=== PATIENT | male | born 1970 | race Caucasian/White ===

== ENCOUNTER 2019-04-06 06:32 | Inpatient (IN) ==
[2019-04-06 07:03] LABS: Basophils % 0.2 % (0.1-2.0); Eosinophils # 0.1 K/mm3 (0.0-0.4); Eosinophils % 0.5 % (0.1-12.0); Hematocrit 42.1 % (42.0-52.0); Hemoglobin 13.3 g/dL (14.1-18.0); Lymphocytes % 14.6 % (10-50); Mean Corpuscular HGB Conc 31.7 g/dL (31.8-35.4); Mean Corpuscular Volume 87.4 fl (80-94); Mean Platelet Volume 8.6 fl (7.4-10.4); Monocytes # 0.6 K/mm3 (0.1-1.0); Monocytes % 4.3 % (1.7-9.3); Neutrophils # 10.9 K/mm3 (1.8-7.8); Neutrophils % 80.4 % (37.0-80.0); Platelet Count 306 K/mm3 (142-424); Red Blood Count 4.81 M/mm3 (4.60-6.20); Red Cell Distribution Width 13.3 % (11.5-17.5); White Blood Count 13.6 K/mm3 (4.8-10.8)
[2019-04-06 07:22] LABS: Alanine Aminotransferase 8 U/L (12-78); Albumin Level 1.9 gm/dL (3.4-5.0); Albumin/Globulin Ratio 0.4 (1.1-1.8); Alkaline Phosphatase 165 U/L (46-116); Anion Gap 14.4 mEq/L (5-15); Aspartate Amino Transferase 5 U/L (15-37); Bilirubin,Total 0.5 mg/dL (0.2-1.0); Blood Urea Nitrogen 6 mg/dL (7-18); Calcium 8.7 mg/dL (8.5-10.1); Carbon Dioxide 24 mmol/L (21.0-32.0); Chloride 88 mmol/L (98-107); Globulin 5.1 gm/dl (1.3-3.2); Sodium 123 mmol/L (136-145)
[2019-04-06 07:28] LABS: Acetone, Serum (Rapid) None Detected (None Detect); Glucose 697 mg/dL (74-106)
--- NOTE | 2019-04-06 07:31 | Emergency Department Note ---
ED Disposition Clinical Impression: Diabetes mellitus, insulin dependent (IDDM), uncontrolled, Tobacco use Abscess of skin and subcutaneous tissue Qualifiers: Site of cutaneous abscess: trunk Site of cutaneous abscess of trunk: back Qualified Code(s): L02.212 - Cutaneous abscess of back [any part, except buttock] Sepsis Qualifiers: Sepsis type: sepsis due to unspecified organism Sepsis acute organ dysfunction status: without acute organ dysfunction Qualified Code(s): A41.9 - Sepsis, unspecified organism Disposition: Admitted As Inpatient Condition on Discharge: Good Referrals: Provider,Referral, [Primary Care Provider] - - Critical Care Critical Care Time: No Attestation: On 04/06/19, the high probability of a clinically significant, sudden or life threatening deterioration of the following system(s) required my full and direct attention, intervention and personal management. The time I documented below is in addition to time spent performing reported procedures but includes the f ollowing listed in this critical care notation. Medical Decision Making - Medical Records Medical records reviewed: Yes: I reviewed the patient's medical records. - Renan Inquiry Pt receiving controlled substance: No Vital Signs: 04/06/19 06:26 Temperature 100.9 F H Temperature Source Oral Pulse Rate [Left Radial] 106 H Respiratory Rate 18 Blood Pressure [Right Arm] 186/87 H Blood Pressure Mean [Right Arm] 120 02 Sat by Pulse Oximetry 97 Oxygen Delivery Method Room Air - Lab Data Lab results reviewed: Yes: I reviewed the patient's lab results. Lab Results 04/06/19 06:30: WBC 13.6 H, RBC 4.81, Hgb 13.3 L, Hct 42.1, MCV 87.4, MCH 27.7, MCHC 31.7 L, RDW 13.3, Plt Count 306, MPV 8.6, Neut % (Auto) 80.4 H, Lymph % (Auto) 14.6, [place] % (Auto) 4.3, Eos % (Auto) 0.5, Baso % (Auto) 0.2, Neut # (Auto) 10.9 H, Lymph # (Auto) 2.0, [place] # (Auto) 0.6, Eos # (Auto) 0.1, Baso # (Auto) 0.0 Result diagrams: 04/06/19 06:30 Orders (Tests/Meds): ED MEDICATIONS Generic Name Dose Route Start Last Admin Trade Name Freq PRN Reason Stop Dose Admin Sodium Chloride 1,000 mls @ 999 mls/hr 04/06/19 07:00 04/06/19 06:52 Sod Chlor 0.9% 1000ml Bag IV 04/06/19 08:00 999 mls/hr .Q1H1M AMARI Administration Discontinued Medications Generic Name Dose Route Start Last Admin Trade Name Jose PRN Reason Stop Dose Admin Ketorolac Tromethamine 30 mg 04/06/19 06:47 04/06/19 06:52 Toradol 30mg/Ml Vial IV 04/06/19 06:48 30 mg ONCE ONE Administration Ondansetron HCl 4 mg 04/06/19 06:47 04/06/19 06:52 Zofran 4mg/2ml Vial IV 04/06/19 06:48 4 mg ONCE ONE Administration ORDERS Category Date Time Status Acetone, Serum (Rapid) Stat Lab 04/06/19 06:30 Received C-Reactive Protein Stat Lab 04/06/19 06:30 Received Complete Blood Count Auto Diff Stat Lab 04/06/19 06:30 Results Comprehensive Metabolic Panel Stat Lab 04/06/19 06:30 Received Erythrocyte Sedimentation Rate Stat Lab 04/06/19 06:30 Results Lactic Acid Stat Lab 04/06/19 06:40 Received Urinalysis and Microscopic Stat Lab 04/06/19 06:47 Ordered Blood Culture Stat Micro 04/06/19 06:40 Received General Adult HPI - General Chief complaint: PAIN Stated complaint: abcess to left shoulder Time Seen by Provider: 04/06/19 07:00 Mode of Arrival: EMS Source of Information: Patient, EMS, Medical Record Limitations: No Limitations Description of Symptoms (Recalled from ER Triage Doc. by RN): pt stated his kitten scratched him about 4-5 days ago on his left shoulder. obvious redness and abcess to left shoulder. - History of Present Illness HPI narrative: iddm pt with abscess to lt shoulder over the last few days Onset (ago): day(s) Location: back Severity: moderate Associated symptoms: denies other symptoms Treatments prior to arrival: none - Related Data Allergies Allergy/AdvReac Type Severity Reaction Status Date / Time codeine Allergy Verified 04/06/19 06:42 [facility] History - Hepatitis A Screen Drug use history?: No High risk sexual behaviors?: No History of sexually transmitted infection?: No Currently employed?: No Childcare worker?: No Do you have indoor plumbing?: Yes Do you have electricity?: Yes Attestation statement:: This patient has been screened for Hepatitis A risk factors. I have reviewed the patient's past medical history: Yes Medical History: Denies:: Diabetes Mellitus Type 2 - Social History Educational Level: Completed High School Alcohol Intake: never Occupational Status: disabled Housing: apartment Household Members: spouse ROS Obtained: Yes All systems reviewed & no additional complaints - Constitutional Constitutional: Denies fever(s) - Eyes Eyes: Denies change in vision - ENT Ears, Nose, Mouth, and Throat: Denies sore throat - Cardiovascular Cardiovascular: Denies chest pain - Respiratory Respiratory: No cough - Gastrointestinal Gastrointestingal: Denies: abdominal pain - Genitourinary Male Genitourinary: Denies hematuria - Musculoskeletal Musculoskeletal: Denies joint pain - Integumentary/Breasts Skin/Breast: Reports as per HPI - Neurologic Neurologic: Denies seizure-like activity Physical Exam - General General appearance: alert - Head Head exam: normocephalic - Eye Eye exam: Present: PERRL, EOMI - ENT ENT exam: Present: mucous membranes dry - Neck Neck exam: Present: trachea midline - Respiratory Respiratory exam: Present: normal lung sounds bilaterally. Absent: respiratory distress - Cardiovascular Cardiovascular exam: Present: regular rate, systolic murmur - Extremities Exam Extremities exam: Present: full ROM - Neurological Exam Neurological exam: Present: alert, oriented X3, CN II-XII intact - Psychiatric Psychiatric exam: Present: normal affect - Skin Skin exam: Present: other (large indurated abscess lt scapular area )
[2019-04-06 07:42] LABS: C-Reactive Protein 29.4 mg/dL (0.0-0.9)
[2019-04-06 07:44] LABS: Erythrocyte Sedimentation Rate 39 mm/hr (0-15)
[2019-04-06 07:59] LABS: Microscopic, Urine URINE MICROSCOPIC (MICROSCOPIC)
[2019-04-06 08:00] LABS: Appearance,Urine CLEAR (Clear); Bilirubin,Urine Negative (Negative); Blood, Urine 1+ (Negative); Color,Urine YELLOW (Yellow); Glucose,Urine (UA) 3+ (Negative); Ketones,Urine Negative (Negative); Leukocyte Esterase,Urine Negative (Negative); Protein,Urine 1+ (Negative); Specific Gravity, Urine <= 1.005 (1.005-1.030); Urobilinogen,Urine 0.2 EU/dl (0.2)
[2019-04-06 08:24] LABS: Amorphous Sediment,Urine Trace /lpf; Bacteria,Urine Trace /lpf; Squamous Epithelial Cell,Urine Occasional #/hpf (0-5)
--- NOTE | 2019-04-06 12:06 | History & Physical Report ---
*Admission Date: 04/06/19 *Chief complaint: abscess *History of present illness: this wm presented to the ed with abscess to lt scapular region after reported cat scratch- he is iddm and had sig abscess noed in the ed which would need iv abx and surg eval for prob surg debridment [facility] History I have reviewed the patient's past medical history: Yes Medical History: Reports:: Diabetes Mellitus Type 2, MRSA Denies:: Cancer *Have you ever received a pneumonia vaccine?: Yes *Have you received a flu vaccine this season?: Yes Laterality Cases: Right: Total Knee Replacement Other Surgeries: Yes: Cholecystectomy Amputation: No Fractures: No - *Social History Educational Level: Completed High School Smoking Status: Current every day smoker # Packs/Day (cigarettes): 1 Alcohol Intake: never *Occupational Status:: disabled Housing: apartment Household Members: spouse *Travel in the last 8 weeks: None - Psychiatric History Expresses thoughts of harming self/others: None Suicide Plan Description: No Plan Family Hx:: Asthma, Coronary Artery Disease, Hyperlipidemia, Hypertension, Stroke Review of Systems - Review of Systems Review of systems:: pertinent systems reviewed and negative unless documented below - Constitutional Reports fever(s) - Eyes Denies change in vision - ENT Reports sore throat - *Cardiovascular Denies chest pain - *Respiratory Denies cough - *Gastrointestinal Denies abdominal pain - *Genitourinary Denies blood in urine - *Musculoskeletal Denies joint pain - Integumentary/Breasts Denies rash - *Neurologic Denies seizure-like activity - Psychiatric Denies anxiety Meds Home Medications Medication Instructions Recorded Confirmed Type Insulin Glargine,Hum.rec.anlog 20 unit SQ BID 04/06/19 04/06/19 History [Lantus Insulin 100units/mL 10mL vial] Lisinopril [Prinivil 5mg Tablet] 5 mg PO DAILY 04/06/19 04/06/19 History glipiZIDE [Glucotrol 5mg tablet] 5 mg PO DAILY 04/06/19 04/06/19 History Allergies Allergy/AdvReac Type Severity Reaction Status Date / Time codeine Allergy Verified 04/06/19 06:42 Exam Vital signs and Labs for Last 24 Hours: Temp Pulse Resp BP Pulse Ox 98.3 F 93 H 18 131/82 98 04/06/19 09:12 04/06/19 09:12 04/06/19 09:12 04/06/19 09:12 04/06/19 09:12 Laboratory Results - last 24 hr 04/06/19 06:30: WBC 13.6 H, RBC 4.81, Hgb 13.3 L, Hct 42.1, MCV 87.4, MCH 27.7, MCHC 31.7 L, RDW 13.3, Plt Count 306, MPV 8.6, Neut % (Auto) 80.4 H, Lymph % (Auto) 14.6, [place] % (Auto) 4.3, Eos % (Auto) 0.5, Baso % (Auto) 0.2, Neut # (Auto) 10.9 H, Lymph # (Auto) 2.0, [place] # (Auto) 0.6, Eos # (Auto) 0.1, Baso # (Auto) 0.0, ESR 39 H 04/06/19 06:30: Sodium 123 L, Potassium 3.4 L, Chloride 88 L, Carbon Dioxide 24, Anion Gap 14.4, BUN 6 L, Creatinine 1.30, Estimated Creat Clear 98, Estimated GFR 59, Est GFR ( Amer) 71, Glucose 697 H*, Calcium 8.7, Total Bilirubin 0.5, AST 5 L, ALT 8 L, Alkaline Phosphatase 165 H, C-Reactive Protein 29.4 H, Total Protein 7.0, Albumin 1.9 L, Globulin 5.1 H, Albumin/Globulin Ratio 0.4 L, Acetone Level None detected 04/06/19 06:40: Lactate 2.2 H 04/06/19 07:50: Urine Color Yellow, Urine Appearance Clear, Urine pH 6.0, Ur Specific [place] <= 1.005, Urine Protein 1+, Urine Glucose (UA) 3+, Urine Ketones Negative, Urine Blood 1+, Urine Nitrate Negative, Urine Bilirubin Negative, Urine Urobilinogen 0.2, Ur Leukocyte Esterase Negative, Urine RBC 5- 10, Urine WBC 10-20, Ur Squamous Epith Cells Occasional, Amorphous Sediment Trace, Urine Bacteria Trace 04/06/19 11:20: Lactate 1.0 04/06/19 11:33: POC Glucose 440 H* I & O for Last 24 hours: Intake & Output 04/04/19 04/05/19 04/06/19 04/07/19 11:59 11:59 11:59 11:59 Weight 199 lb 2 oz - Constitutional no acute distress - *Routine HEENT Exam Head: Present: normocephalic Eye: Present: EOMI, PERRL ENT: Present: mucous membranes dry - *Routine Neck Exam Present: supple - *Routine Respiratory Exam Present: CTA bilaterally - *Routine Cardiovascular Exam Present: RRR, murmur - *Routine Abdominal Exam Present: soft - *Routine Extremities Exam Present: full ROM - *Routine Skin Exam Comments: large lt scapular abscess - *Routine Neurological Exam Present: alert, oriented X3, CN II-XII intact - Routine Psychiatric Exam Present: normal affect Assessment and Plan (1) Abscess of skin and subcutaneous tissue Current visit: Yes Status: Acute Qualifiers: Site of cutaneous abscess: trunk Site of cutaneous abscess of trunk: back Qualified Code(s): L02.212 - Cutaneous abscess of back [any part, except buttock] Category: Medical Code(s): L02.91 - Cutaneous abscess, unspecified (2) Diabetes mellitus, insulin dependent (IDDM), uncontrolled Current visit: Yes Status: Acute Category: Medical Code(s): E11.65 - Type 2 diabetes mellitus with hyperglycemia; Z79.4 - senior care (current) use of insulin (3) Tobacco use Current visit: Yes Status: Acute Category: Medical Code(s): Z72.0 - Tobacco use (4) Sepsis Current visit: Yes Status: Acute Qualifiers: Sepsis type: sepsis due to unspecified organism Sepsis acute organ dysfunction status: without acute organ dysfunction Qualified Code(s): A41.9 - Sepsis, unspecified organism Category: Medical Code(s): A41.9 - Sepsis, unspecified organism
--- NOTE | 2019-04-06 13:32 | Consult Report ---
*Admission Date: 04/06/19 *Reason for consult:: Abscess *History of present illness: Patient is a 48-year-old white male who resides at the [facility]. He is a diabetic. He states that several days ago he had sustained a cat scratch on his back. Today it became increasingly tender and sore with radiation of pain into his posterior neck area. He presented to the emergency department where he was seen and evaluated and found to have a large abscess over the left shoulder area. He had profound hyperglycemia with glucose of 697. He was admitted for inpatient management and surgical consultation. He was started on Zosyn and clindamycin. Review of Systems - Review of Systems Review of systems:: pertinent systems reviewed and negative unless documented below - *Neurologic Denies seizure-like activity [facility] History Medical History: Reports:: Diabetes Mellitus Type 2, MRSA Denies:: Cancer *Have you ever received a pneumonia vaccine?: Yes *Have you received a flu vaccine this season?: Yes Laterality Cases: Right: Total Knee Replacement Other Surgeries: Yes: Cholecystectomy Amputation: No Fractures: No - *Social History Educational Level: Completed High School Smoking Status: Current every day smoker # Packs/Day (cigarettes): 1 Alcohol Intake: never *Occupational Status:: disabled Housing: apartment Household Members: spouse *Travel in the last 8 weeks: None - Psychiatric History Expresses thoughts of harming self/others: None Suicide Plan Description: No Plan Family Hx:: Asthma, Coronary Artery Disease, Hyperlipidemia, Hypertension, Stroke Meds Home Medications Medication Instructions Recorded Confirmed Type Insulin Glargine,Hum.rec.anlog 20 unit SQ BID 04/06/19 04/06/19 History [Lantus Insulin 100units/mL 10mL vial] Lisinopril [Prinivil 5mg Tablet] 5 mg PO DAILY 04/06/19 04/06/19 History glipiZIDE [Glucotrol 5mg tablet] 5 mg PO DAILY 04/06/19 04/06/19 History Allergies Allergy/AdvReac Type Severity Reaction Status Date / Time codeine Allergy Verified 04/06/19 06:42 Exam Vital signs and Labs for Last 24 Hours: Temp Pulse Resp BP Pulse Ox 98.3 F 93 H 18 131/82 98 04/06/19 09:12 04/06/19 09:12 04/06/19 09:12 04/06/19 09:12 04/06/19 09:12 Laboratory Results - last 24 hr 04/06/19 06:30: WBC 13.6 H, RBC 4.81, Hgb 13.3 L, Hct 42.1, MCV 87.4, MCH 27.7, MCHC 31.7 L, RDW 13.3, Plt Count 306, MPV 8.6, Neut % (Auto) 80.4 H, Lymph % (Auto) 14.6, [place] % (Auto) 4.3, Eos % (Auto) 0.5, Baso % (Auto) 0.2, Neut # ( Auto) 10.9 H, Lymph # (Auto) 2.0, [place] # (Auto) 0.6, Eos # (Auto) 0.1, Baso # (Auto) 0.0, ESR 39 H 04/06/19 06:30: Sodium 123 L, Potassium 3.4 L, Chloride 88 L, Carbon Dioxide 24, Anion Gap 14.4, BUN 6 L, Creatinine 1.30, Estimated Creat Clear 98, Estimated GFR 59, Est GFR ( Amer) 71, Glucose 697 H*, Calcium 8.7, Total Bilirubin 0.5, AST 5 L, ALT 8 L, Alkaline Phosphatase 165 H, C-Reactive Protein 29.4 H, Total Protein 7.0, Albumin 1.9 L, Globulin 5.1 H, Albumin/Globulin Ratio 0.4 L, Acetone Level None detected 04/06/19 06:40: Lactate 2.2 H 04/06/19 07:50: Urine Color Yellow, Urine Appearance Clear, Urine pH 6.0, Ur Specific [place] <= 1.005, Urine Protein 1+, Urine Glucose (UA) 3+, Urine Ketones Negative, Urine Blood 1+, Urine Nitrate Negative, Urine Bilirubin Negative, Urine Urobilinogen 0.2, Ur Leukocyte Esterase Negative, Urine RBC 5- 10, Urine WBC 10-20, Ur Squamous Epith Cells Occasional, Amorphous Sediment Trace, Urine Bacteria Trace 04/06/19 11:20: Lactate 1.0 04/06/19 11:33: POC Glucose 440 H* I & O for Last 24 hours: Intake & Output 04/04/19 04/05/19 04/06/19 04/07/19 11:59 11:59 11:59 11:59 Weight 199 lb 2 oz - *Routine HEENT Exam Head: Present: normocephalic Eye: Present: EOMI, PERRL ENT: Present: mucous membranes moist - *Routine Neck Exam Present: supple. Absent: lymphadenopathy - *Routine Respiratory Exam Present: CTA bilaterally - *Routine Cardiovascular Exam Present: RRR - *Routine Abdominal Exam Present: soft, normoactive bowel sounds. Absent: tenderness - *Routine Extremities Exam Absent: cyanosis, clubbing, edema - *Routine Skin Exam Present: rash Comments: On the left upper back overlying the trapezius region there is a large indurated area with overlying erythema. It is very tender. There are multiple punctate purulent areas some of which have exudate. - *Routine Neurological Exam Present: alert, oriented X3 - Detailed Eye Exam Eyelids: Left normal inspection Results - Labs 04/06/19 06:30 04/06/19 06:30 Laboratory Results - last 24 hr 04/06/19 06:30: WBC 13.6 H, RBC 4.81, Hgb 13.3 L, Hct 42.1, MCV 87.4, MCH 27.7, MCHC 31.7 L, RDW 13.3, Plt Count 306, MPV 8.6, Neut % (Auto) 80.4 H, Lymph % (Auto) 14.6, [place] % (Auto) 4.3, Eos % (Auto) 0.5, Baso % (Auto) 0.2, Neut # (Auto) 10.9 H, Lymph # (Auto) 2.0, [place] # (Auto) 0.6, Eos # (Auto) 0.1, Baso # (Auto) 0.0, ESR 39 H 04/06/19 06:30: Sodium 123 L, Potassium 3.4 L, Chloride 88 L, Carbon Dioxide 24, Anion Gap 14.4, BUN 6 L, Creatinine 1.30, Estimated Creat Clear 98, Estimated GFR 59, Est GFR ( Amer) 71, Glucose 697 H*, Calcium 8.7, Total Bilirubin 0.5, AST 5 L, ALT 8 L, Alkaline Phosphatase 165 H, C-Reactive Protein 29.4 H, Total Protein 7.0, Albumin 1.9 L, Globulin 5.1 H, Albumin/Globulin Ratio 0.4 L, Acetone Level None detected 04/06/19 06:40: Lactate 2.2 H 04/06/19 07:50: Urine Color Yellow, Urine Appearance Clear, Urine pH 6.0, Ur Specific [place] <= 1.005, Urine Protein 1+, Urine Glucose (UA) 3+, Urine Ketones Negative, Urine Blood 1+, Urine Nitrate Negative, Urine Bilirubin Negative, Urine Urobilinogen 0.2, Ur Leukocyte Esterase Negative, Urine RBC 5- 10, Urine WBC 10-20, Ur Squamous Epith Cells Occasional, Amorphous Sediment Trace, Urine Bacteria Trace 04/06/19 11:20: Lactate 1.0 04/06/19 11:33: POC Glucose 440 H* Assessment and Plan - Assessment and plan all Dx Assessment and Plan for all problems:: He has a soft tissue infection with abscess of the left upper back area. Plan for emergent operative intervention with incision and drainage and debridement.
--- NOTE | 2019-04-06 14:46 | Operative Note ---
Date of procedure: 04/06/19 Pre-op Diagnosis:: Soft tissue infection of the left upper back Post-op Diagnosis:: Same Procedure performed:: Incision and drainage of complex deep abscess from the left upper back with debridement of skin, subcutaneous tissue, fascia, limited muscle. Surgeon:: Mike Morales MD WATCH MECHANIC:: Arnav Milner Anesthesia: GETA Estimated blood loss (mL): 15 Clinical Note:: Patient is a 48-year-old diabetic male. He states that about 4 or 5 days prior to presentation he had developed a cat scratch on his left upper back over the trapezius area. According to him it became somewhat purulent and he states that when it finally got to the point of severe throbbing pain radiating into his neck he presented to the emergency department. He was seen and evaluated in the emergency department this morning and found to have evidence of significant abscess of the left upper back area with profound hyperglycemia with a blood sugar of 697. He was admitted for inpatient management and surgical consultation. Arrangements were made for urgent incision and drainage and debridement. Operative findings:: He had evidence of necrotizing soft tissue infection involving subcutaneous tissues and fascia. There was purulence tracking through the subcutaneous tissues and deep to the fascia to some degree with evidence of some areas of liquefied necrosis of tissues. Overall size of the wound was debrided to healthy tissues measured 6 cm x 11 cm x 3.5 cM in depth. Operative note:: Patient was taken to the operating room. He was positioned in a supine position. General anesthesia was induced. He was repositioned in right lateral decubitus position. The area was prepped and draped in the standard surgical fashion. He had evidence of some necrosis of the skin characterized by multiple small exudative purulent ulcerations. Limited incision was made centrally in the area of most of affected tissue. Dissection was carried down through to the skin. There was large amount of very thickened necrotic pus which exuded from the wound. This was sent for culture. Limited debridement was carried out initially. There is purulence fluid tracking throughout the subcutaneous tissues and traversing deeply. Sequential serial incisions were made circumferentially from the central point with serial debridement carried out until healthy nonnecrotic tissues were encountered. This did require some dissection down to, and including, fascia with limited muscle involvement. Ul timately the debrided tissue was sent as specimen. Once debridement was carried out to healthy tissue the wound was thoroughly irrigated with 3 L of pulsatile saline irrigation using the Interpulse device. Hemostasis was achieved with use of electrocautery. Local anesthetic was infiltrated. Wound was packed with a saline moistened Kerlix gauze and covered with clean dry sterile dressing. Please note that the size of the wound once debridement was carried out measured approximately 6 cm x 11 cm x 3-1/2 cm. Condition: stable Disposition: PACU Specimens:: Debrided tissue. Cultures sent Complications:: None immediately apparent
--- NOTE | 2019-04-06 14:47 | Progress Note ---
[facility] Anesthesia Checklist - Patient Identification Patient Identification: Arm Band - Structural Data Admitted From: Inpatient Planned Operative Procedure/s: I&D back abscess Consent for Planned Operative Procedure(s) Verified: Yes Verified Documents: Surgical Consent, History and Physical - NPO Status Verified Time NPO: 00:00 - Additional verifications Anesthesia Reactions: No - Airway Assessment C-Spine Mobility Assessed: Yes (mp2) TMJ Mobility Assessed: Yes Dentition: Edentulous - Neurological Assessment Level of Consciousness: Awake, Alert - Anesthesia Plan Anesthesia Risk discussed: Yes Anesthesia Plan: Verified ASA Class: III Anesthesia Type: General [facility] History I have reviewed the patient's past medical history: Yes Medical History: Reports:: Diabetes Mellitus Type 2, Hypertension, MRSA Denies:: Cancer *Have you ever received a pneumonia vaccine?: Yes *Have you received a flu vaccine this season?: Yes Laterality Cases: Right: Total Knee Replacement Other Surgeries: Yes: Cholecystectomy Amputation: No Fractures: No - *Social History Educational Level: Completed High School Smoking Status: Current every day smoker # Packs/Day (cigarettes): 1 Alcohol Intake: never Substance Use Type: denies use *Occupational Status:: disabled Housing: apartment Household Members: spouse *Travel in the last 8 weeks: None - Psychiatric History Expresses thoughts of harming self/others: None Suicide Plan Description: No Plan Family Hx:: Asthma, Coronary Artery Disease, Hyperlipidemia, Hypertension, Stroke
--- NOTE | 2019-04-06 14:48 | Progress Note ---
[facility] Anesthesia Record Part II Discharge Time: 15:10 Destination: [facility] PACU nurse assessment reviewed?: Yes Patient Condition:: Good Anesthesia Complications:: None Swallowing reflex intact?: Yes Cyanosis?: No
--- NOTE | 2019-04-06 14:48 | Progress Note ---
[facility] Anesthesia Record Part I Intake, IV Amount: 1,000 Estimated blood loss (mL): 15 Urine output (mL): 0 Blood Pressure: 84/44 SaO2: 96 Pulse Rate: 74 Respiratory Rate: 16 Temperature: 97 F Patient is:: Drowsy, Stable Stable to PACU at:: 14:40
[2019-04-07 07:30] LABS: Basophils % 0.2 % (0.1-2.0); Eosinophils # 0.2 K/mm3 (0.0-0.4); Eosinophils % 2.1 % (0.1-12.0); Hematocrit 33.3 % (42.0-52.0); Hemoglobin 10.9 g/dL (14.1-18.0); Lymphocytes % 27.1 % (10-50); Mean Corpuscular HGB Conc 32.7 g/dL (31.8-35.4); Mean Corpuscular Volume 84.4 fl (80-94); Mean Platelet Volume 8.2 fl (7.4-10.4); Monocytes # 0.3 K/mm3 (0.1-1.0); Monocytes % 4.2 % (1.7-9.3); Neutrophils # 4.8 K/mm3 (1.8-7.8); Neutrophils % 66.4 % (37.0-80.0); Platelet Count 264 K/mm3 (142-424); Red Blood Count 3.94 M/mm3 (4.60-6.20); Red Cell Distribution Width 13.4 % (11.5-17.5); White Blood Count 7.2 K/mm3 (4.8-10.8)
[2019-04-07 07:39] LABS: Anion Gap 9.1 mEq/L (5-15); Calcium 8.3 mg/dL (8.5-10.1); Chol/HDL Ratio 6.1 (1-3.5)
--- NOTE | 2019-04-07 07:45 | Pharmacy Consult Notes ---
[facility] Pharmacy VTE Monitoring - Patient Demographics Admission date: 04/06/19 Report Date: 04/07/19 Time: 07:45 Allergies/Adverse Reactions: Patient Allergies codeine Allergy (Verified 04/06/19 06:42) Height: 1.8 m Weight: 92.108 kg Patient Problems: Current Active Problems Abscess of skin and subcutaneous tissue (Acute) Diabetes mellitus, insulin dependent (IDDM), uncontrolled (Acute) Tobacco use (Acute) Sepsis (Acute) - VTE Risk Labs: VTE Related Lab Results Hgb 13.3 g/dL (14.1-18.0) L 04/06/19 06:30 Hct 42.1 % (42.0-52.0) 04/06/19 06:30 Plt Count 306 K/mm3 (142-424) 04/06/19 06:30 BUN 6 mg/dL (7-18) L 04/06/19 06:30 Creatinine 1.30 mg/dL (0.70-1.30) 04/06/19 06:30 Estimated Creat Clear 98 mL/min (50-200) 04/06/19 06:30 VTE Score: 3 VTE Risk Level: Low Risk - Prophylaxis VTE Prophylaxis Ordered?: Yes Types of VTE Prophylaxis: TEDS Knee High Location of Applied Device: Bilateral Lower Extremeties - VTE Diagnosis Confirmed Treatment or plan recommended: Continue Current Treatment
--- NOTE | 2019-04-07 08:54 | Progress Note ---
Subjective Patient reports: no new complaints Exam Vital signs and Labs for Last 24 Hours: Temp Pulse Resp BP Pulse Ox 98.1 F 84 16 209/97 H 100 04/07/19 08:00 04/07/19 08:00 04/07/19 08:00 04/07/19 08:00 04/07/19 08:00 Laboratory Results - last 24 hr 04/06/19 11:20: Lactate 1.0 04/06/19 11:33: POC Glucose 440 H* 04/06/19 13:26: POC Glucose 288 H 04/06/19 14:10: POC Glucose 173 H 04/06/19 17:02: POC Glucose 85 04/06/19 20:18: POC Glucose 280 H 04/07/19 02:57: POC Glucose 186 H 04/07/19 05:11: POC Glucose 189 H 04/07/19 06:52: WBC 7.2 D, RBC 3.94 L, Hgb 10.9 L, Hct 33.3 L, MCV 84.4, MCH 27.6, MCHC 32.7, RDW 13.4, Plt Count 264, MPV 8.2, Neut % (Auto) 66.4, Lymph % (Auto) 27.1, [place] % (Auto) 4.2, Eos % (Auto) 2.1, Baso % (Auto) 0.2, Neut # (Auto) 4.8, Lymph # (Auto) 2.0, [place] # (Auto) 0.3, Eos # (Auto) 0.2, Baso # (Auto) 0.0 04/07/19 06:52: Sodium 135 L, Potassium 3.1 L, Chloride 100, Carbon Dioxide 29 D, Anion Gap 9.1, BUN 10 D, Creatinine 1.13, Estimated Creat Clear 104, Estimated GFR 69, Est GFR ( Amer) 84, Glucose 172 H, Calcium 8.3 L, Magnesium 1.5, Triglycerides 166, Cholesterol 97 L, LDL Cholesterol 48, VLDL Cholesterol 33, HDL Cholesterol 16 L, Cholesterol/HDL Ratio 6.1 H I & O for Last 24 hours: Intake & Output 04/04/19 04/05/19 04/06/19 04/07/19 11:59 11:59 11:59 11:59 Intake Total 4112 / 4112 Output Total 100 / 100 Balance 4012 / 4012 Weight 199 lb 2 oz 203 lb 1 oz Microbiology Reports for the Last 24 Hours: Microbiology 04/06/19 07:50 Urine,Clean Catch Urine Culture - Preliminary NO GROWTH AFTER 24 HOURS 04/06/19 14:00 Back Gram Stain - Final - *Routine Skin Exam Comments: There is minimal erythema around the wound but overall clean with no evidence of any purulent drainage or necrosis. Progress Note: A&P (1) Abscess of skin and subcutaneous tissue Status: Acute Current Visit: Yes (2) Diabetes mellitus, insulin dependent (IDDM), uncontrolled Status: Acute Current Visit: Yes (3) Tobacco use Status: Acute Current Visit: Yes (4) Sepsis Status: Acute Current Visit: Yes Assessment and Plan for All Diagnoses:: Continue wound care. Continue antibiotics. Cultures pending. Ultimately will need VAC dressing.
--- NOTE | 2019-04-07 12:48 | Progress Note ---
Internal Medicine - PN: Subj *Date: 04/07/19 *Time: 12:52 Interval history: 48-year-old patient sitting up in bed respirations easy and even denies chest pain or S0A. Dressing to left upper back clean dry and intact. Patient reports pain is under control and denies any needs at this time. Patient is a 48-year-old diabetic male. He states that about 4 or 5 days prior to presentation he had developed a cat scratch on his left upper back over the trapezius area. According to him it became somewhat purulent and he states that when it finally got to the point of severe throbbing pain radiating into his neck he presented to the emergency department. He was seen and evaluated in the emergency department this morning and found to have evidence of significant abscess of the left upper back area with profound hyperglycemia with a blood sugar of 697. He was admitted for inpatient management and surgical consultation. Arrangements were made for urgent incision and drainage and debridement (per Dr. Morales). Debridement 04/06/2019: Incision and drainage of complex deep abscess from the left upper back with debridement of skin, subcutaneous tissue, fascia, limited muscle (per Dr. Morales). Exam Vital signs and Labs for Last 24 Hours: Temp Pulse Resp BP Pulse Ox 98.2 F 84 20 168/62 H 100 04/07/19 12:00 04/07/19 08:00 04/07/19 12:00 04/07/19 12:00 04/07/19 12:00 Laboratory Results - last 24 hr 04/06/19 13:26: POC Glucose 288 H 04/06/19 14:10: POC Glucose 173 H 04/06/19 14:51: POC Glucose 122 H 04/06/19 17:02: POC Glucose 85 04/06/19 20:18: POC Glucose 280 H 04/07/19 02:57: POC Glucose 186 H 04/07/19 05:11: POC Glucose 189 H 04/07/19 06:52: WBC 7.2 D, RBC 3.94 L, Hgb 10.9 L, Hct 33.3 L, MCV 84.4, MCH 27.6, MCHC 32.7, RDW 13.4, Plt Count 264, MPV 8.2, Neut % (Auto) 66.4, Lymph % (Auto) 27.1, [place] % (Auto) 4.2, Eos % (Auto) 2.1, Baso % (Auto) 0.2, Neut # (Auto) 4.8, Lymph # (Auto) 2.0, [place] # (Auto) 0.3, Eos # (Auto) 0.2, Baso # (Auto) 0.0 04/07/19 06:52: Sodium 135 L, Potassium 3.1 L, Chloride 100, Carbon Dioxide 29 D, Anion Gap 9.1, BUN 10 D, Creatinine 1.13, Estimated Creat Clear 104, Estimated GFR 69, Est GFR ( Amer) 84, Glucose 172 H, Calcium 8.3 L, Magnesium 1.5, Triglycerides 166, Cholesterol 97 L, LDL Cholesterol 48, VLDL Cholesterol 33, HDL Cholesterol 16 L, Cholesterol/HDL Ratio 6.1 H 04/07/19 11:01: POC Glucose 168 H I & O for Last 24 hours: Intake & Output 04/04/19 04/05/19 04/06/19 04/07/19 23:59 23:59 23:59 23:59 Intake Total 2108 Output Total 100 / 100 Balance 2108 1903 / 1903 Weight 199 lb 2 oz 203 lb 1 oz Microbiology Reports for the Last 24 Hours: Microbiology 04/06/19 07:50 Urine,Clean Catch Urine Culture - Preliminary NO GROWTH AFTER 24 HOURS 04/06/19 14:00 Back Gram Stain - Final - Constitutional no acute distress - *Routine HEENT Exam Head: Present: normocephalic, atraumatic. Absent: tenderness of temporal artery Eye: Present: EOMI, PERRL, normal accommodation. Absent: periorbital swelling ENT: Present: mucous membranes moist. Absent: septal deviation - *Routine Neck Exam Present: supple, full ROM. Absent: JVD - *Routine Respiratory Exam Absent: accessory muscle use - *Routine Cardiovascular Exam Present: RRR, murmur - *Routine Abdominal Exam Present: soft, normoactive bowel sounds. Absent: tenderness, rigid - *Routine Extremities Exam Present: full ROM. Absent: edema, calf tenderness - Routine Back/Spine/Pelvis Exam Back/Spine: Present: full ROM. Absent: CVA tenderness - *Routine Skin Exam Present: warm, wounds. Absent: cyanosis, jaundice Comments: Drsg to L scapula C/D/I - *Routine Neurological Exam Present: alert, oriented X3, CN II-XII intact. Absent: altered mental status - Routine Psychiatric Exam Present: normal affect, normal thought process. Absent: auditory hallucinations, tactile hallucinations Assessment and Plan (1) Abscess of skin and subcutaneous tissue Current visit: Yes Status: Acute Qualifiers: Site of cutaneous abscess: trunk Site of cutaneous abscess of trunk: back Qualified Code(s): L02.212 - Cutaneous abscess of back [any part, except buttock] Category: Medical Code(s): L02.91 - Cutaneous abscess, unspecified (2) Diabetes mellitus, insulin dependent (IDDM), uncontrolled Current visit: Yes Status: Acute Category: Medical Code(s): E11.65 - Type 2 diabetes mellitus with hyperglycemia; Z79.4 - intermediate teacher (current) use of insulin (3) Tobacco use Current visit: Yes Status: Acute Category: Medical Code(s): Z72.0 - Tobacco use (4) Sepsis Current visit: Yes Status: Acute Qualifiers: Sepsis type: sepsis due to unspecified organism Sepsis acute organ dysfunction status: without acute organ dysfunction Qualified Code(s): A41.9 - Sepsis, unspecified organism Category: Medical Code(s): A41.9 - Sepsis, unspecified organism (5) Hypertension Current visit: Yes Status: Acute Category: Medical Code(s): I10 - Essential (primary) hypertension - Assessment and plan all Dx Assessment and Plan for all problems:: Rounds per Dr. Jasmine, all orders per Dr. Jasmine 1. We will give extra Lisinopril 10mg today and increase to 20mg QD tomorrow 2. Wound cultures pending 3. Per Surg, will probably need wound vac before D/C
[2019-04-08 07:46] LABS: Basophils % 0.4 % (0.1-2.0); Eosinophils # 0.2 K/mm3 (0.0-0.4); Eosinophils % 3.8 % (0.1-12.0); Hematocrit 34.4 % (42.0-52.0); Hemoglobin 11.3 g/dL (14.1-18.0); Lymphocytes # 1.7 K/mm3 (0.7-4.5); Lymphocytes % 38.6 % (10-50); Mean Corpuscular HGB Conc 32.9 g/dL (31.8-35.4); Mean Corpuscular Volume 83.7 fl (80-94); Mean Platelet Volume 8.1 fl (7.4-10.4); Monocytes # 0.3 K/mm3 (0.1-1.0); Monocytes % 5.7 % (1.7-9.3); Neutrophils # 2.3 K/mm3 (1.8-7.8); Neutrophils % 51.5 % (37.0-80.0); Platelet Count 282 K/mm3 (142-424); Red Blood Count 4.11 M/mm3 (4.60-6.20); Red Cell Distribution Width 13.7 % (11.5-17.5); White Blood Count 4.4 K/mm3 (4.8-10.8)
[2019-04-08 08:24] LABS: Anion Gap 11.6 mEq/L (5-15); Calcium 8.5 mg/dL (8.5-10.1)
--- NOTE | 2019-04-08 08:48 | Progress Note ---
Subjective Patient reports: no new complaints Exam Vital signs and Labs for Last 24 Hours: Temp Pulse Resp BP Pulse Ox 97.7 F 85 18 188/94 H 97 04/08/19 04:00 04/08/19 04:00 04/08/19 04:00 04/08/19 04:00 04/08/19 04:00 Laboratory Results - last 24 hr 04/06/19 14:51: POC Glucose 122 H 04/07/19 11:01: POC Glucose 168 H 04/07/19 15:58: POC Glucose 376 H* 04/07/19 20:56: POC Glucose 216 H 04/08/19 06:28: POC Glucose 144 H 04/08/19 07:33: WBC 4.4 L D, RBC 4.11 L, Hgb 11.3 L, Hct 34.4 L, MCV 83.7, MCH 27.5, MCHC 32.9, RDW 13.7, Plt Count 282, MPV 8.1, Neut % (Auto) 51.5, Lymph % (Auto) 38.6, [place] % (Auto) 5.7, Eos % (Auto) 3.8, Baso % (Auto) 0.4, Neut # (Auto) 2.3, Lymph # (Auto) 1.7, [place] # (Auto) 0.3, Eos # (Auto) 0.2, Baso # (Auto) 0.0 04/08/19 07:33: Sodium 138, Potassium 3.6, Chloride 102, Carbon Dioxide 28, Anion Gap 11.6, BUN 8, Creatinine 0.89 D, Estimated Creat Clear 137, Estimated GFR 91, Est GFR ( Amer) 110 D, Glucose 152 H, Calcium 8.5 I & O for Last 24 hours: Intake & Output 04/05/19 04/06/19 04/07/19 04/08/19 11:59 11:59 11:59 11:59 Intake Total 4112 / 4112 1979 / 1979 Output Total 100 / 100 800 / 800 Balance 4012 / 4012 1180 / 1180 Weight 199 lb 2 oz 203 lb 1 oz 211 lb Microbiology Reports for the Last 24 Hours: Microbiology 04/06/19 07:50 Urine,Clean Catch Urine Culture - Final NO GROWTH AFTER 48 HOURS 04/06/19 14:00 Back Gram Stain - Final 04/06/19 14:00 Back Abscess Culture - Final Staphylococcus aureus 04/06/19 06:40 Blood Blood Culture - Preliminary NO GROWTH AFTER 48 HOURS 04/06/19 06:40 Blood Blood Culture - Preliminary NO GROWTH AFTER 48 HOURS - *Routine Skin Exam Comments: Wound is clean with stable erythema. No evidence of any purulence or necrosis Progress Note: A&P (1) Abscess of skin and subcutaneous tissue Status: Acute Current Visit: Yes (2) Diabetes mellitus, insulin dependent (IDDM), uncontrolled Status: Acute Current Visit: Yes (3) Tobacco use Status: Acute Current Visit: Yes (4) Sepsis Status: Acute Current Visit: Yes (5) Hypertension Status: Acute Current Visit: Yes Assessment and Plan for All Diagnoses:: Arrangements are being made for discharge home with outpatient oral antibiotics (Zyvox) and wound VAC.
--- NOTE | 2019-04-08 13:07 | Discharge Summary ---
General - General Admission date:: 04/06/19 Discharge date: 04/08/19 HPI HPI: this wm presented to the ed with abscess to lt scapular region after reported cat scratch- he is iddm and had sig abscess noed in the ed which would need iv abx and surg eval for prob surg debridment Hospital Course Hospital Course: pt was admitted and started on iv abx and had surg consult -taz is a 48-year-old white male who resides at the [facility]. He is a diabetic. He states that several days ago he had sustained a cat scratch on his back. Today it became increasingly tender and sore with radiation of pain into his posterior neck area. He presented to the emergency department where he was seen and evaluated and found to have a large abscess over the left shoulder area. He had profound hyperglycemia with glucose of 697. He was admitted for inpatient management and surgical consultation. He was started on Zosyn and clindamycin. pt was taken to surg -ent is a 48-year-old diabetic male. He states that about 4 or 5 days prior to presentation he had developed a cat scratch on his left upper back over the trapezius area. According to him it became somewhat purulent and he states that when it finally got to the point of severe throbbing pain radiating into his neck he presented to the emergency department. He was seen and evaluated in the emergency department this morning and found to have evidence of significant abscess of the left upper back area with profound hyperglycemia with a blood sugar of 697. He was admitted for inpatient management and surgical consultation. Arrangements were made for urgent incision and drainage and debridement. Operative findings:: He had evidence of necrotizing soft tissue infection involving subcutaneous tissues and fascia. There was purulence tracking through the subcutaneous tissues and deep to the fascia to some degree with evidence of some areas of liquefied necrosis of tissues. Overall size of the wound was debrided to healthy tissues measured 6 cm x 11 cm x 3.5 cM in depth. Operative note:: Patient was taken to the operating room. He was positioned in a supine position. General anesthesia was induced. He was repositioned in right lateral decubitus position. The area was prepped and draped in the standard surgical fashion. He had evidence of some necrosis of the skin characterized by multiple small exudative purulent ulcerations. Limited incision was made centrally in the area of most of affected tissue. Dissection was carried down through to the skin. There was large amount of very thickened necrotic pus which exuded from the wound. This was sent for culture. Limited debridement was carried out initially. There is purulence fluid tracking throughout the subcutaneous tissues and traversing deeply. Sequential serial incisions were made circumferentially from the central point with serial debridement carried out until healthy nonnecrotic tissues were encountered. This did require some dissection down to, and including, fascia with limited muscle involvement. Ultimately the debrided tissue was sent as specimen. Once debridement was carried out to healthy tissue the wound was thoroughly irrigated with 3 L of pulsatile saline irrigation using the Interpulse device. Hemostasis was achieved with use of electrocautery. Local anesthetic was infiltrated. Wound was packed with a saline moistened Kerlix gauze and covered with clean dry sterile dressing pt has did well and has mrsa and will be followed by pcp and surg-zyvox 600 mg bid x 7 days -he is daibetic and has elevated bp - pt will need close follow up Objective Vital signs: Temp Pulse Resp BP Pulse Ox 97.4 F L 75 20 215/99 H 96 04/08/19 12:00 04/08/19 12:00 04/08/19 12:00 04/08/19 12:00 04/08/19 12:00 no acute distress - *Routine HEENT Exam Head: Present: normocephalic Eye: Present: EOMI, PERRL ENT: Present: mucous membranes dry - *Routine Neck Exam Absent: JVD - *Routine Respiratory Exam Present: CTA bilaterally - *Routine Cardiovascular Exam Present: RRR - *Routine Abdominal Exam Present: soft - *Routine Extremities Exam Present: full ROM - *Routine Skin Exam Comments: s/p surg drainage upper post thorax - *Routine Neurological Exam Present: alert, oriented X3, CN II-XII intact - Routine Psychiatric Exam Present: normal affect Results Labs on day of discharge: Labs from last 24 hours 04/08/19 04/08/19 04/08/19 11:34 07:33 07:33 WBC 4.4 L D RBC 4.11 L Hgb 11.3 L Hct 34.4 L MCV 83.7 MCH 27.5 MCHC 32.9 RDW 13.7 Plt Count 282 MPV 8.1 Neut % (Auto) 51.5 Lymph % (Auto) 38.6 [place] % (Auto) 5.7 Eos % (Auto) 3.8 Baso % (Auto) 0.4 Neut # (Auto) 2.3 Lymph # (Auto) 1.7 [place] # (Auto) 0.3 Eos # (Auto) 0.2 Baso # (Auto) 0.0 Sodium 138 Potassium 3.6 Chloride 102 Carbon Dioxide 28 Anion Gap 11.6 BUN 8 Creatinine 0.89 D Estimated Creat Clear 137 Estimated GFR 91 Est GFR ( Amer) 110 D Glucose 152 H POC Glucose 313 H* Calcium 8.5 04/08/19 04/07/19 04/07/19 06:28 20:56 15:58 WBC RBC Hgb Hct MCV MCH MCHC RDW Plt Count MPV Neut % (Auto) Lymph % (Auto) [place] % (Auto) Eos % (Auto) Baso % (Auto) Neut # (Auto) Lymph # (Auto) [place] # (Auto) Eos # (Auto) Baso # (Auto) Sodium Potassium Chloride Carbon Dioxide Anion Gap BUN Creatinine Estimated Creat Clear Estimated GFR Est GFR ( Amer) Glucose POC Glucose 144 H 216 H 376 H* Calcium Preliminary micro results at discharge 04/06/19 06:40 Blood Culture - Preliminary Blood NO GROWTH AFTER 48 HOURS 04/06/19 06:40 Blood Culture - Preliminary Blood NO GROWTH AFTER 48 HOURS DS: Diagnosis - Discharge Diagnosis (1) Abscess of skin and subcutaneous tissue Status: Acute (2) Diabetes mellitus, insulin dependent (IDDM), uncontrolled Status: Acute (3) Tobacco use Status: Acute (4) Sepsis Status: Acute (5) Hypertension Status: Acute Discharge Plan - Patient Discharge Instructions ACTIVITY: Continue current activity DIET: continue same diet Patient Instructions: DI for Skin Abscess - Follow up Plan Disposition: Home, Self-[facility] Medications: Home Medications Medication Instructions Recorded Confirmed Type Insulin Glargine,Hum.rec.anlog 20 unit SQ BID 04/06/19 04/06/19 History [Lantus Insulin 100units/mL 10mL vial] glipiZIDE [Glucotrol 5mg tablet] 5 mg PO DAILY 04/06/19 04/06/19 History Lisinopril [Lisinopril 20mg Tab] 20 mg PO DAILY 04/07/19 04/07/19 History Linezolid [Zyvox 600mg Tablets] 600 mg PO BID #14 tab 08/09/19 Rx Nicotine [Nicoderm 21mg/24hr 21 mg TD DAILYP PRN #30 patch.td24 04/08/19 Rx patch] Prescriptions/Medication Reconciliation: New Linezolid [Zyvox 600mg Tablets] 600 mg PO BID #14 tab Lisinopril [Zestril 20mg tab] 20 mg PO DAILY tablet Nicotine [Nicoderm 21mg/24hr patch] 21 mg TD DAILYP PRN #30 patch.td24 PRN Reason: Nicotine Cravings Continued glipiZIDE [Glucotrol 5mg tablet] 5 mg PO DAILY Lisinopril [Lisinopril 20mg Tab] 20 mg PO DAILY Insulin Glargine,Hum.rec.anlog [Lantus Insulin 100units/mL 10mL vial] 20 unit SQ BID - Problem Reconciliation Problems Reviewed?: Yes
== END 2019-04-08 14:45 | disposition home or self-care (01) | DRG 579 ==
LOC: ER 06:32 → 2ND 08:05
PROVIDERS: ADMIT Emergency Medicine; ATTEND Emergency Medicine
CPT/HCPCS: 36415; 80048; 80053; 80061; 81001; 82009; 82962; 83605; 83735; 85025; 85651; 86140; 87040; 87070; 87075; 87077; 87086; 87186; 87205; 88304; 96365; 96367; 96372; 96375; 99285; J2020; J2405; J2543

== ENCOUNTER 2019-09-19 11:55 | Inpatient (IN) ==
[2019-09-19 13:23] LABS: Basophils % 0.2 % (0.1-2.0); Eosinophils # 0.1 K/mm3 (0.0-0.4); Eosinophils % 0.4 % (0.1-12.0); Hematocrit 34.4 % (42.0-52.0); Lymphocytes # 1.2 K/mm3 (0.7-4.5); Lymphocytes % 9.4 % (10-50); Mean Corpuscular HGB Conc 31.9 g/dL (31.8-35.4); Mean Corpuscular Volume 83.9 fl (80-94); Mean Platelet Volume 8.1 fl (7.4-10.4); Monocytes # 0.6 K/mm3 (0.1-1.0); Monocytes % 4.4 % (1.7-9.3); Neutrophils # 10.7 K/mm3 (1.8-7.8); Neutrophils % 85.6 % (37.0-80.0); Platelet Count 450 K/mm3 (142-424); Red Cell Distribution Width 13.5 % (11.5-17.5); White Blood Count 12.5 K/mm3 (4.8-10.8)
[2019-09-19 13:43] LABS: Eosinophils % 1 % (0-3); Lymphocytes % 10 % (10-50); Monocytes % 6 % (2-9); Neutrophils % 83 % (42-76); Total Cells Counted 100
[2019-09-19 13:44] LABS: Hypochromasia 1+
[2019-09-19 13:51] LABS: Anion Gap 12.1 mEq/L (5-15); Calcium 8.6 mg/dL (8.5-10.1)
--- NOTE | 2019-09-19 14:40 | Progress Note ---
[facility] Anesthesia Checklist - Patient Identification Patient Identification: Arm Band, Verbal (Name & ) - Structural Data Admitted From: Home Planned Operative Procedure/s: i and d back wound Consent for Planned Operative Procedure(s) Verified: Yes Verified Documents: History and Physical - NPO Status Verified Time NPO: 00:00 - Additional verifications Patient : No Anesthesia Reactions: No Hx Blood Transfusions: No Blood Transfusion Reaction: No Cephalosporin Allergy: No Previous Colonoscopy: No - Cardiovascular Assessment Heart Sounds: S1 & S2 Pulse Strength: Baseline Pulse Rhythm: Regular - Airway Assessment C-Spine Mobility Assessed: Yes TMJ Mobility Assessed: Yes Dentition: Edentulous - Neurological Assessment Level of Consciousness: Awake, Alert, Appropriate Hx Seizures: Yes Numbness or tingling in extremities: No - Anesthesia Plan Anesthesia Risk discussed: Yes Anesthesia Plan: Verified ASA Class: III Anesthesia Type: General [facility] History I have reviewed the patient's past medical history: Yes Medical History: Reports:: Diabetes Mellitus Type 2, Hypertension, MRSA, Seizures (none in the last two years) Denies:: Cancer *Have you ever received a pneumonia vaccine?: No *Have you received a flu vaccine this season?: No Anesthesia experience/problems:: none Laterality Cases: Left: Arthroscopy Shoulder Other Surgeries: Yes: Cholecystectomy, Other Amputation: No Fractures: Yes - *Social History Educational Level: Completed High School Smoking Status: Current every day smoker Tobacco Type: cigarettes, cigars # Packs/Day (cigarettes): 1 Alcohol Intake: never Substance Use Type: denies use *Occupational Status:: disabled Housing: apartment Household Members: spouse *Travel in the last 8 weeks: None Family Hx:: Asthma, Coronary Artery Disease, Hyperlipidemia, Hypertension, Stroke
--- NOTE | 2019-09-19 15:24 | Operative Note ---
Date of procedure: 09/19/19 Pre-op Diagnosis:: Necrotizing soft tissue infection of the back Post-op Diagnosis:: Same Procedure performed:: Incision and drainage of complex deep upper back soft tissue abscess with debridement of skin, subcutaneous tissue, and muscle Surgeon:: Mike Morales MD CASING MAN:: Emre Bearden Anesthesia: LMA Estimated blood loss (mL): 600 Clinical Note:: Patient is a 49-year-old diabetic male. He had been admitted in March with evidence of focal necrotizing infection of the left upper back. He underwent surgical incision and drainage and debridement on 04/06/2019 was found to have evidence of significant focal necrotizing soft tissue infection with some liquefied necrosis with foul thick purulence tracking through the tissues. At that time the area of debridement measured 6 cm x 11 cm. Cultures did return as MRSA and arrangements were ultimately made for outpatient management with a negative pressure wound therapy dressing and oral Zyvox. Is unclear if the patient was compliant with the oral antibiotics. Patient never kept postoperative surgical follow-up appointments despite multiple rescheduling.. He did have a VAC dressing placed but did not follow through with ongoing wound care and VAC dressing changes. Patient was contacted for multiple follow-ups and did not keep follow-up appointments. At one point he did presented to his primary care provider's office several weeks after surgery and was found to have evidence of the negative pressure wound therapy dressing sponge in the wound with no overlying dressing. Arrangements were made for follow-up in outpatient surgery for wound care and as an office patient for surgical follow-up and he did not follow through with that. He presented to the office this morning with complaints of the area being sore and tender and draining. He was found to have evidence of significant cellulitis and evidence consistent with regional soft tissue infection (necrotizing) measuring up to approximately 20 cm in width with evidence of the VAC dressing sponge adherent in the previous wound which is showing significant contracture. Plan was made for emergent incision and drainage and debridement with removal of the foreign body and debridement of infected tissues. Please note that the patient was noted to have a serum glucose of 470 preoperatively. Operative findings:: Negative pressure wound therapy dressing sponge adherent in the wound. Adjacent large area of necrotizing soft tissue infection. Separate satellite abscess lesion likely from tracking through the deep muscle layers. Operative note:: Patient was taken to the operating room. General anesthesia was induced via LMA. He was positioned in lateral position. The area was prepped and draped in the standard surgical fashion. Attempt was made to extract the dressing sponge (wound VAC sponge) without success. Incision was made adjacent to this and there was some foreign body material present indicating that tissue growth had infiltrated the wound care dressing somewhat. Sharp dissection was carried out circumferentially around this to what appeared to be tissues without foreign body reaction present. Medially adjacent to this area was a large necrotizing abscess. Cultures were sent. There is evidence of liquefied necrosis in the subcutaneous tissues and some in the muscle with thick very foul pus tracking through the soft tissues. Sequential debridement was carried out circumferentially with electrocautery until healthy non-abscessed tissues were encountered. Debrided tissue was sent off as specimen. Larger intramuscular vessels were ligated with 2-0 chromic [id number] sutures. Electrocautery w as used for remainder of hemostasis. Attention was then turned to the more inferior satellite abscess which likely was from infection tracking through the muscle layers. A circular incision was made. There was necrotic foul-smelling purulent material which exuded from this area. Circumferential incision was made to healthy tissues. This was sent along with the specimen of debrided tissues. Both wounds were thoroughly irrigated with approximately 3 L of saline using the pulsatile saline irrigation device (Pulsavac). Larger wound debrided measured 9 cm x 15 cm. Smaller satellite abscess measured approximately 4 cm x 5 cm. Some local anesthetic was infiltrated. Wounds were packed with saline moistened Kerlix gauze. Clean dry sterile dressings were applied. Condition: stable Disposition: PACU Specimens:: Debrided tissues Complications:: None immediately apparent
--- NOTE | 2019-09-19 15:35 | Progress Note ---
[facility] Anesthesia Record Part I Intake, IV Amount: 1,450 Estimated blood loss (mL): 10 Urine output (mL): 0 Blood Products used (#): none Blood Pressure: 104/58 SaO2: 96 Pulse Rate: 95 Respiratory Rate: 20 Temperature: 98.2 F Patient is:: Drowsy, Nasal O2, Stable Stable to PACU at:: 15:30
--- NOTE | 2019-09-19 16:49 | Progress Note ---
[facility] Anesthesia Record Part II Discharge Time: 16:00 Destination: Medical Surgical Department PACU nurse assessment reviewed?: Yes Patient Condition:: Good Anesthesia Complications:: None Swallowing reflex intact?: Yes Cyanosis?: No Blood Pressure: 117/79 Pulse Rate: 94 Temperature: 98.1 F Mental Status: Alert & Oriented Pain level:: 2 Nausea and/or vomitting:: None Intake, IV Amount: 0
--- NOTE | 2019-09-20 07:02 | Progress Note ---
Subjective Narrative: Patient complains of some significant "pain". He states that the Lortab is not relieving his pain. He does ask about tuna and eggs as a protein source to help heal his wound. Exam Vital signs and Labs for Last 24 Hours: Temp Pulse Resp BP Pulse Ox 98.2 F 86 17 166/90 H 99 09/20/19 04:00 09/20/19 04:00 09/20/19 04:00 09/20/19 04:00 09/20/19 04:00 Laboratory Results - last 24 hr 09/19/19 12:49: POC Glucose 470 H* 09/19/19 13:04: WBC 12.5 H, RBC 4.10 L, Hgb 11.0 L, Hct 34.4 L, MCV 83.9, MCH 26.8 L, MCHC 31.9, RDW 13.5, Plt Count 450 H, MPV 8.1, Neut % (Auto) 85.6 H, Lymph % (Auto) 9.4 L, [place] % (Auto) 4.4, Eos % (Auto) 0.4, Baso % (Auto) 0.2, Neut # (Auto) 10.7 H, Lymph # (Auto) 1.2, [place] # (Auto) 0.6, Eos # (Auto) 0.1, Baso # (Auto) 0.0, Total Counted 100, Neutrophils % (Manual) 83 H, Lymphocytes % (Manual) 10, Monocytes % (Manual) 6, Eosinophils % (Manual) 1, Platelet Estimate Moderate increase, Hypochromasia 1+ 09/19/19 13:04: Sodium 125 L, Potassium 4.1, Chloride 92 L, Carbon Dioxide 25, Anion Gap 12.1, BUN 13, Creatinine 1.27, Estimated Creat Clear 93, Estimated GFR 60, Est GFR ( Amer) 73, Glucose 436 H*, Calcium 8.6 09/19/19 13:26: POC Glucose 398 H* 09/19/19 13:52: POC Glucose 255 H 09/19/19 15:55: POC Glucose 111 H 09/19/19 23:31: POC Glucose 413 H* 09/20/19 05:14: POC Glucose 215 H I & O for Last 24 hours: Intake & Output 09/17/19 09/18/19 09/19/19 09/20/19 11:59 11:59 11:59 11:59 Intake Total 3063 / 3063 Output Total 300 / 300 Balance 2763 / 2763 Weight 196 lb 11.213 oz Microbiology Reports for the Last 24 Hours: Microbiology 09/19/19 14:30 Back - Abscess Gram Stain - Final Narrative: Wound is dressed Progress Note: A&P Assessment and Plan for All Diagnoses:: Started on vancomycin and Zosyn now for broad-spectrum coverage pending cultures. Will initiate wet-to-dry dressing changes. I will adjust his pain medications and increase the Lortab and give morphine for breakthrough pain.
--- NOTE | 2019-09-20 07:19 | Pharmacy Consult Notes ---
[facility] Pharmacy VTE Monitoring - Patient Demographics Admission date: 09/19/19 Report Date: 09/20/19 Time: 07:19 Allergies/Adverse Reactions: Patient Allergies codeine Allergy (Verified 09/19/19 12:09) Height: 1.8 m Weight: 89.222 kg - VTE Risk Labs: VTE Related Lab Results Hgb 11.0 g/dL (14.1-18.0) L 09/19/19 13:04 Hct 34.4 % (42.0-52.0) L 09/19/19 13:04 Plt Count 450 K/mm3 (142-424) H 09/19/19 13:04 BUN 13 mg/dL (7-18) 09/19/19 13:04 Creatinine 1.27 mg/dL (0.70-1.30) 09/19/19 13:04 Estimated Creat Clear 93 mL/min (50-200) 09/19/19 13:04 VTE Score: 5 VTE Risk Level: Low Risk - Prophylaxis VTE Prophylaxis Ordered?: Yes Types of VTE Prophylaxis: TEDS Knee High Location of Applied Device: Bilateral Lower Extremeties
[2019-09-20 07:41] LABS: Eosinophils # 0.1 K/mm3 (0.0-0.4); Hematocrit 28.1 % (42.0-52.0); Lymphocytes # 1.8 K/mm3 (0.7-4.5); Red Cell Distribution Width 13.8 % (11.5-17.5)
[2019-09-20 07:46] LABS: Basophils % 0.1 % (0.1-2.0); Lymphocytes % 19.7 % (10-50); Mean Corpuscular HGB Conc 31.9 g/dL (31.8-35.4); Mean Corpuscular Volume 83.7 fl (80-94); Mean Platelet Volume 8.4 fl (7.4-10.4); Monocytes # 0.4 K/mm3 (0.1-1.0); Monocytes % 4.3 % (1.7-9.3); Neutrophils # 6.6 K/mm3 (1.8-7.8); Neutrophils % 74.8 % (37.0-80.0); Platelet Count 394 K/mm3 (142-424); Red Blood Count 3.35 M/mm3 (4.60-6.20); White Blood Count 8.8 K/mm3 (4.8-10.8)
[2019-09-20 07:47] LABS: Anion Gap 7.8 mEq/L (5-15); Calcium 8.2 mg/dL (8.5-10.1)
--- NOTE | 2019-09-20 07:58 | Pharmacy Consult Notes ---
- Pharmacy Consult Date: 09/20/19 Time: 07:58 Referring provider: DR. LANGFORD Reason for Consult:: VANCOMYCIN DOSING Allergies and ADEs:: Allergies Allergy/AdvReac Type Severity Reaction Status Date / Time codeine Allergy Verified 09/19/19 12:09 Home Medications:: Home Medications Medication Instructions Recorded Confirmed Type Insulin Glargine,Hum.rec.anlog 20 unit SQ BID 04/06/19 09/19/19 History [Lantus Insulin 100units/mL 10mL vial] glipiZIDE [Glucotrol 5mg tablet] 5 mg PO DAILY 04/06/19 09/19/19 History lisinopriL [Lisinopril 20mg Tab] 20 mg PO DAILY 04/07/19 09/19/19 History Height: 1.8 m Weight: 89.222 kg Laboratory Results:: Laboratory Results - last 24 hr 09/19/19 12:49: POC Glucose 470 H* 09/19/19 13:04: WBC 12.5 H, RBC 4.10 L, Hgb 11.0 L, Hct 34.4 L, MCV 83.9, MCH 26.8 L, MCHC 31.9, RDW 13.5, Plt Count 450 H, MPV 8.1, Neut % (Auto) 85.6 H, Lymph % (Auto) 9.4 L, [place] % (Auto) 4.4, Eos % (Auto) 0.4, Baso % (Auto) 0.2, Neut # (Auto) 10.7 H, Lymph # (Auto) 1.2, [place] # (Auto) 0.6, Eos # (Auto) 0.1, Baso # (Auto) 0.0, Total Counted 100, Neutrophils % (Manual) 83 H, Lymphocytes % (Manual) 10, Monocytes % (Manual) 6, Eosinophils % (Manual) 1, Platelet Estimate Moderate increase, Hypochromasia 1+ 09/19/19 13:04: Sodium 125 L, Potassium 4.1, Chloride 92 L, Carbon Dioxide 25, Anion Gap 12.1, BUN 13, Creatinine 1.27, Estimated Creat Clear 93, Estimated GFR 60, Est GFR ( Amer) 73, Glucose 436 H*, Calcium 8.6 09/19/19 13:26: POC Glucose 398 H* 09/19/19 13:52: POC Glucose 255 H 09/19/19 15:55: POC Glucose 111 H 09/19/19 23:31: POC Glucose 413 H* 09/20/19 05:14: POC Glucose 215 H 09/20/19 07:30: WBC 8.8 D, RBC 3.35 L, Hgb 9.0 L D, Hct 28.1 L, MCV 83.7, MCH 26.7 L, MCHC 31.9, RDW 13.8, Plt Count 394, MPV 8.4, Neut % (Auto) 74.8, Lymph % (Auto) 19.7, [place] % (Auto) 4.3, Eos % (Auto) 1.0, Baso % (Auto) 0.1, Neut # (Auto) 6.6, Lymph # (Auto) 1.8, [place] # (Auto) 0.4, Eos # (Auto) 0.1, Baso # (Auto) 0.0 09/20/19 07:30: Sodium 127 L, Potassium 3.8, Chloride 97 L, Carbon Dioxide 26, Anion Gap 7.8, BUN 18 D, Creatinine 1.39 H, Estimated Creat Clear 81, Estimated GFR 54 L, Est GFR ( Amer) 66, Glucose 165 H D, Calcium 8.2 L Medical History: Reports:: Diabetes Mellitus Type 2, Hypertension, MRSA, Seizures Denies:: Cancer Assessment and Plan - Assessment and plan all Dx Assessment and Plan for all problems:: BASED ON PATIENT FACTORS, RECOMMEND VANCOMYCIN 1750 MG IV ONCE, FOLLOWED BY VANCOMYCIN 1500 MG IV Q12H. PHARMACY WILL FOLLOW DAILY AND ADJUST APPROPRIATE.
--- NOTE | 2019-09-20 08:29 | Consult Report ---
*Admission Date: 09/19/19 *Reason for consult:: DM *History of present illness: 49-year-old male patient history of diabetes and hypertension admitted per surgery for I&D of wound on his back. He is unsure of what his glucose is been running lately but says that he does take glipizide and Humalog appropriately. Per Dr. Morales the patient was noted to have a serum glucose of 470 preoperatively [facility] History Medical History: Reports:: Diabetes Mellitus Type 2, Hypertension, MRSA, Seizures Denies:: Cancer *Have you ever received a pneumonia vaccine?: Yes *Have you received a flu vaccine this season?: No Other Medical History: Denies: Blood Transfusion Reaction Anesthesia experience/problems:: none Laterality Cases: Left: Arthroscopy Shoulder Other Surgeries: Yes: Cholecystectomy, Other Amputation: No Fractures: Yes - *Social History Educational Level: Completed High School Smoking Status: Current every day smoker Tobacco Type: cigarettes, cigars # Packs/Day (cigarettes): 1 Alcohol Intake: never Substance Use Type: denies use *Occupational Status:: disabled Housing: apartment Household Members: spouse *Travel in the last 8 weeks: None Family Hx:: Asthma, Coronary Artery Disease, Hyperlipidemia, Hypertension, Stroke Review of Systems - Review of Systems Review of systems:: pertinent systems reviewed and negative unless documented below - Constitutional Denies anorexia, Denies fatigue - Eyes Denies blurry vision - ENT Denies headache(s), Denies pain with swallowing - *Cardiovascular Denies chest pain, Denies shortness of breath - *Respiratory Denies chest congestion, Denies shortness of breath - *Gastrointestinal Denies abdominal pain - *Genitourinary Denies difficulty urinating, Denies urinary frequency - *Musculoskeletal Denies muscle cramps, Denies body aches - Integumentary/Breasts Reports wounds Comments: Lg drsg upper mid-line back C/D/I - Psychiatric Denies anxiety, Denies thoughts of hurting/killing others, Denies thoughts of hurting/killing yourself - Endocrine Denies cold intolerance, Denies heat intolerance - Hematologic/Lymphatic Denies easy bleeding, Denies easy bruising - Allergic/Immunologic Denies throat swelling, Denies tongue swelling Meds Home Medications Medication Instructions Recorded Confirmed Type Insulin Glargine,Hum.rec.anlog 20 unit SQ BID 04/06/19 09/19/19 History [Lantus Insulin 100units/mL 10mL vial] glipiZIDE [Glucotrol 5mg tablet] 5 mg PO DAILY 04/06/19 09/19/19 History lisinopriL [Lisinopril 20mg Tab] 20 mg PO DAILY 04/07/19 09/19/19 History Allergies Allergy/AdvReac Type Severity Reaction Status Date / Time codeine Allergy Verified 09/19/19 12:09 Exam Vital signs and Labs for Last 24 Hours: Temp Pulse Resp BP Pulse Ox 98.5 F 86 18 166/90 H 99 09/20/19 07:46 09/20/19 07:46 09/20/19 07:46 09/20/19 07:46 09/20/19 07:46 Laboratory Results - last 24 hr 09/19/19 12:49: POC Glucose 470 H* 09/19/19 13:04: WBC 12.5 H, RBC 4.10 L, Hgb 11.0 L, Hct 34.4 L, MCV 83.9, MCH 26.8 L, MCHC 31.9, RDW 13.5, Plt Count 450 H, MPV 8.1, Neut % (Auto) 85.6 H, Lymph % (Auto) 9.4 L, [place] % (Auto) 4.4, Eos % (Auto) 0.4, Baso % (Auto) 0.2, Neut # (Auto) 10.7 H, Lymph # (Auto) 1.2, [place] # (Auto) 0.6, Eos # (Auto) 0.1, Baso # (Auto) 0.0, Total Counted 100, Neutrophils % (Manual) 83 H, Lymphocytes % (Manual) 10, Monocytes % (Manual) 6, Eosinophils % (Manual) 1, Platelet Estimate Moderate increase, Hypochromasia 1+ 09/19/19 13:04: Sodium 125 L, Potassium 4.1, Chloride 92 L, Carbon Dioxide 25, Anion Gap 12.1, BUN 13, Creatinine 1.27, Estimated Creat Clear 93, Estimated GFR 60, Est GFR ( Amer) 73, Glucose 436 H*, Calcium 8.6 09/19/19 13:26: POC Glucose 398 H* 09/19/19 13:52: POC Glucose 255 H 09/19/19 15:55: POC Glucose 111 H 09/19/19 23:31: POC Glucose 413 H* 09/20/19 05:14: POC Glucose 215 H 09/20/19 07:30: WBC 8.8 D, RBC 3.35 L, Hgb 9.0 L D, Hct 28.1 L, MCV 83.7, MCH 26.7 L, MCHC 31.9, RDW 13.8, Plt Count 394, MPV 8.4, Neut % (Auto) 74.8, Lymph % (Auto) 19.7, [place] % (Auto) 4.3, Eos % (Auto) 1.0, Baso % (Auto) 0.1, Neut # (Auto) 6.6, Lymph # (Auto) 1.8, [place] # (Auto) 0.4, Eos # (Auto) 0.1, Baso # (Auto) 0.0 09/20/19 07:30: Sodium 127 L, Potassium 3.8, Chloride 97 L, Carbon Dioxide 26, Anion Gap 7.8, BUN 18 D, Creatinine 1.39 H, Estimated Creat Clear 81, Estimated GFR 54 L, Est GFR ( Amer) 66, Glucose 165 H D, Calcium 8.2 L I & O for Last 24 hours: Intake & Output 09/17/19 09/18/19 09/19/19 09/20/19 23:59 23:59 23:59 23:59 Intake Total 1690 / 1690 1373 / 1373 Output Total 300 / 300 Balance 1690 / 1690 1073 / 1073 Weight 196 lb 11.2 oz 196 lb 11.213 oz Microbiology Reports for the Last 24 Hours: Microbiology 09/19/19 14:30 Back - Abscess Gram Stain - Final 09/19/19 14:30 Back - Abscess Abscess Culture - Preliminary - Constitutional no acute distress - *Routine HEENT Exam Head: Present: normocephalic, atraumatic. Absent: tenderness of temporal artery Eye: Present: EOMI, PERRL, normal accommodation. Absent: periorbital swelling, periorbital tenderness ENT: Present: mucous membranes moist. Absent: sinus tenderness - *Routine Neck Exam Present: supple, full ROM. Absent: JVD, tracheal deviation - *Routine Respiratory Exam Present: CTA bilaterally. Absent: accessory muscle use - *Routine Cardiovascular Exam Present: RRR - *Routine Abdominal Exam Present: soft, normoactive bowel sounds. Absent: tenderness, firm - *Routine Extremities Exam Present: full ROM. Absent: calf tenderness - Routine Back/Spine/Pelvis Exam Back/Spine: Present: full ROM. Absent: CVA tenderness - *Routine Skin Exam Present: wounds Comments: Drsg upper mid-line back to lower back C/D/I - *Routine Neurological Exam Present: alert, oriented X3, CN II-XII intact. Absent: motor deficit - Routine Psychiatric Exam Present: normal affect. Absent: suicidal ideation, homicidal ideation Internal Medicine - CN: Reslt - Labs CBC & Chem 7: 09/20/19 07:30 09/20/19 07:30 Labs: Short CBC 09/19/19 09/20/19 Range/Units 13:04 07:30 WBC 12.5 H 8.8 D (4.8-10.8) K/mm3 Hgb 11.0 L 9.0 L D (14.1-18.0) g/dL Hct 34.4 L 28.1 L (42.0-52.0) % Plt Count 450 H 394 (142-424) K/mm3 [facility] 09/19/19 09/20/19 13:04 07:30 Sodium 125 L 127 L Potassium 4.1 3.8 Chloride 92 L 97 L Carbon Dioxide 25 26 BUN 13 18 D Creatinine 1.27 1.39 H Glucose 436 H* 165 H D Calcium 8.6 8.2 L Assessment and Plan (1) Abscess of skin and subcutaneous tissue Current visit: No Status: Acute Qualifiers: Site of cutaneous abscess: trunk Site of cutaneous abscess of trunk: back Qualified Code(s): L02.212 - Cutaneous abscess of back [any part, except buttock] Category: Medical Code(s): L02.91 - Cutaneous abscess, unspecified (2) Diabetes mellitus, insulin dependent (IDDM), uncontrolled Current visit: No Status: Acute Category: Medical Code(s): E11.65 - Type 2 diabetes mellitus with hyperglycemia; Z79.4 - prison (current) use of insulin (3) Tobacco use Current visit: No Status: Acute Category: Social Hx Code(s): Z72.0 - Tobacco use (4) Hypertension Current visit: No Status: Acute Category: Medical Code(s): I10 - Essential (primary) hypertension - Assessment and plan all Dx Assessment and Plan for all problems:: Rounded with Dr. Jasmine, all orders per Dr. Jasmine 1. We will draw hemoglobin A1c
--- NOTE | 2019-09-21 07:00 | Progress Note ---
Subjective Narrative: Patient complains of some soreness with dressing changes. Exam Vital signs and Labs for Last 24 Hours: Temp Pulse Resp BP Pulse Ox 98.6 F 87 18 161/82 H 95 09/21/19 04:00 09/21/19 04:00 09/21/19 04:00 09/21/19 04:00 09/21/19 04:00 Laboratory Results - last 24 hr 09/20/19 07:30: WBC 8.8 D, RBC 3.35 L, Hgb 9.0 L D, Hct 28.1 L, MCV 83.7, MCH 26.7 L, MCHC 31.9, RDW 13.8, Plt Count 394, MPV 8.4, Neut % (Auto) 74.8, Lymph % (Auto) 19.7, [place] % (Auto) 4.3, Eos % (Auto) 1.0, Baso % (Auto) 0.1, Neut # (Auto) 6.6, Lymph # (Auto) 1.8, [place] # (Auto) 0.4, Eos # (Auto) 0.1, Baso # (Auto) 0.0 09/20/19 07:30: Sodium 127 L, Potassium 3.8, Chloride 97 L, Carbon Dioxide 26, Anion Gap 7.8, BUN 18 D, Creatinine 1.39 H, Estimated Creat Clear 81, Estimated GFR 54 L, Est GFR ( Amer) 66, Glucose 165 H D, Calcium 8.2 L 09/20/19 07:30: Hemoglobin A1c 15.8 H 09/20/19 11:07: POC Glucose 328 H* 09/20/19 17:32: POC Glucose 322 H* 09/20/19 21:19: POC Glucose 208 H 09/21/19 00:05: POC Glucose 258 H 09/21/19 06:07: POC Glucose 243 H I & O for Last 24 hours: Intake & Output 09/18/19 09/19/19 09/20/19 09/21/19 11:59 11:59 11:59 11:59 Intake Total 3423 / 3423 3012 / 3012 Output Total 600 / 600 1300 / 1300 Balance 2823 / 2823 1712 / 1712 Weight 196 lb 11.213 oz 200 lb 4.8 oz Microbiology Reports for the Last 24 Hours: Microbiology 09/19/19 14:30 Back - Abscess Gram Stain - Final 09/19/19 14:30 Back - Abscess Abscess Culture - Preliminary Narrative: Wound is clean. There is some persistent surrounding cellulitis and mild induration. Progress Note: A&P (1) Abscess of skin and subcutaneous tissue Status: Acute Assessment and plan: Continue dressing changes, wet-to-dry twice daily. Continue broad-spectrum antibiotics with vancomycin and Zosyn, cultures pending. Current Visit: No (2) Diabetes mellitus, insulin dependent (IDDM), uncontrolled Status: Acute Assessment and plan: Hemoglobin A1c 15.8. Medicine managing Current Visit: No (3) Tobacco use Status: Acute Current Visit: No (4) Hypertension Status: Acute Current Visit: No
--- NOTE | 2019-09-21 09:55 | Progress Note ---
Internal Medicine - PN: Subj *Date: 09/21/19 *Time: 09:48 Interval history: 49 YOM sitting up in bed resting quietly, reports pain is under control and large drsg C/D/I to back. BG 258 last PM and 208 this AM. Exam Vital signs and Labs for Last 24 Hours: Temp Pulse Resp BP Pulse Ox 98.4 F 89 18 156/74 H 97 09/21/19 07:53 09/21/19 07:53 09/21/19 07:53 09/21/19 07:53 09/21/19 07:53 Laboratory Results - last 24 hr 09/20/19 11:07: POC Glucose 328 H* 09/20/19 17:32: POC Glucose 322 H* 09/20/19 21:19: POC Glucose 208 H 09/21/19 00:05: POC Glucose 258 H 09/21/19 06:07: POC Glucose 243 H I & O for Last 24 hours: Intake & Output 09/18/19 09/19/19 09/20/19 09/21/19 23:59 23:59 23:59 23:59 Intake Total 1690 / 1690 3640 / 4745 1105 / 1105 Output Total 1200 / 1600 1000 / 1000 Balance 1690 / 1690 2440 / 3145 105 / 105 Weight 196 lb 11.2 oz 196 lb 11.213 oz 200 lb 4.8 oz Microbiology Reports for the Last 24 Hours: Microbiology 09/19/19 14:30 Back - Abscess Gram Stain - Final 09/19/19 14:30 Back - Abscess Abscess Culture - Preliminary - Constitutional no acute distress - *Routine HEENT Exam Head: Present: normocephalic. Absent: tenderness of temporal artery Eye: Present: EOMI, PERRL. Absent: periorbital tenderness ENT: Present: mucous membranes moist. Absent: sinus tenderness - *Routine Neck Exam Present: full ROM, trachea midline. Absent: JVD, tracheal deviation - *Routine Respiratory Exam Present: CTA bilaterally. Absent: accessory muscle use - *Routine Cardiovascular Exam Present: RRR - *Routine Abdominal Exam Present: soft, normoactive bowel sounds. Absent: tenderness, firm - *Routine Extremities Exam Present: full ROM, pulses intact. Absent: cyanosis, calf tenderness - Routine Back/Spine/Pelvis Exam Back/Spine: Present: full ROM. Absent: CVA tenderness - *Routine Skin Exam Present: wounds Comments: Large drsg to back C/D/I - *Routine Neurological Exam Present: alert, oriented X3, CN II-XII intact. Absent: altered mental status - Routine Psychiatric Exam Present: normal affect, normal thought process. Absent: suicidal ideation, homicidal ideation Assessment and Plan (1) Abscess of skin and subcutaneous tissue Current visit: No Status: Acute Qualifiers: Site of cutaneous abscess: trunk Site of cutaneous abscess of trunk: back Qualified Code(s): L02.212 - Cutaneous abscess of back [any part, except buttock] Category: Medical Code(s): L02.91 - Cutaneous abscess, unspecified (2) Diabetes mellitus, insulin dependent (IDDM), uncontrolled Current visit: No Status: Acute Category: Medical Code(s): E11.65 - Type 2 diabetes mellitus with hyperglycemia; Z79.4 - skilled nursing (current) use of insulin (3) Tobacco use Current visit: No Status: Acute Category: Social Hx Code(s): Z72.0 - Tobacco use (4) Hypertension Current visit: No Status: Acute Category: Medical Code(s): I10 - Essential (primary) hypertension - Assessment and plan all Dx Assessment and Plan for all problems:: Rounded w/ Dr. Jasmine, all orders per Dr. Jasmine 1. Moises Frankel 2. Wound Cultures pending
--- NOTE | 2019-09-21 13:30 | Pharmacy Consult Notes ---
- Pharmacy Consult Date: 09/21/19 Time: 13:18 Referring provider: DR. LANGFORD Reason for Consult:: VANCOMYCIN TROUGH LEVEL Allergies and ADEs:: Allergies Allergy/AdvReac Type Severity Reaction Status Date / Time codeine Allergy Verified 09/19/19 12:09 Home Medications:: Home Medications Medication Instructions Recorded Confirmed Type Insulin Glargine,Hum.rec.anlog 20 unit SQ BID 04/06/19 09/19/19 History [Lantus Insulin 100units/mL 10mL vial] glipiZIDE [Glucotrol 5mg tablet] 5 mg PO DAILY 04/06/19 09/19/19 History lisinopriL [Lisinopril 20mg Tab] 20 mg PO DAILY 04/07/19 09/19/19 History Height: 1.8 m Weight: 90.855 kg Laboratory Results:: Laboratory Results - last 24 hr 09/20/19 17:32: POC Glucose 322 H* 09/20/19 21:19: POC Glucose 208 H 09/21/19 00:05: POC Glucose 258 H 09/21/19 06:07: POC Glucose 243 H 09/21/19 08:40: Vancomycin Trough 18.6 09/21/19 11:12: POC Glucose 319 H* Medical History: Reports:: Diabetes Mellitus Type 2, Hypertension, MRSA, Seizures Denies:: Cancer Assessment and Plan (1) Abscess of skin and subcutaneous tissue Current visit: No Status: Acute Qualifiers: Site of cutaneous abscess: trunk Site of cutaneous abscess of trunk: back Qualified Code(s): L02.212 - Cutaneous abscess of back [any part, except buttock] Category: Medical Code(s): L02.91 - Cutaneous abscess, unspecified (2) Diabetes mellitus, insulin dependent (IDDM), uncontrolled Current visit: No Status: Acute Category: Medical Code(s): E11.65 - Type 2 diabetes mellitus with hyperglycemia; 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 PHARMACY WILL CONTINUE TO MONITOR DAILY AND ADJUST APPROPRIATE.
--- NOTE | 2019-09-22 07:07 | Progress Note ---
Subjective Patient reports: no new complaints Exam Vital signs and Labs for Last 24 Hours: Temp Pulse Resp BP Pulse Ox 98.8 F 101 H 22 160/84 H 91 L 09/22/19 03:57 09/22/19 03:57 09/22/19 03:57 09/22/19 03:57 09/22/19 03:57 Laboratory Results - last 24 hr 09/21/19 08:40: Vancomycin Trough 18.6 09/21/19 11:12: POC Glucose 319 H* 09/21/19 16:52: POC Glucose 243 H 09/21/19 23:24: POC Glucose 202 H 09/22/19 05:45: POC Glucose 199 H I & O for Last 24 hours: Intake & Output 09/19/19 09/20/19 09/21/19 09/22/19 11:59 11:59 11:59 11:59 Intake Total 3423 / 3423 3372 / 3372 240 / 240 Output Total 600 / 600 2300 / 2300 950 / 950 Balance 2823 / 2823 1072 / 1072 -710 / -710 Weight 196 lb 11.213 oz 200 lb 4.8 oz 212 lb 2 oz Microbiology Reports for the Last 24 Hours: Microbiology 09/19/19 14:30 Back - Abscess Gram Stain - Final 09/19/19 14:30 Back - Abscess Abscess Culture - Preliminary - Constitutional no acute distress - *Routine Respiratory Exam Absent: respiratory distress - *Routine Cardiovascular Exam Present: RRR - *Routine Skin Exam Comments: Dressing intact. No cellulitis beyond the margins of the dressing. The patient states that the dressing was just changed and wishes to have it reevaluated later today. Progress Note: A&P (1) Abscess of skin and subcutaneous tissue Status: Acute Assessment and plan: Reevaluate wound base and margin later today Continue dressing changes Continue antibiotics Current Visit: No (2) Diabetes mellitus, insulin dependent (IDDM), uncontrolled Status: Acute Current Visit: No (3) Tobacco use Status: Acute Current Visit: No (4) Hypertension Status: Acute Current Visit: No
--- NOTE | 2019-09-22 09:21 | Progress Note ---
Internal Medicine - PN: Subj *Date: 09/22/19 *Time: 09:20 Interval history: pt states he wants to go home. pt states he feels fine today Exam Vital signs and Labs for Last 24 Hours: Temp Pulse Resp BP Pulse Ox 98.1 F 87 18 168/83 H 95 09/22/19 08:00 09/22/19 08:00 09/22/19 08:00 09/22/19 08:00 09/22/19 08:00 Laboratory Results - last 24 hr 09/21/19 08:40: Vancomycin Trough 18.6 09/21/19 11:12: POC Glucose 319 H* 09/21/19 16:52: POC Glucose 243 H 09/21/19 23:24: POC Glucose 202 H 09/22/19 05:45: POC Glucose 199 H I & O for Last 24 hours: Intake & Output 09/19/19 09/20/19 09/21/19 09/22/19 11:59 11:59 11:59 11:59 Intake Total 3423 / 3423 3372 / 3372 240 / 240 Output Total 600 / 600 2300 / 2300 950 / 950 Balance 2823 / 2823 1072 / 1072 -710 / -710 Weight 196 lb 11.213 oz 200 lb 4.8 oz 212 lb 2 oz Microbiology Reports for the Last 24 Hours: Microbiology 09/19/19 14:30 Back - Abscess Gram Stain - Final 09/19/19 14:30 Back - Abscess Abscess Culture - Preliminary Gram Negative Rods Gram Negative Rods#2 - Constitutional no acute distress, obese - *Routine HEENT Exam Head: Present: normocephalic Eye: Present: PERRL ENT: Present: mucous membranes moist - *Routine Neck Exam Present: supple. Absent: lymphadenopathy - *Routine Respiratory Exam Present: CTA bilaterally - *Routine Cardiovascular Exam Present: RRR - *Routine Abdominal Exam Present: soft, normoactive bowel sounds. Absent: tenderness - *Routine Extremities Exam Absent: cyanosis, clubbing, edema - *Routine Skin Exam Comments: large dressing to mid back c/d/i - *Routine Neurological Exam Present: alert, oriented X3 - Routine Psychiatric Exam Present: normal affect Assessment and Plan (1) Abscess of skin and subcutaneous tissue Current visit: No Status: Acute Qualifiers: Site of cutaneous abscess: trunk Site of cutaneous abscess of trunk: back Qualified Code(s): L02.212 - Cutaneous abscess of back [any part, except buttock] Category: Medical Code(s): L02.91 - Cutaneous abscess, unspecified (2) Diabetes mellitus, insulin dependent (IDDM), uncontrolled Current visit: No Status: Acute Category: Medical Code(s): E11.65 - Type 2 diabetes mellitus with hyperglycemia; Z79.4 - hearth feeder (current) use of insulin (3) Tobacco use Current visit: No Status: Acute Category: Social Hx Code(s): Z72.0 - Tobacco use (4) Hypertension Current visit: No Status: Acute Category: Medical Code(s): I10 - Essential (primary) hypertension - Assessment and plan all Dx Assessment and Plan for all problems:: rounded with dr paniagua all orders per dr oneal will follow sujitran on dc
[2019-09-23 06:24] LABS: Basophils % 0.4 % (0.1-2.0); Eosinophils # 0.2 K/mm3 (0.0-0.4); Eosinophils % 2.1 % (0.1-12.0); Hematocrit 27.7 % (42.0-52.0); Hemoglobin 8.5 g/dL (14.1-18.0); Lymphocytes # 1.8 K/mm3 (0.7-4.5); Lymphocytes % 24.4 % (10-50); Mean Corpuscular HGB Conc 30.6 g/dL (31.8-35.4); Mean Corpuscular Volume 86.7 fl (80-94); Mean Platelet Volume 7.7 fl (7.4-10.4); Monocytes # 0.3 K/mm3 (0.1-1.0); Monocytes % 4.4 % (1.7-9.3); Neutrophils # 5.1 K/mm3 (1.8-7.8); Neutrophils % 68.7 % (37.0-80.0); Platelet Count 461 K/mm3 (142-424); Red Blood Count 3.19 M/mm3 (4.60-6.20); Red Cell Distribution Width 14.2 % (11.5-17.5); White Blood Count 7.4 K/mm3 (4.8-10.8)
[2019-09-23 06:26] LABS: Anion Gap 9.8 mEq/L (5-15); Calcium 8.5 mg/dL (8.5-10.1)
--- NOTE | 2019-09-23 07:53 | Progress Note ---
Subjective Patient reports: feels better Narrative: Pt states that is coming today to be instructed on dressing changes. Patient eating mini-wheats, bagel, and sweet milk for breakfast. Exam Vital signs and Labs for Last 24 Hours: Temp Pulse Resp BP Pulse Ox 98.4 F 85 19 140/76 93 L 09/23/19 04:00 09/23/19 04:00 09/23/19 04:00 09/23/19 04:00 09/23/19 04:00 Laboratory Results - last 24 hr 09/22/19 11:47: POC Glucose 232 H 09/22/19 17:53: POC Glucose 195 H 09/22/19 22:09: POC Glucose 145 H 09/23/19 05:04: POC Glucose 142 H 09/23/19 05:52: WBC 7.4, RBC 3.19 L, Hgb 8.5 L, Hct 27.7 L, MCV 86.7, MCH 26.6 L , MCHC 30.6 L, RDW 14.2, Plt Count 461 H, MPV 7.7, Neut % (Auto) 68.7, Lymph % (Auto) 24.4, [place] % (Auto) 4.4, Eos % (Auto) 2.1, Baso % (Auto) 0.4, Neut # (Auto) 5.1, Lymph # (Auto) 1.8, [place] # (Auto) 0.3, Eos # (Auto) 0.2, Baso # (Auto) 0.0 09/23/19 05:52: Sodium 137, Potassium 4.8 D, Chloride 104, Carbon Dioxide 28, Anion Gap 9.8, BUN 15, Creatinine 1.04 D, Estimated Creat Clear 118, Estimated GFR 76, Est GFR ( Amer) 92 D, Glucose 134 H, Calcium 8.5 I & O for Last 24 hours: Intake & Output 09/20/19 09/21/19 09/22/19 09/23/19 11:59 11:59 11:59 11:59 Intake Total 3423 / 3423 3372 / 3372 240 / 240 240 / 240 Output Total 600 / 600 2300 / 2300 950 / 950 650 / 650 Balance 2823 / 2823 1072 / 1072 -710 / -710 -410 / -410 Weight 196 lb 11.213 oz 200 lb 4.8 oz 212 lb 2 oz 213 lb 5 oz Microbiology Reports for the Last 24 Hours: Microbiology 09/19/19 14:30 Back - Abscess Gram Stain - Final 09/19/19 14:30 Back - Abscess Abscess Culture - Preliminary Gram Negative Rods Gram Negative Rods#2 Gram Positive Cocci - *Routine Skin Exam Comments: Wound is relatively clean with some regressing cellulitis. Progress Note: A&P (1) Abscess of skin and subcutaneous tissue Status: Acute Assessment and plan: Continue dressing changes twice daily. Cultures still "preliminary", awaiting final report. Discharge planning. Current Visit: No (2) Diabetes mellitus, insulin dependent (IDDM), uncontrolled Status: Acute Current Visit: No (3) Tobacco use Status: Acute Current Visit: No (4) Hypertension Status: Acute Current Visit: No
--- NOTE | 2019-09-23 08:59 | Progress Note ---
Internal Medicine - PN: Subj *Date: 09/23/19 *Time: 08:58 Exam Vital signs and Labs for Last 24 Hours: Temp Pulse Resp BP Pulse Ox 97.9 F 86 16 174/80 H 96 09/23/19 08:00 09/23/19 08:00 09/23/19 08:00 09/23/19 08:00 09/23/19 08:00 Laboratory Results - last 24 hr 09/22/19 11:47: POC Glucose 232 H 09/22/19 17:53: POC Glucose 195 H 09/22/19 22:09: POC Glucose 145 H 09/23/19 05:04: POC Glucose 142 H 09/23/19 05:52: WBC 7.4, RBC 3.19 L, Hgb 8.5 L, Hct 27.7 L, MCV 86.7, MCH 26.6 L , MCHC 30.6 L, RDW 14.2, Plt Count 461 H, MPV 7.7, Neut % (Auto) 68.7, Lymph % (Auto) 24.4, [place] % (Auto) 4.4, Eos % (Auto) 2.1, Baso % (Auto) 0.4, Neut # (Auto) 5.1, Lymph # (Auto) 1.8, [place] # (Auto) 0.3, Eos # (Auto) 0.2, Baso # (Auto) 0.0 09/23/19 05:52: Sodium 137, Potassium 4.8 D, Chloride 104, Carbon Dioxide 28, Anion Gap 9.8, BUN 15, Creatinine 1.04 D, Estimated Creat Clear 118, Estimated GFR 76, Est GFR ( Amer) 92 D, Glucose 134 H, Calcium 8.5 I & O for Last 24 hours: Intake & Output 09/20/19 09/21/19 09/22/19 09/23/19 23:59 23:59 23:59 23:59 Intake Total 3640 / 4745 1705 / 1705 240 / 240 713 / 713 Output Total 1200 / 1600 2049 / 2049 1000 / 1250 250 / 250 Balance 2440 / 3145 -345 / -345 -760 / -1010 463 / 463 Weight 89.222 kg 91 kg 96.218 kg 96.757 kg Microbiology Reports for the Last 24 Hours: Microbiology 09/19/19 14:30 Back - Abscess Gram Stain - Final 09/19/19 14:30 Back - Abscess Abscess Culture - Preliminary Escherichia coli Proteus mirabilis Staphylococcus aureus Assessment and Plan (1) Abscess of skin and subcutaneous tissue Current visit: No Status: Acute Qualifiers: Site of cutaneous abscess: trunk Site of cutaneous abscess of trunk: back Qualified Code(s): L02.212 - Cutaneous abscess of back [any part, except buttock] Category: Medical Code(s): L02.91 - Cutaneous abscess, unspecified (2) Diabetes mellitus, insulin dependent (IDDM), uncontrolled Current visit: No Status: Acute Category: Medical Code(s): E11.65 - Type 2 diabetes mellitus with hyperglycemia; Z79.4 - supervisor intermediates (current) use of insulin (3) Tobacco use Current visit: No Status: Acute Category: Social Hx Code(s): Z72.0 - Tobacco use (4) Hypertension Current visit: No Status: Acute Category: Medical Code(s): I10 - Essential (primary) hypertension The patient's infection will respond to the chosen ABx?: Yes Is the patient receiving the right drug, dose, and route?: Yes Could a more targeted ABx be ordered?: No (CULTURES SENSITIVE TO CURRENT ABX)
--- NOTE | 2019-09-23 15:39 | Discharge Summary ---
General - General Admission date:: 09/19/19 Discharge date: 09/23/19 HPI HPI: Patient is a 49-year-old diabetic male. He had been admitted in March with evidence of focal necrotizing infection of the left upper back. He underwent surgical incision and drainage and debridement on 04/06/2019 was found to have evidence of significant focal necrotizing soft tissue infection with some liquefied necrosis with foul thick purulence tracking through the tissues. At that time the area of debridement measured 6 cm x 11 cm. Cultures did return as MRSA and arrangements were ultimately made for outpatient management with a negative pressure wound therapy dressing and oral Zyvox. Is unclear if the patient was compliant with the oral antibiotics. Patient never kept postoperative surgical follow-up appointments despite multiple rescheduling.. He did have a VAC dressing placed but did not follow through with ongoing wound care and VAC dressing changes. Patient was contacted for multiple follow-ups and did not keep follow-up appointments. At one point he did presented to his primary care provider's office several weeks after surgery and was found to have evidence of the negative pressure wound therapy dressing sponge in the wound with no overlying dressing. Arrangements were made for follow-up in outpatient surgery for wound care and as an office patient for surgical follow-up and he did not follow through with that. He presented to the office this morning with complaints of the area being sore and tender and draining. He was found to have evidence of significant cellulitis and evidence consistent with regional soft tissue infection (necrotizing) measuring up to approximately 20 cm in width with evidence of the VAC dressing sponge adherent in the previous wound which is showing significant contracture. Plan was made for emergent incision and drainage and debridement with removal of the foreign body and debridement of infected tissues. Please note that the patient was noted to have a serum glucose of 470 preoperatively. Hospital Course Hospital Course: Abnormal Lab Results 09/22/19 11:47: POC Glucose 232 H 09/22/19 17:53: POC Glucose 195 H 09/22/19 22:09: POC Glucose 145 H 09/23/19 05:04: POC Glucose 142 H 09/23/19 05:52: RBC 3.19 L, Hgb 8.5 L, Hct 27.7 L, MCH 26.6 L, MCHC 30.6 L, Plt Count 461 H 09/23/19 05:52: Glucose 134 H 09/23/19 11:45: POC Glucose 216 H Lab Results 09/19/19 12:49: POC Glucose 470 H* 09/19/19 13:04: WBC 12.5 H, RBC 4.10 L, Hgb 11.0 L, Hct 34.4 L, MCV 83.9, MCH 26.8 L, MCHC 31.9, RDW 13.5, Plt Count 450 H, MPV 8.1, Neut % (Auto) 85.6 H, Lymph % (Auto) 9.4 L, [place] % (Auto) 4.4, Eos % (Auto) 0.4, Baso % (Auto) 0.2, Neut # (Auto) 10.7 H, Lymph # (Auto) 1.2, [place] # (Auto) 0.6, Eos # (Auto) 0.1, Baso # (Auto) 0.0, Total Counted 100, Neutrophils % (Manual) 83 H, Lymphocytes % (Manual) 10, Monocytes % (Manual) 6, Eosinophils % (Manual) 1, Platelet Estimate Moderate increase, Hypochromasia 1+ 09/19/19 13:04: Sodium 125 L, Potassium 4.1, Chloride 92 L, Carbon Dioxide 25, Anion Gap 12.1, BUN 13, Creatinine 1.27, Estimated Creat Clear 93, Estimated GFR 60, Est GFR ( Amer) 73, Glucose 436 H*, Calcium 8.6 09/19/19 13:26: POC Glucose 398 H* 09/19/19 13:52: POC Glucose 255 H 09/19/19 15:55: POC Glucose 111 H 09/19/19 23:31: POC Glucose 413 H* 09/20/19 05:14: POC Glucose 215 H 09/20/19 07:30: WBC 8.8 D, RBC 3.35 L, Hgb 9.0 L D, Hct 28.1 L, MCV 83.7, MCH 26.7 L, MCHC 31.9, RDW 13.8, Plt Count 394, MPV 8.4, Neut % (Auto) 74.8, Lymph % (Auto) 19.7, [place] % (Auto) 4.3, Eos % (Auto) 1.0, Baso % (Auto) 0.1, Neut # (Auto) 6.6, Lymph # (Auto) 1.8, [place] # (Auto) 0.4, Eos # (Auto) 0.1, Baso # (Auto) 0.0 09/20/19 07:30: Sodium 127 L, Potassium 3.8, Chloride 97 L, Carbon Dioxide 26, Anion Gap 7.8, BUN 18 D, Creatinine 1.39 H, Estimated Creat Clear 81, Estimated GFR 54 L, Est GFR ( Amer) 66, Glucose 165 H D, Calcium 8.2 L 09/20/19 07:30: Hemoglobin A1c 15.8 H 09/20/19 11:07: POC Glucose 328 H* 09/20/19 17:32: POC Glucose 322 H* 09/20/19 21:19: POC Glucose 208 H 09/21/19 00:05: POC Glucose 258 H 09/21/19 06:07: POC Glucose 243 H 09/21/19 08:40: Vancomycin Trough 18.6 09/21/19 11:12: POC Glucose 319 H* 09/21/19 16:52: POC Glucose 243 H 09/21/19 23:24: POC Glucose 202 H 09/22/19 05:45: POC Glucose 199 H 09/22/19 11:47: POC Glucose 232 H 09/22/19 17:53: POC Glucose 195 H 09/22/19 22:09: POC Glucose 145 H 09/23/19 05:04: POC Glucose 142 H 09/23/19 05:52: WBC 7.4, RBC 3.19 L, Hgb 8.5 L, Hct 27.7 L, MCV 86.7, MCH 26.6 L , MCHC 30.6 L, RDW 14.2, Plt Count 461 H, MPV 7.7, Neut % (Auto) 68.7, Lymph % (Auto) 24.4, [place] % (Auto) 4.4, Eos % (Auto) 2.1, Baso % (Auto) 0.4, Neut # (Au to) 5.1, Lymph # (Auto) 1.8, [place] # (Auto) 0.3, Eos # (Auto) 0.2, Baso # (Auto) 0.0 09/23/19 05:52: Sodium 137, Potassium 4.8 D, Chloride 104, Carbon Dioxide 28, Anion Gap 9.8, BUN 15, Creatinine 1.04 D, Estimated Creat Clear 118, Estimated GFR 76, Est GFR ( Amer) 92 D, Glucose 134 H, Calcium 8.5 09/23/19 11:45: POC Glucose 216 H Microbiology Results 09/19/19 14:30 Back - Abscess Gram Stain - Final 09/19/19 14:30 Back - Abscess Abscess Culture - Preliminary Escherichia coli Proteus mirabilis Staphylococcus aureus 09/19/19 14:30 Back - Abscess - Pending 09/19/19 14:30 Back - Abscess - Pending surgery consult: see note will dc home on zyvox and twice a day dressing changes, pt will come back for daily dressing changes and his will do other dressing change daily. pt is to have cbc on thursday. follow up in office in 1 week. Objective Vital signs: Temp Pulse Resp BP Pulse Ox 98.5 F 82 20 180/74 H 93 L 09/23/19 12:00 09/23/19 12:00 09/23/19 12:00 09/23/19 12:00 09/23/19 12:00 no acute distress, obese - *Routine HEENT Exam Head: Present: normocephalic Eye: Present: PERRL ENT: Present: mucous membranes moist - *Routine Respiratory Exam Present: CTA bilaterally - *Routine Cardiovascular Exam Present: RRR - *Routine Abdominal Exam Present: soft, normoactive bowel sounds, obese. Absent: tenderness - *Routine Extremities Exam Present: full ROM - *Routine Skin Exam Present: wounds Comments: two dressing to back c/d/i scattered scabs to back - *Routine Neurological Exam Present: alert, oriented X3 - Routine Psychiatric Exam Present: normal affect Results Labs on day of discharge: Labs from last 24 hours 09/23/19 09/23/19 09/23/19 11:45 05:52 05:52 WBC 7.4 RBC 3.19 L Hgb 8.5 L Hct 27.7 L MCV 86.7 MCH 26.6 L MCHC 30.6 L RDW 14.2 Plt Count 461 H MPV 7.7 Neut % (Auto) 68.7 Lymph % (Auto) 24.4 [place] % (Auto) 4.4 Eos % (Auto) 2.1 Baso % (Auto) 0.4 Neut # (Auto) 5.1 Lymph # (Auto) 1.8 [place] # (Auto) 0.3 Eos # (Auto) 0.2 Baso # (Auto) 0.0 Sodium 137 Potassium 4.8 D Chloride 104 Carbon Dioxide 28 Anion Gap 9.8 BUN 15 Creatinine 1.04 D Estimated Creat Clear 118 Estimated GFR 76 Est GFR ( Amer) 92 D Glucose 134 H POC Glucose 216 H Calcium 8.5 09/23/19 09/22/19 09/22/19 05:04 22:09 17:53 WBC RBC Hgb Hct MCV MCH MCHC RDW Plt Count MPV Neut % (Auto) Lymph % (Auto) [place] % (Auto) Eos % (Auto) Baso % (Auto) Neut # (Auto) Lymph # (Auto) [place] # (Auto) Eos # (Auto) Baso # (Auto) Sodium Potassium Chloride Carbon Dioxide Anion Gap BUN Creatinine Estimated Creat Clear Estimated GFR Est GFR ( Amer) Glucose POC Glucose 142 H 145 H 195 H Calcium 09/22/19 11:47 WBC RBC Hgb Hct MCV MCH MCHC RDW Plt Count MPV Neut % (Auto) Lymph % (Auto) [place] % (Auto) Eos % (Auto) Baso % (Auto) Neut # (Auto) Lymph # (Auto) [place] # (Auto) Eos # (Auto) Baso # (Auto) Sodium Potassium Chloride Carbon Dioxide Anion Gap BUN Creatinine Estimated Creat Clear Estimated GFR Est GFR ( Amer) Glucose POC Glucose 232 H Calcium Preliminary micro results at discharge 09/19/19 14:30 Abscess Culture - Preliminary Back - Abscess Escherichia coli Proteus mirabilis Staphylococcus aureus - Additional Comments pt discussed with arcelia beckett orders per dr paniagua DS: Diagnosis - Discharge Diagnosis (1) Abscess of skin and subcutaneous tissue Status: Acute (2) Diabetes mellitus, insulin dependent (IDDM), uncontrolled Status: Acute (3) Tobacco use Status: Acute (4) Hypertension Status: Acute Discharge Plan - Patient Discharge Instructions ACTIVITY: Continue current activity DIET: continue same diet Patient Instructions: How to Care for a Surgical Wound, DI for Cellulitis -- Adult, Type 2 Diabetes, Incision and Drainage of a Skin Abscess, DI for Surgical Site Infection, DI for Sepsis -- Adult, DI for Skin Abscess - Follow up Plan Follow up with: Mike Morales MD [Staff Physician] - 1 week Ladarius Paniagua MD [Primary Care Provider] - 1 week Disposition: Home, Self-Detention Medications: Home Medications Medication Instructions Recorded Confirmed Type Insulin Glargine,Hum.rec.anlog 20 unit SQ BID 04/06/19 09/19/19 History [Lantus Insulin 100units/mL 10mL vial] glipiZIDE [Glucotrol 5mg tablet] 5 mg PO DAILY 04/06/19 09/19/19 History lisinopriL [Lisinopril 20mg Tab] 20 mg PO DAILY 04/07/19 09/19/19 History Linezolid [Zyvox 600mg Tablets] 600 mg PO BID 14 Days #28 tab 09/23/19 Rx Prescriptions/Medication Reconciliation: New Linezolid [Zyvox 600mg Tablets] 600 mg PO BID 14 Days #28 tab Continued glipiZIDE [Glucotrol 5mg tablet] 5 mg PO DAILY lisinopriL [Lisinopril 20mg Tab] 20 mg PO DAILY Insulin Glargine,Hum.rec.anlog [Lantus Insulin 100units/mL 10mL vial] 20 unit SQ BID - Problem Reconciliation Problems Reviewed?: Yes
== END 2019-09-23 16:15 | disposition home or self-care (01) | DRG 603 ==
LOC: 2ND 11:55 → OR 11:55 → OBSVTOIN 16:03 → 2ND 16:04
PROVIDERS: ADMIT Emergency Medicine; ATTEND Emergency Medicine
CPT/HCPCS: 36415; 80048; 80202; 82962; 83036; 85007; 85025; 87070; 87075; 87077; 87186; 87205; 96374; J2405; J2543; J3370; S0077

== ENCOUNTER → 2019-09-24 14:18 | Outpatient (CLI) | payer MEDICAID, SELFPAY ==
[2019-09-24 14:28] VITALS: BP 136/84; PULSE 88; RESP 16; TEMP 36.7; O2SAT 96
[2019-09-24 14:55] VITALS: BP 141/85; PULSE 73; RESP 20; TEMP 36.9; O2SAT 96
== END ==
PROVIDERS: PCP Emergency Medicine; Visit Provider Surgery
DX: Z48.01 Encounter for change or removal of surgical wound dressing (principal); L02.91 Cutaneous abscess, unspecified; E11.65 Type 2 diabetes mellitus with hyperglycemia; B95.62 Methicillin resistant Staphylococcus aureus infection as the cause of diseases classified elsewhere
CPT/HCPCS: G0463

== ENCOUNTER 2019-09-26 11:10 | Outpatient (CLI) | payer MEDICAID, SELFPAY | END 2019-09-26 12:03 | disposition home or self-care (01) | LOC: INF 11:10 | PROVIDERS: Visit Provider Emergency Medicine | DX: Z48.01 Encounter for change or removal of surgical wound dressing (principal); L02.91 Cutaneous abscess, unspecified; E11.65 Type 2 diabetes mellitus with hyperglycemia; B95.62 Methicillin resistant Staphylococcus aureus infection as the cause of diseases classified elsewhere | CPT/HCPCS: G0463 ==

== ENCOUNTER 2019-09-28 15:00 | Outpatient (CLI) | payer MEDICAID, SELFPAY | END 2019-09-28 15:25 | disposition home or self-care (01) | LOC: INF 15:00 | PROVIDERS: Visit Provider Emergency Medicine | DX: Z48.01 Encounter for change or removal of surgical wound dressing (principal); L02.91 Cutaneous abscess, unspecified; E11.65 Type 2 diabetes mellitus with hyperglycemia; B95.62 Methicillin resistant Staphylococcus aureus infection as the cause of diseases classified elsewhere | CPT/HCPCS: G0463 ==

== ENCOUNTER 2019-09-30 15:16 | Outpatient (CLI) | payer MEDICAID, SELFPAY | END 2019-09-30 15:35 | disposition home or self-care (01) | LOC: INF 15:16 | PROVIDERS: Visit Provider Emergency Medicine | DX: Z48.01 Encounter for change or removal of surgical wound dressing (principal); L02.91 Cutaneous abscess, unspecified; E11.65 Type 2 diabetes mellitus with hyperglycemia; A41.9 Sepsis, unspecified organism | CPT/HCPCS: G0463 ==

== ENCOUNTER 2020-03-13 12:56 | Inpatient (IN) | payer MEDICAID, SELFPAY ==
[2020-03-13] VITALS (13 sets, daily range): BP systolic 143–198; BP diastolic 76–107; PULSE 89–100; RESP 17–18; TEMP 36.6–38.2; O2SAT 94–100; BMI 21.6
--- NOTE | 2020-03-13 13:23 | CT_ITS ---
PROCEDURE: CT ABDOMEN PELVIS WO CON CLINICAL INDICATION: abd pain Right lower quadrant pain and vomiting COMPARISON: No exams were available for comparison TECHNIQUE: Axial images obtained with sagittal and coronal reformats. All CT scans at the facility use one or more dose reduction, viz: automated exposure control, ma/kV adjustment per patient size (including targeted exams where dose is matched to indication, i.e. head), or iterative reconstruction technique. FINDINGS: LOWER THORAX: Gynecomastia at least on the left. ABDOMEN & PELVIS: Post cholecystectomy changes. The liver, spleen, adrenal glands, and pancreas have an unremarkable appearance. There is a small amount of gas in the urinary bladder. There is a small amount of gas in the right ureter and in the upper pole right renal collecting system. The air density could be related to recent manipulation or gas-forming infection. No ureteral or renal calculi are evident. There is some mild stranding of the of the right perinephric renal fat. No evidence of appendicitis. No intestinal obstruction or free air. There is mild thickening of the urinary bladder wall. No pelvic mass or abnormal fluid collection. No acute bony findings. Injection granulomas present in the right gluteal region IMPRESSION: 1. Scattered air density in the right upper pole renal collecting system, right ureter, and urinary bladder which could be related to gas-forming infection or recent manipulation. There is some mild thickening of the urinary bladder wall and minimal stranding of the right perinephric renal fat. 2. No evidence of appendicitis Dictated by: Mihai Cortez MD 03/13/2020 14:18 Electronically signed by Mihai Cortez MD in [place] 03/13/2020 14:18
--- NOTE | 2020-03-13 13:24 | PC.NURSE ---
Lab at bedside
--- NOTE | 2020-03-13 13:31 | [facility].EDGENADL ---
ED Disposition Clinical Impression: Pyelonephritis of right kidney DKA (diabetic ketoacidoses) Qualifiers: Diabetes mellitus type: type 1 Diabetes mellitus complication detail: without coma Qualified Code(s): E10.10 - Type 1 diabetes mellitus with ketoacidosis without coma Disposition: Admitted As Inpatient Condition on Discharge: Serious - Critical Care Critical Care Time: Yes Attestation: On 03/13/20, the high probability of a clinically significant, sudden or life threatening deterioration of the following system(s) required my full and direct attention, intervention and personal management. The time I documented below is in addition to time spent performing reported procedures but includes the following listed in this critical care notation. Total Critical Care Time: 35 Vital system(s) involved:: Metabolic Failure My critical care processes included: Assessment & monitoring of V/S, Initial and Re-exams, Data Review/Interpretation, Coordinating Care, Medication Orders and management, Documentation Medical Decision Making - Medical Records Medical records reviewed: Yes: I reviewed the patient's medical records. - Renan Inquiry Pt receiving controlled substance: No Vital Signs: 03/13/20 12:56 03/13/20 13:23 03/13/20 14:10 Temperature 99.4 F Temperature Source Oral Pulse Rate Pulse Rate [Apical] 93 H 92 H 90 Respiratory Rate 18 Blood Pressure Blood Pressure [Right Arm] 143/82 H 188/87 H 143/107 H Blood Pressure Mean [Right Arm] 102 120 119 Blood Pressure Source Blood Pressure Source [Right Arm] Automatic Cuff Automatic Cuff Automatic Cuff Blood Pressure Position Blood Pressure Position [Right Arm] Sitting Sitting Sitting 02 Sat by Pulse Oximetry 96 97 99 Oxygen Delivery Method Room Air Room Air Room Air 03/13/20 14:30 03/13/20 15:00 03/13/20 15:30 Temperature 97.9 F 97.8 F Temperature Source Oral Oral Pulse Rate Pulse Rate [Apical] 91 H 89 91 H Respiratory Rate 18 18 18 Blood Pressure Blood Pressure [Right Arm] 187/79 H 191/87 H 198/90 H Blood Pressure Mean [Right Arm] 115 121 126 Blood Pressure Source Blood Pressure Source [Right Arm] Automatic Cuff Automatic Cuff Automatic Cuff Blood Pressure Position Blood Pressure Position [Right Arm] Supine Supine Supine 02 Sat by Pulse Oximetry 99 98 98 Oxygen Delivery Method Room Air Room Air Room Air 03/13/20 16:57 03/13/20 17:27 Temperature 97.8 F Temperature Source Oral Pulse Rate 94 H Pulse Rate [Apical] 94 H Respiratory Rate 18 Blood Pressure 144/87 H Blood Pressure [Right Arm] 144/87 H Blood Pressure Mean [Right Arm] 106 Blood Pressure Source Automatic Cuff Blood Pressure Source [Right Arm] Automatic Cuff Blood Pressure Position Sitting Blood Pressure Position [Right Arm] Sitting 02 Sat by Pulse Oximetry 100 Oxygen Delivery Method Room Air Room Air - Lab Data Lab results reviewed: Yes: I reviewed the patient's lab results. Lab Results 03/13/20 13:37: WBC 10.2, RBC 4.70, Hgb 13.3 L, Hct 39.5 L, MCV 84.0, MCH 28.3, MCHC 33.6, RDW 14.6, Plt Count 182, MPV 9.5, Neut % (Auto) 85.7 H, Lymph % (Auto) 10.0, [place] % (Auto) 4.1, Eos % (Auto) 0.2, Baso % (Auto) 0.1, Neut # (Auto) 8.7 H, Lymph # (Auto) 1.0, [place] # (Auto) 0.4, Eos # (Auto) 0.0, Baso # (Auto) 0.0, Total Counted 100, Neutrophils % (Manual) 81 H, Band Neutrophils % 9.0 H, Lymphocytes % (Manual) 7 L, Monocytes % (Manual) 3, Platelet Estimate Normal, RBC Morphology Normal 03/13/20 13:37: Sodium 124 L, Potassium 4.7, Chloride 92 L, Carbon Dioxide 15 L, Anion Gap 21.7 H, BUN 44 H, Creatinine 1.40 H, Estimated Creat Clear 63, Estimated GFR 54 L, Est GFR ( Amer) 65, Glucose 547 H*, Calcium 8.5, Total Bilirubin 1.1, AST 22, ALT 13, Alkaline Phosphatase 143 H, Total Protein 6.0 L, Albumin 3.1 L, Globulin 2.9, Albumin/Globulin Ratio 1.1, Acetone Level Moderate 03/13/20 13:37: Lactate 1.3 03/13/20 14:35: Specimen Source L radial, O2 % Room air, ABG pH 7.40,
--- NOTE | 2020-03-13 13:42 | PC.NURSE ---
pt to rad
--- NOTE | 2020-03-13 13:42 | PC.NURSE ---
noitified RT of VBG order
[2020-03-13 13:58] LABS: Chloride 92 mmol/L (98-107)
[2020-03-13 13:59] LABS: Potassium 4.7 mmoL/L (3.5-5.1); Sodium 124 mmol/L (136-145)
[2020-03-13 14:01] LABS: Acetone, Serum (Rapid) Moderate (None Detect); Alanine Aminotransferase 13 U/L (12-78); Alkaline Phosphatase 143 U/L (38-126); Aspartate Amino Transferase 22 U/L (17-59); Bilirubin,Total 1.1 mg/dl (0.2-1.3); Blood Urea Nitrogen 44 mg/dl (9-20); Creatinine Clearance Estimated 63 mL/min (50-200); Estimated Glomerular Filt Rate 54 ml/min (>60); GFR (African American) 65 ML/MIN (>60)
[2020-03-13 14:02] LABS: Albumin Level 3.1 g/dl (3.5-5.0); Albumin/Globulin Ratio 1.1 (1.1-1.8); Anion Gap 21.7 mEq/L (5-15); Calcium 8.5 mg/dl (8.4-10.2); Carbon Dioxide 15 mmol/L (22.0-30.0); Globulin 2.9 g/dL (1.3-3.2); Lactic Acid 1.3 mmol/L (0.7-2.1)
[2020-03-13 14:04] LABS: Glucose 547 mg/dl (74-100)
--- NOTE | 2020-03-13 14:05 | PC.NURSE ---
critical glucose reported to SHELLIE JIMENEZ
[2020-03-13 14:08] LABS: Basophils % 0.1 % (0.1-2.0); Eosinophils % 0.2 % (0.1-12.0); Hematocrit 39.5 % (42.0-52.0); Hemoglobin 13.3 g/dL (14.1-18.0); Mean Corpuscular HGB Conc 33.6 g/dL (31.8-35.4); Mean Corpuscular Hemoglobin 28.3 pg (27.0-31.2); Mean Platelet Volume 9.5 fl (7.4-10.4); Monocytes # 0.4 K/mm3 (0.1-1.0); Monocytes % 4.1 % (1.7-9.3); Neutrophils # 8.7 K/mm3 (1.8-7.8); Neutrophils % 85.7 % (37.0-80.0); Platelet Count 182 K/mm3 (142-424); Red Cell Distribution Width 14.6 % (11.5-17.5); White Blood Count 10.2 K/mm3 (4.8-10.8)
[2020-03-13 14:11] LABS: MANUAL DIFFERENTIAL MANUAL DIFFERENTIAL (MANUAL DIFF)
[2020-03-13 14:38] LABS: ABG Base Excess -6.5 mmol/L (-2.4-2.3); ABG HCO3 18.3 mmhg (22.0-26.0); ABG Oxygen Saturation 97 % (90-100); ABG PCO2 30.3 mmhg (35.0-45.0); ABG PO2 85.8 mmhg (80-100); ABG TCO2 19.3 mmhg (23-27)
[2020-03-13 14:39] LABS: Allen's Test ACCEPTABLE; Oxygen ROOM AIR %; Source L RADIAL
[2020-03-13 14:41] LABS: Lymphocytes % 7 % (10-50); Monocytes % 3 % (2-9); Neutrophils % 81 % (42-76); Platelet Estimate Normal; RBC Morphology Normal; Total Cells Counted 100
[2020-03-13 14:49] LABS: Appearance,Urine CLOUDY (Clear); Bilirubin,Urine Negative (Negative); Blood, Urine 3+ (Negative); Color,Urine YELLOW (Yellow); Glucose,Urine (UA) 3+ (Negative); Ketones,Urine 1+ (Negative); Leukocyte Esterase,Urine TRACE (Negative); Microscopic, Urine URINE MICROSCOPIC (MICROSCOPIC); Nitrate,Urine POSITIVE (Negative); Protein,Urine 2+ (Negative); Specific Gravity, Urine 1.015 (1.005-1.030); Urobilinogen,Urine 0.2 EU/dl (0.2)
[2020-03-13 15:17] LABS: POC Glucose,Bedside 538 (70-110)
[2020-03-13 15:22] LABS: Bacteria,Urine 3+ /lpf; Squamous Epithelial Cell,Urine Occasional #/hpf (0-5)
--- NOTE | 2020-03-13 15:41 | PC.NURSE ---
Spoke with Dr. Yuen related to insulin drip. started it at 3 units per hour at 1443. Increased drip to 5 units at 1543 related to finger stick of 538. notified of finger stick.
--- NOTE | 2020-03-13 15:57 | PC.NURSE ---
Report called to GENESIS Crouch.
--- NOTE | 2020-03-13 16:05 | P.CONPHA_ITS ---
[facility] Pharmacy VTE Monitoring - Patient Demographics Admission date: 03/13/20 Report Date: 03/13/20 Time: 16:05 Allergies/Adverse Reactions: Patient Allergies codeine Allergy (Verified 09/19/19 12:09) Height: 1.8 m Weight: 70.307 kg Patient Problems: Current Active Problems DKA (diabetic ketoacidoses) (Acute) Pyelonephritis of right kidney (Acute) - VTE Risk Labs: VTE Related Lab Results Hgb 13.3 g/dL (14.1-18.0) L 03/13/20 13:37 Hct 39.5 % (42.0-52.0) L 03/13/20 13:37 Plt Count 182 K/mm3 (142-424) 03/13/20 13:37 BUN 44 mg/dl (9-20) H 03/13/20 13:37 Creatinine 1.40 mg/dl (0.66-1.25) H 03/13/20 13:37 Estimated Creat Clear 63 mL/min (50-200) 03/13/20 13:37 - Prophylaxis VTE Prophylaxis Ordered?: Yes Types of VTE Prophylaxis: TEDS Knee High Location of Applied Device: Bilateral Lower Extremeties - VTE Diagnosis Confirmed Treatment or plan recommended: Continue Current Treatment
--- NOTE | 2020-03-13 16:18 | PC.NURSE ---
family at bedside
[2020-03-13 16:26] LABS: Anion Gap 18.5 mEq/L (5-15); Blood Urea Nitrogen 45 mg/dl (9-20); Carbon Dioxide 22 mmol/L (22.0-30.0); Chloride 92 mmol/L (98-107); Creatinine Clearance Estimated 59 mL/min (50-200); Estimated Glomerular Filt Rate 50 ml/min (>60); GFR (African American) 60 ML/MIN (>60); Potassium 4.5 mmoL/L (3.5-5.1); Sodium 128 mmol/L (136-145)
[2020-03-13 16:29] LABS: Glucose 519 mg/dl (74-100)
[2020-03-13 16:49] LABS: Calcium 9.4 mg/dl (8.4-10.2)
[2020-03-13 16:56] LABS: POC Glucose,Bedside 414 (70-110)
--- NOTE | 2020-03-13 17:26 | PC.NURSE ---
Pt arrived to floor
[2020-03-13 18:13] LABS: POC Glucose,Bedside 383 (70-110)
--- NOTE | 2020-03-13 18:27 | PC.NURSE ---
1800 INCREASED INSULIN DRIP TO 6 UNITS/HR PER PROTOCOL ON MAR
--- NOTE | 2020-03-13 18:55 | HMH.HP ---
*Admission Date: 03/13/20 *Chief complaint: dka,nausea,vomiting,abdominal pain, uti, pyelonephritis *History of present illness: 5-day history of right flank pain into her right abdomen. 3-day history of repetitive vomiting. Last bowel movement 5 to 6 days ago. Says that he has had previous similar pain from obstipation. Denies fever. Also states that he ran out of his insulin pen 2 weeks ago. He called the pharmacy, believing he had refills. Pharmacy informed him that he did not have any refills. Poor compliance with insulin regimen. Had progression of abdominal symptoms which ultimately led him to present to the emergency room. Work-up is included labs and CT of the abdomen pelvis. He is admitted for treatment of his DKA, electrolyte aberrations, metabolic abnormalities, and infection involving the urinary system. [facility] History Medical History: Reports:: Arrhythmia, Diabetes Mellitus Type 1, Diabetes Mellitus Type 2, Hypertension, MRSA, Seizures Denies:: Cancer *Have you ever received a pneumonia vaccine?: No *Have you received a flu vaccine this season?: No Other Medical History: Denies: Blood Transfusion Reaction Laterality Cases: Left: Arthroscopy Shoulder Other Surgeries: Yes: Cholecystectomy, Other Amputation: No Fractures: Yes - *Social History Smoking Status: Current every day smoker Tobacco Type: cigarettes # Packs/Day (cigarettes): 1 Alcohol Intake: never Substance Use Type: denies use *Occupational Status:: unemployed Housing: house Household Members: spouse *Travel in the last 8 weeks: None Family Hx:: Asthma, Coronary Artery Disease, Hyperlipidemia, Hypertension, Stroke Review of Systems - Constitutional Reports body ache(s), Reports chills, Reports lack of energy, Reports weakness - Eyes Reports blurry vision - ENT Reports dizziness, Reports dry mouth - *Cardiovascular Denies chest pain, Denies shortness of breath with activity - *Respiratory Denies change in phlegm color - *Gastrointestinal Reports abdominal pain, Reports bloating, Reports change in bowel habits, Reports nausea, Denies black, tarry stools - *Genitourinary Reports side pain, Reports decreased urination, Denies difficulty urinating - *Musculoskeletal Reports abnormal walking, Reports muscle cramps, Reports muscle weakness - *Neurologic Reports abnormal walking, Reports unsteadiness, Reports lack of coordination, Reports numbness, Reports tingling, Reports dizziness, Reports weakness - Psychiatric Reports change in appetite, Reports irritability - Endocrine Reports increased thirst Meds Home Medications Medication Instructions Recorded Confirmed Type Insulin Glargine,Hum.rec.anlog 20 unit SQ BID 04/06/19 03/13/20 History [Lantus Insulin 100units/mL 10mL vial] lisinopriL [Lisinopril 20mg Tab] 20 mg PO DAILY 04/07/19 03/13/20 History Nitroglycerin 0.4 mg SL Q5MINP PRN 03/13/20 03/13/20 History Allergies Allergy/AdvReac Type Severity Reaction Status Date / Time codeine Allergy Verified 09/19/19 12:09 Exam Vital signs and Labs for Last 24 Hours: Temp Pulse Resp BP Pulse Ox 97.8 F 94 H 18 144/87 H 100 03/13/20 17:27 03/13/20 17:27 03/13/20 17:27 03/13/20 17:27 03/13/20 16:57 Laboratory Results - last 24 hr 03/13/20 13:37: WBC 10.2, RBC 4.70, Hgb 13.3 L, Hct 39.5 L, MCV 84.0, MCH 28.3, MCHC 33.6, RDW 14.6, Plt Count 182, MPV 9.5, Neut % (Auto) 85.7 H, Lymph % (Auto) 10.0, [place] % (Auto) 4.1, Eos % (Auto) 0.2, Baso % (Auto) 0.1, Neut # (Auto) 8.7 H, Lymph # (Auto) 1.0, [place] # (Auto) 0.4, Eos # (Auto) 0.0, Baso # (Auto) 0.0, Total Counted 100, Neutrophils % (Manual) 81 H, Band Neutrophils % 9.0 H, Lymphocytes % (Manual) 7 L, Monocytes % (Manual) 3, Platelet Estimate Normal, RBC Morphology Normal 03/13/20 13:37: Sodium 124 L, Potassium 4.7, Chloride 92 L, Carbon Dioxide 15 L, Anion Gap 21.7 H, BUN 44 H, Creatinine 1.40 H, Estimated Creat Clear 63, Estimated GFR 54 L, Est GFR ( A
[2020-03-13 20:22] LABS: Chloride 96 mmol/L (98-107); Potassium 3.8 mmoL/L (3.5-5.1); Sodium 125 mmol/L (136-145)
[2020-03-13 20:23] LABS: POC Glucose,Bedside 401 (70-110)
[2020-03-13 20:25] LABS: Anion Gap 11.8 mEq/L (5-15); Blood Urea Nitrogen 41 mg/dl (9-20); Carbon Dioxide 21 mmol/L (22.0-30.0); Creatinine Clearance Estimated 63 mL/min (50-200); Estimated Glomerular Filt Rate 54 ml/min (>60); GFR (African American) 65 ML/MIN (>60)
[2020-03-13 20:29] LABS: Glucose 401 mg/dl (74-100)
[2020-03-13 20:36] LABS: Calcium 8.4 mg/dl (8.4-10.2)
[2020-03-13 20:50] LABS: Acetone, Serum (Rapid) None Detected (None Detect)
[2020-03-13 21:44] LABS: POC Glucose,Bedside 382 (70-110)
[2020-03-13 22:58] LABS: POC Glucose,Bedside 246 (70-110)
[2020-03-14] VITALS (11 sets, daily range): BP systolic 101–144; BP diastolic 51–74; PULSE 80–103; RESP 16–22; TEMP 36.4–38.9; O2SAT 90–99; BMI 26.3; BMI 26.2
--- NOTE | 2020-03-14 03:05 | PC.NURSE ---
He is in seizure precautions. No seizure activity. The insulin gtt was discontinued per the information developer MD. He continues on ACHS fingersticks with high intensity SSI. He received PRN medication for pain in his abdomen. He reports tenderness with palpation. He reports no BM in 4-5 days but states he is passing some gas. He is voiding per urinal. Urine is yellow, cloudy. He reports a liitle SOA. O2 decreased to low 90s while asleep. Continues on RA. Denies weakness. He was given acetaminophen for fever. He turns and repositions himself in bed. Multiple areas on skin-see 1999 bio.
[2020-03-14 05:40] LABS: POC Glucose,Bedside 294 (70-110)
[2020-03-14 06:26] LABS: Chloride 98 mmol/L (98-107); Potassium 3.8 mmoL/L (3.5-5.1); Sodium 130 mmol/L (136-145)
[2020-03-14 06:29] LABS: Anion Gap 13.8 mEq/L (5-15); Blood Urea Nitrogen 40 mg/dl (9-20); Calcium 8.7 mg/dl (8.4-10.2); Carbon Dioxide 22 mmol/L (22.0-30.0); Creatinine Clearance Estimated 72 mL/min (50-200); Estimated Glomerular Filt Rate 50 ml/min (>60); GFR (African American) 60 ML/MIN (>60); Glucose 233 mg/dl (74-100)
--- NOTE | 2020-03-14 08:57 | HMH.PHAINT ---
HOME MEDICATION RECONCILIATION COMPLETED USING LIST FROM DR RAMOS'S OFFICE AND PT INTERVIEW. PT ALSO WANTS TO ENROLL IN MEDS TO BEDS PROGRAM
[2020-03-14 11:35] LABS: POC Glucose,Bedside 335 (70-110)
--- NOTE | 2020-03-14 12:59 | HMH.ACPN2 ---
Internal Medicine - PN: Subj *Date: 03/14/20 *Time: 13:23 Interval history: 49-year-old male sitting up in bed reports that he does have some continuing right-sided abdominal pain. Preliminary blood and urinary culture showing gram-negative rods, patient is currently receiving ertapenem IV. Insulin drip is been DC'd, patient is tolerating a diabetic diet 03/13/20 Abd/Pelvis CT: ABDOMEN & PELVIS: Post cholecystectomy changes. The liver, spleen, adrenal glands, and pancreas have an unremarkable appearance. There is a small amount of gas in the urinary bladder. There is a small amount of gas in the right ureter and in the upper pole right renal collecting system. The air density could be related to recent manipulation or gas-forming infection. No ureteral or renal calculi are evident. There is some mild stranding of the of the right perinephric renal fat. No evidence of appendicitis. No intestinal obstruction or free air. There is mild thickening of the urinary bladder wall. No pelvic mass or abnormal fluid collection. No acute bony findings. Injection granulomas present in the right gluteal region IMPRESSION: 1. Scattered air density in the right upper pole renal collecting system, right ureter, and urinary bladder which could be related to gas-forming infection or recent manipulation. There is some mild thickening of the urinary bladder wall and minimal stranding of the right perinephric renal fat. 2. No evidence of appendicitis Dictated by: Mihai Cortez Exam Vital signs and Labs for Last 24 Hours: Temp Pulse Resp BP Pulse Ox 97.5 F L 98 H 20 125/66 98 03/14/20 08:00 03/14/20 12:00 03/14/20 12:00 03/14/20 12:00 03/14/20 12:00 Laboratory Results - last 24 hr 03/13/20 13:37: WBC 10.2, RBC 4.70, Hgb 13.3 L, Hct 39.5 L, MCV 84.0, MCH 28.3, MCHC 33.6, RDW 14.6, Plt Count 182, MPV 9.5, Neut % (Auto) 85.7 H, Lymph % (Auto) 10.0, [place] % (Auto) 4.1, Eos % (Auto) 0.2, Baso % (Auto) 0.1, Neut # (Auto) 8.7 H, Lymph # (Auto) 1.0, [place] # (Auto) 0.4, Eos # (Auto) 0.0, Baso # (Auto) 0.0, Total Counted 100, Neutrophils % (Manual) 81 H, Band Neutrophils % 9.0 H, Lymphocytes % (Manual) 7 L, Monocytes % (Manual) 3, Platelet Estimate Normal, RBC Morphology Normal 03/13/20 13:37: Sodium 124 L, Potassium 4.7, Chloride 92 L, Carbon Dioxide 15 L, Anion Gap 21.7 H, BUN 44 H, Creatinine 1.40 H, Estimated Creat Clear 63, Estimated GFR 54 L, Est GFR ( Amer) 65, Glucose 547 H*, Calcium 8.5, Total Bilirubin 1.1, AST 22, ALT 13, Alkaline Phosphatase 143 H, Total Protein 6.0 L, Albumin 3.1 L, Globulin 2.9, Albumin/Globulin Ratio 1.1, Acetone Level Moderate 03/13/20 13:37: Lactate 1.3 03/13/20 14:35: Specimen Source L radial, O2 % Room air, ABG pH 7.40, ABG pCO2 30.3 L, ABG pO2 85.8, ABG HCO3 18.3 L, ABG Total CO2 19.3 L, ABG O2 Saturation 97, ABG Base Excess -6.5 L, Mihai Test Acceptable 03/13/20 14:39: Urine Color Yellow, Urine Appearance Cloudy, Urine pH 6.0, Ur Specific [place] 1.015, Urine Protein 2+, Urine Glucose (UA) 3+, Urine Ketones 1+, Urine Blood 3+, Urine Nitrate Positive, Urine Bilirubin Negative, Urine Urobilinogen 0.2, Ur Leukocyte Esterase Trace, Urine RBC 3-5, Urine WBC 10-20, Ur Squamous Epith Cells Occasional, Urine Bacteria 3+ 03/13/20 15:13: POC Glucose 538 H* 03/13/20 15:36: Sodium 128 L, Potassium 4.5, Chloride 92 L, Carbon Dioxide 22 D, Anion Gap 18.5 H, BUN 45 H, Creatinine 1.50 H, Estimated Creat Clear 59, Estimated GFR 50 L, Est GFR ( Amer) 60, Glucose 519 H*, Calcium 9.4 D 03/13/20 16:53: POC Glucose 414 H* 03/13/20 18:02: POC Glucose 383 H* 03/13/20 19:33: POC Glucose 401 H* 03/13/20 20:10: Sodium 125 L, Potassium 3.8, Chloride 96 L, Carbon Dioxide 21 L, Anion Gap 11.8, BUN 41 H, Creatinine 1.40 H, Estimated Creat Clear 63, Estimated GFR 54 L, Est GFR ( Amer) 65, Glucose 401 H* D, Calcium 8.4 D 03/13/20 20:10: Acetone Level None detected 03/13/20 21:29: POC Glucose 382 H* 03/13/20
[2020-03-14 17:12] LABS: POC Glucose,Bedside 384 (70-110)
--- NOTE | 2020-03-14 19:06 | PC.NURSE ---
report given to steve
[2020-03-14 19:57] LABS: POC Glucose,Bedside 280 (70-110)
[2020-03-15] VITALS (21 sets, daily range): BP systolic 113–250; BP diastolic 52–106; PULSE 63–150; RESP 14–31; TEMP 36.6–40.2; O2SAT 95–100; BMI 26.6
--- NOTE | 2020-03-15 03:28 | PC.NURSE ---
Pt has rested well this shift. Pt was febrile x2 during this shift, medications administered per OCT. Pt complains of pain in abdomen area stating it's my kidneys . PRN pain meds administered per oct. ROSSANA hose taken off during pt's bed bath due to drainage on the back of pt's right heel. Small stage 2 pressure wound noted on the back of pt's right heel. Photo consent was signed and wound assessment along with photo consent are in pt's chart. ROSSANA hose remain off and wound has been left BILL CHECKER. Call light is within reach, seizure pads remain in place. No complaints at this time, will continue to monitor.
--- NOTE | 2020-03-15 04:26 | PC.NURSE ---
ICE WATER PROVIDED, WEIGHT COLLECTED, TRASH AND DIRTY LINENS COLLECTED AT THIS TIME. PT RECEIVED/PARTICIPATED IN BED BATH THIS SHIFT. PT RESTING WITH EYES CLOSED AT THIS TIME. NO C/O.
[2020-03-15 05:38] LABS: POC Glucose,Bedside 258 (70-110)
[2020-03-15 06:31] LABS: Anion Gap 11.1 mEq/L (5-15); Blood Urea Nitrogen 41 mg/dl (9-20); Calcium 8.3 mg/dl (8.4-10.2); Carbon Dioxide 22 mmol/L (22.0-30.0); Chloride 99 mmol/L (98-107); Creatinine Clearance Estimated 61 mL/min (50-200); Estimated Glomerular Filt Rate 40 ml/min (>60); GFR (African American) 49 ML/MIN (>60); Glucose 279 mg/dl (74-100); Potassium 4.1 mmoL/L (3.5-5.1); Sodium 128 mmol/L (136-145)
--- NOTE | 2020-03-15 08:10 | SW/DCPLANNER ---
Addendum entered by Maura Bear 03/19/20 12:54: I have set this patient up with [facility] for transportation home today. I have also set patient up for transportation for upcoming appointments ( March 23 at [facility] 8AM ([id number]): patient understands he must be ready by 7AM and wear a mask & March 26 1PM ([id number]) with Dr Molina: patient understands he must be ready by 12PM and wear a mask). Patient verbalized he did not have a mask and I informed him one would be presented to him at discharge. Patient made a statement regarding not wearing mask. I informed patient that he must wear a mask to have transportation. Patient will discharge today. I have also presented patient with instructions on how to set up [facility] in the future. Addendum entered by Maura Bear 03/19/20 10:42: Patient is agreeable to discharge home without home health. Patient will need transportation thru [facility] at time of discharge. I have notified Marita to deliver patients rollator walker to home. Patient will discharge today. Addendum entered by Maura Bear 03/19/20 09:59: This patient will no longer need IV antibiotics. I will discuss this with this patient regarding discharge plans. Addendum entered by Maura Bear 03/15/20 14:28: Patient and family has spoke and decided that best discharge plan would be to discharge home ([facility]) where family lives floor above patient with home health services for IV antibiotics. Patients sister stated that her will assist with administering IV antibiotics. I will follow up with patient, family and MD in the AM. Addendum entered by Maura Bear 03/15/20 09:56: Patient has requested a rollator walker at this time. Patient information has been faxed to [facility] for a rollator walker. Original Note: I have spoke with this patient regarding discharge plans. I have explained to patient that he will need additional days of IV/IM Rocephin due to infection in blood. I did explain options of returning to [facility] as an outpatient to receive medication VS home with home health and a family member/friend being taught how to administer. Patient expressed that he has previously had a lawsuit with home health and does not want to use them unless he absolutely has to but also does NOT have anyone at home to educate how to administer medication. Patient has also stated that he does NOT have transportation to return to [facility] daily for IV/IM medication. I have explained to patient that I could set him up with [facility] but he would have to find transportation for Thursday since they do not transport on Sundays. Patient stated his family member is coming to visit him today and he would discuss this situation with her. I will ask nursing staff to notify me when patients family is present. Patient could potentially discharge home tomorrow.
--- NOTE | 2020-03-15 08:52 | HMH.ACPN2 ---
Internal Medicine - PN: Subj *Date: 03/15/20 *Time: 09:00 Interval history: Rounding on patient heart rate increased to 150 sinus tach, when entered room patient is complaining of chest pain and pressure cardiology consulted Pascual Lau at bedside Exam Vital signs and Labs for Last 24 Hours: Temp Pulse Resp BP Pulse Ox 97.9 F 92 H 18 187/74 H 97 03/15/20 08:00 03/15/20 08:00 03/15/20 08:00 03/15/20 08:00 03/15/20 08:00 Laboratory Results - last 24 hr 03/14/20 11:24: POC Glucose 335 H* 03/14/20 16:55: POC Glucose 384 H* 03/14/20 19:48: POC Glucose 280 H 03/15/20 05:14: POC Glucose 258 H 03/15/20 05:30: Sodium 128 L, Potassium 4.1, Chloride 99, Carbon Dioxide 22, Anion Gap 11.1, BUN 41 H, Creatinine 1.80 H, Estimated Creat Clear 61, Estimated GFR 40 L, Est GFR ( Amer) 49 L, Glucose 279 H, Calcium 8.3 L I & O for Last 24 hours: Intake & Output 03/12/20 03/13/20 03/14/20 03/15/20 11:59 11:59 11:59 11:59 Intake Total 1915 / 1915 3364 / 3364 Output Total 760 / 760 1200 / 1200 Balance 1155 / 1155 2164 / 2164 Weight 188 lb 3 oz 190 lb 7 oz Microbiology Reports for the Last 24 Hours: Microbiology 03/13/20 13:37 Blood Blood Culture - Preliminary Gram Negative Rods 03/13/20 14:39 Urine,Clean Catch Urine Culture - Final Escherichia coli - Constitutional no acute distress, chronically ill appearing - *Routine HEENT Exam Head: Present: normocephalic Eye: Present: PERRL ENT: Present: mucous membranes moist - *Routine Neck Exam Present: supple. Absent: lymphadenopathy - *Routine Respiratory Exam Present: CTA bilaterally - *Routine Cardiovascular Exam Present: tachycardia - *Routine Abdominal Exam Present: soft, normoactive bowel sounds. Absent: tenderness - *Routine Extremities Exam Present: normal capillary refill. Absent: cyanosis, clubbing, edema - *Routine Skin Exam Present: warm. 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 Current visit: Yes Status: Acute Category: Medical Code(s): E13.10 - Other specified diabetes mellitus with ketoacidosis without coma (3) Non-compliance Current visit: Yes Status: Chronic Category: Medical Code(s): Z91.19 - Patient's noncompliance with other medical treatment and regimen (4) DKA (diabetic ketoacidoses) Current visit: Yes Status: Acute Qualifiers: Diabetes mellitus type: type 1 Diabetes mellitus complication detail: without coma Qualified Code(s): E10.10 - Type 1 diabetes mellitus with ketoacidosis without coma Category: Medical Code(s): E11.10 - Type 2 diabetes mellitus with ketoacidosis without coma (5) Pyelonephritis of right kidney Current visit: Yes Status: Acute Category: Medical Code(s): N12 - Tubulo-interstitial nephritis, not specified as acute or chronic (6) Diabetes mellitus, insulin dependent (IDDM), uncontrolled Current visit: Yes Status: Chronic Category: Medical Code(s): E11.65 - Type 2 diabetes mellitus with hyperglycemia; Z79.4 - termite control technician (current) use of insulin (7) Hypertension Current visit: Yes Status: Acute Category: Medical Code(s): I10 - Essential (primary) hypertension (8) Tobacco use Current visit: Yes Status: Chronic Category: Social Hx Code(s): Z72.0 - Tobacco use - Assessment and plan all Dx Assessment and Plan for all problems:: Rounded with Dr. Jasmine all orders per [facility] Cardiology work-up
--- NOTE | 2020-03-15 09:02 | ECG_ITS ---
APPROVED REPORT Exam: Resting ECG HR:148 bpm ECG Measurements Heart Rate 148 AXES IA 122 P 54 QRSd 90 QRS -2 QT 260 T 47 QTc 408 <Conclusion> Sinus tachycardia Otherwise normal ECG Electronically signed by : Emre Aceves, 03/16/2020 17:04:42
--- NOTE | 2020-03-15 09:32 | PC.NURSE ---
Spoke with Neyda in registration to move pts status to Stepdown
--- NOTE | 2020-03-15 09:36 | PC.NURSE ---
patient will need a rolling rollator walker rather than a cane due to gait and mobility issues
--- NOTE | 2020-03-15 09:37 | PC.NURSE ---
Addendum entered by Maura Jensen RN 03/15/20 09:39: starting bp 250/106 manually. after metoprolol iv bp dropped down 180s/90s and heart rate to 110-117 Original Note: noted patient heart rate to increase into the 150s. patient complaining of being cold, shaking slight chest tightness. patient temp 101.5 orally and rectally. alerted brandt morin aprn and she came to bedside. percy montelongo also at bedside. orders for cbc, cmp, cardiac enzymes mag level, ekg, covid test and cardiology consult obtained. order for total of metoprolol 10mg iv to be given, and 25mg of metoprolol tartrate po. patient transferred to stepdown
[2020-03-15 09:40] LABS: Basophils % 0.6 % (0.1-2.0); Eosinophils # 0.1 K/mm3 (0.0-0.4); Eosinophils % 1.9 % (0.1-12.0); Hematocrit 39.5 % (42.0-52.0); Hemoglobin 12.5 g/dL (14.1-18.0); Lymphocytes # 1.8 K/mm3 (0.7-4.5); Lymphocytes % 31.9 % (10-50); Mean Corpuscular HGB Conc 31.8 g/dL (31.8-35.4); Mean Corpuscular Hemoglobin 28.2 pg (27.0-31.2); Mean Corpuscular Volume 88.6 fl (80-94); Mean Platelet Volume 9.3 fl (7.4-10.4); Monocytes # 0.1 K/mm3 (0.1-1.0); Monocytes % 1.4 % (1.7-9.3); Neutrophils # 3.5 K/mm3 (1.8-7.8); Neutrophils % 64.3 % (37.0-80.0); Platelet Count 263 K/mm3 (142-424); Red Blood Count 4.46 M/mm3 (4.60-6.20); Red Cell Distribution Width 15.1 % (11.5-17.5); White Blood Count 5.5 K/mm3 (4.8-10.8)
[2020-03-15 09:44] LABS: Adenovirus,PCR Not Detected (NotDetected); Bordetella Pertussis Not Detected (NotDetected); Chlamydophila Pneumoniae, PCR Not Detected (NotDetected); Coronavirus 19, PCR Not Detected (NotDetected); Coronavirus 229E Not Detected (NotDetected); Coronavirus NL63 Not Detected (NotDetected); Coronavirus OC43 Not Detected (NotDetected); Coronovirus HKU1,PCR Not Detected (NotDetected); Human Metapneumovirus Not Detected (NotDetected); Influenza A, PCR Not Detected (NotDetected); Influenza AH1, 2009 Not Detected (NotDetected); Influenza AH1, PCR Not Detected (NotDetected); Influenza AH3,PCR Not Detected (NotDetected); Influenza B, PCR Not Detected (NotDetected); Mycoplasma Pneumoniae, PCR Not Detected (NotDected); Parainfluenza 1, PCR Not Detected (NotDetected); Parainfluenza 2, PCR Not Detected (NotDetected); Parainfluenza 3, PCR Not Detected (NotDetected); Parainfluenza 4, PCR Not Detected (NotDetected); Respiratory Syncytial Virus Not Detected (NotDetected); Rhinovirus/Enterovirus Not Detected (NotDetected)
--- NOTE | 2020-03-15 09:50 | HMH.CNCARD ---
History of Present Illness Consult date: 03/15/20 Requesting physician: Ladarius Jasmine Consult reason: chest pain Chief complaint: Tachycardia, elevated blood pressure, chest pain Additional Medical History:: 1. Longstanding diabetic with poor control 2. Hypertension 3. History of seizures 4. Medication noncompliance History of present illness: 5-day history of right flank pain into his right abdomen. 3-day history of repetitive vomiting. Last bowel movement 5 to 6 days ago. Says that he has had previous similar pain from obstipation. Denies fever. Also states that he ran out of his insulin pen 2 weeks ago. He called the pharmacy, believing he had refills. Pharmacy informed him that he did not have any refills. Poor compliance with insulin regimen. Had progression of abdominal symptoms which ultimately led him to present to the emergency room. Work-up is included labs and CT of the abdomen pelvis. He is admitted for treatment of his DKA, electrolyte aberrations, metabolic abnormalities, and infection involving the urinary system. The above per Dr. Molina Cardiology consulted today 03/15/2020 for tachycardia, chest pain and hypertensive urgency. Patient is being treated for E. coli bacteremia after his DKA has been treated. Reportedly he is noncompliant with his medical regimen. Patient is complaining of substernal chest discomfort and is shivering at the time of my exam. Heart rate in the 150 bpm range and appears to be sinus tachycardia by EKG and telemetry and blood pressure 250/106 mm Hg. Patient was treated initially with IV metoprolol 5 mg with subsequent improvement in heart rate down to the 115-120 bpm range and improvement in blood pressure down to 190/98 mmHg. Chest discomfort did resolve and patient appeared to be resting easier. Patient was given 25 mg of p.o. metoprolol tartrate. Within a few minutes his heart rate began to increase again and an additional 5 mg of IV Lopressor was given. Cardiac enzymes are pending. Lab work from this morning revealed creatinine of 1.8 with potassium of 4.1 and hemoglobin of around 11. [facility] History Medical History: Reports:: Arrhythmia, Diabetes Mellitus Type 1, Diabetes Mellitus Type 2, Hypertension, MRSA, Seizures Denies:: Cancer *Have you ever received a pneumonia vaccine?: No *Have you received a flu vaccine this season?: No Other Medical History: Denies: Blood Transfusion Reaction Laterality Cases: Left: Arthroscopy Shoulder Other Surgeries: Yes: Cholecystectomy, Other Amputation: No Fractures: Yes - *Social History Smoking Status: Current every day smoker Tobacco Type: cigarettes # Packs/Day (cigarettes): 1 Alcohol Intake: never Substance Use Type: denies use *Occupational Status:: unemployed Housing: house Household Members: spouse *Travel in the last 8 weeks: None Family Hx:: Asthma, Coronary Artery Disease, Hyperlipidemia, Hypertension, Stroke Meds Home Medications Medication Instructions Recorded Confirmed Type Insulin Glargine,Hum.rec.anlog 20 unit SQ BID 04/06/19 03/13/20 History [Lantus Insulin 100units/mL 10mL vial] lisinopriL [Lisinopril 20mg Tab] 20 mg PO DAILY 04/07/19 03/13/20 History Nitroglycerin 0.4 mg SL Q5MINP PRN 03/13/20 03/13/20 History glipiZIDE [Glucotrol 5mg tablet] 5 mg PO DAILY 03/14/20 03/14/20 History Allergies Allergy/AdvReac Type Severity Reaction Status Date / Time codeine Allergy Verified 09/19/19 12:09 Review of Systems - Review of Systems Review of systems:: pertinent systems reviewed and negative unless documented below - *Cardiovascular Reports chest pain, Reports shortness of breath - *Respiratory Reports cough - *Gastrointestinal Denies nausea, Denies vomiting - *Genitourinary Denies blood in urine - *Neurologic Reports abnormal walking, Reports unsteadiness, Reports dizziness, Reports lack of coordination, Reports numbness, Reports tingling, Reports dizziness, Reports weakness Ex
--- NOTE | 2020-03-15 09:59 | CA_ITS ---
APPROVED REPORT EXAM: Comprehensive 2D, Doppler, and color-flow Echocardiogram Exterior Designer: Karlene Aldridge RDCS Ht: 5 ft 11 in Wt: 188lbs BSA: 2.05 BP: 127/72 mmHg Indications: CP,HTN,DM,SMOKER,SOA,TACHYCARDIA 2D Dimensions LVOT 2.39 cm (M/F) 1.5-2.5 M-Mode Dimensions RVDd 2.55 cm (0.9-2.6) LVDd 4.80 cm (3.5-5.7) LVDs 3.57 cm (3.5-5.7) IVSd 1.27 cm (0.6-1.1) PWd 1.19 cm (0.6-1.1) EF (Teich) 50.40% FS 25.60% EDV (Teich) 107.50 mL ESV (Teich) 53.30 mL LV Diastology E/A Ratio 0.59 Aortic Valve LVOT Max 96.00 (70-110 cm/s) LVOT VTI 15.74 cm Mitral Valve MV A Velocity 91.00 (40-130 cm/s) Left Ventricle Left atrium is mildly enlarged, left ventricle is normal size, mild concentric left ventricular hypertrophy, visually estimated ejection fraction 55% with no regional wall motion abnormality, grade 1 diastolic dysfunction seen with tissue Doppler evidence of raise left atrial pressure. Right Ventricle Right atrium and right ventricle are normal size and contractility. Aortic Valve Aortic valve is minimally thickened and fibrosed, there is no aortic stenosis aortic insufficiency. Mitral Valve Mitral valve is grossly normal, there is mild mitral regurgitation. Tricuspid Valve Tricuspid valve grossly normal, there is mild tricuspid regurgitation, tricuspid regurgitation jet velocity is inadequate for calculation of the right ventricular systolic pressure. Pulmonic Valve Pulmonic valve is poorly visualized. Great Vessels Aortic root is normal size. Pericardium No significant pericardial effusion noted. Conclusion 1. Mildly enlarged left atrium, normal left ventricular size, mild concentric left ventricular hypertrophy, visually estimated ejection fraction 55% with no regional wall motion abnormality, grade 1 diastolic dysfunction seen with tissue Doppler evidence of raise left atrial pressure. 2. Mild mitral and tricuspid regurgitation. 3. No significant pericardial effusion noted. Electronically signed by : Inderjit Ceron, 03/15/2020 15:35:00
[2020-03-15 10:23] LABS: Alanine Aminotransferase 47 U/L (12-78); Albumin/Globulin Ratio 0.9 (1.1-1.8); Alkaline Phosphatase 345 U/L (38-126); Anion Gap 14.7 mEq/L (5-15); Aspartate Amino Transferase 85 U/L (17-59); Bilirubin,Total 0.8 mg/dl (0.2-1.3); Blood Urea Nitrogen 41 mg/dl (9-20); Calcium 8.6 mg/dl (8.4-10.2); Carbon Dioxide 21 mmol/L (22.0-30.0); Chloride 98 mmol/L (98-107); Creatine Kinase 26 U/L (55-170); Creatinine Clearance Estimated 57 mL/min (50-200); Estimated Glomerular Filt Rate 38 ml/min (>60); GFR (African American) 46 ML/MIN (>60); Globulin 3.5 g/dL (1.3-3.2); Glucose 310 mg/dl (74-100); Magnesium 2.3 mg/dl (1.6-2.3); Potassium 4.7 mmoL/L (3.5-5.1); Sodium 129 mmol/L (136-145); Total Protein,Serum 6.5 g/dl (6.3-8.2)
[2020-03-15 10:35] LABS: CKMB Relative Index 3.1 U/L (0-4.0); Creatine Kinase MB 0.8 ng/ml (0.0-2.03); Troponin I 0.04 ng/ml (0.00-0.034)
--- NOTE | 2020-03-15 10:37 | CT_ITS ---
PROCEDURE: CT ABDOMEN PELVIS WO CON CLINICAL INDICATION: abdominal pain, fever COMPARISON: CT ABDOMEN PELVIS WO CON from 03/13/2020 TECHNIQUE: Axial images obtained with sagittal and coronal reformats. All CT scans at the facility use one or more dose reduction, viz: automated exposure control, ma/kV adjustment per patient size (including targeted exams where dose is matched to indication, i.e. head), or iterative reconstruction technique. FINDINGS: LOWER THORAX: There atelectatic changes in the right lower lobe and to lesser degree in the left lung base posteriorly. The atelectasis or fibrotic change in the lingula. There is bilateral gynecomastia. ABDOMEN & PELVIS: Prior cholecystectomy. The liver, spleen, adrenal glands, and pancreas have an unremarkable appearance. There is mild stranding of the right perinephric renal fat which is slightly increased.. No renal or ureteral calculi. No hydronephrosis. There is minimal amount of gas once again noted in the right upper pole renal calyx. No definite renal calculus. The urinary bladder wall is thickened. The urinary bladder is nondistended. A small amount of gas is present in the urinary bladder. No definite ureteral calculi. No obvious perinephric renal abscess. No evidence of appendicitis intestinal obstruction free air or diverticulitis. IMPRESSION: Persistent stranding of the right perinephric renal fat slightly worse with persistent small amount of air within the urinary collecting system on the right as well as gas within a contracted urinary bladder with mild thickening of the bladder wall. Emphysematous pyelonephritis/cystitis is considered. The gas could also be due to recent catheterization/implemented taken. Please correlate clinically. Dictated by: Mihai Cortez MD 03/15/2020 12:54 Electronically signed by Mihai Cortez MD in [place] 03/15/2020 12:54
[2020-03-15 14:43] LABS: Troponin I 0.19 ng/ml (0.00-0.034)
[2020-03-15 16:50] LABS: POC Glucose,Bedside 258 (70-110)
[2020-03-15 16:50] LABS: POC Glucose,Bedside 337 (70-110)
--- NOTE | 2020-03-15 17:16 | PC.NURSE ---
Patient transferred to stepdown status this am after having an episode of tachycardia and spiking a fever. Patients HR had increased to 150-160, EKG obtained and was sinus tach, Pt was tachypneic, diaphoretic, and spiked a fever of 104.2 rectally, pt had blankets removed, placed ice packs under arms and in bl groin areas, tylenol and ibuprofen given per md order. Sherrill Lau and Keyanna Wolf at bedside, pt was given IV metoprolol for HR, c/o chest pain and pressure and was given nitro paste with good relief. Fever responded well to cooling measures, is afebrile at this time. HR is 76 currently in SR per telemetry, pt has had no additional complaints of chest pain or pressure, troponin was found to be elevated on repeat lab work this afternoon, cardiology and primary MD made aware and recommends medical management at this time, fsbg has been elevated this shift, between 250-350, treated with sliding scale insulin per emar, Pt remains on RA, alert and oriented x4, splitting machine feeder equal, perrla, lung sounds diminished in bl bases, trace edeam noted to ble, no BM this shift, voiding per urinal without difficulty, care management spoke with family today who agrees to let home health train them how to administer continued IV abx at home after discharge when patient is medically stable for discharge, no s/s of distress noted at this time, will continue to monitor patient closely for changes.
[2020-03-15 20:37] LABS: POC Glucose,Bedside 223 (70-110)
[2020-03-15 21:44] LABS: POC Glucose,Bedside 157 (70-110)
[2020-03-16] VITALS (10 sets, daily range): BP systolic 133–192; BP diastolic 60–82; PULSE 60–89; RESP 10–20; TEMP 36.4–37.6; O2SAT 92–100; BMI 27.3
[2020-03-16 06:04] LABS: POC Glucose,Bedside 226 (70-110)
--- NOTE | 2020-03-16 09:02 | HMH.ACPN2 ---
Internal Medicine - PN: Subj *Date: 03/16/20 *Time: 09:02 Interval history: Patient states he is doing much better today denies chest pain or pressure Exam Vital signs and Labs for Last 24 Hours: Temp Pulse Resp BP Pulse Ox 98.9 F 80 16 139/82 95 03/16/20 08:00 03/16/20 08:00 03/16/20 08:00 03/16/20 08:00 03/16/20 08:00 Laboratory Results - last 24 hr 03/15/20 08:58: POC Glucose 223 H 03/15/20 09:26: WBC 5.5 D, RBC 4.46 L, Hgb 12.5 L, Hct 39.5 L, MCV 88.6, MCH 28.2, MCHC 31.8, RDW 15.1, Plt Count 263 D, MPV 9.3, Neut % (Auto) 64.3, Lymph % (Auto) 31.9, [place] % (Auto) 1.4 L, Eos % (Auto) 1.9, Baso % (Auto) 0.6, Neut # (Auto) 3.5, Lymph # (Auto) 1.8, [place] # (Auto) 0.1, Eos # (Auto) 0.1, Baso # (Auto) 0.0 03/15/20 09:26: Chlamy pneumoniae PCR Not detected, Adenovirus (PCR) Not detected, B. pertussis DNA (PCR) Not detected, Coronavirus OC43 (PCR) Not detected, Coronavirus HKU1 (PCR) Not detected, Coronavirus 229E (PCR) Not detected, COVID-19 PCR Not detected, Coronavirus NL63 (PCR) Not detected, Human Metapneumovir PCR Not detected, Influenza A (H1) PCR Not detected, Influ A (H1N1/09) PCR Not detected, Influenza A (H3) PCR Not detected, Influenza Type A (PCR) Not detected, Influenza Type B (PCR) Not detected, M. pneumoniae (PCR) Not detected, Parainfluenza 1 (PCR) Not detected, Parainfluenza 2 (PCR) Not detected, Parainfluenza 3 (PCR) Not detected, Parainfluenza 4 (PCR) Not detected, RSV (PCR) Not detected, Entero/Rhino (PCR) Not detected 03/15/20 10:00: Sodium 129 L, Potassium 4.7, Chloride 98, Carbon Dioxide 21 L, Anion Gap 14.7, BUN 41 H, Creatinine 1.90 H, Estimated Creat Clear 57, Estimated GFR 38 L, Est GFR ( Amer) 46 L, Glucose 310 H, Calcium 8.6, Magnesium 2.3, Total Bilirubin 0.8, AST 85 H D, ALT 47 D, Alkaline Phosphatase 345 H, Total Creatine Kinase 26 L, CK-MB (CK-2) 0.8, CK-MB (CK-2) Rel Index 3.1, Troponin I 0.04 H, Total Protein 6.5, Albumin 3.0 L, Globulin 3.5 H, Albumin/Globulin Ratio 0.9 L 03/15/20 11:45: POC Glucose 337 H* 03/15/20 14:15: Troponin I 0.19 H 03/15/20 16:26: POC Glucose 258 H 03/15/20 20:32: POC Glucose 157 H 03/16/20 05:29: POC Glucose 226 H I & O for Last 24 hours: Intake & Output 03/13/20 03/14/20 03/15/20 03/16/20 11:59 11:59 11:59 11:59 Intake Total 1915 / 1915 3364 / 3364 3342 / 3342 Output Total 760 / 760 1200 / 1200 1100 / 1100 Balance 1155 / 1155 2164 / 2164 2242 / 2242 Weight 188 lb 3 oz 190 lb 7 oz 195 lb 4 oz Microbiology Reports for the Last 24 Hours: Microbiology 03/13/20 13:37 Blood Blood Culture - Preliminary Escherichia coli 03/13/20 13:37 Blood Blood Culture - Preliminary NO GROWTH AFTER 48 HOURS 03/13/20 14:39 Urine,Clean Catch Urine Culture - Final Escherichia coli - Constitutional no acute distress - *Routine HEENT Exam Head: Present: normocephalic Eye: Present: PERRL ENT: Present: mucous membranes moist - *Routine Neck Exam Present: supple. Absent: lymphadenopathy - *Routine Respiratory Exam Present: CTA bilaterally - *Routine Cardiovascular Exam Present: RRR - *Routine Abdominal Exam Present: soft, normoactive bowel sounds. Absent: tenderness - *Routine Extremities Exam Present: normal capillary refill. Absent: cyanosis, clubbing, edema - *Routine Skin Exam Present: warm. 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 Current visit: Yes Status: Acute Category: Medical Code(s): E13.10 - Other specified diabetes mellitus with ketoacidosis without coma (3) Non-compliance Current visit: Yes Status: Chronic Category: Medical Code(s):
[2020-03-16 11:18] LABS: POC Glucose,Bedside 303 (70-110)
--- NOTE | 2020-03-16 14:18 | HMH.PNCARD ---
Subjective Date: 03/16/20 Time: 09:00 Principal diagnosis: Hypertension and DKA Interval history: 49 year old Caucasion male admitted to [facility] with DKA and hypertension. Pt is non-compliant with medications. Diabetes remain uncontrolled. Glucose reading this am 226. Pt is alert and oriented to person and place. Denies chest pain, tightness or pressure. Denies shortness of breath with exertion. No swelling of the lower extremities noted. Pt is being treated for Coli Bactermia with IV fluids and antibiotics. Pt noted with no fever this am. BP remains slightly elevated at 161/79. Echo revealed EF 55% with no regional wall motion. Mild MR and TR. Pt noted in Sinus tach with heart rate of 106bpm. Pt had been moving about in his bed. Discuss plan of care with Dr. Quiroz. Will continue to monitor VS. If BP continues to be elevate with increase Metoprolol for better BP control. Recommend further cardiac testing on outpatient bases. Recommend better control of Diabetes. Thank you for letting cardiology participate in the care of this pt. Exam Vital signs and Labs for Last 24 Hours: Temp Pulse Resp BP Pulse Ox 98.2 F 79 10 L 161/79 H 99 03/16/20 12:00 03/16/20 12:00 03/16/20 12:00 03/16/20 12:00 03/16/20 12:00 Laboratory Results - last 24 hr 03/15/20 08:58: POC Glucose 223 H 03/15/20 11:45: POC Glucose 337 H* 03/15/20 14:15: Troponin I 0.19 H 03/15/20 16:26: POC Glucose 258 H 03/15/20 20:32: POC Glucose 157 H 03/16/20 05:29: POC Glucose 226 H 03/16/20 11:05: POC Glucose 303 H* I & O for Last 24 hours: Intake & Output 03/13/20 03/14/20 03/15/20 03/16/20 23:59 23:59 23:59 23:59 Intake Total 2875 / 5039 3901 / 3901 2565 / 2565 Output Total 360 / 360 1600 / 1600 600 / 900 500 / 500 Balance -360 / -360 1275 / 3439 3301 / 3001 5 / 2065 Weight 155 lb 187 lb 6.287 oz 190 lb 7 oz 195 lb 4 oz Microbiology Reports for the Last 24 Hours: Microbiology 03/13/20 13:37 Blood Blood Culture - Preliminary Escherichia coli 03/13/20 13:37 Blood Blood Culture - Preliminary NO GROWTH AFTER 48 HOURS - Constitutional no acute distress, average body habitus, cooperative - *Routine HEENT Exam Head: Present: normocephalic ENT: Present: mucous membranes moist - *Routine Neck Exam Present: supple, full ROM, normal carotid upstroke. Absent: carotid bruit, lymphadenopathy - Routine Chest/Breast/Axilla Exam Chest wall: Present: tenderness. Absent: mass, pacemaker - *Routine Respiratory Exam Present: accessory muscle use, decreased breath sounds, CTA bilaterally - *Routine Cardiovascular Exam Present: RRR, Normal S1, Normal S2, tachycardia. Absent: murmur - *Routine Abdominal Exam Present: soft, normoactive bowel sounds, tenderness. Absent: guarding, firm - *Routine Extremities Exam Present: full ROM, pulses intact, normal capillary refill. Absent: cyanosis, clubbing, edema - *Routine Skin Exam Present: intact, dry, warm. 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 Continue to monitor symptoms. 2. Tobacco cessation and vocational rehabilitation counselor
[2020-03-16 16:28] LABS: POC Glucose,Bedside 288 (70-110)
--- NOTE | 2020-03-16 17:38 | PC.NURSE ---
Pt has been stable this shift. No issues. Has required 1 dose of Morphine 2mg IV for right flank pain. 1st degree AV block noted. Was transferred to med surg from step down this shift. Remains on tele.
--- NOTE | 2020-03-16 19:13 | PC.NURSE ---
report given to norma
[2020-03-16 21:06] LABS: POC Glucose,Bedside 184 (70-110)
[2020-03-17] VITALS (11 sets, daily range): BP systolic 146–182; BP diastolic 68–86; PULSE 74–90; RESP 16–19; TEMP 36.8–38.2; O2SAT 96–100; BMI 28.0
[2020-03-17 06:15] LABS: POC Glucose,Bedside 234 (70-110)
[2020-03-17 07:27] LABS: Basophils % 0.3 % (0.1-2.0); Eosinophils # 0.2 K/mm3 (0.0-0.4); Eosinophils % 2.4 % (0.1-12.0); Hematocrit 32.6 % (42.0-52.0); Hemoglobin 10.5 g/dL (14.1-18.0); Lymphocytes # 1.7 K/mm3 (0.7-4.5); Lymphocytes % 22.3 % (10-50); Mean Corpuscular HGB Conc 32.3 g/dL (31.8-35.4); Mean Corpuscular Hemoglobin 28.2 pg (27.0-31.2); Mean Corpuscular Volume 87.1 fl (80-94); Mean Platelet Volume 8.5 fl (7.4-10.4); Monocytes # 0.3 K/mm3 (0.1-1.0); Monocytes % 4.5 % (1.7-9.3); Neutrophils # 5.2 K/mm3 (1.8-7.8); Neutrophils % 70.3 % (37.0-80.0); Platelet Count 233 K/mm3 (142-424); Red Blood Count 3.74 M/mm3 (4.60-6.20); White Blood Count 7.4 K/mm3 (4.8-10.8)
[2020-03-17 07:36] LABS: Chloride 105 mmol/L (98-107); Potassium 4.5 mmoL/L (3.5-5.1); Sodium 134 mmol/L (136-145)
[2020-03-17 07:39] LABS: Anion Gap 14.5 mEq/L (5-15); Blood Urea Nitrogen 38 mg/dl (9-20); Carbon Dioxide 19 mmol/L (22.0-30.0); Creatinine Clearance Estimated 82 mL/min (50-200); Estimated Glomerular Filt Rate 54 ml/min (>60); GFR (African American) 65 ML/MIN (>60)
[2020-03-17 07:40] LABS: Calcium 8.5 mg/dl (8.4-10.2); Glucose 225 mg/dl (74-100)
--- NOTE | 2020-03-17 09:23 | HMH.ACPN2 ---
Internal Medicine - PN: Subj *Date: 03/18/20 *Time: 08:47 Interval history: pt doing better - we discussed inc activity Exam Vital signs and Labs for Last 24 Hours: Temp Pulse Resp BP Pulse Ox 98.4 F 80 18 168/72 H 99 03/17/20 08:00 03/17/20 08:00 03/17/20 08:00 03/17/20 08:00 03/17/20 08:00 Laboratory Results - last 24 hr 03/16/20 11:05: POC Glucose 303 H* 03/16/20 16:20: POC Glucose 288 H 03/16/20 20:54: POC Glucose 184 H 03/17/20 06:04: POC Glucose 234 H 03/17/20 07:13: WBC 7.4 D, RBC 3.74 L, Hgb 10.5 L, Hct 32.6 L, MCV 87.1, MCH 28.2, MCHC 32.3, RDW 15.0, Plt Count 233, MPV 8.5, Neut % (Auto) 70.3, Lymph % (Auto) 22.3, [place] % (Auto) 4.5, Eos % (Auto) 2.4, Baso % (Auto) 0.3, Neut # (Auto) 5.2, Lymph # (Auto) 1.7, [place] # (Auto) 0.3, Eos # (Auto) 0.2, Baso # (Auto) 0.0 03/17/20 07:13: Sodium 134 L, Potassium 4.5, Chloride 105, Carbon Dioxide 19 L, Anion Gap 14.5, BUN 38 H, Creatinine 1.40 H D, Estimated Creat Clear 82, Estimated GFR 54 L, Est GFR ( Amer) 65 D, Glucose 225 H, Calcium 8.5 I & O for Last 24 hours: Intake & Output 03/14/20 03/15/20 03/16/20 03/17/20 11:59 11:59 11:59 11:59 Intake Total 191 / 1915 3364 / 3364 3702 / 3702 4516 / 4516 Output Total 760 / 760 1200 / 1200 1100 / 1100 1875 / 1875 Balance 1155 / 1155 2164 / 2164 2602 / 2602 2641 / 2641 Weight 188 lb 3 oz 190 lb 7 oz 195 lb 4 oz 200 lb 6.403 oz Microbiology Reports for the Last 24 Hours: Microbiology 03/13/20 13:37 Blood Blood Culture - Preliminary Escherichia coli - Constitutional no acute distress - *Routine HEENT Exam Head: Present: normocephalic Eye: Present: EOMI, PERRL ENT: Present: mucous membranes dry - *Routine Neck Exam Present: supple - *Routine Respiratory Exam Present: CTA bilaterally - *Routine Cardiovascular Exam Present: RRR - *Routine Abdominal Exam Present: soft - *Routine Extremities Exam Absent: calf tenderness - *Routine Skin Exam Present: intact - *Routine Neurological Exam Present: alert, CN II-XII intact - Routine Psychiatric Exam Present: normal affect Assessment and Plan (1) Hyponatremia Current visit: Yes Status: Acute Category: Medical Code(s): E87.1 - Hypo-osmolality and hyponatremia (2) 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 Current visit: Yes Status: Acute Category: Medical Code(s): E13.10 - Other specified diabetes mellitus with ketoacidosis without coma (3) Non-compliance Current visit: Yes Status: Chronic Category: Medical Code(s): Z91.19 - Patient's noncompliance with other medical treatment and regimen (4) DKA (diabetic ketoacidoses) Current visit: Yes Status: Acute Qualifiers: Diabetes mellitus type: type 1 Diabetes mellitus complication detail: without coma Qualified Code(s): E10.10 - Type 1 diabetes mellitus with ketoacidosis without coma Category: Medical Code(s): E11.10 - Type 2 diabetes mellitus with ketoacidosis without coma (5) Pyelonephritis of right kidney Current visit: Yes Status: Acute Category: Medical Code(s): N12 - Tubulo-interstitial nephritis, not specified as acute or chronic (6) Diabetes mellitus, insulin dependent (IDDM), uncontrolled Current visit: Yes Status: Chronic Category: Medical Code(s): E11.65 - Type 2 diabetes mellitus with hyperglycemia; Z79.4 - [facility] (current) use of insulin (7) Hypertension Current visit: Yes Status: Acute Category: Medical Code(s): I10 - Essential (primary) hypertension (8) Tobacco use Current visit: Yes Status: Chronic Category: Social Hx Code(s): Z72.0 - Tobacco use
[2020-03-17 11:26] LABS: POC Glucose,Bedside 248 (70-110)
[2020-03-17 17:08] LABS: POC Glucose,Bedside 131 (70-110)
--- NOTE | 2020-03-17 19:35 | PC.NURSE ---
PATIENT A&O X4, LUNGS CLEAR, PULSES EQUAL. 1530 PATIENT HAD TEMP OF 100.3 ORAL, THIS RN ADMINISTERED TYLENOL AT 1536. RECHECKED TEMPERATURE AT 1551, TEMP WAS 100.8 THIS REMOVED BLANKET AND TURNED DOWN ROOM TEMPERATURE. THIS RN OFFERED PATIENT ICE PACKS, PATIENT REFUSED. THIS RN RECHECKED TEMPERATURE AT 1634, TEMPERATURE WAS 100.8. NO OTHER NEEDS OR CONCERNS AT THIS TIME.
[2020-03-17 21:45] LABS: POC Glucose,Bedside 284 (70-110)
[2020-03-18] VITALS (8 sets, daily range): BP systolic 152–192; BP diastolic 71–78; PULSE 80–98; RESP 17–20; TEMP 36.7–37.3; O2SAT 95–99; BMI 27.4
--- NOTE | 2020-03-18 04:14 | PC.NURSE ---
A&OX4. PT TOLERATING RA WELL T/O THIS SHIFT. PT HAS C/O ABD PAIN X1 THIS SHIFT. ADMINISTERED MORPHINE PER MAR. ON REASSESSMENT, PT RESTING IN BED WITH EYES CLOSED. PT HAS A LARGE APPETITE THIS SHIFT. PT HEELS BEING FLOATED T/O SHIFT. PT HAS NO OTHER C/O TUS FAR. THIS NURSE EDUCATED PT ON IMPORTANCE OF AMBULATION AND GETTING UP TO SHOWER, PT REFUSES TO DO THESE THINGS AT THIS TIME. VSS WILL CONTINUE TO MONITOR.
[2020-03-18 05:41] LABS: POC Glucose,Bedside 219 (70-110)
[2020-03-18 07:12] LABS: Basophils % 0.1 % (0.1-2.0); Eosinophils # 0.1 K/mm3 (0.0-0.4); Eosinophils % 1.1 % (0.1-12.0); Hematocrit 30.6 % (42.0-52.0); Lymphocytes # 1.2 K/mm3 (0.7-4.5); Lymphocytes % 14.4 % (10-50); Mean Corpuscular HGB Conc 32.9 g/dL (31.8-35.4); Mean Corpuscular Hemoglobin 28.1 pg (27.0-31.2); Mean Corpuscular Volume 85.5 fl (80-94); Mean Platelet Volume 8.3 fl (7.4-10.4); Monocytes # 0.3 K/mm3 (0.1-1.0); Monocytes % 3.6 % (1.7-9.3); Neutrophils # 6.9 K/mm3 (1.8-7.8); Neutrophils % 80.8 % (37.0-80.0); Platelet Count 280 K/mm3 (142-424); Red Blood Count 3.57 M/mm3 (4.60-6.20); Red Cell Distribution Width 15.1 % (11.5-17.5); White Blood Count 8.5 K/mm3 (4.8-10.8)
[2020-03-18 07:19] LABS: Blood Urea Nitrogen 28 mg/dl (9-20); Calcium 8.5 mg/dl (8.4-10.2); Carbon Dioxide 20 mmol/L (22.0-30.0); Chloride 106 mmol/L (98-107); Creatinine Clearance Estimated 94 mL/min (50-200); Estimated Glomerular Filt Rate 64 ml/min (>60); GFR (African American) 78 ML/MIN (>60); Glucose 237 mg/dl (74-100); Sodium 133 mmol/L (136-145)
--- NOTE | 2020-03-18 08:51 | HMH.ACPN2 ---
Internal Medicine - PN: Subj *Date: 03/19/20 *Time: 06:45 Interval history: doing better - less fever - Exam Vital signs and Labs for Last 24 Hours: Temp Pulse Resp BP Pulse Ox 99.0 F 90 18 178/78 H 99 03/18/20 08:00 03/18/20 08:00 03/18/20 08:00 03/18/20 08:00 03/18/20 08:00 Laboratory Results - last 24 hr 03/17/20 11:13: POC Glucose 248 H 03/17/20 16:28: POC Glucose 131 H 03/17/20 21:22: POC Glucose 284 H 03/18/20 05:17: POC Glucose 219 H 03/18/20 06:33: WBC 8.5, RBC 3.57 L, Hgb 10.0 L, Hct 30.6 L, MCV 85.5, MCH 28.1, MCHC 32.9, RDW 15.1, Plt Count 280, MPV 8.3, Neut % (Auto) 80.8 H, Lymph % (Auto) 14.4, [place] % (Auto) 3.6, Eos % (Auto) 1.1, Baso % (Auto) 0.1, Neut # (Auto) 6.9, Lymph # (Auto) 1.2, [place] # (Auto) 0.3, Eos # (Auto) 0.1, Baso # (Auto) 0.0 03/18/20 06:33: Sodium 133 L, Potassium 5.0, Chloride 106, Carbon Dioxide 20 L, Anion Gap 12.0, BUN 28 H D, Creatinine 1.20, Estimated Creat Clear 94, Estimated GFR 64, Est GFR ( Amer) 78, Glucose 237 H, Calcium 8.5 I & O for Last 24 hours: Intake & Output 03/15/20 03/16/20 03/17/20 03/18/20 11:59 11:59 11:59 11:59 Intake Total 3364 / 3364 3702 / 3702 4516 / 4516 4135 / 4135 Output Total 1200 / 1200 1100 / 1100 1875 / 1875 5050 / 5050 Balance 2164 / 2164 2602 / 2602 2641 / 2641 -915 / -915 Weight 190 lb 7 oz 195 lb 4 oz 200 lb 6.403 oz 195 lb 15.855 oz - Constitutional no acute distress - *Routine HEENT Exam Head: Present: normocephalic Eye: Present: EOMI, PERRL ENT: Present: mucous membranes dry - *Routine Neck Exam Present: supple - *Routine Respiratory Exam Present: CTA bilaterally - *Routine Cardiovascular Exam Present: RRR, murmur - *Routine Abdominal Exam Present: soft - *Routine Extremities Exam Absent: calf tenderness - *Routine Skin Exam Present: intact - *Routine Neurological Exam Present: alert, CN II-XII intact - Routine Psychiatric Exam Present: normal affect Assessment and Plan (1) Hyponatremia Current visit: Yes Status: Acute Category: Medical Code(s): E87.1 - Hypo-osmolality and hyponatremia (2) 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 Current visit: Yes Status: Acute Category: Medical Code(s): E13.10 - Other specified diabetes mellitus with ketoacidosis without coma (3) Non-compliance Current visit: Yes Status: Chronic Category: Medical Code(s): Z91.19 - Patient's noncompliance with other medical treatment and regimen (4) DKA (diabetic ketoacidoses) Current visit: Yes Status: Acute Qualifiers: Diabetes mellitus type: type 1 Diabetes mellitus complication detail: without coma Qualified Code(s): E10.10 - Type 1 diabetes mellitus with ketoacidosis without coma Category: Medical Code(s): E11.10 - Type 2 diabetes mellitus with ketoacidosis without coma (5) Pyelonephritis of right kidney Current visit: Yes Status: Acute Category: Medical Code(s): N12 - Tubulo-interstitial nephritis, not specified as acute or chronic (6) Diabetes mellitus, insulin dependent (IDDM), uncontrolled Current visit: Yes Status: Chronic Category: Medical Code(s): E11.65 - Type 2 diabetes mellitus with hyperglycemia; Z79.4 - adjunct faculty for medical terminology (current) use of insulin (7) Hypertension Current visit: Yes Status: Acute Category: Medical Code(s): I10 - Essential (primary) hypertension (8) Tobacco use Current visit: Yes Status: Chronic Category: Social Hx Code(s): Z72.0 - Tobacco use (9) E. coli UTI (urinary tract infection) Current visit: Yes Status: Acute Category: Medical Code(s): N39.0 - Urinary tract infection, site not specified; B96.20 - Unspecified Escherichia coli [E. coli] as the cause of diseases classified elsewhere (10) E. coli bacteremia Current visit: Yes Status: Acute Category: Medical Code(s): R78.81 - Bacteremia; B96.20 - Unspecified Escherichia coli [E. coli] as the cause of diseases classified elsewhere
[2020-03-18 11:51] LABS: POC Glucose,Bedside 257 (70-110)
--- NOTE | 2020-03-18 13:48 | HMH.ACPN ---
Internal Medicine - PN: Subj *Date: 03/18/20 *Time: 13:48 Exam Vital signs and Labs for Last 24 Hours: Temp Pulse Resp BP Pulse Ox 99.2 F 82 20 152/72 H 97 03/18/20 11:47 03/18/20 11:47 03/18/20 11:47 03/18/20 11:47 03/18/20 11:47 Laboratory Results - last 24 hr 03/17/20 16:28: POC Glucose 131 H 03/17/20 21:22: POC Glucose 284 H 03/18/20 05:17: POC Glucose 219 H 03/18/20 06:33: WBC 8.5, RBC 3.57 L, Hgb 10.0 L, Hct 30.6 L, MCV 85.5, MCH 28.1, MCHC 32.9, RDW 15.1, Plt Count 280, MPV 8.3, Neut % (Auto) 80.8 H, Lymph % (Auto) 14.4, [place] % (Auto) 3.6, Eos % (Auto) 1.1, Baso % (Auto) 0.1, Neut # (Auto) 6.9, Lymph # (Auto) 1.2, [place] # (Auto) 0.3, Eos # (Auto) 0.1, Baso # (Auto) 0.0 03/18/20 06:33: Sodium 133 L, Potassium 5.0, Chloride 106, Carbon Dioxide 20 L, Anion Gap 12.0, BUN 28 H D, Creatinine 1.20, Estimated Creat Clear 94, Estimated GFR 64, Est GFR ( Amer) 78, Glucose 237 H, Calcium 8.5 03/18/20 11:18: POC Glucose 257 H I & O for Last 24 hours: Intake & Output 03/15/20 03/16/20 03/17/20 03/18/20 23:59 23:59 23:59 23:59 Intake Total 3901 / 3901 4785 / 4785 4099 / 4099 1971 / 1971 Output Total 600 / 900 1675 / 1675 4350 / 4350 1775 / 1775 Balance 3301 / 3001 3110 / 3110 -251 / -251 197 / 197 Weight 86.381 kg 88.564 kg 90.9 kg 88.9 kg Assessment and Plan (1) Hyponatremia Current visit: Yes Status: Acute Category: Medical Code(s): E87.1 - Hypo-osmolality and hyponatremia (2) 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 Current visit: Yes Status: Acute Category: Medical Code(s): E13.10 - Other specified diabetes mellitus with ketoacidosis without coma (3) Non-compliance Current visit: Yes Status: Chronic Category: Medical Code(s): Z91.19 - Patient's noncompliance with other medical treatment and regimen (4) DKA (diabetic ketoacidoses) Current visit: Yes Status: Acute Qualifiers: Diabetes mellitus type: type 1 Diabetes mellitus complication detail: without coma Qualified Code(s): E10.10 - Type 1 diabetes mellitus with ketoacidosis without coma Category: Medical Code(s): E11.10 - Type 2 diabetes mellitus with ketoacidosis without coma (5) Pyelonephritis of right kidney Current visit: Yes Status: Acute Category: Medical Code(s): N12 - Tubulo-interstitial nephritis, not specified as acute or chronic (6) Diabetes mellitus, insulin dependent (IDDM), uncontrolled Current visit: Yes Status: Chronic Category: Medical Code(s): E11.65 - Type 2 diabetes mellitus with hyperglycemia; Z79.4 - [facility] (current) use of insulin (7) Hypertension Current visit: Yes Status: Acute Category: Medical Code(s): I10 - Essential (primary) hypertension (8) Tobacco use Current visit: Yes Status: Chronic Category: Social Hx Code(s): Z72.0 - Tobacco use (9) E. coli UTI (urinary tract infection) Current visit: Yes Status: Acute Category: Medical Code(s): N39.0 - Urinary tract infection, site not specified; B96.20 - Unspecified Escherichia coli [E. coli] as the cause of diseases classified elsewhere (10) E. coli bacteremia Current visit: Yes Status: Acute Category: Medical Code(s): R78.81 - Bacteremia; B96.20 - Unspecified Escherichia coli [E. coli] as the cause of diseases classified elsewhere The patient's infection will respond to the chosen ABx?: Yes Is the patient receiving the right drug, dose, and route?: Yes Could a more targeted ABx be ordered?: No (E COLI SENSITIVE TO ROCEPHIN)
--- NOTE | 2020-03-18 15:34 | PC.NURSE ---
PATIENT A&O X4, LUNGS CLEAR, PULSES EQUAL. PATIENT TOOK SHOWER THIS AFTERNOON, SHEETS CHANGED. PATIENT REFUSED ORAL CARE, STATED, I DON'T HAVE ANY TEETH!. THIS RN EDUCATED PATIENT IN REGARDS TO GUM AND TONGUE CARE. PATIENT REFUSED. PATIENT REFUSED IV FLUIDS THRU THIS RN SHIFT. THIS RN HAS EDUCATED THE IMPORTANCE OF HYDRATION. PATIENT STATED, I DO DRINK ALOT OF PEPSI AND COFFEE. THIS RN EDUCATED PATIENT IN REGARDS TO CAFFEINE BEING A DIURETIC AND DOES NOT COUNT FLUIDS FOR HYDRATION, PATIENT CONTINUED TO REFUSE. NO OTHER CONCERNS AT THIS TIME.
[2020-03-18 17:04] LABS: POC Glucose,Bedside 169 (70-110)
[2020-03-18 20:38] LABS: POC Glucose,Bedside 201 (70-110)
[2020-03-19] VITALS: PULSE 90
[2020-03-19 03:49] VITALS: BP 190/81; PULSE 84; RESP 14; TEMP 37.6; O2SAT 97
[2020-03-19 04:00] VITALS: PULSE 90
[2020-03-19 05:48] LABS: POC Glucose,Bedside 227 (70-110)
--- NOTE | 2020-03-19 06:45 | PC.NURSE ---
PT IS REFUSING AM LABS. PT STATES THAT HE IS LEAVING THIS MORNING AND THERE IS NO USE. HE'S OVER IT AND HE IS OUT OF HERE TODAY.
[2020-03-19 08:00] VITALS: BP 180/74; PULSE 86; RESP 19; TEMP 37.2; O2SAT 100
--- NOTE | 2020-03-19 08:52 | HMH.DCSUM ---
General - General Admission date:: 03/14/20 Discharge date: 03/19/20 HPI HPI: 5-day history of right flank pain into her right abdomen. 3-day history of repetitive vomiting. Last bowel movement 5 to 6 days ago. Says that he has had previous similar pain from obstipation. Denies fever. Also states that he ran out of his insulin pen 2 weeks ago. He called the pharmacy, believing he had refills. Pharmacy informed him that he did not have any refills. Poor compliance with insulin regimen. Had progression of abdominal symptoms which ultimately led him to present to the emergency room. Work-up is included labs and CT of the abdomen pelvis. He is admitted for treatment of his DKA, electrolyte aberrations, metabolic abnormalities, and infection involving the urinary system. Hospital Course Hospital Course: The patient was admitted in DKA, with abdominal pain, and UTI with right pyelonephritis. Urine culture positive for a pansensitive E. coli. Blood culture sensitive for a pansensitive E. coli. Remained on IV antibiotics and progressively improved. On the day of his discharge his abdomen was benign, he had a good appetite, felt good, and had been afebrile. He will get a dose of IV Levaquin today, and will be discharged on 750 daily x3. Objective Vital signs: Temp Pulse Resp BP Pulse Ox 99.6 F 90 14 190/81 H 97 03/19/20 03:49 03/19/20 04:00 03/19/20 03:49 03/19/20 03:49 03/19/20 03:49 no acute distress, chronically ill appearing - *Routine HEENT Exam Head: Present: normocephalic, atraumatic Eye: Absent: periorbital swelling, periorbital tenderness ENT: Present: mucous membranes moist - *Routine Neck Exam Present: supple, full ROM - *Routine Respiratory Exam Present: CTA bilaterally - *Routine Cardiovascular Exam Present: RRR, Normal S1, Normal S2. Absent: murmur - *Routine Abdominal Exam Present: soft. Absent: tenderness, distended, guarding, firm, rigid, mass, hernia - *Routine Extremities Exam Present: ROSSANA stockings. Absent: cyanosis, clubbing, edema, calf tenderness - *Routine Skin Exam Present: intact. Absent: cyanosis, jaundice - *Routine Neurological Exam Present: alert, oriented X3 - Routine Psychiatric Exam Present: normal affect, cooperative. Absent: good insight, good judgment Results Labs on day of discharge: Labs from last 24 hours 03/19/20 03/18/20 03/18/20 05:39 20:16 16:58 POC Glucose 227 H 201 H 169 H 03/18/20 11:18 POC Glucose 257 H Preliminary micro results at discharge 03/13/20 13:37 Blood Culture - Preliminary Blood Escherichia coli DS: Diagnosis - Discharge Diagnosis (1) Hyponatremia Status: Resolved (2) 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 Status: Resolved (3) Non-compliance Status: Chronic (4) DKA (diabetic ketoacidoses) Status: Acute (5) Pyelonephritis of right kidney Status: Acute (6) Diabetes mellitus, insulin dependent (IDDM), uncontrolled Status: Chronic (7) Hypertension Status: Acute (8) Tobacco use Status: Chronic (9) E. coli UTI (urinary tract infection) Status: Acute (10) E. coli bacteremia Status: Acute Discharge Plan - Patient Discharge Instructions ACTIVITY: Ambulate as tolerated DIET: advance to your usual diet Patient Instructions: Type 2 Diabetes, Nicotine Addiction, DI for Kidney Infection, Diabetic Ketoacidosis, DI for Diabetic Ketoacidosis, How to Quit Tobacco Products - Follow up Plan Follow up with: Devonte Molina MD [Staff Physician] - 1 week Disposition: Home, Self-[facility] Medications: Home Medications Medication Instructions Recorded Confirmed Type Insulin Glargine,Hum.rec.anlog 20 unit SQ BID 04/06/19 03/13/20 History [Lantus Insulin 100units/mL 10mL vial] lisinopriL [Lisinopril 20mg Tab] 20 mg PO DAILY 04/07/19 03/13/20 History Nitroglycerin 0.4 mg SL Q5MINP PRN 03/13/20 03/13/20 Histor
[2020-03-19 08:53] VITALS: PULSE 86; RESP 19; O2SAT 100
[2020-03-19 10:34] LABS: POC Glucose,Bedside 282 (70-110)
[2020-03-19 12:00] VITALS: BP 151/89; PULSE 79; PULSE 80; RESP 20; TEMP 37.1; O2SAT 98
== END 2020-03-19 13:00 | disposition home or self-care (01) | DRG 638 ==
LOC: ER 15:27 → 2ND 16:36
PROVIDERS: Family Medicine; Nurse Practitioner Family; Physician Assistant; Admitting Provider Emergency Medicine; Emergency Provider Emergency Medicine; PCP Emergency Medicine; Visit Provider Emergency Medicine
DX: E11.10 Type 2 diabetes mellitus with ketoacidosis without coma (principal); N12 Tubulo-interstitial nephritis, not specified as acute or chronic; E87.1 Hypo-osmolality and hyponatremia; R78.81 Bacteremia; N39.0 Urinary tract infection, site not specified; Z79.4 Long term (current) use of insulin; T38.3X6A Underdosing of insulin and oral hypoglycemic [antidiabetic] drugs, initial encounter; Z91.138 Patient's unintentional underdosing of medication regimen for other reason; E03.9 Hypothyroidism, unspecified; I10 Essential (primary) hypertension; B96.20 Unspecified Escherichia coli [E. coli] as the cause of diseases classified elsewhere; Z72.0 Tobacco use; Z79.899 Other long term (current) drug therapy
CPT/HCPCS: 36415; 74176; 80048; 80053; 81001; 82009; 82550; 82553; 82803; 82962; 83605; 83735; 84484; 85007; 85025; 87040; 87077; 87086; 87088; 87186; 87581; 87633; 87798; 93005; 93306; 96365; 96367; 96375; 99285; J1335; J1956; J2405

== ENCOUNTER → 2020-04-13 17:21 | Outpatient (CLI) | payer MEDICAID, SELFPAY ==
[2020-04-13 17:48] LABS: Creatinine,Urine Random 29 mg/dL (Not Estab.)
== END ==
PROVIDERS: Visit Provider Family Medicine
DX: N12 Tubulo-interstitial nephritis, not specified as acute or chronic (principal); E13.10 Other specified diabetes mellitus with ketoacidosis without coma; E11.65 Type 2 diabetes mellitus with hyperglycemia; Z79.4 Long term (current) use of insulin
CPT/HCPCS: 82043; 82570; 87086

== ENCOUNTER 2020-08-20 13:36 | Observation (INO) | payer MEDICAID, SELFPAY ==
[2020-08-20] VITALS (10 sets, daily range): BP systolic 122–207; BP diastolic 75–102; PULSE 74–98; RESP 14–24; TEMP 36.6–36.8; O2SAT 94–100; BMI 27.1; BMI 27.9
--- NOTE | 2020-08-20 13:40 | HMH.EDABDPAI ---
ED Disposition Clinical Impression: Acute kidney injury, Hyponatremia Pancreatitis, acute Qualifiers: Pancreatitis type: unspecified pancreatitis type Acute pancreatitis complication: unspecified Qualified Code(s): K85.90 - Acute pancreatitis without necrosis or infection, unspecified Hyperglycemia due to type 2 diabetes mellitus Qualifiers: Diabetes mellitus director long term care insulin use: with detention use Qualified Code(s): E11.65 - Type 2 diabetes mellitus with hyperglycemia; Z79.4 - [facility] (current) use of insulin Disposition: Admitted As Inpatient Condition on Discharge: Good - Critical Care Critical Care Time: No Attestation: On , the high probability of a clinically significant, sudden or life threatening deterioration of the following system(s) required my full and direct attention, intervention and personal management. The time I documented below is in addition to time spent performing reported procedures but includes the following listed in this critical care notation. Medical Decision Making - Medical Records Medical records reviewed: Yes: I reviewed the patient's medical records. - Renan Inquiry Pt receiving controlled substance: No Vital Signs: 08/20/20 13:36 08/20/20 14:18 08/20/20 15:33 Temperature 98.2 F Temperature Source Oral Pulse Rate [Left Radial] 98 H 86 81 Respiratory Rate 20 18 16 Blood Pressure [Right Arm] 207/102 H 164/95 H 169/79 H Blood Pressure Mean [Right Arm] 137 118 109 Blood Pressure Source [Right Arm] Automatic Cuff Automatic Cuff Automatic Cuff Blood Pressure Position [Right Arm] Sitting Sitting Sitting 02 Sat by Pulse Oximetry 99 100 99 Oxygen Delivery Method Room Air 08/20/20 16:14 08/20/20 16:34 Temperature Temperature Source Pulse Rate [Left Radial] 82 81 Respiratory Rate 18 16 Blood Pressure [Right Arm] 123/99 H 166/83 H Blood Pressure Mean [Right Arm] 107 110 Blood Pressure Source [Right Arm] Automatic Cuff Automatic Cuff Blood Pressure Position [Right Arm] Sitting Sitting 02 Sat by Pulse Oximetry 99 98 Oxygen Delivery Method - Lab Data Lab Results 08/20/20 13:55: WBC 6.6, RBC 5.45, Hgb 15.4, Hct 46.4, MCV 85.2, MCH 28.2, MCHC 33.2, RDW 14.0, Plt Count 262, MPV 8.3, Neut % (Auto) 55.8, Lymph % (Auto) 36.1, Eagle % (Auto) 3.8, Eos % (Auto) 3.8, Baso % (Auto) 0.6, Neut # (Auto) 3.7, Lymph # (Auto) 2.4, Eagle # (Auto) 0.3, Eos # (Auto) 0.3, Baso # (Auto) 0.0 08/20/20 13:55: Sodium 125 L, Potassium 4.8, Chloride 93 L, Carbon Dioxide 24, Anion Gap 12.8, BUN 29 H, Creatinine 1.30 H, Estimated Creat Clear 85, Estimated GFR 58 L, Est GFR ( Amer) 71, Glucose 622 H*, Calcium 9.5, Total Bilirubin 0.4, AST 17, ALT 12, Alkaline Phosphatase 139 H, Total Protein 7.5, Albumin 3.9, Globulin 3.6 H, Albumin/Globulin Ratio 1.1, Lipase 2241 H 08/20/20 13:55: SARS-CoV-2 IgG Ab (Rapid) Negative, SARS-CoV-2 IgM Ab (Rapid) Negative 08/20/20 13:55: Lactate 1.1 08/20/20 15:13: VBG pH 7.32, VBG pCO2 44.8, VBG pO2 59.6 H, VBG HCO3 22.5 L, VBG Total CO2 23.8, VBG O2 Saturation 91.5 H, VBG Base Excess -3.7 L Result diagrams: 08/20/20 13:55 08/20/20 13:55 Orders (Tests/Meds): ED MEDICATIONS Discontinued Medications Generic Name Dose Route Start Last Admin Trade Name Freq PRN Reason Stop Dose Admin Lactated Ringer's 1,000 mls @ 999 mls/hr 08/20/20 13:45 08/20/20 14:02 Lactated Ringer's 1000 Ml Bag IV 08/20/20 14:45 999 mls/hr .Q1H1M AMARI Administration Iopamidol 75 ml 08/20/20 15:05 08/20/20 15:05 Iopamidol-370 (76%);100ml Bottle IV 08/20/20 15:06 75 ml ONCE ONE Administration Morphine Sulfate 4 mg 08/20/20 13:43 08/20/20 14:02 Morphine 4mg/Ml Syringe IV 08/20/20 13:44 4 mg ONCE ONE Administration Sodium Chloride 10 ml 08/20/20 15:05 08/20/20 15:05 Sodium Chloride 0.9% 10ml Syr (Rad Only) IV 08/20/20 15:06 10 ml ONCE ONE Administration ORDERS Category Date Time Status Urinalysis and Microscopic Stat Lab 08/01
--- NOTE | 2020-08-20 13:43 | CT_ITS ---
PROCEDURE: CT ABDOMEN PELVIS W CON CLINICAL INDICATION: LUQ abdominal and flank pain COMPARISON: CT CT ABDOMEN PELVIS WO CON from 03/15/2020 TECHNIQUE: IV Contrast: 75ML Isovue 370 Oral Contrast None Axial images obtained with sagittal and coronal reformats. All CT scans at the facility use one or more dose reduction, viz: automated exposure control, ma/kV adjustment per patient size (including targeted exams where dose is matched to indication, i.e. head), or iterative reconstruction technique. FINDINGS: LOWER THORAX: There is some scarring in the left lung base. Gynecomastia noted ABDOMEN & PELVIS: There has been a prior cholecystectomy. The liver, spleen, adrenal glands, and kidneys have an unremarkable appearance. There is some mild stranding of the peripancreatic fat at the body of the pancreas which may be seen with mild pancreatitis. No pancreatic necrosis. No intestinal obstruction or free air. No evidence of appendicitis. There is a mild amount of retained colonic feces. No pelvic mass or abnormal fluid collection. No acute bony findings. IMPRESSION: There is mild stranding of the fat around the body of the pancreas suggesting mild pancreatitis Mild amount of retained colonic feces. Dictated by: Mihai Cortez MD 08/20/2020 15:29 Mihai Cortez MD in [facility] 08/20/2020 15:29
--- NOTE | 2020-08-20 13:43 | XR_ITS ---
PROCEDURE: XR CHEST 2V CLINICAL HISTORY: productive cough COMPARISON: No exams were available for comparison FINDINGS: The cardiomediastinal silhouette and pulmonary vascularity are within normal limits. The lungs are clear without infiltrates, suspicious nodules, or pleural effusions. No acute bony abnormalities. IMPRESSION: No acute findings. Dictated by: Mihai Cortez MD 08/20/2020 15:42 Mihai Cortez MD in [facility] 08/20/2020 15:42
[2020-08-20 14:14] LABS: Basophils % 0.6 % (0.1-2.0); Chloride 93 mmol/L (98-107); Eosinophils # 0.3 K/mm3 (0.0-0.4); Eosinophils % 3.8 % (0.1-12.0); Hematocrit 46.4 % (42.0-52.0); Hemoglobin 15.4 g/dL (14.1-18.0); Lymphocytes # 2.4 K/mm3 (0.7-4.5); Lymphocytes % 36.1 % (10-50); Mean Corpuscular HGB Conc 33.2 g/dL (31.8-35.4); Mean Corpuscular Hemoglobin 28.2 pg (27.0-31.2); Mean Corpuscular Volume 85.2 fl (80-94); Mean Platelet Volume 8.3 fl (7.4-10.4); Monocytes # 0.3 K/mm3 (0.1-1.0); Monocytes % 3.8 % (1.7-9.3); Neutrophils # 3.7 K/mm3 (1.8-7.8); Neutrophils % 55.8 % (37.0-80.0); Platelet Count 262 K/mm3 (142-424); Potassium 4.8 mmoL/L (3.5-5.1); Red Blood Count 5.45 M/mm3 (4.60-6.20); Sodium 125 mmol/L (136-145); White Blood Count 6.6 K/mm3 (4.8-10.8)
[2020-08-20 14:16] LABS: Alanine Aminotransferase 12 U/L (12-78); Alkaline Phosphatase 139 U/L (38-126); Aspartate Amino Transferase 17 U/L (17-59); Bilirubin,Total 0.4 mg/dl (0.2-1.3); Blood Urea Nitrogen 29 mg/dl (9-20); Creatinine Clearance Estimated 85 mL/min (50-200); Estimated Glomerular Filt Rate 58 ml/min (>60); GFR (African American) 71 ML/MIN (>60)
[2020-08-20 14:17] LABS: Albumin Level 3.9 g/dl (3.5-5.0); Albumin/Globulin Ratio 1.1 (1.1-1.8); Anion Gap 12.8 mEq/L (5-15); Calcium 9.5 mg/dl (8.4-10.2); Carbon Dioxide 24 mmol/L (22.0-30.0); Globulin 3.6 g/dL (1.3-3.2); Total Protein,Serum 7.5 g/dl (6.3-8.2)
--- NOTE | 2020-08-20 14:18 | PC.NURSE ---
notified ER of critical glucose at this time.
[2020-08-20 14:24] LABS: Glucose 622 mg/dl (74-100); Lipase 2241 U/L (23-300)
[2020-08-20 15:04] LABS: Coronavirus 19 IgG Antibody Negative (Negative); Coronavirus 19 IgM Antibody Negative (Negative)
--- NOTE | 2020-08-20 15:13 | PC.NURSE ---
notified RT of vbg order, spoke with cassy
[2020-08-20 15:29] LABS: VBG Base Excess -3.7 mmol/L (-2.4-2.3); VBG HCO3 22.5 mmol/L (23-30); VBG Oxygen Saturation 91.5 % (50-70); VBG PCO2 44.8 mmol/L (35-51); VBG PH 7.32 mmol/L (7.31-7.41); VBG PO2 59.6 mmol/L (28-40); VBG Total CO2 23.8 mmol/L (23-27)
--- NOTE | 2020-08-20 15:42 | PC.NURSE ---
DR Mir talking to Dr Molina
--- NOTE | 2020-08-20 16:20 | HMH.PHAVTE ---
[facility] Pharmacy VTE Monitoring - Patient Demographics Admission date: 08/20/20 Report Date: 08/20/20 Time: 16:20 Allergies/Adverse Reactions: Patient Allergies codeine Allergy (Verified 04/13/20 13:06) Height: 1.8 m Weight: 88.451 kg Patient Problems: Current Active Problems Pancreatitis, acute (Acute) - VTE Risk Labs: VTE Related Lab Results Hgb 15.4 g/dL (14.1-18.0) 08/20/20 13:55 Hct 46.4 % (42.0-52.0) 08/20/20 13:55 Plt Count 262 K/mm3 (142-424) 08/20/20 13:55 BUN 29 mg/dl (9-20) H 08/20/20 13:55 Creatinine 1.30 mg/dl (0.66-1.25) H 08/20/20 13:55 Estimated Creat Clear 85 mL/min (50-200) 08/20/20 13:55 Clinical Trial Participant: No - Prophylaxis VTE Prophylaxis Ordered?: Yes Types of VTE Prophylaxis: TEDS Knee High
[2020-08-20 16:27] LABS: Lactic Acid 1.1 mmol/L (0.7-2.1)
[2020-08-20 17:47] LABS: Acetone, Serum (Rapid) None Detected (None Detect)
[2020-08-20 18:56] LABS: Microscopic, Urine URINE MICROSCOPIC (MICROSCOPIC)
--- NOTE | 2020-08-20 19:03 | PC.NURSE ---
PT IS SITTING UP IN THE BED. ALERT AND ORIENTED X4. 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 PT STATED HE WOULD NOT BE INTERESTED IN BLOOD TRANSFUSIONS. ORGAN DONATING AND PT DID NOT FEEL COMFORTABLE WITH PICTURES BEING TAKEN OF HIS BACK B/C PT STATES THAT'S WEIRD AREAS ON PT'S BACK ARE NOT OPEN. AREAS ARE FROM AN ABSCESS PT HAD SURGERY ON LAST YEAR.
[2020-08-20 19:04] LABS: Appearance,Urine CLEAR (Clear); Bilirubin,Urine Negative (Negative); Blood, Urine TRACE-I (Negative); Color,Urine YELLOW (Yellow); Glucose,Urine (UA) 3+ (Negative); Ketones,Urine Negative (Negative); Leukocyte Esterase,Urine Negative (Negative); Nitrate,Urine Negative (Negative); Protein,Urine 2+ (Negative); Urobilinogen,Urine 0.2 EU/dl (0.2)
[2020-08-20 20:46] LABS: Chol/HDL Ratio 6.8 (1-3.5); Cholesterol 319 mg/dl (140-200); HDL Cholesterol 47 mg/dl (40-60)
[2020-08-20 20:57] LABS: Direct LDL Cholesterol 96.22 mg/dL (100-129)
[2020-08-20 21:01] LABS: Triglycerides 953 mg/dl (30-150)
[2020-08-20 21:44] LABS: Hemoglobin A1C > 14.0 % (4.0-6.0)
[2020-08-20 22:24] LABS: POC Glucose,Bedside 458 (70-110)
--- NOTE | 2020-08-21 02:15 | PC.NURSE ---
Seizure pads put on bed at this time due to pt's hx of seizure disorder.
[2020-08-21 02:22] LABS: POC Glucose,Bedside 96 (70-110)
[2020-08-21 04:00] VITALS: BP 138/70; PULSE 75; RESP 16; TEMP 36.6; O2SAT 100
[2020-08-21 04:51] VITALS: BMI 28.0
[2020-08-21 06:30] LABS: POC Glucose,Bedside 128 (70-110)
[2020-08-21 06:44] LABS: Chloride 101 mmol/L (98-107); Potassium 4.4 mmoL/L (3.5-5.1); Sodium 131 mmol/L (136-145)
[2020-08-21 06:47] LABS: Alanine Aminotransferase 11 U/L (12-78); Albumin Level 3.4 g/dl (3.5-5.0); Albumin/Globulin Ratio 1.1 (1.1-1.8); Alkaline Phosphatase 95 U/L (38-126); Anion Gap 9.4 mEq/L (5-15); Aspartate Amino Transferase 20 U/L (17-59); Bilirubin,Total 0.3 mg/dl (0.2-1.3); Blood Urea Nitrogen 26 mg/dl (9-20); Calcium 9.3 mg/dl (8.4-10.2); Carbon Dioxide 25 mmol/L (22.0-30.0); Creatinine Clearance Estimated 95 mL/min (50-200); Estimated Glomerular Filt Rate 64 ml/min (>60); GFR (African American) 78 ML/MIN (>60); Globulin 3.2 g/dL (1.3-3.2); Glucose 125 mg/dl (74-100); Total Protein,Serum 6.6 g/dl (6.3-8.2)
[2020-08-21 06:54] LABS: Basophils % 0.5 % (0.1-2.0); Eosinophils # 0.3 K/mm3 (0.0-0.4); Eosinophils % 4.5 % (0.1-12.0); Hematocrit 40.4 % (42.0-52.0); Lymphocytes % 45.5 % (10-50); Mean Corpuscular HGB Conc 32.6 g/dL (31.8-35.4); Mean Corpuscular Hemoglobin 27.2 pg (27.0-31.2); Mean Corpuscular Volume 83.5 fl (80-94); Monocytes # 0.3 K/mm3 (0.1-1.0); Monocytes % 4.6 % (1.7-9.3); Platelet Count 262 K/mm3 (142-424); Red Blood Count 4.84 M/mm3 (4.60-6.20); Red Cell Distribution Width 13.9 % (11.5-17.5); White Blood Count 6.6 K/mm3 (4.8-10.8)
[2020-08-21 07:06] LABS: Hemoglobin 13.2 g/dL (14.1-18.0)
--- NOTE | 2020-08-21 07:43 | HMH.PHAINT ---
MEDICATION RECONCILIATION COMPLETED ON PATIENT USING EXTERNAL FILL HISTORY FROM PHARMACY AND LIST FROM MD OFFICE. -ANDREY OLIVIERD
--- NOTE | 2020-08-21 07:51 | PC.NURSE ---
Pt is A&Ox4. Lung sounds clear t/o. Pt continues to tolerate RA appropriately. ABdomen is soft and tender. Active bowel sounds in all 4 quads. Pt has c/o abdominal pain x1 this shift, PRN pain meds administered per MAR. No other acute changes or complaints at this time. Will continue to monitor.
[2020-08-21 08:00] VITALS: BP 149/80; PULSE 66; RESP 20; TEMP 36.4; O2SAT 100; O2SAT 95
--- NOTE | 2020-08-21 08:29 | HMH.HP ---
*Admission Date: 08/20/20 *Chief complaint: Abdominal Pain *History of present illness: 50-year-old male patient presents the emergency department with left upper quadrant and epigastric pain radiating into right upper quadrant and to the back. He reports he has not felt well for the past 3 or 4 days and has been nauseated with some emesis. He has had a cholecystectomy and denies any alcohol consumption. In the emergency department he received 1 L of LR, morphine for pain, Zofran for nausea. In the emergency department sodium was low at 125, potassium 4.8 BUN 29, creatinine 3, GFR of 58 glucose was high at 622, Lipase 2241. Blood pressure emergency room was initially elevated at 207/102 after medications blood pressure lowered to 163/83, pulse has been within normal and he has been afebrile. He does have a history of diabetes, hyperlipidemia, hypertension, MRSA, and seizures, he was inpatient earlier in the year for large back abscess I&D with large scarring areas x2 which are well-healed. 08/20/20 CXR: IMPRESSION: No acute findings. Dictated by: Diego, 08/20/20 Abd/Pelvic CT: FINDINGS: LOWER THORAX: There is some scarring in the left lung base. Gynecomastia noted ABDOMEN & PELVIS: There has been a prior cholecystectomy. The liver, spleen, adrenal glands, and kidneys have an unremarkable appearance. There is some mild stranding of the peripancreatic fat at the body of the pancreas which may be seen with mild pancreatitis. No pancreatic necrosis. No intestinal obstruction or free air. No evidence of appendicitis. There is a mild amount of retained colonic feces. No pelvic mass or abnormal fluid collection. No acute bony findings. IMPRESSION: There is mild stranding of the fat around the body of the pancreas suggesting mild pancreatitis Mild amount of retained colonic feces. Dictated by: Diego, This morning patient sitting up in bed in no apparent distress. He reports he is feeling better he denies abdominal pain is requesting an diet, explained to patient purpose of limiting the amount of food take. He will be started on clears and advanced as tolerated he verbalizes understanding and agrees with this. Lab work is improved sodium 131, potassium 4.4, BUN is 26, creatinine is 1.2 and glucose has lowered to 125 after sliding scale coverage and fluids [facility] History Medical History: Reports:: Aneurysm, Arrhythmia, Diabetes Mellitus Type 2, Hyperlipidemia, Hypertension, Seizures Denies:: Cancer, Diabetes Mellitus Type 1, MRSA *Have you ever received a pneumonia vaccine?: No *Have you received a flu vaccine this season?: No Other Medical History: Denies: Blood Transfusion Reaction Laterality Cases: Left: Arthroscopy Shoulder Other Surgeries: Yes: Cholecystectomy, Other Amputation: No Fractures: Yes - *Social History Last grade of school completed: High school graduate Smoking Status: Current every day smoker Tobacco Type: cigarettes # Packs/Day (cigarettes): 1 Alcohol Intake: never Substance Use Type: denies use *Occupational Status:: unemployed Housing: apartment Household Members: spouse *Travel in the last 8 weeks: None Family Hx:: Asthma, Coronary Artery Disease, Hyperlipidemia, Hypertension, Stroke Review of Systems - Review of Systems Review of systems:: pertinent systems reviewed and negative unless documented below - Constitutional Denies anorexia, Denies body ache(s) - Eyes Denies blind spots, Denies loss of vision - ENT Denies abnormal hearing, Denies nasal discharge - *Cardiovascular Denies chest pain, Denies shortness of breath - *Respiratory Denies chest congestion, Denies cough - *Gastrointestinal Reports abdominal pain, Reports nausea, Reports vomiting, Denies difficulty swallowing, Denies vomiting blood - *Musculoskeletal Denies joint pain, Denies back pain - Integumentary/Breasts Denies change in skin color, Denies non-healing lesions - *Neurologic Denie
[2020-08-21 11:22] LABS: Lipase 263 U/L (23-300)
[2020-08-21 12:41] LABS: POC Glucose,Bedside 129 (70-110)
[2020-08-21 16:00] VITALS: BP 127/67; PULSE 72; RESP 20; TEMP 36.6; O2SAT 97
--- NOTE | 2020-08-21 16:05 | PC.NURSE ---
HE IS AOX4, ABLE TO MAKE NEEDS KNOWN TO STAFF, HAS TOLERATED RA WELL WITH NO COMPLAINTS, HE HAS RESTED IN BED FOR MOST OF SHIFT, HAS NOT C/O PAIN OR DISCOMFORT, DENIES N/V/D WITH NO BOWEL MOVEMENT NOTED, ABD REMAINS NON-TENDER AND SOFT WITH BOWEL SOUNDS PRESENT X4, NO NEEDS VOICED AT THIS TIME, VITAL SIGNS STABLE T/O SHIFT, WILL CONTINUE TO MONITOR.
[2020-08-22 00:11] LABS: POC Glucose,Bedside 97 (70-110)
[2020-08-22 00:59] LABS: POC Glucose,Bedside 207 (70-110)
[2020-08-22 01:06] LABS: POC Glucose,Bedside 98 (70-110)
[2020-08-22 04:00] VITALS: BP 182/83; PULSE 83; RESP 20; TEMP 37.1; O2SAT 100
--- NOTE | 2020-08-22 04:17 | PC.NURSE ---
Pt has been up all night, since being asleep most of the day prior. Pt has had no c/o pain this shift. Lung sounds clear t/o. Active bowel sounds in all 4 quads. VSS.No other acute changes or complaints at this time. Will continue to monitor.
[2020-08-22 05:27] VITALS: BMI 28.8
[2020-08-22 06:36] LABS: POC Glucose,Bedside 116 (70-110)
[2020-08-22 07:17] LABS: Chloride 107 mmol/L (98-107)
[2020-08-22 07:18] LABS: Potassium 5.5 mmoL/L (3.5-5.1); Sodium 135 mmol/L (136-145)
[2020-08-22 07:20] LABS: Blood Urea Nitrogen 21 mg/dl (9-20); Creatinine Clearance Estimated 106 mL/min (50-200); Estimated Glomerular Filt Rate 71 ml/min (>60); GFR (African American) 86 ML/MIN (>60); Lipase 137 U/L (23-300)
[2020-08-22 07:21] LABS: Anion Gap 10.5 mEq/L (5-15); Carbon Dioxide 23 mmol/L (22.0-30.0); Glucose 141 mg/dl (74-100)
[2020-08-22 07:29] LABS: Basophils % 0.3 % (0.1-2.0); Eosinophils # 0.3 K/mm3 (0.0-0.4); Eosinophils % 4.2 % (0.1-12.0); Hematocrit 41.1 % (42.0-52.0); Hemoglobin 13.5 g/dL (14.1-18.0); Lymphocytes % 42.6 % (10-50); Mean Corpuscular HGB Conc 32.9 g/dL (31.8-35.4); Mean Corpuscular Hemoglobin 27.9 pg (27.0-31.2); Mean Corpuscular Volume 84.8 fl (80-94); Mean Platelet Volume 7.9 fl (7.4-10.4); Monocytes # 0.3 K/mm3 (0.1-1.0); Monocytes % 3.8 % (1.7-9.3); Neutrophils # 3.5 K/mm3 (1.8-7.8); Neutrophils % 49.1 % (37.0-80.0); Platelet Count 258 K/mm3 (142-424); Red Blood Count 4.84 M/mm3 (4.60-6.20); Red Cell Distribution Width 14.3 % (11.5-17.5); White Blood Count 7.1 K/mm3 (4.8-10.8)
[2020-08-22 07:52] VITALS: BP 173/84; PULSE 77; RESP 18; TEMP 36.9; O2SAT 97
--- NOTE | 2020-08-22 08:30 | HMH.DCSUM ---
General - General Admission date:: 08/20/20 Discharge date: 08/22/20 HPI HPI: 50-year-old male patient presents the emergency department with left upper quadrant and epigastric pain radiating into right upper quadrant and to the back. He reports he has not felt well for the past 3 or 4 days and has been nauseated with some emesis. He has had a cholecystectomy and denies any alcohol consumption. In the emergency department he received 1 L of LR, morphine for pain, Zofran for nausea. In the emergency department sodium was low at 125, potassium 4.8 BUN 29, creatinine 3, GFR of 58 glucose was high at 622, Lipase 2241. Blood pressure emergency room was initially elevated at 207/102 after medications blood pressure lowered to 163/83, pulse has been within normal and he has been afebrile. He does have a history of diabetes, hyperlipidemia, hypertension, MRSA, and seizures, he was inpatient earlier in the year for large back abscess I&D with large scarring areas x2 which are well-healed. 08/20/20 CXR: IMPRESSION: No acute findings. Dictated by: Diego, 08/20/20 Abd/Pelvic CT: FINDINGS: LOWER THORAX: There is some scarring in the left lung base. Gynecomastia noted ABDOMEN & PELVIS: There has been a prior cholecystectomy. The liver, spleen, adrenal glands, and kidneys have an unremarkable appearance. There is some mild stranding of the peripancreatic fat at the body of the pancreas which may be seen with mild pancreatitis. No pancreatic necrosis. No intestinal obstruction or free air. No evidence of appendicitis. There is a mild amount of retained colonic feces. No pelvic mass or abnormal fluid collection. No acute bony findings. IMPRESSION: There is mild stranding of the fat around the body of the pancreas suggesting mild pancreatitis Mild amount of retained colonic feces. Dictated by: Diego, This morning patient sitting up in bed in no apparent distress. He reports he is feeling better he denies abdominal pain is requesting an diet, explained to patient purpose of limiting the amount of food take. He will be started on clears and advanced as tolerated he verbalizes understanding and agrees with this. Lab work is improved sodium 131, potassium 4.4, BUN is 26, creatinine is 1.2 and glucose has lowered to 125 after sliding scale coverage and fluids Hospital Course Hospital Course: 50-year-old male patient presents the emergency department with left upper quadrant and epigastric pain radiating into right upper quadrant and to the back. He reports he has not felt well for the past 3 or 4 days and has been nauseated with some emesis. He has had a cholecystectomy and denies any alcohol consumption. In the emergency department he received 1 L of LR, morphine for pain, Zofran for nausea. In the emergency department sodium was low at 125, potassium 4.8 BUN 29, creatinine 3, GFR of 58 glucose was high at 622, Lipase 2241. Blood pressure emergency room was initially elevated at 207/102 after medications blood pressure lowered to 163/83, pulse has been within normal and he has been afebrile. He does have a history of diabetes, hyperlipidemia, hypertension, MRSA, and seizures, he was inpatient earlier in the year for large back abscess I&D with large scarring areas x2 which are well-healed. 08/20/20 Abd/Pelvis CT: FINDINGS: LOWER THORAX: There is some scarring in the left lung base. Gynecomastia noted ABDOMEN & PELVIS: There has been a prior cholecystectomy. The liver, spleen, adrenal glands, and kidneys have an unremarkable appearance. There is some mild stranding of the peripancreatic fat at the body of the pancreas which may be seen with mild pancreatitis. No pancreatic necrosis. No intestinal obstruction or free air. No evidence of appendicitis. There is a mild amount of retained colonic feces. No pelvic mass or abnormal fluid collection. No acute bony findings. IMPRESSION: The
--- NOTE | 2020-08-22 09:24 | SW/DCPLANNER ---
Addendum entered by Maura Bear 08/22/20 10:55: [facility] has been arranged for this patient. Arrival time is unknown. I have reported this to patients nurse (Cirilo). Original Note: I will set this patient up with [facility] per patients request once patient is completely ready for discharge. This patient will discharge home today.
[2020-08-22 11:44] LABS: POC Glucose,Bedside 294 (70-110)
== END 2020-08-22 12:00 | disposition home or self-care (01) ==
LOC: ER 13:58 → 2ND 16:42
PROVIDERS: Internal Medicine Adolescent Medicine; Nurse Practitioner Family; Admitting Provider Family Medicine; Emergency Provider Student in an Organized Health Care Education/Training Program; PCP Family Medicine; Visit Provider Family Medicine
DX: K85.90 Acute pancreatitis without necrosis or infection, unspecified (principal); E11.65 Type 2 diabetes mellitus with hyperglycemia; Z79.4 Long term (current) use of insulin; Z79.899 Other long term (current) drug therapy; Z88.5 Allergy status to narcotic agent; I10 Essential (primary) hypertension; Z72.0 Tobacco use; E78.5 Hyperlipidemia, unspecified; E87.1 Hypo-osmolality and hyponatremia; Z91.19 Patient's noncompliance with other medical treatment and regimen
CPT/HCPCS: 36415; 71046; 74177; 80048; 80053; 80061; 81001; 82009; 82803; 82962; 83036; 83605; 83690; 85025; 86328; 96365; 96375; 99284; G0378; J2405; Q9967

== ENCOUNTER → 2021-01-15 17:12 | Outpatient (CLI) | payer MEDICAID, SELFPAY ==
[2021-01-15 17:45] LABS: Alanine Aminotransferase 10 U/L (12-78); Albumin Level 3.4 g/dl (3.5-5.0); Albumin/Globulin Ratio 1.3 (1.1-1.8); Alkaline Phosphatase 95 U/L (38-126); Anion Gap 12.3 mEq/L (5-15); Aspartate Amino Transferase 18 U/L (17-59); Bilirubin,Total 0.5 mg/dl (0.2-1.3); Blood Urea Nitrogen 32 mg/dl (9-20); Calcium 8.6 mg/dl (8.4-10.2); Carbon Dioxide 20 mmol/L (22.0-30.0); Chloride 109 mmol/L (98-107); Estimated Glomerular Filt Rate 43 ml/min (>60); GFR (African American) 52 ML/MIN (>60); Globulin 2.6 g/dL (1.3-3.2); Glucose 251 mg/dl (74-100); Lipase 197 U/L (23-300); Potassium 5.3 mmoL/L (3.5-5.1); Sodium 136 mmol/L (136-145)
[2021-01-15 18:04] LABS: Creatinine,Urine Random 94 mg/dL (Not Estab.); Hemoglobin A1C 11.2 % (4.0-6.0); Microalbumin > 190.000 mg/L (0-16.7); Microalbumin/Creatinine Ratio 202.1
== END ==
PROVIDERS: Visit Provider Family Medicine
DX: K85.90 Acute pancreatitis without necrosis or infection, unspecified (principal); E11.65 Type 2 diabetes mellitus with hyperglycemia; Z79.4 Long term (current) use of insulin
CPT/HCPCS: 80053; 82043; 82570; 83036; 83690; 87086

== ENCOUNTER 2021-01-23 01:35 | Emergency (ER) | payer MEDICAID, SELFPAY ==
[2021-01-23] VITALS (12 sets, daily range): BP systolic 161–211; BP diastolic 75–110; PULSE 72–95; RESP 16–21; TEMP 36.6–36.9; O2SAT 97–100; BMI 32.6
--- NOTE | 2021-01-23 01:52 | CT_ITS ---
PROCEDURE INFORMATION: Exam: CT Abdomen And Pelvis With Contrast Exam date and time: 01/23/2021 1:52 AM Age: 50 years old Clinical indication: Abdominal tenderness and nausea and vomiting; Prior surgery; Surgery date: 6+ months; Surgery type: Gb; Patient HX: Epigastric pain nausea vomiting diabetic; Additional info: Abd pain TECHNIQUE: Imaging protocol: Computed tomography of the abdomen and pelvis with contrast. Radiation optimization: All CT scans at this facility use at least one of these dose optimization techniques: automated exposure control; mA and/or kV adjustment per patient size (includes targeted exams where dose is matched to clinical indication); or iterative reconstruction. Contrast material: ISOVUE; Contrast volume: 75 ml; Contrast route: IV; COMPARISON: CT ABDOMEN PELVIS W CON 08/20/2020 2:57 PM FINDINGS: Liver: Normal. Gallbladder and bile ducts: Gallbladder surgically absent. Pancreas: Mildly enlarged pancreatic head and uncinate process, with minimal adjacent fat stranding, likely acute pancreatitis. No evidence of pancreatic necrosis or pseudocyst formation. Spleen: Normal. Adrenal glands: Normal. No mass. Kidneys and ureters: Normal. Stomach and bowel: Normal. Appendix: Appendix is normal. Intraperitoneal space: Unremarkable. No free air. No significant fluid collection. Vasculature: Atherosclerotic vascular disease, with approximately 50% luminal narrowing of the right common iliac artery. Lymph nodes: Unremarkable. No enlarged lymph nodes. Urinary bladder: Unremarkable as visualized. Reproductive: Unremarkable as visualized. Bones/joints: Multilevel thoracolumbar spine degenerative disc space narrowing and osteophyte formation. Soft tissues: Normal. IMPRESSION: Mildly enlarged pancreatic head and uncinate process, with minimal adjacent fat stranding, likely acute pancreatitis. No evidence of pancreatic necrosis or pseudocyst formation.
[2021-01-23 02:11] LABS: Chloride 104 mmol/L (98-107); Sodium 133 mmol/L (136-145)
[2021-01-23 02:12] LABS: Potassium 4.3 mmoL/L (3.5-5.1)
[2021-01-23 02:14] LABS: Alanine Aminotransferase 12 U/L (12-78); Alkaline Phosphatase 105 U/L (38-126); Amylase 50 U/L (30-110); Anion Gap 11.3 mEq/L (5-15); Aspartate Amino Transferase 19 U/L (17-59); Bilirubin,Total 0.4 mg/dl (0.2-1.3); Blood Urea Nitrogen 29 mg/dl (9-20); Calcium 8.5 mg/dl (8.4-10.2); Carbon Dioxide 22 mmol/L (22.0-30.0); Creatinine Clearance Estimated 81 mL/min (50-200); Estimated Glomerular Filt Rate 50 ml/min (>60); GFR (African American) 60 ML/MIN (>60); Glucose 334 mg/dl (74-100); Lipase 245 U/L (23-300)
[2021-01-23 02:15] LABS: Albumin Level 3.5 g/dl (3.5-5.0); Albumin/Globulin Ratio 1.1 (1.1-1.8); Basophils % 0.6 % (0.1-2.0); Eosinophils # 0.2 K/mm3 (0.0-0.4); Eosinophils % 3.4 % (0.1-12.0); Globulin 3.1 g/dL (1.3-3.2); Hematocrit 44.7 % (42.0-52.0); Hemoglobin 14.5 g/dL (14.1-18.0); Lymphocytes # 2.4 K/mm3 (0.7-4.5); Lymphocytes % 34.8 % (10-50); Mean Corpuscular HGB Conc 32.5 g/dL (31.8-35.4); Mean Corpuscular Hemoglobin 27.7 pg (27.0-31.2); Mean Corpuscular Volume 85.2 fl (80-94); Mean Platelet Volume 8.4 fl (7.4-10.4); Monocytes # 0.4 K/mm3 (0.1-1.0); Monocytes % 6.1 % (1.7-9.3); Neutrophils # 3.8 K/mm3 (1.8-7.8); Neutrophils % 55.2 % (37.0-80.0); Platelet Count 219 K/mm3 (142-424); Red Blood Count 5.24 M/mm3 (4.60-6.20); Total Protein,Serum 6.6 g/dl (6.3-8.2); White Blood Count 6.9 K/mm3 (4.8-10.8)
[2021-01-23 02:37] LABS: Procalcitonin 0.113 ng/mL (0.0-2.0)
[2021-01-23 02:50] LABS: Erythrocyte Sedimentation Rate 54 mm/hr (0-15)
--- NOTE | 2021-01-23 03:16 | HMH.EDNVD ---
ED Disposition Clinical Impression: Diabetes mellitus, insulin dependent (IDDM), uncontrolled, Tobacco use Pancreatitis, acute Qualifiers: Pancreatitis type: unspecified pancreatitis type Acute pancreatitis complication: no infection or necrosis Qualified Code(s): K85.90 - Acute pancreatitis without necrosis or infection, unspecified Hypertension Qualifiers: Hypertension type: essential hypertension Qualified Code(s): I10 - Essential (primary) hypertension Disposition: Home, Self-Care Condition on Discharge: Good Instructions: DI for Pancreatitis Additional Instructions: cee pcp this week for follow up Referrals: Devonte Molina MD [Primary Care Provider] - - Critical Care Critical Care Time: No Attestation: On 01/23/21, the high probability of a clinically significant, sudden or life threatening deterioration of the following system(s) required my full and direct attention, intervention and personal management. The time I documented below is in addition to time spent performing reported procedures but includes the following listed in this critical care notation. Medical Decision Making - Medical Records Medical records reviewed: Yes: I reviewed the patient's medical records. - Renan Inquiry Pt receiving controlled substance: No Vital Signs: 01/23/21 01:35 01/23/21 02:10 01/23/21 02:30 Temperature 98.4 F Temperature Source Oral Pulse Rate 81 88 Pulse Rate [Left Radial] 95 H Respiratory Rate 21 18 18 Blood Pressure 195/75 H 187/106 H Blood Pressure [Right Arm] 200/110 H Blood Pressure Mean [Right Arm] 140 Blood Pressure Source Automatic Cuff Automatic Cuff Blood Pressure Source [Right Arm] Manual Cuff/ Auscultation Blood Pressure Position Sitting Supine Blood Pressure Position [Right Arm] Sitting 02 Sat by Pulse Oximetry 100 98 98 Oxygen Delivery Method Room Air Room Air Room Air 01/23/21 03:06 01/23/21 04:00 01/23/21 04:30 Temperature 98.2 F Temperature Source Oral Pulse Rate 72 87 86 Pulse Rate [Left Radial] Respiratory Rate 17 18 Blood Pressure 203/110 H 161/90 H 181/83 H Blood Pressure [Right Arm] Blood Pressure Mean [Right Arm] Blood Pressure Source Automatic Cuff Automatic Cuff Automatic Cuff Blood Pressure Source [Right Arm] Blood Pressure Position Sitting Supine Sitting Blood Pressure Position [Right Arm] 02 Sat by Pulse Oximetry 98 100 97 Oxygen Delivery Method Room Air Room Air Room Air - Lab Data Lab results reviewed: Yes: I reviewed the patient's lab results. Lab Results 01/23/21 01:55: WBC 6.9, RBC 5.24, Hgb 14.5, Hct 44.7, MCV 85.2, MCH 27.7, MCHC 32.5, RDW 14.0, Plt Count 219, MPV 8.4, Neut % (Auto) 55.2, Lymph % (Auto) 34.8, [place] % (Auto) 6.1, Eos % (Auto) 3.4, Baso % (Auto) 0.6, Neut # (Auto) 3.8, Lymph # (Auto) 2.4, [place] # (Auto) 0.4, Eos # (Auto) 0.2, Baso # (Auto) 0.0, ESR 54 H 01/23/21 01:55: Sodium 133 L, Potassium 4.3, Chloride 104, Carbon Dioxide 22, Anion Gap 11.3, BUN 29 H, Creatinine 1.50 H, Estimated Creat Clear 81, Estimated GFR 50 L, Est GFR ( Amer) 60, Glucose 334 H, Calcium 8.5, Total Bilirubin 0.4, AST 19, ALT 12, Alkaline Phosphatase 105, C-Reactive Protein 7.0 H, Total Protein 6.6, Albumin 3.5, Globulin 3.1, Albumin/Globulin Ratio 1.1, Amylase 50, Lipase 245, Procalcitonin 0.113 01/23/21 01:55: Troponin I 0.05 H 01/23/21 05:07: Urine Color Yellow, Urine Appearance Clear, Urine pH 6.0, Ur Specific [place] 1.020, Urine Protein 2+, Urine Glucose (UA) 3+, Urine Ketones Negative, Urine Blood 1+, Urine Nitrate Negative, Urine Bilirubin Negative, Urine Urobilinogen 0.2, Ur Leukocyte Esterase Negative, Urine RBC 3-5, Urine WBC 3-5, Ur Squamous Epith Cells 3-5, Urine Bacteria 1+ 01/23/21 07:02: Troponin I 0.06 H Result diagrams: 01/23/21 01:55 01/23/21 01:55 Orders (Tests/Meds): ED MEDICATIONS Generic Name Dose Route Start Last Admin Trade Name Freq PRN Reason Stop Dose Admin Sodium Chloride 1,000 mls @ 200 mls
--- NOTE | 2021-01-23 04:08 | ECG_ITS ---
APPROVED REPORT Exam: Resting ECG HR:83 bpm ECG Measurements Heart Rate 83 AXES [place] 194 P 43 QRSd 112 QRS -11 QT 406 T 123 QTc 477 Conclusion Normal sinus rhythm T wave abnormality, consider lateral ischemia Prolonged QT Abnormal ECG Electronically signed by : Emre Aceves, 01/26/2021 07:33:16
[2021-01-23 04:56] LABS: Troponin I 0.05 ng/ml (0.00-0.034)
[2021-01-23 05:40] LABS: Microscopic, Urine URINE MICROSCOPIC (MICROSCOPIC)
[2021-01-23 05:42] LABS: Appearance,Urine CLEAR (Clear); Bilirubin,Urine Negative (Negative); Blood, Urine 1+ (Negative); Color,Urine YELLOW (Yellow); Glucose,Urine (UA) 3+ (Negative); Ketones,Urine Negative (Negative); Leukocyte Esterase,Urine Negative (Negative); Nitrate,Urine Negative (Negative); Protein,Urine 2+ (Negative); Urobilinogen,Urine 0.2 EU/dl (0.2)
[2021-01-23 05:50] LABS: Bacteria,Urine 1+ /lpf
[2021-01-23 07:39] LABS: Troponin I 0.06 ng/ml (0.00-0.034)
--- NOTE | 2021-01-23 08:02 | PC.NURSE ---
pt given breakfast tray. waiting transportation home
--- NOTE | 2021-01-23 10:07 | SW/DCPLANNER ---
I have scheduled [facility] to pick this patient up today ID# [id number]. Patient has a scheduled follow up with Dr Mitali gomez for tomorrow. I attempted to arranged [facility] [employer] for this but it must be 72 hours in advance for non emergent transports and due to Thursday being a holiday they can not transport this patient till Thursday. I have relayed information to ED staff (Sheree) and ask that she inform patient he must find transportation to follow up appointment tomorrow.
--- NOTE | 2021-01-23 10:21 | PC.NURSE ---
care management has arranged for transport home. state unable to get transport to md's office tomorrow. next appt would be thursday. pt states he will not have a ride for tomorrow. he will make arrangements for transport and office visit when he gets home.
[2021-01-26 13:09] LABS: Levetiracetam (Keppra) 16.2 ug/mL (10.0-40.0)
== END 2021-01-23 10:25 | disposition home or self-care (01) ==
PROVIDERS: Emergency Provider Emergency Medicine; PCP Family Medicine
DX: K85.90 Acute pancreatitis without necrosis or infection, unspecified (principal); E11.65 Type 2 diabetes mellitus with hyperglycemia; Z79.4 Long term (current) use of insulin; Z20.822 Contact with and (suspected) exposure to COVID-19; E78.5 Hyperlipidemia, unspecified; G40.909 Epilepsy, unspecified, not intractable, without status epilepticus; I10 Essential (primary) hypertension; F17.210 Nicotine dependence, cigarettes, uncomplicated; Z79.899 Other long term (current) drug therapy
CPT/HCPCS: 74177; 80053; 80177; 81001; 82150; 83690; 84145; 84484; 85025; 85651; 86140; 93005; 96365; 96367; 96375; 99283; J2405; Q9967; U0003

== ENCOUNTER 2021-02-02 00:48 | Emergency (ER) | payer MEDICAID, SELFPAY ==
[2021-02-02] VITALS (8 sets, daily range): BP systolic 153–192; BP diastolic 64–102; PULSE 80–107; RESP 17–21; TEMP 36.7–37.3; O2SAT 96–99; BMI 29.9
--- NOTE | 2021-02-02 00:55 | CT_ITS ---
PROCEDURE INFORMATION: Exam: CT Abdomen And Pelvis With Contrast Exam date and time: 02/02/2021 12:55 AM Age: 50 years old Clinical indication: Nausea and vomiting; Abdominal pain; Localized; Right upper quadrant (ruq); Patient HX: Ruq pain with n/v for over a week; Additional info: Abd pain TECHNIQUE: Imaging protocol: Computed tomography of the abdomen and pelvis with contrast. Radiation optimization: All CT scans at this facility use at least one of these dose optimization techniques: automated exposure control; mA and/or kV adjustment per patient size (includes targeted exams where dose is matched to clinical indication); or iterative reconstruction. Contrast material: ISOVUE; Contrast volume: 75 ml; Contrast route: IV; COMPARISON: CT ABDOMEN PELVIS W CON 01/23/2021 3:00 AM FINDINGS: Lungs: Mild dependent atelectasis. Heart: Cardiac chambers grossly normal. Liver: Hepatic steatosis. Gallbladder and bile ducts: Status post cholecystectomy. Pancreas: There is mild peripancreatic infiltration most notable adjacent to the pancreatic head and uncinate process raising concern for pancreatitis. I do not see a pancreatic pseudocyst. I do not see pancreatic necrosis. Spleen: No splenomegaly or splenic mass. Adrenal glands: Normal. No mass. Kidneys and ureters: There is mild bilateral perirenal stranding of unknown acuity. There is bilateral renal cortical thinning/scarring. I question asymmetric decreased enhancement of the left kidney relative to the right which could indicate pyelonephritis. Stomach and bowel: There is scattered mild diverticulosis but no definite diverticulitis. There is no small bowel obstruction or ileus. Appendix: No evidence of appendicitis. No appendicolith. Intraperitoneal space: No free fluid, free air or focal inflammatory infiltration. Vasculature: There is no splenic vein thrombosis or splenic artery aneurysm. Lymph nodes: No enlarged lymph nodes within the retroperitoneal space or mesentery. Urinary bladder: Urinary bladder wall is mildly thickened raising the question of cystitis. Reproductive: Unremarkable as visualized. Bones/joints: Unremarkable. No acute fracture. No osteolytic or blastic bone lesions. Soft tissues: Mild gynecomastia. IMPRESSION: 1. Mild peripancreatic stranding raising suspicion for acute pancreatitis. No definite complicating features noted at this stage. 2. Mild bilateral perirenal stranding of unknown acuity. In addition, there is cortical thinning/scarring in both kidneys and I question slight asymmetric decreased enhancement of the left kidney. Findings could be sequelae of pyelonephritis. Clinical laboratory correlation advised. 3. Mild urinary bladder wall thickening raising the question of cystitis. 4. Diverticulosis without diverticulitis. 5. Hepatic steatosis. 6. Status post cholecystectomy. 7. Mild gynecomastia.
[2021-02-02 01:06] LABS: Basophils % 0.5 % (0.1-2.0); Eosinophils # 0.2 K/mm3 (0.0-0.4); Eosinophils % 2.4 % (0.1-12.0); Hematocrit 49.1 % (42.0-52.0); Hemoglobin 15.8 g/dL (14.1-18.0); Lymphocytes # 2.9 K/mm3 (0.7-4.5); Mean Corpuscular HGB Conc 32.2 g/dL (31.8-35.4); Mean Corpuscular Hemoglobin 27.4 pg (27.0-31.2); Mean Corpuscular Volume 85.2 fl (80-94); Mean Platelet Volume 8.2 fl (7.4-10.4); Monocytes # 0.4 K/mm3 (0.1-1.0); Monocytes % 4.7 % (1.7-9.3); Neutrophils # 4.5 K/mm3 (1.8-7.8); Neutrophils % 56.4 % (37.0-80.0); Platelet Count 277 K/mm3 (142-424); Red Blood Count 5.77 M/mm3 (4.60-6.20)
[2021-02-02 01:11] LABS: Alanine Aminotransferase 15 U/L (12-78); Albumin/Globulin Ratio 1.2 (1.1-1.8); Alkaline Phosphatase 122 U/L (38-126); Amylase 54 U/L (30-110); Aspartate Amino Transferase 21 U/L (17-59); Bilirubin,Total 0.6 mg/dl (0.2-1.3); Blood Urea Nitrogen 16 mg/dl (9-20); Calcium 9.3 mg/dl (8.4-10.2); Carbon Dioxide 22 mmol/L (22.0-30.0); Chloride 102 mmol/L (98-107); Creatinine Clearance Estimated 81 mL/min (50-200); Estimated Glomerular Filt Rate 50 ml/min (>60); GFR (African American) 60 ML/MIN (>60); Globulin 3.3 g/dL (1.3-3.2); Glucose 336 mg/dl (74-100); Lipase 291 U/L (23-300); Sodium 135 mmol/L (136-145); Total Protein,Serum 7.3 g/dl (6.3-8.2)
--- NOTE | 2021-02-02 01:17 | ECG_ITS ---
APPROVED REPORT Exam: Resting ECG HR:94 bpm ECG Measurements Heart Rate 94 AXES [place] 192 P 24 QRSd 108 QRS -27 QT 374 T 102 QTc 467 Conclusion Normal sinus rhythm Possible Left atrial enlargement Left ventricular hypertrophy ST & T wave abnormality, consider lateral ischemia Prolonged QT Abnormal ECG Electronically signed by : Emre Aceves, 02/03/2021 08:53:35
[2021-02-02 01:31] LABS: Procalcitonin 0.102 ng/mL (0.0-2.0)
[2021-02-02 01:34] LABS: Troponin I 0.08 ng/ml (0.00-0.034)
[2021-02-02 01:35] LABS: Lactic Acid 1.6 mmol/L (0.7-2.1)
[2021-02-02 01:39] LABS: Erythrocyte Sedimentation Rate 21 mm/hr (0-15)
--- NOTE | 2021-02-02 02:01 | HMH.EDNVD ---
ED Disposition Clinical Impression: Abdominal pain Qualifiers: Abdominal location: left upper quadrant Qualified Code(s): R10.12 - Left upper quadrant pain Hyperglycemia due to type 2 diabetes mellitus Qualifiers: Diabetes mellitus detention insulin use: unspecified detention insulin use status Qualified Code(s): E11.65 - Type 2 diabetes mellitus with hyperglycemia Disposition: Home, Self-Care Condition on Discharge: Good Instructions: DI for Acute Abdominal Pain Additional Instructions: see pcp thursday Referrals: Devonte Molina MD [Primary Care Provider] - - Critical Care Critical Care Time: No Attestation: On 02/02/21, the high probability of a clinically significant, sudden or life threatening deterioration of the following system(s) required my full and direct attention, intervention and personal management. The time I documented below is in addition to time spent performing reported procedures but includes the following listed in this critical care notation. Medical Decision Making - Medical Records Medical records reviewed: Yes: I reviewed the patient's medical records. - Renan Inquiry Pt receiving controlled substance: No Vital Signs: 02/02/21 00:43 02/02/21 02:30 02/02/21 03:00 Temperature 99.1 F Temperature Source Oral Pulse Rate 88 94 H Pulse Rate [Left Radial] 107 H Respiratory Rate 21 18 Blood Pressure 178/78 H 171/82 H Blood Pressure [Right Arm] 192/102 H Blood Pressure Mean 111 118 Blood Pressure Mean [Right Arm] 132 Blood Pressure Source [Right Arm] Automatic Cuff Blood Pressure Position [Right Arm] Sitting 02 Sat by Pulse Oximetry 99 97 97 Oxygen Delivery Method Room Air Room Air Room Air 02/02/21 03:30 02/02/21 04:00 02/02/21 04:30 Temperature Temperature Source Pulse Rate 83 81 82 Pulse Rate [Left Radial] Respiratory Rate 18 Blood Pressure 159/67 H 155/69 H 153/67 H Blood Pressure [Right Arm] Blood Pressure Mean 97 92 95 Blood Pressure Mean [Right Arm] Blood Pressure Source [Right Arm] Blood Pressure Position [Right Arm] 02 Sat by Pulse Oximetry 96 98 97 Oxygen Delivery Method Room Air Room Air Room Air 02/02/21 05:00 Temperature Temperature Source Pulse Rate 80 Pulse Rate [Left Radial] Respiratory Rate Blood Pressure 153/64 H Blood Pressure [Right Arm] Blood Pressure Mean 93 Blood Pressure Mean [Right Arm] Blood Pressure Source [Right Arm] Blood Pressure Position [Right Arm] 02 Sat by Pulse Oximetry 97 Oxygen Delivery Method Room Air - Lab Data Lab results reviewed: Yes: I reviewed the patient's lab results. Lab Results 02/02/21 00:48: WBC 8.0, RBC 5.77, Hgb 15.8, Hct 49.1, MCV 85.2, MCH 27.4, MCHC 32.2, RDW 14.0, Plt Count 277, MPV 8.2, Neut % (Auto) 56.4, Lymph % (Auto) 36.0, [place] % (Auto) 4.7, Eos % (Auto) 2.4, Baso % (Auto) 0.5, Neut # (Auto) 4.5, Lymph # (Auto) 2.9, [place] # (Auto) 0.4, Eos # (Auto) 0.2, Baso # (Auto) 0.0, ESR 21 H 02/02/21 00:48: Sodium 135 L, Potassium 4.0, Chloride 102, Carbon Dioxide 22, Anion Gap 15.0, BUN 16, Creatinine 1.50 H, Estimated Creat Clear 81, Estimated GFR 50 L, Est GFR ( Amer) 60, Glucose 336 H, Calcium 9.3, Total Bilirubin 0.6, AST 21, ALT 15, Alkaline Phosphatase 122, C-Reactive Protein 11.0 H, Total Protein 7.3, Albumin 4.0, Globulin 3.3 H, Albumin/Globulin Ratio 1.2, Amylase 54, Lipase 291, Procalcitonin 0.102 02/02/21 00:48: Troponin I 0.08 H 02/02/21 00:48: Lactate 1.6 02/02/21 04:20: Troponin I 0.08 H Result diagrams: 02/02/21 00:48 02/02/21 00:48 Orders (Tests/Meds): ED MEDICATIONS Generic Name Dose Route Start Last Admin Trade Name Freq PRN Reason Stop Dose Admin Sodium Chloride 1,000 mls @ 999 mls/hr 02/02/21 01:00 02/02/21 01:05 Sod Chlor 0.9% 1000ml Bag IV 02/02/21 02:00 999 mls/hr .Q1H1M AMARI Administration Sodium Chloride 8 ml 02/02/21 01:01 Sodium Chloride 0.9% 10ml Vial IV 03/04/21 01:00 NEEDED PRN dilute pepcid
[2021-02-02 04:45] LABS: Troponin I 0.08 ng/ml (0.00-0.034)
--- NOTE | 2021-02-02 05:38 | PC.NURSE ---
pt has remained asleep without complaint.
== END 2021-02-02 05:55 | disposition home or self-care (01) ==
PROVIDERS: Emergency Provider Emergency Medicine; PCP Family Medicine
DX: R10.12 Left upper quadrant pain (principal); E11.65 Type 2 diabetes mellitus with hyperglycemia; E78.5 Hyperlipidemia, unspecified; I10 Essential (primary) hypertension; F17.210 Nicotine dependence, cigarettes, uncomplicated
CPT/HCPCS: 74177; 80053; 82150; 83605; 83690; 84145; 84484; 85025; 85651; 86140; 87040; 93005; 96365; 96375; 99282; J2405; Q9967

== ENCOUNTER → 2021-02-04 17:52 | Outpatient (CLI) | payer MEDICAID, SELFPAY ==
[2021-02-04 18:21] LABS: Basophils % 0.4 % (0.1-2.0); Eosinophils # 0.3 K/mm3 (0.0-0.4); Eosinophils % 3.7 % (0.1-12.0); Hematocrit 44.1 % (42.0-52.0); Hemoglobin 14.4 g/dL (14.1-18.0); Lymphocytes # 2.6 K/mm3 (0.7-4.5); Lymphocytes % 35.2 % (10-50); Mean Corpuscular HGB Conc 32.7 g/dL (31.8-35.4); Mean Corpuscular Hemoglobin 27.8 pg (27.0-31.2); Mean Platelet Volume 8.9 fl (7.4-10.4); Monocytes # 0.3 K/mm3 (0.1-1.0); Monocytes % 3.9 % (1.7-9.3); Neutrophils # 4.1 K/mm3 (1.8-7.8); Neutrophils % 56.8 % (37.0-80.0); Platelet Count 254 K/mm3 (142-424); Red Cell Distribution Width 14.3 % (11.5-17.5); White Blood Count 7.3 K/mm3 (4.8-10.8)
[2021-02-04 18:40] LABS: Chloride 108 mmol/L (98-107); Potassium 4.7 mmoL/L (3.5-5.1); Sodium 137 mmol/L (136-145)
[2021-02-04 18:42] LABS: Alanine Aminotransferase 11 U/L (12-78); Alkaline Phosphatase 108 U/L (38-126); Anion Gap 12.7 mEq/L (5-15); Aspartate Amino Transferase 21 U/L (17-59); Bilirubin,Total 0.5 mg/dl (0.2-1.3); Blood Urea Nitrogen 20 mg/dl (9-20); Carbon Dioxide 21 mmol/L (22.0-30.0); Estimated Glomerular Filt Rate 50 ml/min (>60); GFR (African American) 60 ML/MIN (>60)
[2021-02-04 18:43] LABS: Albumin Level 3.6 g/dl (3.5-5.0); Albumin/Globulin Ratio 1.3 (1.1-1.8); Chol/HDL Ratio 5.9 (1-3.5); Cholesterol 266 mg/dl (140-200); Globulin 2.8 g/dL (1.3-3.2); Glucose 125 mg/dl (74-100); HDL Cholesterol 45 mg/dl (40-60); Lipase 294 U/L (23-300); Total Protein,Serum 6.4 g/dl (6.3-8.2); Triglycerides 337 mg/dl (30-150); VLDL Cholesterol 67 mg/dL (0-40)
[2021-02-04 19:02] LABS: T4 (Thyroxine) 8.9 ug/dl (5.53-11.0)
[2021-02-04 19:14] LABS: Direct LDL Cholesterol 125.43 mg/dL (100-129)
[2021-02-04 19:15] LABS: Thyroid Stimulating Hormone 0.92 uIU/mL (0.465-4.68)
[2021-02-04 19:44] LABS: Calcium 8.3 mg/dl (8.4-10.2)
== END ==
PROVIDERS: Visit Provider Family Medicine
DX: K85.90 Acute pancreatitis without necrosis or infection, unspecified (principal)
CPT/HCPCS: 80053; 80061; 83690; 84436; 84443; 85025

== ENCOUNTER → 2021-02-20 06:59 | Outpatient (CLI) | payer MEDICAID, SELFPAY | PROVIDERS: Visit Provider Nurse Practitioner Family | DX: Z01.812 Encounter for preprocedural laboratory examination (principal); Z11.52 Encounter for screening for COVID-19; R07.9 Chest pain, unspecified; I10 Essential (primary) hypertension; E78.5 Hyperlipidemia, unspecified; R77.8 Other specified abnormalities of plasma proteins; R94.31 Abnormal electrocardiogram [ECG] [EKG]; Z72.0 Tobacco use | CPT/HCPCS: 36415; U0003 ==

== ENCOUNTER 2021-02-21 06:49 | Day surgery (SDC) | payer MEDICAID, SELFPAY ==
[2021-02-21] VITALS (14 sets, daily range): BP systolic 124–216; BP diastolic 70–125; PULSE 72–95; RESP 16–18; O2SAT 94–99; BMI 29.9
--- NOTE | 2021-02-21 | IR_ITS ---
APPROVED REPORT Patient Location: Outpatient PROCEDURES Left heart catheterization Left ventriculogram Selective coronary angiogram INDICATION New onset cardiomyopathy ejection fraction 20 to 25%, Angina pectoris Informed consent was obtained prior to the procedure. COMPLICATIONS None Estimated Blood Loss: less than 10ml TECHNIQUE One percent lidocaine used to anesthetize the right anterior aspect of the wrist. The right radial artery was accessed via the Seldinger technique. A 6 Turkish sheath was placed in the right radial artery. 2.5 mg of verapamil, 800 mcg of nitroglycerin, 1mg Lidocaine and 5000 U Heparin were given through the arterial sheath. The trap catheter was also used to perform left heart catheterization, left ventriculogram and selective coronary angiogram. At the end of the procedure the sheath was removed good hemostasis was achieved using Traclet band, patient was transferred to the postop holding area in stable condition. ANGIOGRAPHIC RESULTS The left main artery Normal The left anterior descending artery Normal The circumflex artery Normal The right coronary artery Dominant normal The KATE ventriculogram reveals Dilated globally hypokinetic 25% The left ventricular end-diastolic pressure Severely elevated at 30 mmHg IMPRESSION Normal coronary arteries Dilated ventricle with reduced ejection fraction Severely elevated LVEDP PLAN 1. Standard therapy for myocarditis/systolic heart failure 2. Start Entresto and carvedilol 3. Start furosemide and spironolactone 4. LifeVest Electronically signed by : Erickson Quiroz, 02/21/2021 08:23:12
--- NOTE | 2021-02-21 06:57 | CA_ITS ---
APPROVED REPORT EXAM: Comprehensive 2D, Doppler, and color-flow Echocardiogram Predatory Animal Trapper: Ana Beaulieu, RT(R) Ht: 5 ft 10 in Wt: 209lbs BSA: 2.13 BP: 116/83 mmHg Indications: CP, smoker, HTN, SOB, elevated troponin, Abn EKG 2D Dimensions LVOT 2.07 cm (M/F) 1.5-2.5 LVEF (Villalobos's) 27.90 % M: 52 - 72 LV Volume 151.70 mL M: 62 - 150 LV Volume Index 71.55 mL/m2 M: 34 - 74 LA Volume 80.50 mL LA Volume Index 37.97 mL/m2 (M/F) 16-34 M-Mode Dimensions RVDd 2.28 cm (0.9-2.6) LA Diam 4.24 cm (1.9-4.0) LVDd 5.13 cm (3.5-5.7) Ao Diam 3.19 cm (2.0-3.7) LVDs 4.73 cm (3.5-5.7) IVSd 1.48 cm (0.6-1.1) PWd 1.16 cm (0.6-1.1) EF (Teich) 17.20% FS 7.80% EDV (Teich) 125.50 mL ESV (Teich) 103.90 mL LV Diastology E Decel Time 180.00 (160-240 msec) E/A Ratio 1.7 LAT E' 4.90 (<10 cm/sec) E/LAT E' Ratio 26.06 (>14) Aortic Valve AI PHT 455.00 ms Mitral Valve MV E Max Steve. 128.00 (40-130 cm/s) MV A Velocity 74.00 (40-130 cm/s) E/A Ratio 1.73 MV Decel. Time 180.00 (160-240 ms) MV PHT 53.00 ms Left Ventricle Left atrium is mildly enlarged, left ventricle is normal size, mild concentric left ventricular hypertrophy, visually estimated ejection fraction 25 to 30%, left ventricle is globally hypokinetic, diastolic parameters are inconclusive. Right Ventricle Right atrium and right ventricle are normal size and contractility. Aortic Valve Aortic valve is minimally thickened and fibrosed, there is no aortic stenosis, there is trace aortic insufficiency. Mitral Valve Mitral valve is is minimally thickened, there is mild mitral regurgitation. Tricuspid Valve Tricuspid grossly normal, there is mild tricuspid rotation, tricuspid regurgitation jet velocity is inadequate for calculation of the right ventricular systolic pressure. Pulmonic Valve Pulmonic valve is poorly visualized. Great Vessels Aortic root is normal size. Pericardium No significant pericardial effusion noted. Conclusion 1. Mildly dilated, normal left ventricular size, mild concentric left ventricular hypertrophy, visually estimated ejection fraction 25 to 30% left ventricle is globally hypokinetic. Diastolic parameters are inconclusive. 2. Thickened and calcified aortic valve without aortic stenosis, there is trace aortic insufficiency 3. Mild mitral and tricuspid regurgitation. 4. No significant pericardial effusion noted. Electronically signed by : Inderjit Ceron, 02/21/2021 15:39:22
[2021-02-21 08:06] LABS: Basophils % 0.6 % (0.1-2.0); Eosinophils # 0.3 K/mm3 (0.0-0.4); Hematocrit 39.7 % (42.0-52.0); Hemoglobin 13.1 g/dL (14.1-18.0); Lymphocytes # 2.8 K/mm3 (0.7-4.5); Lymphocytes % 46.3 % (10-50); Mean Corpuscular Volume 84.8 fl (80-94); Mean Platelet Volume 8.3 fl (7.4-10.4); Monocytes # 0.4 K/mm3 (0.1-1.0); Monocytes % 5.8 % (1.7-9.3); Neutrophils # 2.5 K/mm3 (1.8-7.8); Neutrophils % 42.1 % (37.0-80.0); Platelet Count 221 K/mm3 (142-424); Red Blood Count 4.68 M/mm3 (4.60-6.20); Red Cell Distribution Width 14.3 % (11.5-17.5)
[2021-02-21 08:15] LABS: Chloride 116 mmol/L (98-107); Potassium 3.1 mmoL/L (3.5-5.1); Sodium 138 mmol/L (136-145)
[2021-02-21 08:18] LABS: Anion Gap 8.1 mEq/L (5-15); Blood Urea Nitrogen 14 mg/dl (9-20); Carbon Dioxide 17 mmol/L (22.0-30.0); Creatinine Clearance Estimated 132 mL/min (50-200); Estimated Glomerular Filt Rate 89 ml/min (>60); GFR (African American) 108 ML/MIN (>60)
[2021-02-21 08:19] LABS: Glucose 207 mg/dl (74-100)
[2021-02-21 08:37] LABS: Calcium 6.1 mg/dl (8.4-10.2)
--- NOTE | 2021-02-21 08:37 | SUR.PREOP ---
critical lab relayed to dr estrella, calcium 6.1, lab personshagufta Gunn
[2021-02-21 09:03] LABS: Coronavirus 19 IgG Antibody Positive (Negative)
[2021-02-21 09:04] LABS: Coronavirus 19 IgM Antibody Positive (Negative)
--- NOTE | 2021-02-21 11:55 | SUR.PHASEII ---
Dr. cotton called about patient HTN, no new orders at this time. Discharge patient and tell to make sure patients takes new medications
== END 2021-02-21 12:00 | disposition home or self-care (01) ==
PROVIDERS: Internal Medicine; PCP Family Medicine; Visit Provider Nurse Practitioner Family
DX: I20.9 Angina pectoris, unspecified (principal); E78.5 Hyperlipidemia, unspecified; I10 Essential (primary) hypertension; R07.9 Chest pain, unspecified; R77.8 Other specified abnormalities of plasma proteins; R94.31 Abnormal electrocardiogram [ECG] [EKG]; F17.210 Nicotine dependence, cigarettes, uncomplicated; I42.9 Cardiomyopathy, unspecified; E11.9 Type 2 diabetes mellitus without complications; Z79.4 Long term (current) use of insulin
CPT/HCPCS: 80048; 85025; 86328; 93306; 93458; 99152; C1725; C1769; J1644; Q9967

== ENCOUNTER 2021-02-28 11:32 | Emergency (ER) | payer MEDICAID, SELFPAY ==
--- NOTE | 2021-02-28 11:37 | CT_ITS ---
PROCEDURE: CT HEAD/BRAIN WO CON CLINICAL INDICATION: stroke symptom Left arm weakness COMPARISON: No exams were available for comparison TECHNIQUE: Axial images obtained. All CT scans at the facility use one or more dose reduction, viz: automated exposure control, ma/kV adjustment per patient size (including targeted exams where dose is matched to indication, i.e. head), or iterative reconstruction technique. FINDINGS: No midline shift, mass effect, intracranial hemorrhage, hydrocephalus, or extra-axial fluid collection is evident. There is generalized atrophy with hypoattenuation of the periventricular white matter consistent with microangiopathic changes.. Bilateral basal ganglia calcifications are present and there is calcification within the thalamus on the right. Moderate periventricular low-density changes are noted suggesting periventricular ischemic gliotic changes. No large areas of acute infarction are identified. The calvarium has an unremarkable appearance. No mastoid effusion. 2 cm retention cyst is present in the left aspect of the sphenoid sinus. There is mild mucosal thickening of the sphenoid sinus on the right and moderate mucosal thickening of the ethmoid sinuses. IMPRESSION: 1. No acute intracranial findings. 2. Moderate periventricular low-density changes suggesting ischemic gliotic change. 3. Bilateral basal ganglia and right thalamus calcification Dictated by: Mihai Cortez MD 02/28/2021 12:06 Mihai Cortez MD in [place] 02/28/2021 12:06
[2021-02-28 11:38] VITALS: BP 186/97; PULSE 97; RESP 22; TEMP 36.7; O2SAT 97; BMI 29.2
--- NOTE | 2021-02-28 11:40 | HMH.EDGENADL ---
ED Disposition Clinical Impression: CVA (cerebral vascular accident) Qualifiers: CVA mechanism: unspecified Qualified Code(s): I63.9 - Cerebral infarction, unspecified Disposition: Xfer Short-Term Hosp Condition on Discharge: Fair Referrals: Provider,Referral, [Primary Care Provider] - - Critical Care Critical Care Time: No Attestation: On , the high probability of a clinically significant, sudden or life threatening deterioration of the following system(s) required my full and direct attention, intervention and personal management. The time I documented below is in addition to time spent performing reported procedures but includes the following listed in this critical care notation. Medical Decision Making - Medical Records Medical records reviewed: Yes: I reviewed the patient's medical records. MR Comment: Notable for reduced ejection fraction heart failure hypertension and diabetes mellitus - Renan Inquiry Pt receiving controlled substance: No Vital Signs: 02/28/21 11:38 Temperature 98.1 F Temperature Source Oral Pulse Rate [Radial] 97 H Respiratory Rate 22 Blood Pressure [Right Arm] 186/97 H Blood Pressure Mean [Right Arm] 126 02 Sat by Pulse Oximetry 97 Oxygen Delivery Method Room Air - Lab Data Lab Results 02/28/21 11:51: Sodium 140, Potassium 4.7, Chloride 108 H, Carbon Dioxide 22, Anion Gap 14.7, BUN 21 H, Creatinine 1.80 H, Estimated Creat Clear 66, Estimated GFR 40 L, Est GFR ( Amer) 49 L, Glucose 108 H, Calcium 9.0, Total Bilirubin 0.6, AST 36, ALT 16, Alkaline Phosphatase 92, Troponin I 0.05 H, Total Protein 7.0, Albumin 3.9, Globulin 3.1, Albumin/Globulin Ratio 1.3 02/28/21 12:29: WBC 7.3, RBC 5.15, Hgb 14.1, Hct 43.7, MCV 84.9, MCH 27.5, MCHC 32.4, RDW 13.9, Plt Count 221, MPV 8.0, Neut % (Auto) 54.8, Lymph % (Auto) 32.0, [place] % (Auto) 7.2, Eos % (Auto) 5.6, Baso % (Auto) 0.4, Neut # (Auto) 4.0, Lymph # (Auto) 2.3, [place] # (Auto) 0.5, Eos # (Auto) 0.4, Baso # (Auto) 0.0 02/28/21 12:29: PT 10.9, INR 0.92 Result diagrams: 02/28/21 12:29 02/28/21 11:51 Orders (Tests/Meds): ED MEDICATIONS Discontinued Medications Generic Name Dose Route Start Last Admin Trade Name Jose PRN Reason Stop Dose Admin Clopidogrel Bisulfate 300 mg 02/28/21 12:33 02/28/21 12:43 Clopidogrel 300mg Tablet PO 02/28/21 12:34 300 mg ONCE ONE Administration ORDERS Category Date Time Status Troponin I Q3H Lab 02/28/21 15:00 Ordered Troponin I Q3H Lab 02/28/21 18:00 Ordered EKG Request [ECG Request by /Nse] Stat Y 02/28/21 11:52 Ordered - ECG Data Tracing #1 Normal sinus rhythm with fusion complexes patient has rate of 88 with normal NJ interval and no QT prolongation. No significant ST elevation. Medical Decision Narrative: 50-year-old male who presents with left-sided numbness and left-sided weakness with slurred speech last known normal over 500. Patient symptoms were present when he woke up and has an NIH of 5 on initial examination. He is profoundly hypertensive with a systolic of 211. He has taken his blood pressure medication today and is currently outside of the TPA window. Rapid CT head will be performed under stroke protocol. Demonstrates sequelae of ischmeic changes with no acute bleeding. Discussed Pt with Dr Dubose at [facility] for transfer of pt less than 24 hrs into stroke symptoms who stated that symptoms were not consistent with large vessel occlusion and is out of tpa window and therefore would not be accepted for transfer. Medication regimen recommendations were made and suggested transfer to another tertiary stroke center. Patient will be loaded on clopidogrel 300 mg. Patient was accepted to [facility] for acute stroke work-up. Patient remained stable and was transferred for further evaluation. General Adult HPI - General Chief complaint: Weakness Stated complaint: numbness Time Seen by Provider: 02/28/21 11:40 Mode of A
[2021-02-28 12:11] LABS: Alanine Aminotransferase 16 U/L (12-78); Albumin Level 3.9 g/dl (3.5-5.0); Albumin/Globulin Ratio 1.3 (1.1-1.8); Alkaline Phosphatase 92 U/L (38-126); Anion Gap 14.7 mEq/L (5-15); Aspartate Amino Transferase 36 U/L (17-59); Bilirubin,Total 0.6 mg/dl (0.2-1.3); Blood Urea Nitrogen 21 mg/dl (9-20); Carbon Dioxide 22 mmol/L (22.0-30.0); Chloride 108 mmol/L (98-107); Creatinine Clearance Estimated 66 mL/min (50-200); Estimated Glomerular Filt Rate 40 ml/min (>60); GFR (African American) 49 ML/MIN (>60); Globulin 3.1 g/dL (1.3-3.2); Glucose 108 mg/dl (74-100); Potassium 4.7 mmoL/L (3.5-5.1); Sodium 140 mmol/L (136-145)
--- NOTE | 2021-02-28 12:20 | ECG_ITS ---
APPROVED REPORT Exam: Resting ECG HR:88 bpm ECG Measurements Heart Rate 88 AXES [place] 170 P 27 QRSd 100 QRS -19 QT 364 T 112 QTc 440 Conclusion Sinus rhythm with fusion complexes Possible Left atrial enlargement Left ventricular hypertrophy ST & T wave abnormality, consider lateral ischemia Abnormal ECG Electronically signed by : Emre Aceves, 02/28/2021 17:00:28
[2021-02-28 12:23] LABS: Troponin I 0.05 ng/ml (0.00-0.034)
--- NOTE | 2021-02-28 12:27 | PC.NURSE ---
Dr Mir spoke to [facility] , he is going to talk to Dr Molina
[2021-02-28 12:38] LABS: Basophils % 0.4 % (0.1-2.0); Eosinophils # 0.4 K/mm3 (0.0-0.4); Eosinophils % 5.6 % (0.1-12.0); Hematocrit 43.7 % (42.0-52.0); Hemoglobin 14.1 g/dL (14.1-18.0); Lymphocytes # 2.3 K/mm3 (0.7-4.5); Mean Corpuscular HGB Conc 32.4 g/dL (31.8-35.4); Mean Corpuscular Hemoglobin 27.5 pg (27.0-31.2); Mean Corpuscular Volume 84.9 fl (80-94); Monocytes # 0.5 K/mm3 (0.1-1.0); Monocytes % 7.2 % (1.7-9.3); Neutrophils % 54.8 % (37.0-80.0); Platelet Count 221 K/mm3 (142-424); Red Blood Count 5.15 M/mm3 (4.60-6.20); Red Cell Distribution Width 13.9 % (11.5-17.5); White Blood Count 7.3 K/mm3 (4.8-10.8)
--- NOTE | 2021-02-28 12:41 | PC.NURSE ---
Karen Dickeyt called, waiting for stroke navigator
--- NOTE | 2021-02-28 12:42 | PC.NURSE ---
Dr Mir speaking with Stroke navigastmomo Harris at [facility].
[2021-02-28 12:47] LABS: Prothrombin Time 10.9 seconds (10.1-12.5)
[2021-02-28 12:48] LABS: INR 0.92 (0.9-1.1)
--- NOTE | 2021-02-28 13:18 | PC.NURSE ---
Report given to GENESIS MONTES at at this time.
[2021-02-28 13:51] VITALS: BP 151/86; PULSE 88; RESP 18; TEMP 36.8; O2SAT 97
--- NOTE | 2021-02-28 14:06 | PC.NURSE ---
pt transferred per ems to [facility]
== END 2021-02-28 14:07 | disposition short-term general hospital (02) ==
PROVIDERS: Emergency Provider Student in an Organized Health Care Education/Training Program; PCP Family Medicine
DX: I63.89 Other cerebral infarction (principal); R29.705 NIHSS score 5; I50.20 Unspecified systolic (congestive) heart failure; I10 Essential (primary) hypertension; E78.5 Hyperlipidemia, unspecified; E11.9 Type 2 diabetes mellitus without complications; F17.210 Nicotine dependence, cigarettes, uncomplicated; Z79.899 Other long term (current) drug therapy
CPT/HCPCS: 70450; 80053; 84484; 85025; 85610; 93005; 96365; 99202; 99284; G0463

== ENCOUNTER → 2021-03-14 18:01 | Outpatient (CLI) | payer MEDICAID, SELFPAY ==
[2021-03-14 19:34] LABS: Basophils % 0.4 % (0.1-2.0); Eosinophils # 0.3 K/mm3 (0.0-0.4); Eosinophils % 4.9 % (0.1-12.0); Hematocrit 40.8 % (42.0-52.0); Hemoglobin 13.7 g/dL (14.1-18.0); Lymphocytes # 2.4 K/mm3 (0.7-4.5); Lymphocytes % 35.5 % (10-50); Mean Corpuscular HGB Conc 33.7 g/dL (31.8-35.4); Mean Corpuscular Hemoglobin 28.3 pg (27.0-31.2); Mean Platelet Volume 9.7 fl (7.4-10.4); Monocytes # 0.3 K/mm3 (0.1-1.0); Monocytes % 4.9 % (1.7-9.3); Neutrophils # 3.7 K/mm3 (1.8-7.8); Neutrophils % 54.3 % (37.0-80.0); Platelet Count 204 K/mm3 (142-424); Red Blood Count 4.85 M/mm3 (4.60-6.20); Red Cell Distribution Width 14.7 % (11.5-17.5); White Blood Count 6.8 K/mm3 (4.8-10.8)
[2021-03-14 19:53] LABS: Alanine Aminotransferase 14 U/L (12-78); Albumin Level 3.7 g/dl (3.5-5.0); Albumin/Globulin Ratio 1.4 (1.1-1.8); Alkaline Phosphatase 98 U/L (38-126); Anion Gap 15.1 mEq/L (5-15); Aspartate Amino Transferase 17 U/L (17-59); Bilirubin,Total 0.4 mg/dl (0.2-1.3); Blood Urea Nitrogen 29 mg/dl (9-20); Calcium 8.6 mg/dl (8.4-10.2); Carbon Dioxide 21 mmol/L (22.0-30.0); Chloride 106 mmol/L (98-107); Estimated Glomerular Filt Rate 50 ml/min (>60); GFR (African American) 60 ML/MIN (>60); Globulin 2.6 g/dL (1.3-3.2); Glucose 269 mg/dl (74-100); Potassium 5.1 mmoL/L (3.5-5.1); Sodium 137 mmol/L (136-145); Total Protein,Serum 6.3 g/dl (6.3-8.2)
[2021-03-14 20:04] LABS: Hemoglobin A1C 9.8 % (4.0-6.0)
== END ==
PROVIDERS: Visit Provider Family Medicine
DX: Z09 Encounter for follow-up examination after completed treatment for conditions other than malignant neoplasm (principal); I63.9 Cerebral infarction, unspecified
CPT/HCPCS: 80053; 83036; 85025

== ENCOUNTER 2021-08-21 11:45 | Inpatient (IN) | payer MEDICAID, SELFPAY ==
[2021-08-21] VITALS (19 sets, daily range): BP systolic 129–262; BP diastolic 68–113; PULSE 68–115; RESP 12–24; TEMP 36.6–36.8; O2SAT 94–100; BMI 29.4; BMI 27.2
--- NOTE | 2021-08-21 11:49 | ECG_ITS ---
APPROVED REPORT Exam: Resting ECG HR:111 bpm ECG Measurements Heart Rate 111 AXES [place] 164 P 53 QRSd 98 QRS -1 QT 324 T 86 QTc 440 Conclusion Sinus tachycardia Possible Left atrial enlargement ST & T wave abnormality, consider lateral ischemia Abnormal ECG Electronically signed by : Emre Aceves MD 08/21/2021 20:32:52
--- NOTE | 2021-08-21 12:08 | XR_ITS ---
PROCEDURE: XR CHEST PORTABLE CLINICAL HISTORY: Shortness of breath COMPARISON: CR XR CHEST 2V from 08/20/2020 FINDINGS: The cardiomediastinal silhouette and pulmonary vascularity are within normal limits. The lungs are clear without infiltrates, suspicious nodules, or pleural effusions. No acute bony abnormalities. IMPRESSION: No acute findings. Dictated by: Mihai Cortez MD 08/21/2021 12:51 Mihai Coretz MD in [place] 08/21/2021 12:51
[2021-08-21 12:18] LABS: Basophils # 0.2 K/mm3 (0-0.2); Basophils % 1.3 % (0.1-2.0); Eosinophils % 0.2 % (0.1-12.0); Hemoglobin 14.3 g/dL (14.1-18.0); Lymphocytes % 8.3 % (10-50); Mean Corpuscular HGB Conc 31.8 g/dL (31.8-35.4); Mean Corpuscular Hemoglobin 28.7 pg (27.0-31.2); Mean Corpuscular Volume 90.4 fl (80-94); Mean Platelet Volume 9.8 fl (7.4-10.4); Monocytes # 0.5 K/mm3 (0.1-1.0); Monocytes % 4.7 % (1.7-9.3); Neutrophils # 9.8 K/mm3 (1.8-7.8); Neutrophils % 85.5 % (37.0-80.0); Platelet Count 255 K/mm3 (142-424); Red Blood Count 4.98 M/mm3 (4.60-6.20); Red Cell Distribution Width 14.2 % (11.5-17.5); White Blood Count 11.4 K/mm3 (4.8-10.8)
[2021-08-21 12:20] LABS: MANUAL DIFFERENTIAL MANUAL DIFFERENTIAL (MANUAL DIFF)
[2021-08-21 12:21] LABS: Chloride 92 mmol/L (98-107); Potassium 5.4 mmoL/L (3.5-5.1); Sodium 126 mmol/L (136-145)
[2021-08-21 12:24] LABS: Activated Partial Thrombo Time 31.1 seconds (22.8-30.6); Alanine Aminotransferase 20 U/L (12-78); Albumin Level 3.6 g/dl (3.5-5.0); Albumin/Globulin Ratio 1.1 (1.1-1.8); Alkaline Phosphatase 161 U/L (38-126); Anion Gap 15.4 mEq/L (5-15); Aspartate Amino Transferase 23 U/L (17-59); Bilirubin,Total 0.6 mg/dl (0.2-1.3); Blood Urea Nitrogen 29 mg/dl (9-20); Calcium 8.8 mg/dl (8.4-10.2); Carbon Dioxide 24 mmol/L (22.0-30.0); Creatinine Clearance Estimated 56 mL/min (50-200); Estimated Glomerular Filt Rate 33 ml/min (>60); GFR (African American) 40 ML/MIN (>60); Globulin 3.3 g/dL (1.3-3.2); INR 1.06 (0.9-1.1); Lipase 44 U/L (23-300); Prothrombin Time 11.9 seconds (10.1-12.5); Total Protein,Serum 6.9 g/dl (6.3-8.2)
[2021-08-21 12:27] LABS: Glucose 620 mg/dl (74-100)
[2021-08-21 12:34] LABS: NT Pro Brain Natriuretic Pep. 5960 pg/mL (0-125)
[2021-08-21 12:37] LABS: Troponin I 0.06 ng/ml (0.00-0.034)
[2021-08-21 12:42] LABS: Lymphocytes % 10 % (10-50); Monocytes % 5 % (2-9); Neutrophils % 83 % (42-76); Platelet Estimate Normal; RBC Morphology Normal; Total Cells Counted 100
[2021-08-21 13:44] LABS: VBG Base Excess -6.3 mmol/L (-2.4-2.3); VBG HCO3 19.4 mmol/L (23-30); VBG Oxygen Saturation 84.9 % (50-70); VBG PCO2 36.2 mmol/L (35-51); VBG PH 7.35 mmol/L (7.31-7.41); VBG PO2 49.3 mmol/L (28-40); VBG Total CO2 20.5 mmol/L (23-27)
--- NOTE | 2021-08-21 14:20 | PC.NURSE ---
Doctor on car supervisor for service has been paged.
--- NOTE | 2021-08-21 14:25 | CA_ITS ---
APPROVED REPORT EXAM: Comprehensive 2D, Doppler, and color-flow Echocardiogram Outer Diameter Technician: Ana Beaulieu, RT(R) Ht: 5 ft 11 in Wt: 211lbs BSA: 2.16 BP: 262/113 mmHg Indications: CHF, HTN, Smoker, DM, hyperlipidemia, hx CVA, CHF, EF on echo done 02/21/21 was 25-30%. Limited imaging due to patient cooperation. He asked me to stop because of pain intolerance and impaired mental status. 2D Dimensions LVOT 2.11 cm (M/F) 1.5-2.5 M-Mode Dimensions RVDd 2.03 cm (0.9-2.6) LA Diam 3.52 cm (1.9-4.0) LVDd 4.89 cm (3.5-5.7) Ao Diam 3.19 cm (2.0-3.7) LVDs 4.57 cm (3.5-5.7) IVSd 1.00 cm (0.6-1.1) PWd 1.18 cm (0.6-1.1) EF (Teich) 14.60% FS 6.50% EDV (Teich) 112.30 mL ESV (Teich) 95.90 mL Left Ventricle Technically very difficult and poor study, left atrium is mildly enlarged, left ventricle is normal size, mild concentric left ventricular hypertrophy, visually estimated ejection fraction approximately 30 to 35% left ventricle appears to be globally hypokinetic, endocardial surfaces are very poorly visualized, if clinically indicated repeat study with Definity contrast is recommended. Right Ventricle Right atrium and right ventricle are normal size and contractility. Aortic Valve Aortic valve is thickened and calcified without aortic stenosis. Mitral Valve Mitral valve leaflets are minimally thickened, there is mild mitral regurgitation. Tricuspid Valve Tricuspid valve is poorly visualized. Pulmonic Valve Pulmonic valve is poorly visualized. Great Vessels Aortic root is normal size. Inferior vena cava is poorly visualized. Pericardium No significant pericardial effusion noted. Conclusion 1. Technically very difficult and poor study as described above, probably ejection fraction 30 to 35% left ventricle is globally hypokinetic, diastolic parameters are inconclusive. If clinically indicated repeat study with Definity contrast is recommended. 2. No significant pericardial effusion noted. 3. Inferior vena cava is poorly visualized. Electronically signed by : Inderjit Ceron MD 08/21/2021 20:09:48
--- NOTE | 2021-08-21 14:29 | HMH.EDCP ---
ED Disposition Clinical Impression: Systolic heart failure, CHF (congestive heart failure), NYHA class II Disposition: Admitted As Inpatient Condition on Discharge: Fair Referrals: Provider,Referral, [Primary Care Provider] - - Critical Care Critical Care Time: Yes Attestation: On 08/21/21, the high probability of a clinically significant, sudden or life threatening deterioration of the following system(s) required my full and direct attention, intervention and personal management. The time I documented below is in addition to time spent performing reported procedures but includes the following listed in this critical care notation. Vital system(s) involved:: Circulatory Failure My critical care processes included: Assessment & monitoring of V/S, Initial and Re-exams, Data Review/Interpretation, Coordinating Care, Medication Orders and management, Documentation Medical Decision Making - Medical Records Medical records reviewed: Yes: I reviewed the patient's medical records. - Renan Inquiry Pt receiving controlled substance: No Renan was queried for this patient: No Vital Signs: 08/21/21 11:46 08/21/21 12:15 08/21/21 13:00 Temperature 98.0 F Temperature Source Oral Pulse Rate 106 H 101 H Pulse Rate [Right Radial] 115 H Respiratory Rate 18 14 12 Blood Pressure 185/97 H 172/88 H Blood Pressure [Right Arm] 137/87 Blood Pressure Mean [Right Arm] 103 Blood Pressure Source [Right Arm] Automatic Cuff Blood Pressure Position [Right Arm] Sitting 02 Sat by Pulse Oximetry 98 98 99 Oxygen Delivery Method Room Air 08/21/21 13:30 08/21/21 14:00 Temperature Temperature Source Pulse Rate 100 H 100 H Pulse Rate [Right Radial] Respiratory Rate 21 22 Blood Pressure 183/95 H 221/103 H Blood Pressure [Right Arm] Blood Pressure Mean [Right Arm] Blood Pressure Source [Right Arm] Blood Pressure Position [Right Arm] 02 Sat by Pulse Oximetry 95 98 Oxygen Delivery Method - Lab Data Lab results reviewed: Yes: I reviewed the patient's lab results. Lab Results 08/21/21 11:49: WBC 11.4 H, RBC 4.98, Hgb 14.3, Hct 45.0, MCV 90.4, MCH 28.7, MCHC 31.8, RDW 14.2, Plt Count 255, MPV 9.8, Neut % (Auto) 85.5 H, Lymph % (Auto) 8.3 L, [place] % (Auto) 4.7, Eos % (Auto) 0.2, Baso % (Auto) 1.3, Neut # (Auto) 9.8 H, Lymph # (Auto) 1.0, [place] # (Auto) 0.5, Eos # (Auto) 0.0, Baso # (Auto) 0.2, Total Counted 100, Neutrophils % (Manual) 83 H, Band Neutrophils % 2.0, Lymphocytes % (Manual) 10, Monocytes % (Manual) 5, Platelet Estimate Normal, RBC Morphology Normal 08/21/21 11:49: PT 11.9, INR 1.06, APTT 31.1 H 08/21/21 11:49: Sodium 126 L, Potassium 5.4 H, Chloride 92 L, Carbon Dioxide 24, Anion Gap 15.4 H, BUN 29 H, Creatinine 2.10 H, Estimated Creat Clear 56, Estimated GFR 33 L, Est GFR ( Amer) 40 L, Glucose 620 H*, Calcium 8.8, Total Bilirubin 0.6, AST 23, ALT 20, Alkaline Phosphatase 161 H, Troponin I 0.06 H, Total Protein 6.9, Albumin 3.6, Globulin 3.3 H, Albumin/Globulin Ratio 1.1 08/21/21 11:49: NT-Pro-B Natriuret Pep 5960 H, Lipase 44 08/21/21 12:07: VBG pH 7.35, VBG pCO2 36.2, VBG pO2 49.3 H, VBG HCO3 19.4 L, VBG Total CO2 20.5 L, VBG O2 Saturation 84.9 H, VBG Base Excess -6.3 L Result diagrams: 08/21/21 11:49 08/21/21 11:49 Orders (Tests/Meds): ED MEDICATIONS Generic Name Dose Route Start Last Admin Trade Name Freq PRN Reason Stop Dose Admin Insulin Human Lispro 0 unit 08/21/21 14:30 Humalog 100 Units/Ml 3ml Vial (Ssi) SQ 09/20/21 14:29 Q6H AMARI Protocol Discontinued Medications Generic Name Dose Route Start Last Admin Trade Name Freq PRN Reason Stop Dose Admin Furosemide 40 mg 08/21/21 14:29 Furosemide 40mg/4ml Vial IV 08/21/21 14:30 ONCE ONE ORDERS Category Date Time Status Cardiology Consult [Consult to Cardiology] [CONS] Cons 08/21/21 14:26 Active Routine Troponin I Q3H Lab 08/21/21 15:15 Ordered Troponin I Q3H Lab 08/21/21 18:15 Or
--- NOTE | 2021-08-21 15:03 | HMH.CNCARD ---
History of Present Illness Consult date: 08/21/21 Requesting physician: Ladarius Jasmine Consult reason: congestive heart failure Chief complaint: chf History of present illness: 51-year-old male presented to the emergency room with increased shortness of breath and chest pain. Patient states for the past 3 to 4 days he has not had his medications due to pharmacy not bringing his medications. Patient is noncompliant with medication regimen. Patient stated he has been having worsening shortness of breath and unable to do his daily activities. Patient stated he does have difficulty in walking due to a recent CVA which has affected his left side causing numbness. Patient denies chest pain, tightness or pressure at this time. Patient states he just feels that he is full of fluid. Patient has not been taking his diuretics as prescribed. Patient denies palpitations or dizziness. Due to patient's CVA, patient is supposed to be taking aspirin daily. Patient states he has not been taking his aspirin as prescribed. Discussed with patient the risk of increased stroke. Patient verbalized understanding. Last heart catheterization revealed normal coronary arteries with a dilated ventricle with reduced EF and severely elevated LVEDP. This was in January 2021. Patient was then placed on standard therapy for myocarditis and systolic heart failure. These medicine included Entresto and carvedilol. Patient was unable to afford Entresto so therefore patient was on lisinopril. Patient did have a repeat echocardiogram at [facility] in [place] on 02/28/2021 which revealed EF of 51 to 55%, grade 1 diastolic dysfunction, moderate hypertrophic and mild MR with aortic sclerosis without significant stenosis or regurgitation. Patient was also started on Lasix and spironolactone due to systolic heart failure. Patient states he did take his diuretics up until the last 3 to 4 days. In January patient was prescribed a LifeVest due to his EF being 25 to 30%. Patient states he was unable to tolerate it so therefore he did not wear it. Patient has history of carotid artery stenosis which was present on a CT at [facility] but it was uncertain as to the degree of the stenosis. Patient also history hypertension. Patient is noted to be hypertensive. EKG revealed a sinus tachycardia with a heart rate of 111 bpm. Patient is noted to have electrolyte disturbance. Potassium is 5.4, BUN 29, creatinine 2.10. BNP over 5000. Serial troponin x1 was 0.06, which is slightly elevated. Elevated troponin may be due to to ischemic demand due to his congestive heart failure. We will continue to monitor his troponins. Patient does have uncontrolled diabetes. Patient states he has not been able to take his diabetic medications for 3 to 4 days. Blood glucose is over 600. LHC showed: (02/18) IMPRESSION Normal coronary arteries Dilated ventricle with reduced ejection fraction Severely elevated LVEDP PLAN 1. Standard therapy for myocarditis/systolic heart failure 2. Start Entresto and carvedilol 3. Start furosemide and spironolactone 4. LifeVest ECHO showed:(02/18) Conclusion 1. Mildly dilated, normal left ventricular size, mild concentric left ventricular hypertrophy, visually estimated ejection fraction 25 to 30% left ventricle is globally hypokinetic. Diastolic parameters are inconclusive. 2. Thickened and calcified aortic valve without aortic stenosis, there is trace aortic insufficiency 3. Mild mitral and tricuspid regurgitation. 4. No significant pericardial effusion noted. [facility] History I have reviewed the patient's past medical history: Yes Medical History: Reports:: Aneurysm, Arrhythmia, Diabetes Mellitus Type 2, Hyperlipidemia, Hypertension, Transient Ischemic Attacks (TIA) Denies:: Cancer, Diabetes Mellitus Type 1, Internal Pacemaker, MRSA, Seizures *Have you ever received a pneumonia vaccine?: No *Have you received a flu vaccine this season?: No Other M
[2021-08-21 15:41] LABS: Troponin I 0.06 ng/ml (0.00-0.034)
--- NOTE | 2021-08-21 16:51 | PC.NURSE ---
SHELLIE JIMENEZ is aware of pt BP, states does not want to order any additional medication for elevated bp at this time r/t to pt has received coreg PO will continue to monitor
[2021-08-21 17:12] LABS: Coronavirus 19, PCR Not Detected (NotDetected); Influenza A, PCR Not Detected (NotDetected); Influenza B, PCR Not Detected (NotDetected)
--- NOTE | 2021-08-21 17:53 | PC.NURSE ---
fsbs 465, notified ER , no new orders
--- NOTE | 2021-08-21 17:56 | PC.NURSE ---
report called to tiarra rivera rn on second floor at this time, states he will send staff down to get pt.
[2021-08-21 18:00] LABS: POC Glucose,Bedside 465 (70-110)
[2021-08-21 18:36] LABS: Troponin I 0.06 ng/ml (0.00-0.034)
--- NOTE | 2021-08-21 19:02 | PC.NURSE ---
V/O FROM ER MD TO GIVE 75 MG PLAVIX. HE IS AOX4, ABLE TO MAKE NEEDS KNOWN TO STAFF, TOLERATING RA, NO ISSUES WITH DIET. DENIES N/V/D. SHOWER TODAY ON ADMISSION.
[2021-08-22] VITALS: BP 142/68; PULSE 80; PULSE 87; RESP 17; TEMP 36.6; O2SAT 94
[2021-08-22 00:19] LABS: Glucose,Random 646 mg/dL (74-100)
[2021-08-22 02:15] LABS: POC Glucose,Bedside 409 (70-110)
[2021-08-22 04:00] VITALS: BP 138/64; PULSE 79; PULSE 80; RESP 16; TEMP 36.6; O2SAT 96
[2021-08-22 05:07] VITALS: BMI 27.3
--- NOTE | 2021-08-22 06:21 | PC.NURSE ---
Pt is alert x3. Pt c/o pain in right shoulder 1x t/o shift. Pt was medicated with 2mg morphine per MAR with favorable results. No other complaints voiced to staff. Pt able to use urinal and roll independently but needs to be encouraged to do so.
[2021-08-22 08:00] VITALS: BP 123/68; PULSE 75; PULSE 80; RESP 22; TEMP 36.7; O2SAT 95; O2SAT 99
--- NOTE | 2021-08-22 08:47 | HMH.PHAVTE ---
[facility] Pharmacy VTE Monitoring - Patient Demographics Allergies/Adverse Reactions: Patient Allergies codeine Allergy (Verified 05/16/21 13:38) Height: 1.8 m Weight: 88.621 kg Patient Problems: Current Active Problems CVA (cerebral vascular accident) (Acute) CHF (congestive heart failure), NYHA class II (Acute) Systolic heart failure (Acute) Elevated troponin (Acute) Diastolic dysfunction (Acute) Chest pain (Acute) Hyperlipidemia (Chronic) Tobacco use (Chronic) Hypertension (Chronic) - VTE Risk Labs: VTE Related Lab Results Hgb 14.3 g/dL (14.1-18.0) 08/21/21 11:49 Hct 45.0 % (42.0-52.0) 08/21/21 11:49 Plt Count 255 K/mm3 (142-424) 08/21/21 11:49 PT 11.9 seconds (10.1-12.5) 08/21/21 11:49 INR 1.06 (0.9-1.1) 08/21/21 11:49 APTT 31.1 seconds (22.8-30.6) H 08/21/21 11:49 BUN 29 mg/dl (9-20) H 08/21/21 11:49 Creatinine 2.10 mg/dl (0.66-1.25) H 08/21/21 11:49 Estimated Creat Clear 56 mL/min (50-200) 08/21/21 11:49 Was VTE Risk Assessment Performed: Yes VTE Score: 10 VTE Risk Level: Moderate Risk Clinical Trial Participant: No - Prophylaxis VTE Prophylaxis Ordered?: Yes Types of VTE Prophylaxis: TEDS Knee High Location of Applied Device: Refused
--- NOTE | 2021-08-22 08:48 | HMH.PHAINT ---
MEDICATION RECONCILIATION COMPLETE USING EXTERNAL PHARMACY FILL HISTORY AND LIST FROM MD OFFICE
--- NOTE | 2021-08-22 09:14 | HMH.PNCARD ---
Subjective Date: 08/22/21 Time: 08:00 Principal diagnosis: CHF Interval history: 51-year-old male presented to the emergency room with increased shortness of breath and chest pain on 08/22/21. Patient states for the past 3 to 4 days he has not had his medications due to pharmacy not bringing his medications. Patient is noncompliant with medication regimen. Patient stated he has been having worsening shortness of breath and unable to do his daily activities. Patient stated he does have difficulty in walking due to a recent CVA which has affected his left side causing numbness. Patient denies chest pain, tightness or pressure at this time. Patient states he just feels that he is full of fluid. Patient has not been taking his diuretics as prescribed. Patient denies palpitations or dizziness. Due to patient's CVA, patient is supposed to be taking aspirin daily. Patient states he has not been taking his aspirin as prescribed. Discussed with patient the risk of increased stroke. Patient verbalized understanding. Last heart catheterization revealed normal coronary arteries with a dilated ventricle with reduced EF and severely elevated LVEDP. This was in January 2021. Patient was then placed on standard therapy for myocarditis and systolic heart failure. These medicine included Entresto and carvedilol. Patient was unable to afford Entresto so therefore patient was on lisinopril. Patient did have a repeat echocardiogram at [facility] in [place] on 02/28/2021 which revealed EF of 51 to 55%, grade 1 diastolic dysfunction, moderate hypertrophic and mild MR with aortic sclerosis without significant stenosis or regurgitation. Patient was also started on Lasix and spironolactone due to systolic heart failure. Patient states he did take his diuretics up until the last 3 to 4 days. In January patient was prescribed a LifeVest due to his EF being 25 to 30%. Patient states he was unable to tolerate it so therefore he did not wear it. Patient has history of carotid artery stenosis which was present on a CT at [facility] but it was uncertain as to the degree of the stenosis. Patient also history hypertension. Patient is noted to be hypertensive. EKG revealed a sinus tachycardia with a heart rate of 111 bpm. Patient is noted to have electrolyte disturbance. Potassium is 5.4, BUN 29, creatinine 2.10. BNP over 5000. Serial troponin x2 was 0.06, which is slightly elevated. Elevated troponin may be due to to ischemic demand due to his congestive heart failure. Patient does have uncontrolled diabetes. Patient states he has not been able to take his diabetic medications for 3 to 4 days. Blood sugars continue to be elevated. This is being managed by PCP. Patient denies chest pain, tightness or pressure. Patient denies shortness of breath. Patient resting quietly in room. No swelling noted of the lower extremities. Patient denies palpitations. Vital signs are stable. campus monitor reveals sinus rhythm with no ectopy. Echocardiogram was obtained which revealed EF 30 to 35%. No significant pericardial effusion noted. Patient would be appropriate for LifeVest due to ischemic cardiomyopathy and increased risk for sudden . Patient is noncompliant with medications and treatment and states he would not wear the LifeVest. Patient will remain on carvedilol for ischemic cardiomyopathy and heart failure. We will start patient on lisinopril 10 mg twice daily for ischemic cardiomyopathy and ischemic coronary disease. Vital signs are stable. Echo:Conclusion 1. Technically very difficult and poor study as described above, probably ejection fraction 30 to 35% left ventricle is globally hypokinetic, diastolic parameters are inconclusive. If clinically indicated repeat study with Definity contrast is recommended. 2. No significant pericardial effusion noted. 3. Inferior vena cava is poorly visualized. Exam Vital signs and Labs for Last 24 Hours:
--- NOTE | 2021-08-22 09:28 | HMH.ACPN2 ---
Internal Medicine - PN: Subj *Date: 08/22/21 *Time: 09:28 Exam Vital signs and Labs for Last 24 Hours: Temp Pulse Resp BP Pulse Ox 97.9 F 79 16 138/64 96 08/22/21 04:00 08/22/21 04:00 08/22/21 04:00 08/22/21 04:00 08/22/21 04:00 Laboratory Results - last 24 hr 08/21/21 11:49: WBC 11.4 H, RBC 4.98, Hgb 14.3, Hct 45.0, MCV 90.4, MCH 28.7, MCHC 31.8, RDW 14.2, Plt Count 255, MPV 9.8, Neut % (Auto) 85.5 H, Lymph % (Auto) 8.3 L, [place] % (Auto) 4.7, Eos % (Auto) 0.2, Baso % (Auto) 1.3, Neut # (Auto) 9.8 H, Lymph # (Auto) 1.0, [place] # (Auto) 0.5, Eos # (Auto) 0.0, Baso # (Auto) 0.2, Total Counted 100, Neutrophils % (Manual) 83 H, Band Neutrophils % 2.0, Lymphocytes % (Manual) 10, Monocytes % (Manual) 5, Platelet Estimate Normal, RBC Morphology Normal 08/21/21 11:49: PT 11.9, INR 1.06, APTT 31.1 H 08/21/21 11:49: Sodium 126 L, Potassium 5.4 H, Chloride 92 L, Carbon Dioxide 24, Anion Gap 15.4 H, BUN 29 H, Creatinine 2.10 H, Estimated Creat Clear 56, Estimated GFR 33 L, Est GFR ( Amer) 40 L, Glucose 620 H*, Calcium 8.8, Total Bilirubin 0.6, AST 23, ALT 20, Alkaline Phosphatase 161 H, Troponin I 0.06 H, Total Protein 6.9, Albumin 3.6, Globulin 3.3 H, Albumin/Globulin Ratio 1.1 08/21/21 11:49: NT-Pro-B Natriuret Pep 5960 H, Lipase 44 08/21/21 12:07: VBG pH 7.35, VBG pCO2 36.2, VBG pO2 49.3 H, VBG HCO3 19.4 L, VBG Total CO2 20.5 L, VBG O2 Saturation 84.9 H, VBG Base Excess -6.3 L 08/21/21 15:12: Troponin I 0.06 H 08/21/21 17:00: SARS-CoV-2 (PCR) Not detected, Influenza A Untype (PCR) Not detected, Influenza Type B (PCR) Not detected 08/21/21 17:52: POC Glucose 465 H* 08/21/21 18:00: Troponin I 0.06 H 08/21/21 23:40: Random Glucose 646 H* 08/22/21 02:05: POC Glucose 409 H* I & O for Last 24 hours: Intake & Output 08/19/21 08/20/21 08/21/21 08/22/21 23:59 23:59 23:59 23:59 Output Total 400 / 400 Balance -400 / -400 Weight 195 lb 6 oz 195 lb 6 oz Assessment and Plan (1) CHF (congestive heart failure), NYHA class II Status: Acute Qualifiers: Category: Medical Code(s): I50.9 - Heart failure, unspecified (2) Systolic heart failure Status: Acute Qualifiers: Category: Medical Code(s): I50.20 - Unspecified systolic (congestive) heart failure (3) CVA (cerebral vascular accident) Status: Acute Qualifiers: CVA mechanism: unspecified Qualified Code(s): I63.9 - Cerebral infarction, unspecified Category: Medical Code(s): I63.9 - Cerebral infarction, unspecified (4) Chest pain Status: Acute Qualifiers: Chest pain type: unspecified Qualified Code(s): R07.9 - Chest pain, unspecified Category: Medical Code(s): R07.9 - Chest pain, unspecified (5) Diastolic dysfunction Status: Acute Category: Medical Code(s): I51.89 - Other ill-defined heart diseases (6) Elevated troponin Status: Acute Category: Medical Code(s): R77.8 - Other specified abnormalities of plasma proteins (7) Hyperlipidemia Status: Chronic Qualifiers: Hyperlipidemia type: mixed hyperlipidemia Qualified Code(s): E78.2 - Mixed hyperlipidemia Category: Medical Code(s): E78.5 - Hyperlipidemia, unspecified (8) Hypertension Status: Chronic Qualifiers: Hypertension type: essential hypertension Category: Medical Code(s): I10 - Essential (primary) hypertension (9) Tobacco use Status: Chronic Category: Social Hx Code(s): Z72.0 - Tobacco use (10) Hyponatremia Status: Resolved Category: Medical Code(s): E87.1 - Hypo-osmolality and hyponatremia
[2021-08-22 09:49] LABS: POC Glucose,Bedside 465 (70-110)
--- NOTE | 2021-08-22 09:51 | CA_ITS ---
APPROVED REPORT Latin Dancer: AMI Laterality: Bilateral Study Quality: Fair Indications: Confusion Doppler Spectral Velocity Analysis ECA (R) 92.50/5.10 cm/s ECA (L) 82.20/7.10 cm/s dICA (R) 50.10/14.10 cm/s dICA (L) 101.60/31.50 cm/s Jerome (R) 61.00/16.70 cm/s Jerome (L) 97.60/23.10 cm/s pICA (R) 55.90/20.50 cm/s pICA (L) 55.90/16.10 cm/s dCCA (R) 51.40/9.40 cm/s dCCA (L) 87.30/19.30 cm/s pCCA (R) 97.30/7.50 cm/s pCCA (L) 90.50/19.30 cm/s Vert (R) 30.80/7.70 cm/s Vert (L) 18.20/7.50 cm/s ICA/CCA 1.20 ICA/CCA 1.13 Findings B-Mode Ultrasound demonstrates moderate intraluminal plaque in the left common Carotid Artery. Duplex evaluation demonstrates stenosis of the right proximal internal carotid artery in the range of 20-49% with PSV <140 cm/sec, EDV <100 cm/sec, and IC/CC Ratio <4.0. Duplex evaluation demonstrates stenosis of the left proximal internal carotid artery in the range of 20-49% with PSV <140 cm/sec, EDV <100 cm/sec, and IC/CC Ratio <4.0. Duplex evaluation demonstrates antegrade flow of the bilateral Vertebral Arteries. Conclusion B-Mode Ultrasound demonstrates moderate intraluminal plaque in the left common Carotid Artery. Duplex evaluation demonstrates stenosis of the right proximal internal carotid artery in the range of 20-49% with PSV <140 cm/sec, EDV <100 cm/sec, and IC/CC Ratio <4.0. Duplex evaluation demonstrates stenosis of the left proximal internal carotid artery in the range of 20-49% with PSV <140 cm/sec, EDV <100 cm/sec, and IC/CC Ratio <4.0. Duplex evaluation demonstrates antegrade flow of the bilateral Vertebral Arteries. Electronically signed by : Mihai Cortez MD 08/22/2021 14:21:47
[2021-08-22 12:01] LABS: Chloride 91 mmol/L (98-107); Sodium 124 mmol/L (136-145)
[2021-08-22 12:04] LABS: Blood Urea Nitrogen 38 mg/dl (9-20); Carbon Dioxide 26 mmol/L (22.0-30.0); Creatinine Clearance Estimated 42 mL/min (50-200); Estimated Glomerular Filt Rate 26 ml/min (>60); GFR (African American) 32 ML/MIN (>60)
[2021-08-22 12:30] LABS: Glucose 403 mg/dl (74-100)
--- NOTE | 2021-08-22 12:58 | HMH.HP ---
*Admission Date: 08/21/21 *Chief complaint: Chest Pain *History of present illness: 51-year-old male presented to the emergency room with increased shortness of breath and chest pain. Patient states for the past 3 to 4 days he has not had his medications due to pharmacy not bringing his medications. Patient is noncompliant with medication regimen. Patient stated he has been having worsening shortness of breath and unable to do his daily activities. Patient stated he does have difficulty in walking due to a recent CVA which has affected his left side causing numbness. Patient denies chest pain, tightness or pressure at this time. Patient states he just feels that he is full of fluid. Patient has not been taking his diuretics as prescribed. Patient denies palpitations or dizziness. Due to patient's CVA, patient is supposed to be taking aspirin daily. Patient states he has not been taking his aspirin as prescribed. Discussed with patient the risk of increased stroke. Patient verbalized understanding. He has not taken his medications correctly prescribed a LifeVest due to his EF being 25 to 30%. Patient states he was unable to tolerate it so therefore he did not wear it. Patient has history of carotid artery stenosis which was present on a CT at [facility] but it was uncertain as to the degree of the stenosis. Patient also history hypertension. Patient is noted to be hypertensive. EKG revealed a sinus tachycardia with a heart rate of 111 bpm. Patient is noted to have electrolyte disturbance. Potassium is 5.4, BUN 29, creatinine 2.10. BNP over 5000. Serial troponin x1 was 0.06, which is slightly elevated. Elevated troponin may be due to to ischemic demand due to his congestive heart failure. We will continue to monitor his troponins. Patient does have uncontrolled diabetes. Patient states he has not been able to take his diabetic medications for 3 to 4 days. Blood glucose is over 600. Chest x-ray revealed no acute findings 51-year-old male patient sitting up in bed resting quietly reports he is feeling better today than yesterday repeats less shortness of breath denies any chest pain during the night. He reports not receiving his medication for 2 to 3 days from pharmacy, after discussion he would admits it was a few days longer than that. Stressed importance of adhering to medical regimen due to medical conditions, he verbalizes understanding and states he will take his medications more regularly in the future. [facility] History I have reviewed the patient's past medical history: Yes Medical History: Reports:: Aneurysm, Arrhythmia, Atrial Fibrillation, Congestive Heart Failure, Congenital Heart Disease, Diabetes Mellitus Type 2, Hyperlipidemia, Hypertension, Transient Ischemic Attacks (TIA) Denies:: Cancer, Diabetes Mellitus Type 1, Internal Pacemaker, MRSA, Seizures *Have you ever received a pneumonia vaccine?: No *Have you received a flu vaccine this season?: No Other Medical History: Denies: Blood Transfusion Reaction Laterality Cases: Left: Arthroscopy Shoulder Other Surgeries: Yes: Cardiac Catheterization, Cholecystectomy, Other. No: Pacemaker Amputation: No Fractures: Yes - *Social History Last grade of school completed: High school graduate Smoking Status: Former smoker Tobacco Type: cigarettes # Packs/Day (cigarettes): 1 Alcohol Intake: never Substance Use Type: denies use *Occupational Status:: disabled Housing: apartment Household Members: spouse *Travel in the last 8 weeks: Inside the [facility] Family Hx:: Asthma, Coronary Artery Disease, Hyperlipidemia, Hypertension, Stroke, Heart Attack Review of Systems - Review of Systems Review of systems:: pertinent systems reviewed and negative unless documented below - Constitutional Reports body ache(s), Reports fatigue, Reports weakness - Eyes Denies change in vision, Denies double vision - ENT Denies dizziness, Denies difficulty swallowing - *Cardiov
[2021-08-22 14:18] VITALS: BMI 27.1
[2021-08-22 16:00] VITALS: BP 121/68; PULSE 70; RESP 21; TEMP 37.6; O2SAT 92
[2021-08-22 17:21] LABS: POC Glucose,Bedside 276 (70-110)
[2021-08-22 17:21] LABS: POC Glucose,Bedside 250 (70-110)
[2021-08-22 20:00] VITALS: PULSE 70; O2SAT 93
[2021-08-22 20:01] VITALS: BP 110/63; PULSE 70; RESP 18; TEMP 37.1; O2SAT 93
[2021-08-22 22:31] LABS: POC Glucose,Bedside 168 (70-110)
[2021-08-23] VITALS (8 sets, daily range): BP systolic 112–159; BP diastolic 59–82; PULSE 68–86; RESP 15–19; TEMP 37.2–37.7; O2SAT 93–97; BMI 27.1
[2021-08-23 06:09] LABS: Chloride 94 mmol/L (98-107); Potassium 4.3 mmoL/L (3.5-5.1); Sodium 127 mmol/L (136-145)
[2021-08-23 06:11] LABS: Basophils % 0.2 % (0.1-2.0); Eosinophils % 0.3 % (0.1-12.0); Hematocrit 40.2 % (42.0-52.0); Lymphocytes # 1.6 K/mm3 (0.7-4.5); Lymphocytes % 10.2 % (10-50); Mean Corpuscular HGB Conc 32.4 g/dL (31.8-35.4); Mean Corpuscular Hemoglobin 28.1 pg (27.0-31.2); Mean Corpuscular Volume 86.8 fl (80-94); Mean Platelet Volume 9.9 fl (7.4-10.4); Monocytes # 0.8 K/mm3 (0.1-1.0); Monocytes % 4.9 % (1.7-9.3); Neutrophils # 13.4 K/mm3 (1.8-7.8); Neutrophils % 84.4 % (37.0-80.0); Platelet Count 226 K/mm3 (142-424); Red Blood Count 4.64 M/mm3 (4.60-6.20); Red Cell Distribution Width 14.4 % (11.5-17.5); White Blood Count 15.9 K/mm3 (4.8-10.8)
[2021-08-23 06:12] LABS: Blood Urea Nitrogen 48 mg/dl (9-20); Creatinine Clearance Estimated 30 mL/min (50-200); Estimated Glomerular Filt Rate 18 ml/min (>60); GFR (African American) 22 ML/MIN (>60)
[2021-08-23 06:13] LABS: Anion Gap 16.3 mEq/L (5-15); Carbon Dioxide 21 mmol/L (22.0-30.0); Glucose 201 mg/dl (74-100)
[2021-08-23 06:42] LABS: MANUAL DIFFERENTIAL MANUAL DIFFERENTIAL (MANUAL DIFF)
[2021-08-23 06:50] LABS: POC Glucose,Bedside 194 (70-110)
--- NOTE | 2021-08-23 07:07 | PC.NURSE ---
slept most of night, no issues or concerns this shift
[2021-08-23 07:12] LABS: Lymphocytes % 10 % (10-50); Monocytes % 4 % (2-9); Neutrophils % 86 % (42-76); Total Cells Counted 100
[2021-08-23 07:13] LABS: Platelet Estimate Normal
--- NOTE | 2021-08-23 09:16 | HMH.ACPN2 ---
Internal Medicine - PN: Subj *Date: 08/24/21 *Time: 06:36 Interval history: pt looks ok with no specific c/o but worse renal function - discussed with dr cotton Exam Vital signs and Labs for Last 24 Hours: Temp Pulse Resp BP Pulse Ox 98.9 F 69 16 122/59 L 94 L 08/23/21 08:00 08/23/21 08:00 08/23/21 08:00 08/23/21 08:00 08/23/21 08:00 Laboratory Results - last 24 hr 08/22/21 09:27: POC Glucose 465 H* 08/22/21 11:28: Sodium 124 L, Potassium 5.0, Chloride 91 L, Carbon Dioxide 26, Anion Gap 12.0, BUN 38 H D, Creatinine 2.60 H D, Estimated Creat Clear 42, Estimated GFR 26 L, Est GFR ( Amer) 32 L, Glucose 403 H* D, Calcium 9.0 08/22/21 16:21: POC Glucose 276 H 08/22/21 17:10: POC Glucose 250 H 08/22/21 21:40: POC Glucose 168 H 08/23/21 05:28: WBC 15.9 H D, RBC 4.64, Hgb 13.0 L, Hct 40.2 L, MCV 86.8, MCH 28.1, MCHC 32.4, RDW 14.4, Plt Count 226, MPV 9.9, Neut % (Auto) 84.4 H, Lymph % (Auto) 10.2, [place] % (Auto) 4.9, Eos % (Auto) 0.3, Baso % (Auto) 0.2, Neut # (Auto) 13.4 H, Lymph # (Auto) 1.6, [place] # (Auto) 0.8, Eos # (Auto) 0.0, Baso # (Auto) 0.0, Total Counted 100, Neutrophils % (Manual) 86 H, Lymphocytes % (Manual) 10, Monocytes % (Manual) 4, Platelet Estimate Normal 08/23/21 05:28: Sodium 127 L, Potassium 4.3, Chloride 94 L, Carbon Dioxide 21 L, Anion Gap 16.3 H, BUN 48 H D, Creatinine 3.60 H D, Estimated Creat Clear 30, Estimated GFR 18 L*, Est GFR ( Amer) 22 L D, Glucose 201 H D, Calcium 9.0 08/23/21 06:42: POC Glucose 194 H I & O for Last 24 hours: Intake & Output 08/20/21 08/21/21 08/22/21 08/23/21 11:59 11:59 11:59 11:59 Intake Total 240 / 240 480 / 480 Output Total 500 / 500 750 / 750 Balance -260 / -260 -270 / -270 Weight 211 lb 195 lb 6 oz 194 lb - Constitutional no acute distress - *Routine HEENT Exam Head: Present: normocephalic Eye: Present: EOMI, PERRL ENT: Present: mucous membranes dry - *Routine Neck Exam Absent: JVD - *Routine Respiratory Exam Present: decreased breath sounds - *Routine Cardiovascular Exam Present: RRR - *Routine Abdominal Exam Present: soft - *Routine Extremities Exam Absent: calf tenderness - *Routine Skin Exam Present: intact - *Routine Neurological Exam Present: alert, CN II-XII intact - Routine Psychiatric Exam Present: normal affect Assessment and Plan (1) CHF (congestive heart failure), NYHA class II Status: Acute Qualifiers: Category: Medical Code(s): I50.9 - Heart failure, unspecified (2) Systolic heart failure Status: Acute Qualifiers: Category: Medical Code(s): I50.20 - Unspecified systolic (congestive) heart failure (3) CVA (cerebral vascular accident) Status: Acute Qualifiers: CVA mechanism: unspecified Qualified Code(s): I63.9 - Cerebral infarction, unspecified Category: Medical Code(s): I63.9 - Cerebral infarction, unspecified (4) Chest pain Status: Acute Qualifiers: Chest pain type: unspecified Qualified Code(s): R07.9 - Chest pain, unspecified Category: Medical Code(s): R07.9 - Chest pain, unspecified (5) Diastolic dysfunction Status: Acute Category: Medical Code(s): I51.89 - Other ill-defined heart diseases (6) Elevated troponin Status: Acute Category: Medical Code(s): R77.8 - Other specified abnormalities of plasma proteins (7) Hyperlipidemia Status: Chronic Qualifiers: Hyperlipidemia type: mixed hyperlipidemia Qualified Code(s): E78.2 - Mixed hyperlipidemia Category: Medical Code(s): E78.5 - Hyperlipidemia, unspecified (8) Hypertension Status: Chronic Qualifiers: Hypertension type: essential hypertension Category: Medical Code(s): I10 - Essential (primary) hypertension (9) Tobacco use Status: Chronic Category: Social Hx Code(s): Z72.0 - Tobacco use (10) Hyponatremia Status: Resolved Category: Medical Code(s): E87.1 - Hypo-osmolality and hyponatremia (11) KAVITHA (acute ki
[2021-08-23 12:57] LABS: POC Glucose,Bedside 220 (70-110)
[2021-08-23 18:05] LABS: POC Glucose,Bedside 162 (70-110)
--- NOTE | 2021-08-23 20:18 | PC.NURSE ---
No acute changes this shift. Pt refused to bath or get up to chair this shift, after this RN encouraged pt to multiple times. VSS. CB in reach.
[2021-08-24] VITALS (7 sets, daily range): BP systolic 125–166; BP diastolic 62–82; PULSE 76–90; RESP 15–20; TEMP 36.7–37.8; O2SAT 92–98; BMI 27.6
[2021-08-24 00:24] LABS: POC Glucose,Bedside 133 (70-110)
--- NOTE | 2021-08-24 04:13 | PC.NURSE ---
pt slept intermittantly most of the night, pt complains of pain all over and states he hurts to move, VSS, FSBS stable, axo no other issues or concerns noted
[2021-08-24 06:54] LABS: POC Glucose,Bedside 163 (70-110)
--- NOTE | 2021-08-24 07:24 | HMH.ACPN2 ---
Internal Medicine - PN: Subj *Date: 08/25/21 *Time: 02:50 Interval history: more alert this am - labs pending - no specific c/o Exam Vital signs and Labs for Last 24 Hours: Temp Pulse Resp BP Pulse Ox 99.9 F H 88 20 155/82 H 95 08/24/21 04:00 08/24/21 04:00 08/24/21 04:00 08/24/21 04:00 08/24/21 04:00 Laboratory Results - last 24 hr 08/23/21 12:49: POC Glucose 220 H 08/23/21 17:55: POC Glucose 162 H 08/23/21 21:22: POC Glucose 133 H 08/24/21 06:36: POC Glucose 163 H I & O for Last 24 hours: Intake & Output 08/21/21 08/22/21 08/23/21 08/24/21 11:59 11:59 11:59 11:59 Intake Total 240 / 240 480 / 480 480 / 480 Output Total 500 / 500 750 / 750 300 / 300 Balance -260 / -260 -270 / -270 180 / 180 Weight 211 lb 195 lb 6 oz 194 lb 197 lb 7 oz - Constitutional no acute distress - *Routine HEENT Exam Head: Present: normocephalic Eye: Present: EOMI, PERRL ENT: Present: mucous membranes dry - *Routine Neck Exam Absent: JVD - *Routine Respiratory Exam Present: CTA bilaterally - *Routine Cardiovascular Exam Present: RRR - *Routine Abdominal Exam Present: soft - *Routine Extremities Exam Absent: calf tenderness - *Routine Skin Exam Present: intact - *Routine Neurological Exam Present: alert, CN II-XII intact - Routine Psychiatric Exam Present: cooperative Assessment and Plan (1) CHF (congestive heart failure), NYHA class II Status: Acute Qualifiers: Category: Medical Code(s): I50.9 - Heart failure, unspecified (2) Systolic heart failure Status: Acute Qualifiers: Category: Medical Code(s): I50.20 - Unspecified systolic (congestive) heart failure (3) CVA (cerebral vascular accident) Status: Acute Qualifiers: CVA mechanism: unspecified Qualified Code(s): I63.9 - Cerebral infarction, unspecified Category: Medical Code(s): I63.9 - Cerebral infarction, unspecified (4) Chest pain Status: Acute Qualifiers: Chest pain type: unspecified Qualified Code(s): R07.9 - Chest pain, unspecified Category: Medical Code(s): R07.9 - Chest pain, unspecified (5) Diastolic dysfunction Status: Acute Category: Medical Code(s): I51.89 - Other ill-defined heart diseases (6) Elevated troponin Status: Acute Category: Medical Code(s): R77.8 - Other specified abnormalities of plasma proteins (7) Hyperlipidemia Status: Chronic Qualifiers: Hyperlipidemia type: mixed hyperlipidemia Qualified Code(s): E78.2 - Mixed hyperlipidemia Category: Medical Code(s): E78.5 - Hyperlipidemia, unspecified (8) Hypertension Status: Chronic Qualifiers: Hypertension type: essential hypertension Category: Medical Code(s): I10 - Essential (primary) hypertension (9) Tobacco use Status: Chronic Category: Social Hx Code(s): Z72.0 - Tobacco use (10) Hyponatremia Status: Resolved Category: Medical Code(s): E87.1 - Hypo-osmolality and hyponatremia (11) KAVITHA (acute kidney injury) Status: Acute Category: Medical Code(s): N17.9 - Acute kidney failure, unspecified
[2021-08-24 08:16] LABS: Basophils % 0.2 % (0.1-2.0); Eosinophils % 0.3 % (0.1-12.0); Hemoglobin 12.2 g/dL (14.1-18.0); Lymphocytes # 1.3 K/mm3 (0.7-4.5); Lymphocytes % 8.6 % (10-50); Mean Corpuscular HGB Conc 32.8 g/dL (31.8-35.4); Mean Corpuscular Hemoglobin 28.6 pg (27.0-31.2); Mean Corpuscular Volume 87.3 fl (80-94); Mean Platelet Volume 10.3 fl (7.4-10.4); Monocytes # 0.7 K/mm3 (0.1-1.0); Monocytes % 4.3 % (1.7-9.3); Neutrophils # 13.1 K/mm3 (1.8-7.8); Neutrophils % 86.6 % (37.0-80.0); Platelet Count 244 K/mm3 (142-424); Red Blood Count 4.24 M/mm3 (4.60-6.20); Red Cell Distribution Width 14.3 % (11.5-17.5); White Blood Count 15.1 K/mm3 (4.8-10.8)
[2021-08-24 08:24] LABS: MANUAL DIFFERENTIAL MANUAL DIFFERENTIAL (MANUAL DIFF)
[2021-08-24 08:32] LABS: Chloride 98 mmol/L (98-107)
[2021-08-24 08:33] LABS: Potassium 4.4 mmoL/L (3.5-5.1); Sodium 130 mmol/L (136-145)
[2021-08-24 08:35] LABS: Blood Urea Nitrogen 59 mg/dl (9-20); Creatinine Clearance Estimated 34 mL/min (50-200); Estimated Glomerular Filt Rate 20 ml/min (>60); GFR (African American) 24 ML/MIN (>60)
[2021-08-24 08:36] LABS: Anion Gap 15.4 mEq/L (5-15); Calcium 8.5 mg/dl (8.4-10.2); Carbon Dioxide 21 mmol/L (22.0-30.0); Glucose 182 mg/dl (74-100)
[2021-08-24 10:26] LABS: Lymphocytes % 9 % (10-50); Monocytes % 5 % (2-9); Neutrophils % 86 % (42-76); Platelet Estimate Normal; Total Cells Counted 100
[2021-08-24 11:23] LABS: POC Glucose,Bedside 258 (70-110)
[2021-08-24 16:18] LABS: POC Glucose,Bedside 125 (70-110)
--- NOTE | 2021-08-24 18:53 | PC.NURSE ---
pt is alert but has bouts of confusion on and off through out the shift. Sexually inappropriate @ times and requires redirection. Assisted to chair for lunch. Continent in urinal.
--- NOTE | 2021-08-24 18:54 | PC.NURSE ---
denies any chest pain
[2021-08-24 20:10] LABS: POC Glucose,Bedside 81 (70-110)
--- NOTE | 2021-08-24 21:56 | PC.NURSE ---
Helped pull up in bed for a bed bath.
[2021-08-25] VITALS (8 sets, daily range): BP systolic 112–193; BP diastolic 60–83; PULSE 62–91; RESP 14–21; TEMP 36.6–38.4; O2SAT 94–97; BMI 27.8
--- NOTE | 2021-08-25 02:58 | PC.NURSE ---
A&OX4. TOLERATING RA WELL. PT HAS C/O SLIGHT CHEST PAIN X1 THIS SHIFT. REQUESTED TYLENOL. EFFECTIVENESS NOTED. PT USING URINAL TO VOID. SLEEPING INTERMITTENTLY T/O SHIFT. NO OTHER C/O THUS FAR. VSS WILL CONTINUE TO MONITOR.
[2021-08-25 05:15] LABS: POC Glucose,Bedside 150 (70-110)
[2021-08-25 05:46] LABS: Basophils # 0.1 K/mm3 (0-0.2); Basophils % 0.5 % (0.1-2.0); Eosinophils % 0.2 % (0.1-12.0); Hematocrit 36.2 % (42.0-52.0); Hemoglobin 11.5 g/dL (14.1-18.0); Lymphocytes # 1.2 K/mm3 (0.7-4.5); Lymphocytes % 8.3 % (10-50); Mean Corpuscular HGB Conc 31.7 g/dL (31.8-35.4); Mean Corpuscular Volume 88.3 fl (80-94); Mean Platelet Volume 10.2 fl (7.4-10.4); Monocytes # 0.7 K/mm3 (0.1-1.0); Neutrophils # 11.9 K/mm3 (1.8-7.8); Platelet Count 235 K/mm3 (142-424); Red Cell Distribution Width 14.2 % (11.5-17.5); White Blood Count 13.8 K/mm3 (4.8-10.8)
[2021-08-25 05:51] LABS: Anion Gap 14.4 mEq/L (5-15); Calcium 8.5 mg/dl (8.4-10.2); Carbon Dioxide 21 mmol/L (22.0-30.0); Chloride 98 mmol/L (98-107); Glucose 159 mg/dl (74-100); Potassium 4.4 mmoL/L (3.5-5.1); Sodium 129 mmol/L (136-145)
[2021-08-25 06:05] LABS: MANUAL DIFFERENTIAL MANUAL DIFFERENTIAL (MANUAL DIFF)
[2021-08-25 06:09] LABS: Blood Urea Nitrogen 57 mg/dl (9-20); Creatinine Clearance Estimated 45 mL/min (50-200); Estimated Glomerular Filt Rate 27 ml/min (>60); GFR (African American) 33 ML/MIN (>60)
[2021-08-25 07:47] LABS: Lymphocytes % 9 % (10-50); Monocytes % 6 % (2-9); Neutrophils % 85 % (42-76); Total Cells Counted 100
[2021-08-25 07:48] LABS: Platelet Estimate Normal; RBC Morphology Normal
--- NOTE | 2021-08-25 09:28 | HMH.ACPN2 ---
Internal Medicine - PN: Subj *Date: 08/26/21 *Time: 09:57 Interval history: doing better - c/o of rt arm pain -but overall feels better - labs improving - needs therapy eval Exam Vital signs and Labs for Last 24 Hours: Temp Pulse Resp BP Pulse Ox 98.8 F 83 16 189/83 H 97 08/25/21 08:00 08/25/21 08:00 08/25/21 08:00 08/25/21 08:00 08/25/21 08:00 Laboratory Results - last 24 hr 08/24/21 07:58: Total Counted 100, Neutrophils % (Manual) 86 H, Lymphocytes % (Manual) 9 L, Monocytes % (Manual) 5, Platelet Estimate Normal 08/24/21 11:03: POC Glucose 258 H 08/24/21 16:10: POC Glucose 125 H 08/24/21 19:55: POC Glucose 81 08/25/21 05:05: POC Glucose 150 H 08/25/21 05:11: WBC 13.8 H, RBC 4.10 L, Hgb 11.5 L, Hct 36.2 L, MCV 88.3, MCH 28.0, MCHC 31.7 L, RDW 14.2, Plt Count 235, MPV 10.2, Neut % (Auto) 86.0 H, Lymph % (Auto) 8.3 L, [place] % (Auto) 5.0, Eos % (Auto) 0.2, Baso % (Auto) 0.5, Neut # (Auto) 11.9 H, Lymph # (Auto) 1.2, [place] # (Auto) 0.7, Eos # (Auto) 0.0, Baso # (Auto) 0.1, Total Counted 100, Neutrophils % (Manual) 85 H, Lymphocytes % (Manual) 9 L, Monocytes % (Manual) 6, Platelet Estimate Normal, RBC Morphology Normal 08/25/21 05:11: Sodium 129 L, Potassium 4.4, Chloride 98, Carbon Dioxide 21 L, Anion Gap 14.4, BUN 57 H, Creatinine 2.50 H D, Estimated Creat Clear 45, Estimated GFR 27 L, Est GFR ( Amer) 33 L D, Glucose 159 H, Calcium 8.5 I & O for Last 24 hours: Intake & Output 08/22/21 08/23/21 08/24/2121 11:59 11:59 11:59 11:59 Intake Total 240 / 240 480 / 480 720 / 720 960 / 960 Output Total 500 / 500 750 / 750 600 / 1100 2650 / 2650 Balance -260 / -260 -270 / -270 120 / -380 -1690 / -1690 Weight 195 lb 6 oz 194 lb 197 lb 7 oz 198 lb 8 oz - Constitutional no acute distress - *Routine HEENT Exam Head: Present: normocephalic Eye: Present: EOMI, PERRL ENT: Present: mucous membranes dry - *Routine Neck Exam Absent: JVD - *Routine Respiratory Exam Present: decreased breath sounds - *Routine Cardiovascular Exam Present: RRR - *Routine Abdominal Exam Present: soft - *Routine Extremities Exam Absent: calf tenderness Comments: no clinical changes rt upper ext - *Routine Skin Exam Present: intact - *Routine Neurological Exam Present: oriented X3, CN II-XII intact. Absent: altered mental status - Routine Psychiatric Exam Present: normal affect Assessment and Plan (1) CHF (congestive heart failure), NYHA class II Status: Acute Qualifiers: Category: Medical Code(s): I50.9 - Heart failure, unspecified (2) Systolic heart failure Status: Acute Qualifiers: Category: Medical Code(s): I50.20 - Unspecified systolic (congestive) heart failure (3) CVA (cerebral vascular accident) Status: Acute Qualifiers: CVA mechanism: unspecified Qualified Code(s): I63.9 - Cerebral infarction, unspecified Category: Medical Code(s): I63.9 - Cerebral infarction, unspecified (4) Chest pain Status: Acute Qualifiers: Chest pain type: unspecified Qualified Code(s): R07.9 - Chest pain, unspecified Category: Medical Code(s): R07.9 - Chest pain, unspecified (5) Diastolic dysfunction Status: Acute Category: Medical Code(s): I51.89 - Other ill-defined heart diseases (6) Elevated troponin Status: Acute Category: Medical Code(s): R77.8 - Other specified abnormalities of plasma proteins (7) Hyperlipidemia Status: Chronic Qualifiers: Hyperlipidemia type: mixed hyperlipidemia Qualified Code(s): E78.2 - Mixed hyperlipidemia Category: Medical Code(s): E78.5 - Hyperlipidemia, unspecified (8) Hypertension Status: Chronic Qualifiers: Hypertension type: essential hypertension Category: Medical Code(s): I10 - Essential (primary) hypertension (9) Tobacco use Status: Chronic Category: Social Hx Code(s): Z72.0 - Tobacco use (10) Hyponatremia Status: Resolved Category: Medical Code(s): E
[2021-08-25 12:10] LABS: POC Glucose,Bedside 181 (70-110)
[2021-08-25 17:09] LABS: POC Glucose,Bedside 133 (70-110)
--- NOTE | 2021-08-25 19:06 | PC.NURSE ---
pt has been asleep most of the shift. He refused to ambulate with nursing staf or to get in the chair. Refused to take a shower. Nursing educated on compliance. He is contrary.
[2021-08-26] VITALS: BP 185/94; PULSE 79; PULSE 80; RESP 20; TEMP 38.1; O2SAT 95
[2021-08-26 01:09] LABS: Coronavirus 19, PCR Not Detected (NotDetected); Influenza A, PCR Not Detected (NotDetected); Influenza B, PCR Not Detected (NotDetected)
[2021-08-26 01:21] LABS: Lactic Acid 0.7 mmol/L (0.7-2.1)
[2021-08-26 01:22] LABS: POC Glucose,Bedside 129 (70-110)
[2021-08-26 04:00] VITALS: BP 185/90; PULSE 75; PULSE 80; RESP 20; TEMP 37.4; O2SAT 99
[2021-08-26 05:00] VITALS: BMI 26.9
[2021-08-26 05:49] LABS: Basophils % 0.3 % (0.1-2.0); Eosinophils # 0.1 K/mm3 (0.0-0.4); Eosinophils % 0.5 % (0.1-12.0); Hematocrit 37.4 % (42.0-52.0); Hemoglobin 12.2 g/dL (14.1-18.0); Lymphocytes # 1.4 K/mm3 (0.7-4.5); Lymphocytes % 9.7 % (10-50); Mean Corpuscular HGB Conc 32.6 g/dL (31.8-35.4); Mean Corpuscular Hemoglobin 28.3 pg (27.0-31.2); Mean Corpuscular Volume 86.8 fl (80-94); Mean Platelet Volume 9.7 fl (7.4-10.4); Monocytes # 0.7 K/mm3 (0.1-1.0); Neutrophils # 12.3 K/mm3 (1.8-7.8); Neutrophils % 84.6 % (37.0-80.0); Platelet Count 249 K/mm3 (142-424); Red Blood Count 4.31 M/mm3 (4.60-6.20); Red Cell Distribution Width 14.3 % (11.5-17.5); White Blood Count 14.5 K/mm3 (4.8-10.8)
[2021-08-26 05:52] LABS: Anion Gap 14.4 mEq/L (5-15); Blood Urea Nitrogen 55 mg/dl (9-20); Calcium 8.9 mg/dl (8.4-10.2); Carbon Dioxide 22 mmol/L (22.0-30.0); Chloride 99 mmol/L (98-107); Creatinine Clearance Estimated 54 mL/min (50-200); Estimated Glomerular Filt Rate 35 ml/min (>60); GFR (African American) 43 ML/MIN (>60); Glucose 110 mg/dl (74-100); Potassium 4.4 mmoL/L (3.5-5.1); Sodium 131 mmol/L (136-145)
[2021-08-26 07:21] LABS: Microscopic, Urine URINE MICROSCOPIC (MICROSCOPIC)
--- NOTE | 2021-08-26 07:28 | PC.NURSE ---
patient rested well during night. Developed fever, blood cultures, urine and covid/flu swab obtained. Fever resolved spontaneously. HTN this shift, noted to be patient's baseline. SR on monitor. Up with two assist to bathroom, has BM this shift. Uses urinal also.
[2021-08-26 07:43] LABS: Appearance,Urine CLEAR (Clear); Bilirubin,Urine Negative (Negative); Blood, Urine 2+ (Negative); Color,Urine YELLOW (Yellow); Glucose,Urine (UA) Negative (Negative); Ketones,Urine Negative (Negative); Leukocyte Esterase,Urine 1+ (Negative); Nitrate,Urine Negative (Negative); Protein,Urine 2+ (Negative)
[2021-08-26 07:54] LABS: Bacteria,Urine 1+ /lpf
[2021-08-26 08:00] VITALS: BP 167/66; PULSE 66; PULSE 80; RESP 18; TEMP 37.1; O2SAT 94
--- NOTE | 2021-08-26 09:34 | HMH.PTEV ---
Physical Therapy Evaluation Rehab PT IP Evaluation Start: 08/25/21 09:29 Freq: ONCE Status: Active Protocol: Document 08/26/21 09:30 FERNANDO (Rec: 08/26/21 09:34 FERNANDO [id number]) Subjective/History History History 51-year-old male presented to the emergency room with increased shortness of breath and chest pain. Patient states for the past 3 to 4 days he has not had his medications due to pharmacy not bringing his medications. Patient is noncompliant with medication regimen. Patient stated he has been having worsening shortness of breath and unable to do his daily activities. Patient stated he does have difficulty in walking due to a recent CVA which has affected his left side causing numbness. Patient denies chest pain, tightness or pressure at this time. Patient states he just feels that he is full of fluid . Patient has not been taking his diuretics as prescribed. Patient denies palpitations or dizziness. copied from H&P Subjective Subjective Pt is very suspect of therapy and questions reasons for participation. Rehab PT IP Eval Objective Appearance Patient Behavior Suspicious Patient Orientation Place,Name,Birthday,Year Difficulty following instructions mild Speech Pattern Appropriate Ambulation Patient Able to Ambulate Yes Ambulation Observation IP General Gait Pattern Observation Ataxic Gait,Shuffling Step Ambulation Distance (feet) 10 Ambulation Assistive Device Rolling Walker Ambulation Ability Contact Guard/Hand Hold Balance Ability to Arise Able, uses arms to help Sitting Balance Leans or slides in chair Standing Balance Steady, wide stance Dynamic Sitting Balance Ability Fair Dynamic Standing Balance Ability Poor Transfers Bed Transfer Ability Contact Guard/Hand Hold Chair Transfer Ability Supervision/Stand by,Contact Guard/Hand Hold Sit to Stand Bed T
--- NOTE | 2021-08-26 09:47 | HMH.OTEV ---
OT Inpatient Evaluation Rehab OT IP Evaluation Start: 08/25/21 09:30 Freq: ONCE Status: Complete Protocol: Document 08/26/21 09:34 REMI (Rec: 08/26/21 09:47 [id number] Rehab OT IP Assessment Subjective History Pt oriented x 3 on arrival. Pt agreeable to engage in therapy evaluation. Pt was admitted via ED on 08/21/21 due to chest pain. The following information was copied from PCP's history and physical report: 51-year-old male presented to the emergency room with increased shortness of breath and chest pain. Patient states for the past 3 to 4 days he has not had his medications due to pharmacy not bringing his medications. Patient is noncompliant with medication regimen. Patient stated he has been having worsening shortness of breath and unable to do his daily activities. Patient stated he does have difficulty in walking due to a recent CVA which has affected his left side causing numbness. Patient denies chest pain, tightness or pressure at this time. Patient states he just feels that he is full of fluid . Patient has not been taking his diuretics as prescribed. Patient denies palpitations or dizziness. Due to patient's CVA, patient is supposed to be taking aspirin daily. Patient states he has not been taking his aspirin as prescribed. Discussed with patient the risk of increased stroke. Patient verbalized understanding. He has not taken his medications correctly prescribed a LifeVest due to his EF being 25 to
--- NOTE | 2021-08-26 10:05 | HMH.PNCARD ---
Subjective Date: 08/26/21 Time: 09:00 Principal diagnosis: CHF Interval history: This is a 51-year-old white gentleman who presented to the emergency department with complaints of shortness of breath and chest pain. The patient was initially treated by cardiology for congestive heart failure. However with diuresis his creatinine elevated to 3.6. His diuretics were stopped. The patient has been getting IV fluids since that time since he was over diuresed and significantly dehydrated. He has done well with rehydration. He denies any chest pain or shortness of breath today. He denies any lower extremity edema. He denies any fever, chills, nausea, vomiting, diarrhea, PND or orthopnea. The patient does have dilated cardiomyopathy with an ejection fraction of 30 to 35%. He has a history of normal coronary arteries. The patient is currently on carvedilol for his dilated cardiomyopathy. The patient does have significant issues with medical noncompliance. He had dilated cardiomyopathy back in January 2021. His EF did improve with medications and his LifeVest was removed. He has had significant issues with medical noncompliance and not been taking his medications. Now his ejection fraction is back down to 30 to 35%. The patient has declined a LifeVest secondary to his dilated cardiomyopathy and increased risk for sudden cardiac . We have had long discussions with the patient about him being at increased risk of sudden cardiac . But he does not want to wear the LifeVest. Exam Vital signs and Labs for Last 24 Hours: Temp Pulse Resp BP Pulse Ox 98.8 F 66 18 167/66 H 94 L 08/26/21 08:00 08/26/21 08:00 08/26/21 08:00 08/26/21 08:00 08/26/21 08:00 Laboratory Results - last 24 hr 08/25/21 12:03: POC Glucose 181 H 08/25/21 16:59: POC Glucose 133 H 08/25/21 21:39: POC Glucose 129 H 08/26/21 01:00: Lactate 0.7 08/26/21 01:00: SARS-CoV-2 (PCR) Not detected, Influenza A Untype (PCR) Not detected, Influenza Type B (PCR) Not detected 08/26/21 05:19: WBC 14.5 H, RBC 4.31 L, Hgb 12.2 L, Hct 37.4 L, MCV 86.8, MCH 28.3, MCHC 32.6, RDW 14.3, Plt Count 249, MPV 9.7, Neut % (Auto) 84.6 H, Lymph % (Auto) 9.7 L, [place] % (Auto) 5.0, Eos % (Auto) 0.5, Baso % (Auto) 0.3, Neut # (Auto) 12.3 H, Lymph # (Auto) 1.4, [place] # (Auto) 0.7, Eos # (Auto) 0.1, Baso # (Auto) 0.0 08/26/21 05:19: Sodium 131 L, Potassium 4.4, Chloride 99, Carbon Dioxide 22, Anion Gap 14.4, BUN 55 H, Creatinine 2.00 H, Estimated Creat Clear 54, Estimated GFR 35 L, Est GFR ( Amer) 43 L D, Glucose 110 H, Calcium 8.9 08/26/21 07:10: Urine Color Yellow, Urine Appearance Clear, Urine pH 6.0, Ur Specific [place] 1.020, Urine Protein 2+, Urine Glucose (UA) Negative, Urine Ketones Negative, Urine Blood 2+, Urine Nitrate Negative, Urine Bilirubin Negative, Urine Urobilinogen 1.0, Ur Leukocyte Esterase 1+ A, Urine RBC 10-20, Urine WBC 5-10, Ur Squamous Epith Cells 3-5, Urine Bacteria 1+ I & O for Last 24 hours: Intake & Output 08/23/21 08/24/21 08/25/21 08/26/21 23:59 23:59 23:59 23:59 Intake Total 360 / 480 1080 / 1080 360 / 360 1502 / 1502 Output Total 500 / 500 2000 / 2600 2475 / 2950 475 / 475 Balance -140 / -20 -920 / -1520 -2115 / -2590 1027 / 1027 Weight 194 lb 197 lb 7 oz 198 lb 8 oz 192 lb 1.6 oz - Constitutional no acute distress, average body habitus - *Routine HEENT Exam Head: Present: normocephalic, atraumatic Eye: Present: EOMI, PERRL ENT: Present: mucous membranes moist - *Routine Neck Exam Present: supple, full ROM, carotid bruit, normal carotid upstroke. Absent: JVD, lymphadenopathy - *Routine Respiratory Exam Present: CTA bilaterally - *Routine Cardiovascular Exam Present: RRR, Normal S1, Normal S2. Absent: murmur - *Routine Abdominal Exam Present: soft, normoactive bowel sounds. Absent: tenderness, distended - *Routine Extremities Exam Present: full ROM, pulses intact, normal capillary refill. Absent: cyanosis, clubbing, edema - *Routin
[2021-08-26 11:33] LABS: POC Glucose,Bedside 89 (70-110)
[2021-08-26 11:52] LABS: POC Glucose,Bedside 145 (70-110)
[2021-08-26 12:00] VITALS: BP 165/82; PULSE 83; PULSE 90; RESP 16; TEMP 37.3; O2SAT 96
--- NOTE | 2021-08-26 14:39 | HMH.ACPN2 ---
Internal Medicine - PN: Subj *Date: 08/26/21 *Time: 08:25 Interval history: pt laying in bed states he is doing ok. Exam Vital signs and Labs for Last 24 Hours: Temp Pulse Resp BP Pulse Ox 99.1 F 83 16 165/82 H 96 08/26/21 12:00 08/26/21 12:00 08/26/21 12:00 08/26/21 12:00 08/26/21 12:00 Laboratory Results - last 24 hr 08/25/21 16:59: POC Glucose 133 H 08/25/21 21:39: POC Glucose 129 H 08/26/21 01:00: Lactate 0.7 08/26/21 01:00: SARS-CoV-2 (PCR) Not detected, Influenza A Untype (PCR) Not detected, Influenza Type B (PCR) Not detected 08/26/21 05:19: WBC 14.5 H, RBC 4.31 L, Hgb 12.2 L, Hct 37.4 L, MCV 86.8, MCH 28.3, MCHC 32.6, RDW 14.3, Plt Count 249, MPV 9.7, Neut % (Auto) 84.6 H, Lymph % (Auto) 9.7 L, [place] % (Auto) 5.0, Eos % (Auto) 0.5, Baso % (Auto) 0.3, Neut # (Auto) 12.3 H, Lymph # (Auto) 1.4, [place] # (Auto) 0.7, Eos # (Auto) 0.1, Baso # (Auto) 0.0 08/26/21 05:19: Sodium 131 L, Potassium 4.4, Chloride 99, Carbon Dioxide 22, Anion Gap 14.4, BUN 55 H, Creatinine 2.00 H, Estimated Creat Clear 54, Estimated GFR 35 L, Est GFR ( Amer) 43 L D, Glucose 110 H, Calcium 8.9 08/26/21 06:44: POC Glucose 89 08/26/21 07:10: Urine Color Yellow, Urine Appearance Clear, Urine pH 6.0, Ur Specific [place] 1.020, Urine Protein 2+, Urine Glucose (UA) Negative, Urine Ketones Negative, Urine Blood 2+, Urine Nitrate Negative, Urine Bilirubin Negative, Urine Urobilinogen 1.0, Ur Leukocyte Esterase 1+ A, Urine RBC 10-20, Urine WBC 5-10, Ur Squamous Epith Cells 3-5, Urine Bacteria 1+ 08/26/21 11:34: POC Glucose 145 H I & O for Last 24 hours: Intake & Output 08/24/21 08/25/21 08/26/21 08/27/21 11:59 11:59 11:59 11:59 Intake Total 720 / 720 960 / 960 1622 / 1622 480 / 480 Output Total 600 / 1100 2850 / 3575 1700 / 1700 Balance 120 / -380 -1890 / -2615 -78 / -78 480 / 480 Weight 197 lb 7 oz 198 lb 8 oz 192 lb 1.6 oz - Constitutional no acute distress, chronically ill appearing - *Routine HEENT Exam Head: Present: normocephalic Eye: Present: PERRL ENT: Present: mucous membranes moist - *Routine Neck Exam Present: supple. Absent: lymphadenopathy - *Routine Respiratory Exam Present: CTA bilaterally - *Routine Cardiovascular Exam Present: RRR - *Routine Abdominal Exam Present: soft, normoactive bowel sounds. Absent: tenderness - *Routine Extremities Exam Absent: cyanosis, clubbing, edema - *Routine Skin Exam Present: warm. Absent: rash - *Routine Neurological Exam Present: alert, oriented X3 Assessment and Plan (1) CHF (congestive heart failure), NYHA class II Status: Acute Qualifiers: Category: Medical Code(s): I50.9 - Heart failure, unspecified (2) Systolic heart failure Status: Acute Qualifiers: Category: Medical Code(s): I50.20 - Unspecified systolic (congestive) heart failure (3) CVA (cerebral vascular accident) Status: Acute Qualifiers: CVA mechanism: unspecified Qualified Code(s): I63.9 - Cerebral infarction, unspecified Category: Medical Code(s): I63.9 - Cerebral infarction, unspecified (4) Diastolic dysfunction Status: Acute Category: Medical Code(s): I51.89 - Other ill-defined heart diseases (5) Elevated troponin Status: Acute Category: Medical Code(s): R77.8 - Other specified abnormalities of plasma proteins (6) Hyperlipidemia Status: Chronic Qualifiers: Hyperlipidemia type: mixed hyperlipidemia Qualified Code(s): E78.2 - Mixed hyperlipidemia Category: Medical Code(s): E78.5 - Hyperlipidemia, unspecified (7) Hypertension Status: Chronic Qualifiers: Hypertension type: essential hypertension Category: Medical Code(s): I10 - Essential (primary) hypertension (8) Tobacco use Status: Chronic Category: Social Hx Code(s): Z72.0 - Tobacco use (9) KAVITHA (acute kidney injury) Status: Acute Category: Medical Code(s): N17.9 - Acute kidney failure, unspecified - Assessment and plan a
[2021-08-26 16:00] VITALS: BP 166/77; PULSE 80; PULSE 85; RESP 18; TEMP 37.6; O2SAT 99
[2021-08-26 17:28] LABS: POC Glucose,Bedside 191 (70-110)
--- NOTE | 2021-08-26 17:29 | PC.NURSE ---
Pt being sexually inappropriate w/ staff. MD Molina made aware during rounds, MD had discussion w/ pt regarding behavior-pt verbalized understanding.
--- NOTE | 2021-08-26 18:57 | PC.NURSE ---
No acute events
[2021-08-26 20:00] VITALS: BP 155/70; PULSE 83; PULSE 85; RESP 18; TEMP 37.8; O2SAT 96
[2021-08-26 21:48] LABS: POC Glucose,Bedside 142 (70-110)
[2021-08-27] VITALS: BP 149/62; PULSE 75; PULSE 80; RESP 21; TEMP 37.2; O2SAT 96
[2021-08-27 04:00] VITALS: BP 145/55; PULSE 68; PULSE 75; RESP 16; TEMP 36.5; O2SAT 94
[2021-08-27 04:31] VITALS: BMI 26.5
[2021-08-27 06:40] LABS: POC Glucose,Bedside 63 (70-110)
[2021-08-27 06:42] LABS: Basophils # 0.1 K/mm3 (0-0.2); Basophils % 0.8 % (0.1-2.0); Eosinophils # 0.1 K/mm3 (0.0-0.4); Eosinophils % 0.6 % (0.1-12.0); Hematocrit 35.9 % (42.0-52.0); Hemoglobin 11.6 g/dL (14.1-18.0); Lymphocytes # 1.2 K/mm3 (0.7-4.5); Lymphocytes % 8.1 % (10-50); Mean Corpuscular HGB Conc 32.3 g/dL (31.8-35.4); Mean Corpuscular Hemoglobin 28.4 pg (27.0-31.2); Mean Corpuscular Volume 87.8 fl (80-94); Mean Platelet Volume 9.9 fl (7.4-10.4); Monocytes # 0.8 K/mm3 (0.1-1.0); Monocytes % 5.7 % (1.7-9.3); Neutrophils # 12.4 K/mm3 (1.8-7.8); Neutrophils % 84.9 % (37.0-80.0); Platelet Count 259 K/mm3 (142-424); Red Blood Count 4.08 M/mm3 (4.60-6.20); Red Cell Distribution Width 14.4 % (11.5-17.5); White Blood Count 14.6 K/mm3 (4.8-10.8)
[2021-08-27 06:46] LABS: Chloride 104 mmol/L (98-107); Potassium 4.1 mmoL/L (3.5-5.1); Sodium 133 mmol/L (136-145)
[2021-08-27 06:49] LABS: Anion Gap 14.1 mEq/L (5-15); Blood Urea Nitrogen 46 mg/dl (9-20); Carbon Dioxide 19 mmol/L (22.0-30.0); Creatinine Clearance Estimated 63 mL/min (50-200); Estimated Glomerular Filt Rate 43 ml/min (>60); GFR (African American) 52 ML/MIN (>60)
[2021-08-27 06:50] LABS: Calcium 8.4 mg/dl (8.4-10.2); Glucose 71 mg/dl (74-100)
--- NOTE | 2021-08-27 07:31 | PC.NURSE ---
patient rested well this shift. positive blood cultures, one dose of vancomycin given. NSR on monitor. VSS on RA.
[2021-08-27 08:00] VITALS: BP 198/80; PULSE 78; RESP 18; TEMP 37.4; O2SAT 97
--- NOTE | 2021-08-27 10:28 | HMH.DCSUM ---
General - General Admission date:: 08/21/21 Discharge date: 08/27/21 HPI HPI: 51-year-old male presented to the emergency room with increased shortness of breath and chest pain. Patient states for the past 3 to 4 days he has not had his medications due to pharmacy not bringing his medications. Patient is noncompliant with medication regimen. Patient stated he has been having worsening shortness of breath and unable to do his daily activities. Patient stated he does have difficulty in walking due to a recent CVA which has affected his left side causing numbness. Patient denies chest pain, tightness or pressure at this time. Patient states he just feels that he is full of fluid. Patient has not been taking his diuretics as prescribed. Patient denies palpitations or dizziness. Due to patient's CVA, patient is supposed to be taking aspirin daily. Patient states he has not been taking his aspirin as prescribed. Discussed with patient the risk of increased stroke. Patient verbalized understanding. He has not taken his medications correctly prescribed a LifeVest due to his EF being 25 to 30%. Patient states he was unable to tolerate it so therefore he did not wear it. Patient has history of carotid artery stenosis which was present on a [facility] at [facility] but it was uncertain as to the degree of the stenosis. Patient also history hypertension. Patient is noted to be hypertensive. EKG revealed a sinus tachycardia with a heart rate of 111 bpm. Patient is noted to have electrolyte disturbance. Potassium is 5.4, BUN 29, creatinine 2.10. BNP over 5000. Serial troponin x1 was 0.06, which is slightly elevated. Elevated troponin may be due to to ischemic demand due to his congestive heart failure. We will continue to monitor his troponins. Patient does have uncontrolled diabetes. Patient states he has not been able to take his diabetic medications for 3 to 4 days. Blood glucose is over 600. Chest x-ray revealed no acute findings 51-year-old male patient sitting up in bed resting quietly reports he is feeling better today than yesterday repeats less shortness of breath denies any chest pain during the night. He reports not receiving his medication for 2 to 3 days from pharmacy, after discussion he would admits it was a few days longer than that. Stressed importance of adhering to medical regimen due to medical conditions, he verbalizes understanding and states he will take his medications more regularly in the future. Hospital Course Hospital Course: 51-year-old male presented to the emergency room with increased shortness of breath and chest pain. Patient states for the past 3 to 4 days he has not had his medications due to pharmacy not bringing his medications. Patient is noncompliant with medication regimen. Patient stated he has been having worsening shortness of breath and unable to do his daily activities. 08/21/21 CXR: IMPRESSION: No acute findings. Dictated by: Mihai Cortez MD 08/21/21 ECHO: Conclusion 1. Technically very difficult and poor study as described above, probably ejection fraction 30 to 35% left ventricle is globally hypokinetic, diastolic parameters are inconclusive. If clinically indicated repeat study with Definity contrast is recommended. 2. No significant pericardial effusion noted. 3. Inferior vena cava is poorly visualized. Electronically signed by : Inderjit Ceron MD 08/22/21 Carotid Duplex: Conclusion B-Mode Ultrasound demonstrates moderate intraluminal plaque in the left common Carotid Artery. Duplex evaluation demonstrates stenosis of the right proximal internal carotid artery in the range of 20-49% with PSV <140 cm/sec, EDV <100 cm/sec, and IC/CC Ratio <4.0. Duplex evaluation demonstrates stenosis of the left proximal internal carotid artery in the range of 20-49% with PSV <140 cm/sec, EDV <100 cm/sec, and IC/CC Ratio <4.0. Duplex evaluation gracy
[2021-08-27 11:47] VITALS: BP 202/80; PULSE 77; RESP 16; TEMP 37.3; O2SAT 95
--- NOTE | 2021-08-27 14:18 | PC.NURSE ---
confirmed with case management that patient was okay to discharge. Patient's clothes covered in bedbugs. Sent to lab. EVS notified
[2021-08-27 19:56] LABS: POC Glucose,Bedside 185 (70-110)
== END 2021-08-27 14:26 | disposition home or self-care (01) | DRG 291 ==
LOC: ER 14:38 → 2ND 08-22 07:13
PROVIDERS: Internal Medicine Adolescent Medicine; Nurse Practitioner Family; Urology; Admitting Provider Emergency Medicine; Emergency Provider Emergency Medicine; Visit Provider Emergency Medicine
DX: I13.0 Hypertensive heart and chronic kidney disease with heart failure and stage 1 through stage 4 chronic kidney disease, or unspecified chronic kidney disease (principal); I50.23 Acute on chronic systolic (congestive) heart failure; E87.1 Hypo-osmolality and hyponatremia; N17.9 Acute kidney failure, unspecified; E11.22 Type 2 diabetes mellitus with diabetic chronic kidney disease; N18.9 Chronic kidney disease, unspecified; I42.0 Dilated cardiomyopathy; Z20.822 Contact with and (suspected) exposure to COVID-19; Z79.4 Long term (current) use of insulin; Z79.01 Long term (current) use of anticoagulants; F17.210 Nicotine dependence, cigarettes, uncomplicated; I25.5 Ischemic cardiomyopathy; E78.5 Hyperlipidemia, unspecified; Z91.14 Patient's other noncompliance with medication regimen; E11.65 Type 2 diabetes mellitus with hyperglycemia; Z71.6 Tobacco abuse counseling; Z86.73 Personal history of transient ischemic attack (TIA), and cerebral infarction without residual deficits
CPT/HCPCS: 36415; 71045; 80048; 80053; 81001; 82803; 82947; 82962; 83605; 83690; 83880; 84484; 85007; 85025; 85610; 85730; 87040; 87077; 87086; 87088; 87186; 93005; 93306; 93880; 96374; 96375; 97110; 97162; 97166; 97530; 97535; 99284; C9803; J1956; U0003; U0005

== ENCOUNTER 2021-09-01 11:19 | Inpatient (IN) | payer MEDICAID, SELFPAY ==
[2021-09-01] VITALS (28 sets, daily range): BP systolic 140–188; BP diastolic 51–90; PULSE 42–104; RESP 16–35; TEMP 34–37.2; O2SAT 93–99; BMI 34.8; BMI 58.9
--- NOTE | 2021-09-01 11:26 | HMH.EDGENADL ---
ED Disposition Clinical Impression: Hyperglycemia, Metabolic acidosis, Dehydration, Elevated liver enzymes, Hyperkalemia, Acute kidney injury Hypothermia Qualifiers: Encounter type: initial encounter Qualified Code(s): T68.XXXA - Hypothermia, initial encounter Disposition: Admitted As Inpatient Condition on Discharge: Critical - Critical Care Critical Care Time: Yes Attestation: On , the high probability of a clinically significant, sudden or life threatening deterioration of the following system(s) required my full and direct attention, intervention and personal management. The time I documented below is in addition to time spent performing reported procedures but includes the following listed in this critical care notation. Total Critical Care Time: 60 Vital system(s) involved:: Metabolic Failure, Renal Failure My critical care processes included: Assessment & monitoring of V/S, Initial and Re-exams, Data Review/Interpretation, Coordinating Care, Medication Orders and management, Documentation Medical Decision Making - Medical Records Medical records reviewed: Yes: I reviewed the patient's medical records. MR Martins: Reviewed discharge summary from admission 08/21/2021 through 08/27/2021. He has cardiomyopathy, uncontrolled hypertension, congestive heart failure, poorly controlled diabetes, noncompliance, carotid artery disease, acute kidney injury. Also had gram-positive cocci in blood and urine and was discharged on Levaquin. - Renan Inquiry Pt receiving controlled substance: No Vital Signs: 09/01/21 11:19 09/01/21 12:01 09/01/21 12:20 Temperature 93.2 F L Temperature Source Rectal Pulse Rate 42 L Pulse Rate [Radial] 78 Respiratory Rate 20 30 H 28 H Blood Pressure 150/55 H 163/75 H Blood Pressure [Right Radial Artery] 169/75 H Blood Pressure Mean [Right Radial Artery] 106 Blood Pressure Position [Right Radial Artery] Sitting 02 Sat by Pulse Oximetry 97 Oxygen Delivery Method Room Air 09/01/21 12:40 09/01/21 13:01 09/01/21 13:20 Temperature Temperature Source Pulse Rate 87 88 Pulse Rate [Radial] Respiratory Rate 26 H 26 H 29 H Blood Pressure 167/69 H 165/63 H 167/86 H Blood Pressure [Right Radial Artery] Blood Pressure Mean [Right Radial Artery] Blood Pressure Position [Right Radial Artery] 02 Sat by Pulse Oximetry 97 98 Oxygen Delivery Method 09/01/21 13:41 09/01/21 14:01 09/01/21 14:20 Temperature Temperature Source Pulse Rate 92 H Pulse Rate [Radial] Respiratory Rate 26 H 24 22 Blood Pressure 156/61 H 185/51 H 188/73 H Blood Pressure [Right Radial Artery] Blood Pressure Mean [Right Radial Artery] Blood Pressure Position [Right Radial Artery] 02 Sat by Pulse Oximetry 95 Oxygen Delivery Method 09/01/21 14:40 09/01/21 15:00 Temperature 98.6 F Temperature Source Rectal Pulse Rate 89 Pulse Rate [Radial] Respiratory Rate 30 H 31 H Blood Pressure 175/62 H 188/72 H Blood Pressure [Right Radial Artery] Blood Pressure Mean [Right Radial Artery] Blood Pressure Position [Right Radial Artery] 02 Sat by Pulse Oximetry 97 Oxygen Delivery Method Nasal Cannula - Lab Data Lab Results 09/01/21 11:33: Specimen Source Left radial, O2 % 3l, ABG pH 7.20 L*, ABG pCO2 38.4, ABG pO2 41.4 L, ABG HCO3 14.7 L, ABG Total CO2 15.9 L, ABG O2 Saturation 63 L*, ABG Base Excess -13.3 L, Mihai Test Patient unable 09/01/21 11:58: SARS-CoV-2 (PCR) Not detected, Influenza A Untype (PCR) Not detected, Influenza Type B (PCR) Not detected 09/01/21 12:28: Total Creatine Kinase 242 H, Troponin I 0.02 09/01/21 12:28: Lactate 2.7 H 09/01/21 12:28: Phosphorus 7.6 H, Magnesium 2.4 H 09/01/21 12:28: Acetone Level None detected 09/01/21 12:28: WBC 17.1 H, RBC 3.72 L, Hgb 10.4 L, Hct 33.8 L, MCV 90.9, MCH 28.0, MCHC 30.8 L, RDW 15.1, Plt Count 295, MPV 9.4, Neut % (Auto) 92.5 H, Lymph % (Auto) 4.4 L, [place] % (Auto) 2.0, Eos % (Auto) 0.0 L, Baso % (A
--- NOTE | 2021-09-01 11:32 | XR_ITS ---
PROCEDURE INFORMATION: Exam: XR Chest Exam date and time: 09/01/2021 11:32 AM Age: 51 years old Clinical indication: Shortness of breath and other: Altered mental status -; Additional info: AMS, SOB TECHNIQUE: Imaging protocol: XR of the chest. Views: 1 view. COMPARISON: CR XR CHEST PORTABLE 08/21/2021 12:17 PM FINDINGS: Lungs: No focal airspace disease. Pleural spaces: Unremarkable. No pleural effusion. No pneumothorax. Heart/Mediastinum: Cardiomediastinal silhouette is within normal limits. Bones/joints: Unremarkable. Organs: Cholecystectomy clips. IMPRESSION: No acute cardiopulmonary abnormality.
--- NOTE | 2021-09-01 12:06 | PC.NURSE ---
lab at bedside
--- NOTE | 2021-09-01 12:07 | PC.NURSE ---
RT at bedside
[2021-09-01 12:08] LABS: Coronavirus 19, PCR Not Detected (NotDetected); Influenza A, PCR Not Detected (NotDetected); Influenza B, PCR Not Detected (NotDetected)
[2021-09-01 12:30] LABS: ABG Base Excess -13.3 mmol/L (-2.4-2.3); ABG HCO3 14.7 mmhg (22.0-26.0); ABG Oxygen Saturation 63 % (90-100); ABG PCO2 38.4 mmhg (35.0-45.0); ABG TCO2 15.9 mmhg (23-27)
[2021-09-01 12:33] LABS: ABG PO2 41.4 mmhg (80-100); Allen's Test Patient Unable; Oxygen 3L %; Source Left Radial
[2021-09-01 12:53] LABS: Lactic Acid 2.7 mmol/L (0.7-2.1)
[2021-09-01 13:01] LABS: Acetone, Serum (Rapid) None Detected (None Detect)
[2021-09-01 13:02] LABS: Creatine Kinase 242 U/L (55-170); Magnesium 2.4 mg/dl (1.6-2.3); Phosphorous 7.6 mg/dl (2.5-4.5)
--- NOTE | 2021-09-01 13:07 | ECG_ITS ---
APPROVED REPORT Exam: Resting ECG HR:92 bpm ECG Measurements Heart Rate 92 AXES ND 162 P 67 QRSd 136 QRS -16 QT 392 T 127 QTc 484 Conclusion Normal sinus rhythm Nonspecific intraventricular block T wave abnormality, consider lateral ischemia Abnormal ECG Electronically signed by : Emre Aceves MD 09/02/2021 21:41:33
[2021-09-01 13:15] LABS: Troponin I 0.02 ng/ml (0.00-0.034)
--- NOTE | 2021-09-01 14:25 | PC.NURSE ---
lab at bedside
--- NOTE | 2021-09-01 14:25 | PC.NURSE ---
Per nisreen in the lab, the labs that were drawn after pt's arrival were clotted and then she stated that there weren't any orders for basic labs on pt. Alison is at bedside at this time attempting to recollect.
[2021-09-01 15:36] LABS: Basophils # 0.2 K/mm3 (0-0.2); Basophils % 1.1 % (0.1-2.0); Chloride 109 mmol/L (98-107); Hematocrit 33.8 % (42.0-52.0); Hemoglobin 10.4 g/dL (14.1-18.0); Lymphocytes # 0.8 K/mm3 (0.7-4.5); Lymphocytes % 4.4 % (10-50); Mean Corpuscular HGB Conc 30.8 g/dL (31.8-35.4); Mean Corpuscular Volume 90.9 fl (80-94); Mean Platelet Volume 9.4 fl (7.4-10.4); Monocytes # 0.3 K/mm3 (0.1-1.0); Neutrophils # 15.8 K/mm3 (1.8-7.8); Neutrophils % 92.5 % (37.0-80.0); Platelet Count 295 K/mm3 (142-424); Red Blood Count 3.72 M/mm3 (4.60-6.20); Red Cell Distribution Width 15.1 % (11.5-17.5); Sodium 135 mmol/L (136-145); White Blood Count 17.1 K/mm3 (4.8-10.8)
[2021-09-01 15:38] LABS: Creatinine Clearance Estimated 61 mL/min (50-200); Estimated Glomerular Filt Rate 30 ml/min (>60); GFR (African American) 36 ML/MIN (>60)
[2021-09-01 15:39] LABS: Alanine Aminotransferase 485 U/L (12-78); Albumin Level 2.5 g/dl (3.5-5.0); Albumin/Globulin Ratio 0.8 (1.1-1.8); Alkaline Phosphatase 158 U/L (38-126); Calcium 7.9 mg/dl (8.4-10.2); Carbon Dioxide 16 mmol/L (22.0-30.0); Total Protein,Serum 5.5 g/dl (6.3-8.2)
[2021-09-01 15:43] LABS: Bilirubin,Total 0.1 mg/dl (0.2-1.3)
[2021-09-01 15:46] LABS: Glucose 605 mg/dl (74-100)
[2021-09-01 15:47] LABS: Aspartate Amino Transferase 1132 U/L (17-59); Blood Urea Nitrogen 130 mg/dl (9-20)
[2021-09-01 15:48] LABS: MANUAL DIFFERENTIAL MANUAL DIFFERENTIAL (MANUAL DIFF)
--- NOTE | 2021-09-01 15:51 | PC.NURSE ---
critical results called from lab- notified BUN- 30
--- NOTE | 2021-09-01 15:54 | PC.NURSE ---
dr thomas speaking with dr patel.
[2021-09-01 16:01] LABS: Microscopic, Urine URINE MICROSCOPIC (MICROSCOPIC)
[2021-09-01 16:21] LABS: Troponin I 0.02 ng/ml (0.00-0.034)
[2021-09-01 16:23] LABS: Lymphocytes % 5 % (10-50); Monocytes % 4 % (2-9); Neutrophils % 89 % (42-76); Platelet Estimate Normal; Total Cells Counted 100
[2021-09-01 16:23] LABS: Appearance,Urine CLEAR (Clear); Bilirubin,Urine Negative (Negative); Blood, Urine 1+ (Negative); Color,Urine YELLOW (Yellow); Glucose,Urine (UA) 3+ (Negative); Ketones,Urine Negative (Negative); Leukocyte Esterase,Urine Negative (Negative); Nitrate,Urine Negative (Negative); Protein,Urine 1+ (Negative); Urobilinogen,Urine 0.2 EU/dl (0.2)
[2021-09-01 16:24] LABS: Hypochromasia 2+; Macrocytosis 1+
[2021-09-01 16:30] LABS: Acetaminophen < 10 ug/ml (10-30)
[2021-09-01 16:38] LABS: Reflex Lactic Add Lactic Reflex
[2021-09-01 16:38] LABS: RBC,Urine Occasional #/hpf (0-3)
--- NOTE | 2021-09-01 17:03 | PC.NURSE ---
ACCUCHECK 560
[2021-09-01 17:05] LABS: Creatinine Clearance Estimated 58 mL/min (50-200); Estimated Glomerular Filt Rate 29 ml/min (>60); GFR (African American) 35 ML/MIN (>60)
[2021-09-01 17:09] LABS: POC Glucose,Bedside 560 (70-110)
--- NOTE | 2021-09-01 17:28 | PC.NURSE ---
Critical labs reported
[2021-09-01 17:29] LABS: Blood Urea Nitrogen 133 mg/dl (9-20)
[2021-09-01 18:42] LABS: Troponin I 0.03 ng/ml (0.00-0.034)
[2021-09-01 19:21] LABS: POC Glucose,Bedside 524 (70-110)
--- NOTE | 2021-09-01 19:35 | PC.NURSE ---
This RN called lab to check on status of outstanding labs. Jose from lab stated tech was supposed to be drawing them now and if they were not he requested if ER staff could drawn them. This Rn able to draw necessary labs at this time.
[2021-09-01 20:14] LABS: Chloride 110 mmol/L (98-107); Sodium 137 mmol/L (136-145)
[2021-09-01 20:17] LABS: Anion Gap 18.8 mEq/L (5-15); Carbon Dioxide 15 mmol/L (22.0-30.0); Creatinine Clearance Estimated 52 mL/min (50-200); Estimated Glomerular Filt Rate 25 ml/min (>60); GFR (African American) 30 ML/MIN (>60)
[2021-09-01 20:20] LABS: Lactic Acid Follow Up (RFLX 1) 2.1 mmol/L (0.7-2.1)
[2021-09-01 20:23] LABS: Glucose 508 mg/dl (74-100); Potassium 6.8 mmoL/L (3.5-5.1)
[2021-09-01 20:27] LABS: Blood Urea Nitrogen 126 mg/dl (9-20)
--- NOTE | 2021-09-01 20:28 | PC.NURSE ---
Finger stick of 487 at this time. Temp 98.9 rectal
[2021-09-01 20:34] LABS: POC Glucose,Bedside 487 (70-110)
--- NOTE | 2021-09-01 20:38 | PC.NURSE ---
Critical labs reported to MD Alpa at this time
[2021-09-01 21:24] LABS: ABG HCO3 15.1 mmhg (22.0-26.0); ABG PCO2 29.1 mmhg (35.0-45.0); ABG PH 7.33 mmol/L (7.35-7.45); ABG PO2 69.7 mmhg (80-100)
[2021-09-01 21:25] LABS: ABG Base Excess -10.8 mmol/L (-2.4-2.3); ABG Oxygen Saturation 92 % (90-100); Oxygen 2LPM %; Source R BRACHIAL
--- NOTE | 2021-09-01 21:38 | HMH.HP ---
*Admission Date: 09/01/21 *Chief complaint: acute renal failure, hyperkalemia, diabetes *History of present illness: Brought in by ambulance. Reportedly found in the floor laying in stool today. The patient is unable to give any additional history. He appears very weak. Difficult to obtain any answers from him. He does tell me his name but his speech is largely whispered and not intelligible. Fingerstick blood sugar found to be high . Rectal temperature found to be low. Recently discharged from this hospital. Workup included imaging studies FINDINGS: Lungs: No focal airspace disease. Pleural spaces: Unremarkable. No pleural effusion. No pneumothorax. Heart/Mediastinum: Cardiomediastinal silhouette is within normal limits. Bones/joints: Unremarkable. Organs: Cholecystectomy clips. IMPRESSION: No acute cardiopulmonary abnormality. Marked lab aberrations were noted. wbc=17.1 hgb=10.4 abg ph=7.0 k=7 gap=17 kmb=335 creat=2.3 hu=465 acet neg urine ket neg gvi=[id number] bma=834 admitted for further eval and treatment he has history of cva markedly non-compliant [facility] History Medical History: Reports:: Aneurysm, Arrhythmia, Atrial Fibrillation, Congestive Heart Failure, Congenital Heart Disease, Diabetes Mellitus Type 2, Hyperlipidemia, Hypertension, Transient Ischemic Attacks (TIA) Denies:: Cancer, Diabetes Mellitus Type 1, Internal Pacemaker, MRSA, Seizures *Have you ever received a pneumonia vaccine?: Yes *Have you received a flu vaccine this season?: Yes Other Medical History: Denies: Blood Transfusion Reaction Laterality Cases: Left: Arthroscopy Shoulder Other Surgeries: Yes: Cardiac Catheterization, Cholecystectomy, Other. No: Pacemaker Amputation: No Fractures: Yes - *Social History Last grade of school completed: High school graduate Smoking Status: Former smoker Tobacco Type: cigarettes # Packs/Day (cigarettes): 1 Alcohol Intake: never Alcohol Intake Frequency:: other Substance Use Type: denies use *Occupational Status:: disabled Housing: apartment Household Members: spouse *Travel in the last 8 weeks: None Family Hx:: Asthma, Coronary Artery Disease, Hyperlipidemia, Hypertension, Stroke, Heart Attack Review of Systems - Review of Systems Review of systems:: unable to obtain Meds Home Medications Medication Instructions Recorded Confirmed Type levetiracetam 500 mg tablet 500 mg PO BID #60 tab 01/15/21 09/01/21 Rx sildenafil 100 mg tablet 100 mg PO DAILY PRN #10 tab 01/15/21 09/01/21 Rx Atorvastatin Calcium [Lipitor 20mg 20 mg PO DAILY 01/23/21 09/01/21 History Tab] aspirin 81 mg tablet,delayed 81 mg PO DAILY 02/12/21 09/01/21 History release Empagliflozin [Jardiance] 10 mg PO DAILYDM 02/21/21 09/01/21 History Clopidogrel Bisulfate [Plavix] 75 mg PO DAILY 08/21/21 09/01/21 History Insulin Glargine,Hum.rec.anlog 40 units SQ HS 08/21/21 09/01/21 History [Lantus Solostar 100 Units/mL 3mL flexpen] carvediloL [Carvedilol 12.5mg Tab] 12.5 mg PO BID 08/21/21 09/01/21 History glipiZIDE [Glucotrol 5mg tablet] 5 mg PO DAILYDM 08/22/21 09/01/21 History Hydralazine HCl [Hydralazine HCl 25 mg PO TID 09/01/21 09/01/21 History 25mg Tablet] Sulfamethoxazole/Trimethoprim 1 tab PO BID 09/01/21 09/01/21 History [Sulfamethoxazole-Tmp Ds Tablet*] Allergies Allergy/AdvReac Type Severity Reaction Status Date / Time codeine Allergy Verified 05/16/21 13:38 Exam Vital signs and Labs for Last 24 Hours: Temp Pulse Resp BP Pulse Ox 98.2 F 73 16 142/70 H 99 09/01/21 21:20 09/01/21 21:20 09/01/21 21:20 09/01/21 21:20 09/01/21 17:20 Laboratory Results - last 24 hr 09/01/21 11:33: Specimen Source Left radial, O2 % 3l, ABG pH 7.20 L*, ABG pCO2 38.4, ABG pO2 41.4 L, ABG HCO3 14.7 L, ABG Total CO2 15.9 L, ABG O2 Saturation 63 L*, ABG Base Excess -13.3 L, Mihai Test Patient unable 09/01/21 11:58: SARS-CoV-2 (PCR) Not detected, Influenza A
[2021-09-01 22:01] LABS: Reflex Lactic (2 hrs) Add Lactic Reflex
--- NOTE | 2021-09-01 22:50 | CT_ITS ---
PROCEDURE INFORMATION: Exam: CT Head Without Contrast Exam date and time: 09/01/2021 10:50 PM Age: 51 years old Clinical indication: Alteration of consciousness; Stupor; Additional info: Altered mental status TECHNIQUE: Imaging protocol: Computed tomography of the head without contrast. Radiation optimization: All CT scans at this facility use at least one of these dose optimization techniques: automated exposure control; mA and/or kV adjustment per patient size (includes targeted exams where dose is matched to clinical indication); or iterative reconstruction. COMPARISON: CT HEAD/BRAIN WO CON 02/28/2021 11:51 AM FINDINGS: Tubes, catheters and devices: Nasogastric tube is present. Brain: Mild volume loss. Decreased attenuation of the supratentorial white matter is likely secondary to chronic microvascular ischemia. Stable calcification at the bilateral globus pallidus nuclei. There is abnormal low density at the right basal ganglia extending to the right lam radiata measuring up to 2.3 cm. There is loss of charles-white differentiation at the high paramedian right frontal lobe. Chronic lacunar infarct at the right thalamus. Cerebral ventricles: No ventriculomegaly. Paranasal sinuses: Polypoid mucosal disease involving the sphenoid sinus. Mastoid air cells: Visualized mastoid air cells are well aerated. Bones/joints: Unremarkable. No acute fracture. Soft tissues: Unremarkable. IMPRESSION: 1. Negative for acute intracranial hemorrhage. 2. Abnormal low density at the right basal ganglia extending to the right lam radiata measuring 2.3 cm and loss of charles-white differentiation at the high paramedian right frontal lobe. Findings raise concern for ischemic infarcts and further evaluation with MRI is recommended.
[2021-09-02] VITALS (50 sets, daily range): BP systolic 138–197; BP diastolic 50–99; PULSE 70–103; RESP 22–31; TEMP 36.9–37.7; O2SAT 88–100; BMI 27.1
[2021-09-02 00:07] LABS: POC Glucose,Bedside 440 (70-110)
[2021-09-02 00:12] LABS: POC Glucose,Bedside 423 (70-110)
[2021-09-02 02:05] LABS: Chloride 114 mmol/L (98-107)
[2021-09-02 02:06] LABS: Sodium 142 mmol/L (136-145)
[2021-09-02 02:09] LABS: Anion Gap 20.2 mEq/L (5-15); Calcium 7.8 mg/dl (8.4-10.2); Carbon Dioxide 15 mmol/L (22.0-30.0); Creatinine Clearance Estimated 33 mL/min (50-200); Estimated Glomerular Filt Rate 25 ml/min (>60); GFR (African American) 30 ML/MIN (>60); Lactic Acid Follow up (RFLX 2) 1.4 mmol/L (0.7-2.1)
[2021-09-02 02:26] LABS: Blood Urea Nitrogen 132 mg/dl (9-20); Glucose 364 mg/dl (74-100); Potassium 7.2 mmoL/L (3.5-5.1)
[2021-09-02 02:40] LABS: Creatine Kinase MB 5.2 ng/ml (0.0-2.03)
--- NOTE | 2021-09-02 05:59 | PC.NURSE ---
2100 PT RECIEVED FROM EMERGENCY DEPARTMENT VIA HOSPITAL BED TO ICU ROOM 4, PT LETHARGIC, UNRESPONIVE TO NAME, RESPONSIVE TO DEEP PAIN ONLY, DR BAIRES AT BEDSIDE AND ASSISTED WITH INSERTING 16FR NG TO LEFT NARES, FSBS 465 AND VERBAL ORDER RECEIVED TO GIVE 10 UNITS REGULAR INSULIN IV, 1041 FSBS CHECKED [address] BAIRES AND ORDER RECIEVED TO GIVE 24UNITS SQ REGULAR INSULIN, 0235 AM LABS CALLED TO DR BAIRES, K+ LEVEL 7.2, BUN 134 AND GLUCOSE 334, ORDERS RECIEVED FOR KAYEXALATE 30GM NOW AND REPEAT IN 6 HOURS, RECHECK BMP IN 3 HOURS. PT STATUS ALSO GIVEN AT THIS TIME OF UNRESPONSIVE STILL AND ONLY PAINFUL STIMULI.
[2021-09-02 06:22] LABS: POC Glucose,Bedside 250 (70-110)
--- NOTE | 2021-09-02 07:35 | HMH.PHAVTE ---
[facility] Pharmacy VTE Monitoring - Patient Demographics Admission date: 09/01/21 Report Date: 09/02/21 Time: 07:35 Allergies/Adverse Reactions: Patient Allergies codeine Allergy (Verified 09/02/21 00:54) Height: 1.8 m Weight: 191 kg Patient Problems: Current Active Problems KAVITHA (acute kidney injury) (Acute) Hyperglycemia (Acute) Metabolic acidosis (Acute) Dehydration (Acute) Elevated liver enzymes (Acute) Hyperkalemia (Acute) Hypothermia (Acute) Hyperglycemia due to type 2 diabetes mellitus (Acute) Diabetes mellitus, insulin dependent (IDDM), uncontrolled (Chronic) Tobacco use (Chronic) Non-compliance (Chronic) - VTE Risk Labs: VTE Related Lab Results Hgb 10.4 g/dL (14.1-18.0) L 09/01/21 12:28 Hct 33.8 % (42.0-52.0) L 09/01/21 12:28 Plt Count 295 K/mm3 (142-424) 09/01/21 12:28 BUN 132 mg/dl (9-20) H* 09/02/21 01:50 Creatinine 2.70 mg/dl (0.66-1.25) H 09/02/21 01:50 Estimated Creat Clear 33 mL/min (50-200) 09/02/21 01:50 VTE Score: 5 VTE Risk Level: Low Risk - Prophylaxis VTE Prophylaxis Ordered?: Yes Types of VTE Prophylaxis: TEDS Knee High Location of Applied Device: Bilateral Lower Extremeties
--- NOTE | 2021-09-02 07:40 | HMH.PHAINT ---
MEDICATION RECONCILIATION COMPLETED ON PATIENT USING EXTERNAL FILL HISTORY FROM PHARMACY AND DISCHARGE SUMMARY FROM PREVIOUS ADMISSION. -ANDREY OLIVIERD
[2021-09-02 07:47] LABS: Basophils % 0.1 % (0.1-2.0); Lymphocytes # 2.4 K/mm3 (0.7-4.5); Lymphocytes % 7.2 % (10-50); Mean Corpuscular Volume 90.1 fl (80-94); Mean Platelet Volume 9.4 fl (7.4-10.4); Monocytes # 0.5 K/mm3 (0.1-1.0); Monocytes % 1.7 % (1.7-9.3); Neutrophils # 29.5 K/mm3 (1.8-7.8); Neutrophils % 90.9 % (37.0-80.0); Platelet Count 436 K/mm3 (142-424); Red Blood Count 1.86 M/mm3 (4.60-6.20); Red Cell Distribution Width 16.6 % (11.5-17.5); White Blood Count 32.4 K/mm3 (4.8-10.8)
[2021-09-02 07:55] LABS: Anion Gap 12.6 mEq/L (5-15); Calcium 7.9 mg/dl (8.4-10.2); Carbon Dioxide 18 mmol/L (22.0-30.0); Chloride 117 mmol/L (98-107); Creatinine Clearance Estimated 32 mL/min (50-200); Estimated Glomerular Filt Rate 24 ml/min (>60); GFR (African American) 29 ML/MIN (>60); Glucose 215 mg/dl (74-100); Potassium 5.6 mmoL/L (3.5-5.1); Sodium 142 mmol/L (136-145)
[2021-09-02 08:18] LABS: Hematocrit 16.8 % (42.0-52.0)
[2021-09-02 08:19] LABS: MANUAL DIFFERENTIAL MANUAL DIFFERENTIAL (MANUAL DIFF)
[2021-09-02 08:21] LABS: Hemoglobin 5.3 g/dL (14.1-18.0)
[2021-09-02 08:26] LABS: Blood Urea Nitrogen 133 mg/dl (9-20)
[2021-09-02 08:45] LABS: Basophils # 0.1 K/mm3 (0-0.2); Basophils % 0.3 % (0.1-2.0); Lymphocytes # 2.3 K/mm3 (0.7-4.5); Lymphocytes % 6.9 % (10-50); Mean Corpuscular HGB Conc 31.2 g/dL (31.8-35.4); Mean Corpuscular Hemoglobin 27.6 pg (27.0-31.2); Mean Corpuscular Volume 88.4 fl (80-94); Mean Platelet Volume 10.3 fl (7.4-10.4); Monocytes # 0.6 K/mm3 (0.1-1.0); Monocytes % 1.8 % (1.7-9.3); Neutrophils # 29.6 K/mm3 (1.8-7.8); Platelet Count 431 K/mm3 (142-424); Red Blood Count 1.76 M/mm3 (4.60-6.20); Red Cell Distribution Width 16.6 % (11.5-17.5); White Blood Count 32.6 K/mm3 (4.8-10.8)
[2021-09-02 08:47] LABS: Hematocrit 15.5 % (42.0-52.0)
[2021-09-02 08:52] LABS: Alanine Aminotransferase 414 U/L (12-78); Albumin Level 2.3 g/dl (3.5-5.0); Albumin/Globulin Ratio 0.7 (1.1-1.8); Alkaline Phosphatase 151 U/L (38-126); Anion Gap 12.5 mEq/L (5-15); Aspartate Amino Transferase 476 U/L (17-59); Calcium 7.8 mg/dl (8.4-10.2); Carbon Dioxide 17 mmol/L (22.0-30.0); Chloride 117 mmol/L (98-107); Creatinine Clearance Estimated 35 mL/min (50-200); Estimated Glomerular Filt Rate 26 ml/min (>60); GFR (African American) 32 ML/MIN (>60); Globulin 3.2 g/dL (1.3-3.2); Glucose 196 mg/dl (74-100); Potassium 5.5 mmoL/L (3.5-5.1); Sodium 141 mmol/L (136-145); Total Protein,Serum 5.5 g/dl (6.3-8.2)
[2021-09-02 08:54] LABS: INR 1.33 (0.9-1.1); Prothrombin Time 14.7 seconds (10.1-12.5)
[2021-09-02 09:00] LABS: Blood Urea Nitrogen 130 mg/dl (9-20)
[2021-09-02 09:01] LABS: Bilirubin,Total < 0.1 mg/dl (0.2-1.3)
--- NOTE | 2021-09-02 09:02 | XR_ITS ---
FINAL REPORT CLINICAL HISTORY: increased wbc COMPARISON: 09/01/2021 FINDINGS: A single view of the chest was obtained. An NG tube is in the stomach. The heart is normal in size. The mediastinum is unremarkable. The lungs are underinflated. There is atelectasis at the lung bases. There is no pleural effusion. There is no pneumothorax. There is no acute osseous abnormality. IMPRESSION: Bibasilar atelectasis. Reviewed, Interpreted and Dictated by Jose Abbasi MD Transcribed by Josefa Samuels Authenticated by Jose Abbasi MD on 09/02/2021 10:05:25 AM [facility]
--- NOTE | 2021-09-02 09:09 | HMH.PHACONS ---
- Pharmacy Consult Date: 09/02/21 Time: 09:09 Referring provider: DR. BAIRES Reason for Consult:: VANCOMYCIN DOSING CONSULT Allergies and ADEs:: Allergies Allergy/AdvReac Type Severity Reaction Status Date / Time codeine Allergy Verified 09/02/21 00:54 Home Medications:: Home Medications Medication Instructions Recorded Confirmed Type levetiracetam 500 mg tablet 500 mg PO BID #60 tab 01/15/21 09/01/21 Rx sildenafil 100 mg tablet 100 mg PO DAILY PRN #10 tab 01/15/21 09/01/21 Rx Atorvastatin Calcium [Lipitor 20mg 20 mg PO DAILY 01/23/21 09/01/21 History Tab] aspirin 81 mg tablet,delayed 81 mg PO DAILY 02/12/21 09/01/21 History release Empagliflozin [Jardiance] 10 mg PO DAILYDM 02/21/21 09/01/21 History Clopidogrel Bisulfate [Plavix] 75 mg PO DAILY 08/21/21 09/01/21 History Insulin Glargine,Hum.rec.anlog 40 units SQ HS 08/21/21 09/01/21 History [Lantus Solostar 100 Units/mL 3mL flexpen] carvediloL [Carvedilol 12.5mg Tab] 12.5 mg PO BID 08/21/21 09/01/21 History glipiZIDE [Glucotrol 5mg tablet] 5 mg PO DAILYDM 08/22/21 09/01/21 History Hydralazine HCl [Hydralazine HCl 25 mg PO TID 09/01/21 09/01/21 History 25mg Tablet] Sulfamethoxazole/Trimethoprim 1 tab PO BID 09/01/21 09/01/21 History [Sulfamethoxazole-Tmp Ds Tablet*] Height: 1.8 m Weight: 191 kg Laboratory Results:: Laboratory Results - last 24 hr 09/01/21 11:33: Specimen Source Left radial, O2 % 3l, ABG pH 7.20 L*, ABG pCO2 38.4, ABG pO2 41.4 L, ABG HCO3 14.7 L, ABG Total CO2 15.9 L, ABG O2 Saturation 63 L*, ABG Base Excess -13.3 L, Mihai Test Patient unable 09/01/21 11:58: SARS-CoV-2 (PCR) Not detected, Influenza A Untype (PCR) Not detected, Influenza Type B (PCR) Not detected 09/01/21 12:28: Total Creatine Kinase 242 H, Troponin I 0.02 09/01/21 12:28: Lactate 2.7 H 09/01/21 12:28: Phosphorus 7.6 H, Magnesium 2.4 H 09/01/21 12:28: Acetone Level None detected 09/01/21 12:28: WBC 17.1 H, RBC 3.72 L, Hgb 10.4 L, Hct 33.8 L, MCV 90.9, MCH 28.0, MCHC 30.8 L, RDW 15.1, Plt Count 295, MPV 9.4, Neut % (Auto) 92.5 H, Lymph % (Auto) 4.4 L, [place] % (Auto) 2.0, Eos % (Auto) 0.0 L, Baso % (Auto) 1.1, Neut # (Auto) 15.8 H, Lymph # (Auto) 0.8, [place] # (Auto) 0.3, Eos # (Auto) 0.0, Baso # (Auto) 0.2, Total Counted 100, Neutrophils % (Manual) 89 H, Band Neutrophils % 1.0, Lymphocytes % (Manual) 5 L, Monocytes % (Manual) 4, Basophils % (Manual) 1.0, Platelet Estimate Normal, Hypochromasia 2+, Macrocytosis 1+ 09/01/21 12:28: Sodium 135 L, Potassium 7.0 H*, Chloride 109 H, Carbon Dioxide 16 L, Anion Gap 17.0 H, BUN 130 H*, Creatinine 2.30 H, Estimated Creat Clear 61, Estimated GFR 30 L, Est GFR ( Amer) 36 L, Glucose 605 H*, Calcium 7.9 L, Total Bilirubin 0.1 L, AST 1132 H*, ALT 485 H*, Alkaline Phosphatase 158 H, Total Protein 5.5 L, Albumin 2.5 L, Globulin 3.0, Albumin/Globulin Ratio 0.8 L 09/01/21 14:45: Troponin I 0.02 09/01/21 14:45: Acetaminophen < 10 L 09/01/21 15:05: Urine Color Yellow, Urine Appearance Clear, Urine pH 5.0, Ur Specific [place] 1.020, Urine Protein 1+, Urine Glucose (UA) 3+, Urine Ketones Negative, Urine Blood 1+, Urine Nitrate Negative, Urine Bilirubin Negative, Urine Urobilinogen 0.2, Ur Leukocyte Esterase Negative, Urine RBC Occasional, Urine WBC None, Ur Squamous Epith Cells None, Urine Bacteria None 09/01/21 17:03: POC Glucose 560 H* 09/01/21 17:42: Troponin I 0.03 09/01/21 19:15: POC Glucose 524 H* 09/01/21 19:35: Lactate 2.1 09/01/21 19:35: Sodium 137, Potassium 6.8 H*, Chloride 110 H, Carbon Dioxide 15 L, Anion Gap 18.8 H, BUN 126 H*, Creatinine 2.70 H, Estimated Creat Clear 52, Estimated GFR 25 L, Est GFR ( Amer) 30 L, Glucose 508 H*, Calcium 8.0 L 09/01/21 20:26: POC Glucose 487 H* 09/01/21 21:22: Specimen Source R brachial, O2 % 2lpm, ABG pH 7.33 L, ABG pCO2 29.1 L, ABG pO2 69.7 L, ABG HCO3 15.1 L, ABG Total CO2 16.0 L, ABG O2 Saturation 92, ABG Base Excess -10.8 L 09/01/21 22:38: POC Glucose 440 H* 09/01/21 : BUN 133 H*, Creatinin
[2021-09-02 09:57] LABS: Hemoglobin 4.8 g/dL (14.1-18.0)
--- NOTE | 2021-09-02 10:00 | CT_ITS ---
FINAL REPORT TECHNIQUE: Axial images through the abdomen and pelvis were performed without contrast. This study was performed with techniques to keep radiation doses as low as reasonably achievable, (ALARA). Individualized dose reduction techniques using automated exposure control or adjustment of mA and/or kV according to the patient's size were employed. CLINICAL HISTORY: H/H 4.8/15.5// kidney function decrease // no contrast study FINDINGS: There are patchy bibasilar airspace infiltrates. There is bibasilar atelectasis. The liver parenchyma is homogeneous. The gallbladder is surgically absent. The spleen, pancreas, and adrenals are unremarkable. There is mild to moderate right hydronephrosis and hydroureter. Right hydroureter is seen to the level of the UVJ. A definite obstructing stone is not seen. However, there does appear to be abnormal mucosal thickening of the posterior urinary bladder. A King catheter is present. There is air in the anti--dependent portion of the urinary bladder. There is air within the prostate, eccentric to the left. This is well seen on image 29 of series 3. There is a calcified sebaceous cyst in the right gluteal region. IMPRESSION: 1. Bibasilar airspace infiltrates with overlying atelectasis. 2. Mild to moderate hydronephrosis and hydroureter with no definite obstructing stone. 3. Abnormal mucosal thickening in the urinary bladder which may be related to cystitis. An underlying bladder mass is not excluded. 4. Air within the left side of the prostate possibly related to prior TURP defect. Correlate with prior surgical history. Reviewed, Interpreted and Dictated by Jose Abbasi MD Transcribed by Josefa Samuels Authenticated by Jose Abbasi MD on 09/02/2021 02:32:26 PM [facility]
[2021-09-02 11:37] LABS: Lymphocytes % 8 % (10-50); Neutrophils % 91 % (42-76); Total Cells Counted 100
[2021-09-02 11:38] LABS: Anisocytosis 2+; Hypochromasia 1+; Platelet Estimate Slight Increase
--- NOTE | 2021-09-02 13:20 | HMH.ACPN2 ---
Internal Medicine - PN: Subj *Date: 09/02/21 *Time: 20:21 Interval history: correcting glucose and k to some degree, but noted signif decline in hgb ng aspirate was bilious, no coffee grounds or gee blood small amount of liquid stool, slightly dark but w/o gee blood or melanotic odor abdom is w/o focality and soft will transfuse remains obtunded Exam Vital signs and Labs for Last 24 Hours: Temp Pulse Resp BP Pulse Ox 98.9 F 90 25 H 171/69 H 96 09/02/21 12:49 09/02/21 12:49 09/02/21 12:49 09/02/21 12:49 09/02/21 12:49 Laboratory Results - last 24 hr 09/01/21 12:28: Troponin I 0.02 09/01/21 12:28: WBC 17.1 H, RBC 3.72 L, Hgb 10.4 L, Hct 33.8 L, MCV 90.9, MCH 28.0, MCHC 30.8 L, RDW 15.1, Plt Count 295, MPV 9.4, Neut % (Auto) 92.5 H, Lymph % (Auto) 4.4 L, [place] % (Auto) 2.0, Eos % (Auto) 0.0 L, Baso % (Auto) 1.1, Neut # (Auto) 15.8 H, Lymph # (Auto) 0.8, [place] # (Auto) 0.3, Eos # (Auto) 0.0, Baso # (Auto) 0.2, Total Counted 100, Neutrophils % (Manual) 89 H, Band Neutrophils % 1.0, Lymphocytes % (Manual) 5 L, Monocytes % (Manual) 4, Basophils % (Manual) 1.0, Platelet Estimate Normal, Hypochromasia 2+, Macrocytosis 1+ 09/01/21 12:28: Sodium 135 L, Potassium 7.0 H*, Chloride 109 H, Carbon Dioxide 16 L, Anion Gap 17.0 H, BUN 130 H*, Creatinine 2.30 H, Estimated Creat Clear 61, Estimated GFR 30 L, Est GFR ( Amer) 36 L, Glucose 605 H*, Calcium 7.9 L, Total Bilirubin 0.1 L, AST 1132 H*, ALT 485 H*, Alkaline Phosphatase 158 H, Total Protein 5.5 L, Albumin 2.5 L, Globulin 3.0, Albumin/Globulin Ratio 0.8 L 09/01/21 14:45: Troponin I 0.02 09/01/21 14:45: Acetaminophen < 10 L 09/01/21 15:05: Urine Color Yellow, Urine Appearance Clear, Urine pH 5.0, Ur Specific [place] 1.020, Urine Protein 1+, Urine Glucose (UA) 3+, Urine Ketones Negative, Urine Blood 1+, Urine Nitrate Negative, Urine Bilirubin Negative, Urine Urobilinogen 0.2, Ur Leukocyte Esterase Negative, Urine RBC Occasional, Urine WBC None, Ur Squamous Epith Cells None, Urine Bacteria None 09/01/21 17:03: POC Glucose 560 H* 09/01/21 17:42: Troponin I 0.03 09/01/21 19:15: POC Glucose 524 H* 09/01/21 19:35: Lactate 2.1 09/01/21 19:35: Sodium 137, Potassium 6.8 H*, Chloride 110 H, Carbon Dioxide 15 L, Anion Gap 18.8 H, BUN 126 H*, Creatinine 2.70 H, Estimated Creat Clear 52, Estimated GFR 25 L, Est GFR ( Amer) 30 L, Glucose 508 H*, Calcium 8.0 L 09/01/21 20:26: POC Glucose 487 H* 09/01/21 21:22: Specimen Source R brachial, O2 % 2lpm, ABG pH 7.33 L, ABG pCO2 29.1 L, ABG pO2 69.7 L, ABG HCO3 15.1 L, ABG Total CO2 16.0 L, ABG O2 Saturation 92, ABG Base Excess -10.8 L 09/01/21 22:38: POC Glucose 440 H* 09/01/21 : BUN 133 H*, Creatinine 2.40 H, Estimated Creat Clear 58, Estimated GFR 29 L, Est GFR ( Amer) 35 L 09/02/21 00:05: POC Glucose 423 H* 09/02/21 01:50: Sodium 142, Potassium 7.2 H*, Chloride 114 H, Carbon Dioxide 15 L, Anion Gap 20.2 H, BUN 132 H*, Creatinine 2.70 H, Estimated Creat Clear 33, Estimated GFR 25 L, Est GFR ( Amer) 30 L, Glucose 364 H D, Calcium 7.8 L 09/02/21 01:50: Lactate 1.4 09/02/21 01:50: CK-MB (CK-2) 5.2 H D 09/02/21 05:34: WBC 32.4 H* D, RBC 1.86 L* D, Hgb 5.3 L* D, Hct 16.8 L*, MCV 90.1, MCH 28.0, MCHC 31.0 L, RDW 16.6, Plt Count 436 H D, MPV 9.4, Neut % (Auto) 90.9 H, Lymph % (Auto) 7.2 L, [place] % (Auto) 1.7, Eos % (Auto) 0.0 L, Baso % (Auto) 0.1, Neut # (Auto) 29.5 H, Lymph # (Auto) 2.4, [place] # (Auto) 0.5, Eos # (Auto) 0.0, Baso # (Auto) 0.0, Total Counted 100, Neutrophils % (Manual) 91 H, Band Neutrophils % 1.0, Lymphocytes % (Manual) 8 L, Platelet Estimate Slight increase, RBC Morphology Not Reportable, Hypochromasia 1+, Anisocytosis 2+ 09/02/21 05:34: Sodium 142, Potassium 5.6 H D, Chloride 117 H, Carbon Dioxide 18 L, Anion Gap 12.6, BUN 133 H*, Creatinine 2.80 H, Estimated Creat Clear 32, Estimated GFR 24 L, Est GFR ( Amer) 29 L, Glucose 215 H D, Calcium 7.9 L 09/02/21 05:34: Blood Type Confirm A Positive 09/02/21 06:15: POC Glucose 250 H 0
--- NOTE | 2021-09-02 13:49 | DIET.NUTRFU ---
Nursing reported to this RD patient is not taking anything orally right now, pills are administrated via NG tube. Labs reviewed, Na 141, K 5.5, BUN 130, Cr 2.0 with dx of KAVITHA. NaCl in place for hydration. Non significant wt loss since last admit on 05/16 of 8% or 14#. Since oral diet is not medically feasible feeding through NG would be recommended. May need to wait till renal fxn/labs improve, will review plan with provider during rounds tomorrow. TF recommendations via NG to start when medically feasible, glucerna 1.2 at 70ml/hr providing 1932kcal/day, 96gm protein, 1296ml free water. Flush with 120ml Q4H= 720ml for total fluid 2016ml/day.
--- NOTE | 2021-09-02 15:14 | HMH.GSCON ---
*Admission Date: 09/01/21 *Reason for consult:: Diminishing hemoglobin *History of present illness: Patient is a 51-year-old poorly controlled diabetic male with history of cardiomyopathy, congestive heart failure with ejection fraction of 25 to 30%, atrial fibrillation, carotid disease with relatively recent CVA. He was recently hospitalized 08/21/2021 until 08/27/2021. He had been brought in by ambulance on 09/01/2021 as he was reportedly found lying in stool. Patient arrived to the emergency department quite ill. He was found to be markedly hypothermic and acidotic. He was admitted to the intensive care unit. He had profound electrolyte derangement most notable for potassium of 7.0, CO2 of 16, BUN 130, creatinine 2.3, glucose 605. Blood gas revealed pH 7.2, PCO2 16, PO2 63, base deficit 13.3. Lactate was 2.7. AST 1132, ALT 485, bilirubin 0.1. INR 1.33. Subsequent laboratory evaluation has revealed increasing white blood cell count of 32,600 with decreasing hemoglobin to 4.8. Surgery was consulted for decreasing hemoglobin. Hemoglobin on discharge on 11.6. Patient did have a bowel movement today which appeared nonmelanotic. He did have a nasogastric tube placed and aspirate does not appear bloody or coffee-ground. He underwent CT scan without contrast which reveals no obvious source of potential decreasing hemoglobin hematocrit. Review of Systems - Review of Systems Review of systems:: unable to obtain [facility] History Medical History: Reports:: Aneurysm, Arrhythmia, Atrial Fibrillation, Congestive Heart Failure, Congenital Heart Disease, Diabetes Mellitus Type 2, Hyperlipidemia, Hypertension, MRSA, Transient Ischemic Attacks (TIA) Denies:: Cancer, Diabetes Mellitus Type 1, Internal Pacemaker, Seizures *Have you ever received a pneumonia vaccine?: Yes *Have you received a flu vaccine this season?: No Other Medical History: Denies: Blood Transfusion Reaction Laterality Cases: Left: Arthroscopy Shoulder Other Surgeries: Yes: Cardiac Catheterization, Cholecystectomy, Other. No: Pacemaker Amputation: No Fractures: Yes - *Social History Last grade of school completed: High school graduate Smoking Status: Unknown if ever smoked Tobacco Type: cigarettes # Packs/Day (cigarettes): 1 Alcohol Intake: never Alcohol Intake Frequency:: other Substance Use Type: denies use *Occupational Status:: unemployed Housing: apartment Household Members: spouse *Travel in the last 8 weeks: None Family Hx:: Unable to obtain Meds Home Medications Medication Instructions Recorded Confirmed Type levetiracetam 500 mg tablet 500 mg PO BID #60 tab 01/15/21 09/01/21 Rx sildenafil 100 mg tablet 100 mg PO DAILY PRN #10 tab 01/15/21 09/01/21 Rx Atorvastatin Calcium [Lipitor 20mg 20 mg PO DAILY 01/23/21 09/01/21 History Tab] aspirin 81 mg tablet,delayed 81 mg PO DAILY 02/12/21 09/01/21 History release Empagliflozin [Jardiance] 10 mg PO DAILYDM 02/21/21 09/01/21 History Clopidogrel Bisulfate [Plavix] 75 mg PO DAILY 08/21/21 09/01/21 History Insulin Glargine,Hum.rec.anlog 40 units SQ HS 08/21/21 09/01/21 History [Lantus Solostar 100 Units/mL 3mL flexpen] carvediloL [Carvedilol 12.5mg Tab] 12.5 mg PO BID 08/21/21 09/01/21 History glipiZIDE [Glucotrol 5mg tablet] 5 mg PO DAILYDM 08/22/21 09/01/21 History Hydralazine HCl [Hydralazine HCl 25 mg PO TID 09/01/21 09/01/21 History 25mg Tablet] Sulfamethoxazole/Trimethoprim 1 tab PO BID 09/01/21 09/01/21 History [Sulfamethoxazole-Tmp Ds Tablet*] Allergies Allergy/AdvReac Type Severity Reaction Status Date / Time codeine Allergy Verified 09/02/21 00:54 Exam Vital signs and Labs for Last 24 Hours: Temp Pulse Resp BP Pulse Ox 98.9 F 90 25 H 171/69 H 96 09/02/21 12:49 09/02/21 12:49 09/02/21 12:49 09/02/21 12:49 09/02/21 12:49 Laboratory Results - last 24 hr 09/01/21 12:28: WBC 17.1 H, RBC 3.72 L, Hgb 10.4 L, Hct 33.8 L, MCV 90.9, MCH 28.0, MCHC 30.8 L, RDW 15.1, Plt Count
--- NOTE | 2021-09-02 16:43 | XR_ITS ---
PROCEDURE INFORMATION: Exam: XR Chest Exam date and time: 09/02/2021 4:43 PM Age: 51 years old Clinical indication: Shortness of breath; Additional info: Change in breathing pattern TECHNIQUE: Imaging protocol: XR of the chest. Views: 1 view. COMPARISON: CR XR CHEST PORTABLE 09/02/2021 9:19 AM FINDINGS: Tubes, catheters and devices: Suction-type transesophageal enteric tube in stable position. Lungs: Low lung volumes, limiting evaluation of lung bases. Bilateral patchy airspace opacities in the upper right lung and lower left lung. Pleural spaces: No large pleural effusion. No pneumothorax. Heart/Mediastinum: Cardiomediastinal silhouette is unchanged. Bones/joints: No acute osseous abnormality. Soft tissues: Unremarkable. IMPRESSION: Bilateral patchy airspace opacities in the upper right lung and lower left lung are not significantly changed from same day chest radiograph performed at 9:25 am, but new since 09/01/2021.
[2021-09-02 16:53] LABS: ABG Base Excess -11.7 mmol/L (-2.4-2.3); ABG HCO3 14.1 mmhg (22.0-26.0); ABG Oxygen Saturation 96 % (90-100); ABG PCO2 26.7 mmhg (35.0-45.0); ABG PH 7.34 mmol/L (7.35-7.45); ABG PO2 77.9 mmhg (80-100); ABG TCO2 14.9 mmhg (23-27); Lactate Arterial 1.3 mmol/L (0.4-2.0)
[2021-09-02 16:57] LABS: Allen's Test Acceptable; Oxygen 4LPM %; Source Left Radial
[2021-09-02 17:30] LABS: Basophils # 0.2 K/mm3 (0-0.2); Lymphocytes # 1.3 K/mm3 (0.7-4.5); Red Cell Distribution Width 17.1 % (11.5-17.5)
[2021-09-02 17:36] LABS: Alanine Aminotransferase 361 U/L (12-78); Albumin Level 2.4 g/dl (3.5-5.0); Albumin/Globulin Ratio 0.8 (1.1-1.8); Alkaline Phosphatase 165 U/L (38-126); Anion Gap 14.6 mEq/L (5-15); Aspartate Amino Transferase 324 U/L (17-59); Bilirubin,Total 0.4 mg/dl (0.2-1.3); Calcium 8.1 mg/dl (8.4-10.2); Carbon Dioxide 16 mmol/L (22.0-30.0); Chloride 119 mmol/L (98-107); Creatinine Clearance Estimated 40 mL/min (50-200); Estimated Glomerular Filt Rate 25 ml/min (>60); GFR (African American) 30 ML/MIN (>60); Globulin 3.2 g/dL (1.3-3.2); Glucose 194 mg/dl (74-100); Potassium 4.6 mmoL/L (3.5-5.1); Sodium 145 mmol/L (136-145); Total Protein,Serum 5.6 g/dl (6.3-8.2)
[2021-09-02 17:40] LABS: Basophils % 0.5 % (0.1-2.0); Eosinophils # 0.1 K/mm3 (0.0-0.4); Eosinophils % 0.4 % (0.1-12.0); Hematocrit 28.2 % (42.0-52.0); Lymphocytes % 4.3 % (10-50); Mean Corpuscular HGB Conc 32.5 g/dL (31.8-35.4); Mean Corpuscular Hemoglobin 29.4 pg (27.0-31.2); Mean Corpuscular Volume 90.4 fl (80-94); Mean Platelet Volume 9.5 fl (7.4-10.4); Monocytes # 0.6 K/mm3 (0.1-1.0); Monocytes % 1.8 % (1.7-9.3); Neutrophils # 28.1 K/mm3 (1.8-7.8); Neutrophils % 92.8 % (37.0-80.0); Platelet Count 369 K/mm3 (142-424); Red Blood Count 3.12 M/mm3 (4.60-6.20); White Blood Count 30.3 K/mm3 (4.8-10.8)
[2021-09-02 17:41] LABS: Ammonia 22 umol/L (9-30); Blood Urea Nitrogen 117 mg/dl (9-20); D-Dimer 6.13 ug/mL (0.0-0.5)
[2021-09-02 17:42] LABS: Fibrinogen 403 mg/dL (229.9-363.5); Hemoglobin 9.2 g/dL (14.1-18.0); MANUAL DIFFERENTIAL MANUAL DIFFERENTIAL (MANUAL DIFF)
[2021-09-02 17:51] LABS: C-Reactive Protein 268.3 mg/L (0-4)
[2021-09-02 17:52] LABS: NT Pro Brain Natriuretic Pep. 4500 pg/mL (0-125)
[2021-09-02 17:58] LABS: Lymphocytes % 4 % (10-50); Monocytes % 3 % (2-9); Neutrophils % 91 % (42-76); Platelet Estimate Normal; Total Cells Counted 100
[2021-09-02 17:59] LABS: Burr Cells 1+; Spherocytes 1+
--- NOTE | 2021-09-02 19:35 | PC.NURSE ---
1929 Dr. Molina at bedside, gave order to change hydralazine to 50 mg TID
--- NOTE | 2021-09-02 21:02 | PC.NURSE ---
[id number]-DR NUNES CONSULTED FOR CRITICAL CARE. 80 MG LASIX ORDERED R/T CRACKLES AUSCULTATED AND CHANGES IN BREATHING QUALITY.
[2021-09-02 23:06] LABS: Hematocrit 31.2 % (42.0-52.0); Hemoglobin 10.1 g/dL (14.1-18.0)
[2021-09-03] VITALS (23 sets, daily range): BP systolic 146–212; BP diastolic 65–97; PULSE 79–96; RESP 18–29; TEMP 36.8–37.7; O2SAT 92–98; BMI 26.6
[2021-09-03 05:26] LABS: POC Glucose,Bedside 198 (70-110)
[2021-09-03 05:26] LABS: POC Glucose,Bedside 181 (70-110)
--- NOTE | 2021-09-03 06:27 | PC.NURSE ---
pt is still only responsive to pain, has remained on 4L NC with O2 sats 94-98%, breathing is more labored this morning with accessory muscle use, otto draining at bedside with 2000 mL out this shift, pt has been hypertensive and PRN labetalol was given, telemetry has shown NSR, HR 85-103
--- NOTE | 2021-09-03 06:41 | PC.NURSE ---
pt did have one large BM this shift, which was very dark in color
--- NOTE | 2021-09-03 07:02 | HMH.GSPN ---
Subjective Narrative: Patient received 4 units packed red blood cells with good response. Reportedly having some melena at this time. Progress Note: A&P (1) KAVITHA (acute kidney injury) Status: Acute (2) Dehydration Status: Acute (3) Elevated liver enzymes Status: Acute (4) Hyperglycemia Status: Acute (5) Hyperglycemia due to type 2 diabetes mellitus Status: Acute (6) Hyperkalemia Status: Acute (7) Metabolic acidosis Status: Acute (8) Diabetes mellitus, insulin dependent (IDDM), uncontrolled Status: Chronic (9) Non-compliance Status: Chronic (10) Tobacco use Status: Chronic Assessment and Plan for All Diagnoses:: Continue Protonix drip for empiric treatment for possible GI bleeding. Monitor hemoglobin hematocrit for stability and transfuse as needed. Would not pursue endoscopy due to the potential risk at this juncture. Exam Vital signs and Labs for Last 24 Hours: Temp Pulse Resp BP Pulse Ox 99.3 F 85 23 178/81 H 95 09/03/21 04:00 09/03/21 06:05 09/03/21 06:00 09/03/21 06:00 09/03/21 06:05 Laboratory Results - last 24 hr 09/02/21 05:34: WBC 32.4 H* D, RBC 1.86 L* D, Hgb 5.3 L* D, Hct 16.8 L*, MCV 90.1, MCH 28.0, MCHC 31.0 L, RDW 16.6, Plt Count 436 H D, MPV 9.4, Neut % (Auto) 90.9 H, Lymph % (Auto) 7.2 L, [place] % (Auto) 1.7, Eos % (Auto) 0.0 L, Baso % (Auto) 0.1, Neut # (Auto) 29.5 H, Lymph # (Auto) 2.4, [place] # (Auto) 0.5, Eos # (Auto) 0.0, Baso # (Auto) 0.0, Total Counted 100, Neutrophils % (Manual) 91 H, Band Neutrophils % 1.0, Lymphocytes % (Manual) 8 L, Platelet Estimate Slight increase, RBC Morphology Not Reportable, Hypochromasia 1+, Anisocytosis 2+ 09/02/21 05:34: Sodium 142, Potassium 5.6 H D, Chloride 117 H, Carbon Dioxide 18 L, Anion Gap 12.6, BUN 133 H*, Creatinine 2.80 H, Estimated Creat Clear 32, Estimated GFR 24 L, Est GFR ( Amer) 29 L, Glucose 215 H D, Calcium 7.9 L 09/02/21 05:34: Blood Type Confirm A Positive 09/02/21 08:30: WBC 32.6 H*, RBC 1.76 L*, Hgb 4.8 L*, Hct 15.5 L*, MCV 88.4, MCH 27.6, MCHC 31.2 L, RDW 16.6, Plt Count 431 H, MPV 10.3, Neut % (Auto) 91.0 H, Lymph % (Auto) 6.9 L, [place] % (Auto) 1.8, Eos % (Auto) 0.0 L, Baso % (Auto) 0.3, Neut # (Auto) 29.6 H, Lymph # (Auto) 2.3, [place] # (Auto) 0.6, Eos # (Auto) 0.0, Baso # (Auto) 0.1 09/02/21 08:30: Sodium 141, Potassium 5.5 H, Chloride 117 H, Carbon Dioxide 17 L, Anion Gap 12.5, BUN 130 H*, Creatinine 2.60 H, Estimated Creat Clear 35, Estimated GFR 26 L, Est GFR ( Amer) 32 L, Glucose 196 H, Calcium 7.8 L, Total Bilirubin < 0.1 L, AST 476 H* D, ALT 414 H*, Alkaline Phosphatase 151 H, Total Protein 5.5 L, Albumin 2.3 L, Globulin 3.2, Albumin/Globulin Ratio 0.7 L 09/02/21 08:30: PT 14.7 H, INR 1.33 H 09/02/21 09:20: Blood Type A Positive, Antibody Screen Negative, Crossmatch (G) See Detail 09/02/21 13:38: POC Glucose 181 H 09/02/21 16:46: Specimen Source Left radial, O2 % 4lpm, ABG pH 7.34 L, ABG pCO2 26.7 L, ABG pO2 77.9 L, ABG HCO3 14.1 L, ABG Total CO2 14.9 L, ABG O2 Saturation 96, ABG Base Excess -11.7 L, Mihai Test Acceptable, ABG Lactate 1.3 09/02/21 17:14: D-Dimer 6.13 H 09/02/21 17:14: Fibrinogen 403 H 09/02/21 17:14: WBC 30.3 H*, RBC 3.12 L D, Hgb 9.2 L D, Hct 28.2 L, MCV 90.4, MCH 29.4, MCHC 32.5, RDW 17.1, Plt Count 369, MPV 9.5, Neut % (Auto) 92.8 H, Lymph % (Auto) 4.3 L, [place] % (Auto) 1.8, Eos % (Auto) 0.4, Baso % (Auto) 0.5, Neut # (Auto) 28.1 H, Lymph # (Auto) 1.3, [place] # (Auto) 0.6, Eos # (Auto) 0.1, Baso # (Auto) 0.2, Total Counted 100, Neutrophils % (Manual) 91 H, Band Neutrophils % 2.0, Lymphocytes % (Manual) 4 L, Monocytes % (Manual) 3, Platelet Estimate Normal, RBC Morphology Not Reportable, Spherocytes 1+, [place] Cells 1+ 09/02/21 17:14: C-Reactive Protein 268.3 H 09/02/21 17:14: NT-Pro-B Natriuret Pep 4500 H 09/02/21 17:14: Sodium 145, Potassium 4.6, Chloride 119 H, Carbon Dioxide 16 L, Anion Gap 14.6, BUN 117 H*, Creatinine 2.70 H, Estimated Creat Clear 40, Estimated GFR 25 L,
[2021-09-03 07:37] LABS: Basophils # 0.1 K/mm3 (0-0.2); Basophils % 0.3 % (0.1-2.0); Eosinophils % 0.1 % (0.1-12.0); Hematocrit 33.4 % (42.0-52.0); Hemoglobin 10.6 g/dL (14.1-18.0); Lymphocytes # 1.7 K/mm3 (0.7-4.5); Lymphocytes % 5.3 % (10-50); Mean Corpuscular HGB Conc 31.6 g/dL (31.8-35.4); Mean Corpuscular Hemoglobin 28.6 pg (27.0-31.2); Mean Corpuscular Volume 90.3 fl (80-94); Mean Platelet Volume 9.1 fl (7.4-10.4); Monocytes # 0.6 K/mm3 (0.1-1.0); Monocytes % 1.9 % (1.7-9.3); Neutrophils # 29.6 K/mm3 (1.8-7.8); Neutrophils % 92.4 % (37.0-80.0); Platelet Count 323 K/mm3 (142-424); Red Cell Distribution Width 17.2 % (11.5-17.5)
[2021-09-03 07:42] LABS: MANUAL DIFFERENTIAL MANUAL DIFFERENTIAL (MANUAL DIFF)
[2021-09-03 07:53] LABS: Anion Gap 17.8 mEq/L (5-15); Calcium 8.3 mg/dl (8.4-10.2); Carbon Dioxide 15 mmol/L (22.0-30.0); Chloride 119 mmol/L (98-107); Creatinine Clearance Estimated 38 mL/min (50-200); Estimated Glomerular Filt Rate 24 ml/min (>60); GFR (African American) 29 ML/MIN (>60); Glucose 280 mg/dl (74-100); Potassium 3.8 mmoL/L (3.5-5.1); Sodium 148 mmol/L (136-145)
[2021-09-03 08:02] LABS: Blood Urea Nitrogen 120 mg/dl (9-20)
--- NOTE | 2021-09-03 08:13 | PC.NURSE ---
reported the bun and creatinine result to elma chandra. while in room spoke to prateek about patient lack of response, breathing pattern, crackles, posturing.
--- NOTE | 2021-09-03 08:23 | HMH.ACPN2 ---
Internal Medicine - PN: Subj *Date: 09/03/21 *Time: 16:24 Interval history: 51-year-old male patient lying in bed he is unresponsive to verbal/tactile/pain. Oxygenation 94% on 4 L per nasal cannula. H/H today 10.1/31.2 after 4 units packed red blood cells yesterday there is still been no visible blood, general surgery has seen. Exam Vital signs and Labs for Last 24 Hours: Temp Pulse Resp BP Pulse Ox 99.3 F 88 22 186/87 H 96 09/03/21 04:00 09/03/21 07:00 09/03/21 07:00 09/03/21 07:00 09/03/21 07:00 Laboratory Results - last 24 hr 09/02/21 05:34: Total Counted 100, Neutrophils % (Manual) 91 H, Band Neutrophils % 1.0, Lymphocytes % (Manual) 8 L, Platelet Estimate Slight increase, RBC Morphology Not Reportable, Hypochromasia 1+, Anisocytosis 2+ 09/02/21 05:34: Sodium 142, Potassium 5.6 H D, Chloride 117 H, Carbon Dioxide 18 L, Anion Gap 12.6, BUN 133 H*, Creatinine 2.80 H, Estimated Creat Clear 32, Estimated GFR 24 L, Est GFR ( Amer) 29 L, Glucose 215 H D, Calcium 7.9 L 09/02/21 05:34: Blood Type Confirm A Positive 09/02/21 08:30: WBC 32.6 H*, RBC 1.76 L*, Hgb 4.8 L*, Hct 15.5 L*, MCV 88.4, MCH 27.6, MCHC 31.2 L, RDW 16.6, Plt Count 431 H, MPV 10.3, Neut % (Auto) 91.0 H, Lymph % (Auto) 6.9 L, [place] % (Auto) 1.8, Eos % (Auto) 0.0 L, Baso % (Auto) 0.3, Neut # (Auto) 29.6 H, Lymph # (Auto) 2.3, [place] # (Auto) 0.6, Eos # (Auto) 0.0, Baso # (Auto) 0.1 09/02/21 08:30: Sodium 141, Potassium 5.5 H, Chloride 117 H, Carbon Dioxide 17 L, Anion Gap 12.5, BUN 130 H*, Creatinine 2.60 H, Estimated Creat Clear 35, Estimated GFR 26 L, Est GFR ( Amer) 32 L, Glucose 196 H, Calcium 7.8 L, Total Bilirubin < 0.1 L, AST 476 H* D, ALT 414 H*, Alkaline Phosphatase 151 H, Total Protein 5.5 L, Albumin 2.3 L, Globulin 3.2, Albumin/Globulin Ratio 0.7 L 09/02/21 08:30: PT 14.7 H, INR 1.33 H 09/02/21 09:20: Blood Type A Positive, Antibody Screen Negative, Crossmatch (G) See Detail 09/02/21 13:38: POC Glucose 181 H 09/02/21 16:46: Specimen Source Left radial, O2 % 4lpm, ABG pH 7.34 L, ABG pCO2 26.7 L, ABG pO2 77.9 L, ABG HCO3 14.1 L, ABG Total CO2 14.9 L, ABG O2 Saturation 96, ABG Base Excess -11.7 L, Mihai Test Acceptable, ABG Lactate 1.3 09/02/21 17:14: D-Dimer 6.13 H 09/02/21 17:14: Fibrinogen 403 H 09/02/21 17:14: WBC 30.3 H*, RBC 3.12 L D, Hgb 9.2 L D, Hct 28.2 L, MCV 90.4, MCH 29.4, MCHC 32.5, RDW 17.1, Plt Count 369, MPV 9.5, Neut % (Auto) 92.8 H, Lymph % (Auto) 4.3 L, [place] % (Auto) 1.8, Eos % (Auto) 0.4, Baso % (Auto) 0.5, Neut # (Auto) 28.1 H, Lymph # (Auto) 1.3, [place] # (Auto) 0.6, Eos # (Auto) 0.1, Baso # (Auto) 0.2, Total Counted 100, Neutrophils % (Manual) 91 H, Band Neutrophils % 2.0, Lymphocytes % (Manual) 4 L, Monocytes % (Manual) 3, Platelet Estimate Normal, RBC Morphology Not Reportable, Spherocytes 1+, [place] Cells 1+ 09/02/21 17:14: C-Reactive Protein 268.3 H 09/02/21 17:14: NT-Pro-B Natriuret Pep 4500 H 09/02/21 17:14: Sodium 145, Potassium 4.6, Chloride 119 H, Carbon Dioxide 16 L, Anion Gap 14.6, BUN 117 H*, Creatinine 2.70 H, Estimated Creat Clear 40, Estimated GFR 25 L, Est GFR ( Amer) 30 L, Glucose 194 H, Calcium 8.1 L, Total Bilirubin 0.4, AST 324 H* D, ALT 361 H*, Alkaline Phosphatase 165 H, Total Protein 5.6 L, Albumin 2.4 L, Globulin 3.2, Albumin/Globulin Ratio 0.8 L 09/02/21 17:14: Ammonia 22 09/02/21 17:36: POC Glucose 198 H 09/02/21 22:50: Hgb 10.1 L, Hct 31.2 L 09/03/21 07:00: WBC 32.0 H*, RBC 3.70 L, Hgb 10.6 L, Hct 33.4 L, MCV 90.3, MCH 28.6, MCHC 31.6 L, RDW 17.2, Plt Count 323, MPV 9.1, Neut % (Auto) 92.4 H, Lymph % (Auto) 5.3 L, [place] % (Auto) 1.9, Eos % (Auto) 0.1, Baso % (Auto) 0.3, Neut # (Auto) 29.6 H, Lymph # (Auto) 1.7, [place] # (Auto) 0.6, Eos # (Auto) 0.0, Baso # (Auto) 0.1 09/03/21 07:00: Sodium 148 H, Potassium 3.8, Chloride 119 H, Carbon Dioxide 15 L, Anion Gap 17.8 H, BUN 120 H*, Creatinine 2.80 H, Estimated Creat Clear 38, Estimated GFR 24 L, Est GFR ( Amer) 29 L, Glucose 280 H D, Calcium 8.3 L I & O for L
[2021-09-03 08:50] LABS: Lymphocytes % 7 % (10-50); Monocytes % 1 % (2-9); Neutrophils % 92 % (42-76); Platelet Estimate Normal; Total Cells Counted 100
[2021-09-03 08:51] LABS: Anisocytosis 1+; Nucleated Red Blood Cells 1
[2021-09-03 09:00] LABS: Ammonia < 9 umol/L (9-30)
--- NOTE | 2021-09-03 09:08 | XR_ITS ---
FINAL REPORT CLINICAL HISTORY: check ng tube placement FINDINGS: An NG tube is seen with the tip in the stomach. The heart size is normal. The mediastinum is normal. Right perihilar and left basilar atelectasis is most evident in the left infrahilar region. There are no pleural effusions. There is no pneumothorax. There is no osseous abnormality. IMPRESSION: NG tube tip in the stomach. Reviewed, Interpreted and Dictated by Jose Abbasi MD Transcribed by Mike Wang Authenticated by Jose Abbasi MD on 09/03/2021 10:07:26 AM [facility]
--- NOTE | 2021-09-03 09:20 | HMH.PULMCON ---
*Admission Date: 09/01/21 *Reason for consult:: Acute hypoxic respiratory failure *History of present illness: Ms. Sanders is a 51-year-old male with a history of congestive heart failure EF around 30%, atrial fibrillation presented to the hospital after found lying down in his stool. Patient was altered on admission along with marked hypothermia and metabolic acidosis and significant electrolyte derangements, acute kidney injury pH is 7.20, PCO2 of 38.4, potassium of 6.8, BUN of 126 and creatinine of 2.7 along with blood glucose of 508. Patient respiratory status was he on room air saturating 96 to 97% on admission,, gradually worsen needing 4 L nasal oxygen supplementation. Patient also was aggressively hydrated during this hospital admission. He also had significant drop in hemoglobin from 11-4.8 status post transfusion, primary team evaluating the source of bleeding. Given his worsening respiratory status pulmonary was called for further management. [facility] History Medical History: Reports:: Aneurysm, Arrhythmia, Atrial Fibrillation, Congestive Heart Failure, Congenital Heart Disease, Diabetes Mellitus Type 2, Hyperlipidemia, Hypertension, MRSA, Transient Ischemic Attacks (TIA) Denies:: Cancer, Diabetes Mellitus Type 1, Internal Pacemaker, Seizures *Have you ever received a pneumonia vaccine?: Yes *Have you received a flu vaccine this season?: No Other Medical History: Denies: Blood Transfusion Reaction Laterality Cases: Left: Arthroscopy Shoulder Other Surgeries: Yes: Cardiac Catheterization, Cholecystectomy, Other. No: Pacemaker Amputation: No Fractures: Yes - *Social History Last grade of school completed: High school graduate Smoking Status: Unknown if ever smoked Tobacco Type: cigarettes # Packs/Day (cigarettes): 1 Alcohol Intake: never Alcohol Intake Frequency:: other Substance Use Type: denies use *Occupational Status:: unemployed Housing: apartment Household Members: spouse *Travel in the last 8 weeks: None Family Hx:: Unable to obtain ROS - Review of Systems Review of systems:: unable to obtain Patient altered not responding to verbal or painful stimuli. Meds Home Medications Medication Instructions Recorded Confirmed Type levetiracetam 500 mg tablet 500 mg PO BID #60 tab 01/15/21 09/01/21 Rx sildenafil 100 mg tablet 100 mg PO DAILY PRN #10 tab 01/15/21 09/01/21 Rx Atorvastatin Calcium [Lipitor 20mg 20 mg PO DAILY 01/23/21 09/01/21 History Tab] aspirin 81 mg tablet,delayed 81 mg PO DAILY 02/12/21 09/01/21 History release Empagliflozin [Jardiance] 10 mg PO DAILYDM 02/21/21 09/01/21 History Clopidogrel Bisulfate [Plavix] 75 mg PO DAILY 08/21/21 09/01/21 History Insulin Glargine,Hum.rec.anlog 40 units SQ HS 08/21/21 09/01/21 History [Lantus Solostar 100 Units/mL 3mL flexpen] carvediloL [Carvedilol 12.5mg Tab] 12.5 mg PO BID 08/21/21 09/01/21 History glipiZIDE [Glucotrol 5mg tablet] 5 mg PO DAILYDM 08/22/21 09/01/21 History Hydralazine HCl [Hydralazine HCl 25 mg PO TID 09/01/21 09/01/21 History 25mg Tablet] Sulfamethoxazole/Trimethoprim 1 tab PO BID 09/01/21 09/01/21 History [Sulfamethoxazole-Tmp Ds Tablet*] Allergies Allergy/AdvReac Type Severity Reaction Status Date / Time codeine Allergy Verified 09/02/21 00:54 Exam - Constitutional Constitutional:: Absent: no acute distress, comfortable, healthy appearing - HENMT Exam HENMT: Present: normocephalic, atraumatic - Eye Exam Eyes:: Absent: normal appearance both eyes and related structures Comment:: Pupils pinpoint not reacting to light - Neck Exam Neck:: Present: normal visual inspection - Respiratory Exam Respiratory:: Present: respiratory distress, decreased breath sounds, rhonchi, wheezing. Absent: able to speak in complete sentences - Cardiovascular Exam Cardiac:: Present: S1, S2 - GI Exam GI:: Present: soft - Skin Exam Skin: Present: warm - Neurological Exam Neurological: Absent: alert,
[2021-09-03 09:44] LABS: ABG Base Excess -10.9 mmol/L (-2.4-2.3); ABG HCO3 14.8 mmhg (22.0-26.0); ABG Oxygen Saturation 92 % (90-100); ABG PCO2 27.7 mmhg (35.0-45.0); ABG PH 7.35 mmol/L (7.35-7.45); ABG PO2 62.3 mmhg (80-100); ABG TCO2 15.7 mmhg (23-27)
[2021-09-03 09:46] LABS: Allen's Test Patient Unable; Oxygen 2L %; Source Left Radial
[2021-09-03 10:10] LABS: Hep A Ab, IgM Negative (Negative); Hepatitis B Core Antibody IgM Negative (Negative); Hepatitis B Surface Antigen Negative (Negative); Hepatitis C Antibody <0.1 s/co ratio (0.0-0.9)
--- NOTE | 2021-09-03 10:36 | DIET.NUTRFU ---
Saw patient during rounds he is still unresponsive to most stimulates. He is NPO at this time. Lasix was provided yesterday. Renal fxn declining with BUN 120 and Cr 2.8 with Na elevated at 148H. IVF was discontinued. Liver fxn is poor with elevated AST/ALT on 09/02. Patient will need nutritional support if continues NPO. NG in place for pills, start TF when medically feasible. glucerna 1.2 at 70ml/hr providing 1932kcal/day, 96gm protein, 1296ml free water. Flush with 120ml Q4H= 720ml for total fluid 2016ml/day.
[2021-09-03 10:38] LABS: Amphetamine/Metha Screen,Urine Negative ng/ml (<1000); Benzodiazepines Screen,Urine Negative ng/ml (<200)
[2021-09-03 10:39] LABS: Barbiturates Screen,Urine Negative ng/ml (<200)
[2021-09-03 10:40] LABS: Cannabinoid Screen,Urine Negative ng/ml (<50); Cocaine Screen,Urine Negative ng/ml (<300)
[2021-09-03 10:41] LABS: Methadone Screen,Urine Negative ng/ml (<300); Opiate Screen,Urine Negative ng/ml (<300)
[2021-09-03 10:42] LABS: Phencyclidine Screen,Urine Negative ng/ml (<25)
--- NOTE | 2021-09-03 11:22 | PC.NURSE ---
upon am rounds, Emigdio Jensen noted that ng tube was curled in patients mouth. NG tube had to be removed and a new ng tube reinserted r/t amount of tube that was displaced in mouth. NG tube measured and placed at 60cm by loyd thornton and hazel thornton. verified by stat xray at 0908. xray read at 1111
--- NOTE | 2021-09-03 11:40 | HMH.PTWOUND ---
Rehab Inpt Wound Evaluation Rehab IP Wound Evaluation Start: 09/03/21 10:37 Freq: ONCE Status: Active Protocol: Document 09/03/21 11:34 FERNANDO (Rec: 09/03/21 11:39 [id number] [id number]) Rehab PT Wound Assessment Patient Status Premedicated Prior to Dressing Change Yes Subjective Subjective PT found unresponsive and brought to ER - unsure of time pt was down and unresponsive - pt obtunded Wound Right Lateral Ankle Wound Type unknown Wound Staging Unstageable Query Text:Stage I - Unbroken, red skin, no blanching. Stage II - Skin broken, superficial skin loss involving epidermis alone or also dermis. Partial loss of skin layers. Stage III - Pressure area involves epidermis, dermis and subcutaneous tissue, full thickness skin loss. Stage IV - Pressure area involves epidermis, subcutaneous tissue, bone and other supportive tissue. Full thickness skin loss with extensive destruction of underlying tissue and structures. Wound Length (cm) 3 Wound Width (cm) 4 Percentage of Eschar (Black) (%) 100 Wound Margins Description Well Defined Wound Drainage Description None Primary Dressing Absorbant Pad Comment optifoam Left Lower Buttock Wound Type Pressure Ulcer Wound Length (cm) 1 Wound Width (cm) 2 Percentage Granulated (%) 100 Wound Margins Description Indistinct Primary Dressing Absorbant Pad Comment optifoam sacral Medial Sacrum Wound Type Pressure Ulcer Wound Staging Stage II Query Text:Stage I - Unbroken, red skin, no blanching. Stage II - Skin broken, superficial skin loss involving epidermis alone or also dermis. Partial loss of skin layers. Stage III - Pressure area involves epidermis, dermis and subcutaneous tissue, full thickness skin loss. Stage IV - Pressure area involves epidermis, subcutaneous tissue, bone and other supportive tissue. Full thickness skin loss with extensive destruction of underlying tissue and structures. Wound Length (cm) 1 Wound Width (cm) 1 Wound Bed Appearance Beefy Red Percentage Granulated (%) 100 Wound Secondary Dressing Type Absorbant Pad Comment opt
--- NOTE | 2021-09-03 12:00 | HMH.CNCARD ---
History of Present Illness Consult date: 09/03/21 Requesting physician: Devonte Molina Chief complaint: CHF History of present illness: 51-year-old male presented to the emergency room unresponsive on 09/01/2021. Patient had just been discharged from this facility to home a few days prior. Patient remains unresponsive to verbal or stimuli. Patient is known to be noncompliant with medication regimen. Patient remains on high flow oxygen. NG tube is in place with no suction. Patient posturing at this time. Patient noted to have abdominal bleeding and source is unknown per CT scan. Plavix and aspirin has been stopped per PCP. Patient had low H&H upon arrival to the ED. Patient has been transfused 4 units of packed red blood cells. Hemoglobin hematocrit stable at this time. WBCs 32.0. Patient is receiving antibiotics per PCP. Patient noted to be in renal failure. BUN 120 with a creatinine of 2.8. BNP 4500. Patient had been receiving Lasix 80 mg IV per PCP. This has been stopped per PCP. Patient is currently not responding to any treatment provided. Cardiology was consulted for input. Patient does have known history of seizures. Patient is on Keppra at this time. Blood cultures were positive for MRSA. This is being managed by PCP. Patient does have history of atrial fibrillation. personnel monitor reveals sinus rhythm. Patient is currently on no AC. Patient does have history of diabetes which is uncontrolled. Patient is noncompliant with medication regimens. Patient does have history of a CVA which may have been induced by carotid artery stenosis. D-dimer noted 6.13. Pulmonology has been consulted. Last heart catheterization revealed normal coronary arteries with a dilated ventricle with reduced EF and severely elevated LVEDP. This was in January 2021. Patient was then placed on standard therapy for myocarditis and systolic heart failure. These medicine included Entresto and carvedilol. Patient was unable to afford Entresto so therefore patient was on lisinopril. In January patient was prescribed a LifeVest due to his EF being 25 to 30% ischemic cardiomyopathy. Patient was unable to tolerate it so therefore he did not wear it. Patient also history hypertension. Patient is noted to be hypertensive during this exam. Patient continues to diurese. King catheter intact. Weight down 31 pounds since admission, if weight is accurate on chart. [facility]:ANGIOGRAPHIC RESULTS (02/18) The left main artery Normal The left anterior descending artery Normal The circumflex artery Normal The right coronary artery Dominant normal The KATE ventriculogram reveals Dilated globally hypokinetic 25% The left ventricular end-diastolic pressure Severely elevated at 30 mmHg IMPRESSION Normal coronary arteries Dilated ventricle with reduced ejection fraction Severely elevated LVEDP PLAN 1. Standard therapy for myocarditis/systolic heart failure 2. Start Entresto and carvedilol 3. Start furosemide and spironolactone 4. LifeVest Echo: Conclusion (08/20) 1. Technically very difficult and poor study as described above, probably ejection fraction 30 to 35% left ventricle is globally hypokinetic, diastolic parameters are inconclusive. If clinically indicated repeat study with Definity contrast is recommended. 2. No significant pericardial effusion noted. 3. Inferior vena cava is poorly visualized. [facility] History I have reviewed the patient's past medical history: Yes Medical History: Reports:: Aneurysm, Arrhythmia, Atrial Fibrillation, Congestive Heart Failure, Congenital Heart Disease, Diabetes Mellitus Type 2, Hyperlipidemia, Hypertension, MRSA, Transient Ischemic Attacks (TIA) Denies:: Cancer, Diabetes Mellitus Type 1, Internal Pacemaker, Seizures *Have you ever received a pneumonia vaccine?: Yes *Have you received a flu vaccine this season?: No Other Medical History: Denies: Blood Transfusion Reaction Laterality Cases: Left: Arthroscopy Shoulder
--- NOTE | 2021-09-03 12:15 | PC.NURSE ---
spoke with jessa thornton about need to deem this mri as medically necessary since we can not get information from patient. he stated to just cancel the mri
--- NOTE | 2021-09-03 14:48 | HMH.CONS ---
*Admission Date: 09/01/21 *Reason for consult:: Right hydroureter and intraprostatic gas *History of present illness: Patient is a 51-year-old white male with history of congestive heart failure, atrial fibrillation, stroke and poorly controlled diabetes now referred for right hydroureter and intraprostatic gas. Patient was admitted on September 01 and was unresponsive on admission. Since admission his hemoglobin was noted to drop significantly requiring 4 units of red blood cells. Is also required intubation for decreased oxygenation. His white count was 17,000 on admission and [place] to 32,000 on hospital day 2 and is currently 30,000. Creatinine was 2.7 on admission and is currently 2.8 despite King catheter management. Blood cultures were growing out MRSA. Urinalysis did not show evidence of infection on admission. CT scan shows mild to moderate hydronephrosis and hydroureter with no definite stone. There is some abnormal mucosal thickening of the urinary bladder which may be related to cystitis. Some air was noted in the left side of the prostate. CT scan of the head has shown findings which raise concern for ischemic infarct. Patient is on intravenous antibiotics. Patient is not responsive to oral or pain stimuli. [facility] History Medical History: Reports:: Aneurysm, Arrhythmia, Atrial Fibrillation, Congestive Heart Failure, Congenital Heart Disease, Diabetes Mellitus Type 2, Hyperlipidemia, Hypertension, MRSA, Transient Ischemic Attacks (TIA) Denies:: Cancer, Diabetes Mellitus Type 1, Internal Pacemaker, Seizures *Have you ever received a pneumonia vaccine?: Yes *Have you received a flu vaccine this season?: No Other Medical History: Denies: Blood Transfusion Reaction Laterality Cases: Left: Arthroscopy Shoulder Other Surgeries: Yes: Cardiac Catheterization, Cholecystectomy, Other. No: Pacemaker Amputation: No Fractures: Yes - *Social History Last grade of school completed: High school graduate Smoking Status: Unknown if ever smoked Tobacco Type: cigarettes # Packs/Day (cigarettes): 1 Alcohol Intake: never Alcohol Intake Frequency:: other Substance Use Type: denies use *Occupational Status:: unemployed Housing: apartment Household Members: spouse *Travel in the last 8 weeks: None Family Hx:: Unable to obtain Review of Systems - *Neurologic Reports abnormal walking, Reports seizure-like activity, Reports weakness Meds Home Medications Medication Instructions Recorded Confirmed Type levetiracetam 500 mg tablet 500 mg PO BID #60 tab 01/15/21 09/01/21 Rx sildenafil 100 mg tablet 100 mg PO DAILY PRN #10 tab 01/15/21 09/01/21 Rx Atorvastatin Calcium [Lipitor 20mg 20 mg PO DAILY 01/23/21 09/01/21 History Tab] aspirin 81 mg tablet,delayed 81 mg PO DAILY 02/12/21 09/01/21 History release Empagliflozin [Jardiance] 10 mg PO DAILYDM 02/21/21 09/01/21 History Clopidogrel Bisulfate [Plavix] 75 mg PO DAILY 08/21/21 09/01/21 History Insulin Glargine,Hum.rec.anlog 40 units SQ HS 08/21/21 09/01/21 History [Lantus Solostar 100 Units/mL 3mL flexpen] carvediloL [Carvedilol 12.5mg Tab] 12.5 mg PO BID 08/21/21 09/01/21 History glipiZIDE [Glucotrol 5mg tablet] 5 mg PO DAILYDM 08/22/21 09/01/21 History Hydralazine HCl [Hydralazine HCl 25 mg PO TID 09/01/21 09/01/21 History 25mg Tablet] Sulfamethoxazole/Trimethoprim 1 tab PO BID 09/01/21 09/01/21 History [Sulfamethoxazole-Tmp Ds Tablet*] Allergies Allergy/AdvReac Type Severity Reaction Status Date / Time codeine Allergy Verified 09/02/21 00:54 Exam Vital signs and Labs for Last 24 Hours: Temp Pulse Resp BP Pulse Ox 99.9 F H 80 19 152/75 H 93 L 09/03/21 14:00 09/03/21 14:00 09/03/21 14:00 09/03/21 14:00 09/03/21 14:00 Laboratory Results - last 24 hr 09/01/21 19:35: Hepatitis A IgM Ab Negative, Hep Bs Antigen Negative, Hep B Core IgM Ab Negative, Hepatitis C Antibody <0.1 09/02/21 09:20: Blood Type A Positive, Antibody Screen Negative,
--- NOTE | 2021-09-03 15:04 | PC.WOUNDNOTE ---
small stage ttwo coccyx and l buttock.
--- NOTE | 2021-09-03 17:16 | PC.NURSE ---
patient bp has been labile all shift. labetalol given at this time. has been on 2 l. oral care and turns done with patient. posturing noted. stiffness to arms noted. labored breathing. no response to pain. gag and cough reflex noted. replaced ng tube and it is at 55. new iv placed in l forearm.
[2021-09-04] VITALS (17 sets, daily range): BP systolic 122–181; BP diastolic 61–88; PULSE 74–93; RESP 16–24; TEMP 36.9–37.1; O2SAT 94–100; BMI 26.2
--- NOTE | 2021-09-04 05:22 | PC.NURSE ---
pt has continued to only be responsive to pain, accessory muscle use with respirations, remains on 2L NC with sats 94-96%, does spontaneously open and close eyes, otto leaking this shift, advanced and balloon reinflated, no leaking noted since, 600 mL urine out this shift, did have a large amount that had leaked from catheter
[2021-09-04 06:39] LABS: Anion Gap 17.2 mEq/L (5-15); Calcium 8.5 mg/dl (8.4-10.2); Carbon Dioxide 18 mmol/L (22.0-30.0); Chloride 122 mmol/L (98-107); Creatinine Clearance Estimated 34 mL/min (50-200); Estimated Glomerular Filt Rate 21 ml/min (>60); GFR (African American) 26 ML/MIN (>60); Glucose 176 mg/dl (74-100); Potassium 3.2 mmoL/L (3.5-5.1)
--- NOTE | 2021-09-04 07:08 | P.PN_ITS ---
Subjective Narrative: No changes. Nursing reports no evidence of melanic stools Progress Note: A&P (1) KAVITHA (acute kidney injury) Status: Acute (2) Dehydration Status: Acute (3) Elevated liver enzymes Status: Acute (4) Hyperglycemia Status: Acute (5) Hyperglycemia due to type 2 diabetes mellitus Status: Acute (6) Hyperkalemia Status: Acute (7) Metabolic acidosis Status: Acute (8) Diabetes mellitus, insulin dependent (IDDM), uncontrolled Status: Chronic (9) Non-compliance Status: Chronic (10) Tobacco use Status: Chronic Assessment and Plan for All Diagnoses:: In regards to his decreasing hemoglobin. He had responded well to 4 unit transfusion and has remained stable. Would not pursue endoscopy at this juncture Exam Vital signs and Labs for Last 24 Hours: Temp Pulse Resp BP Pulse Ox 98.4 F 86 20 148/72 H 96 09/04/21 04:00 09/04/21 06:00 09/04/21 06:00 09/04/21 06:00 09/04/21 06:00 Laboratory Results - last 24 hr 09/01/21 19:35: Hepatitis A IgM Ab Negative, Hep Bs Antigen Negative, Hep B Core IgM Ab Negative, Hepatitis C Antibody <0.1 09/03/21 07:00: WBC 32.0 H*, RBC 3.70 L, Hgb 10.6 L, Hct 33.4 L, MCV 90.3, MCH 28.6, MCHC 31.6 L, RDW 17.2, Plt Count 323, MPV 9.1, Neut % (Auto) 92.4 H, Lymph % (Auto) 5.3 L, [place] % (Auto) 1.9, Eos % (Auto) 0.1, Baso % (Auto) 0.3, Neut # (Auto) 29.6 H, Lymph # (Auto) 1.7, [place] # (Auto) 0.6, Eos # (Auto) 0.0, Baso # (Auto) 0.1, Total Counted 100, Neutrophils % (Manual) 92 H, Lymphocytes % (Manual) 7 L, Monocytes % (Manual) 1 L, Nucleated RBCs 1, Platelet Estimate Normal, Anisocytosis 1+ 09/03/21 07:00: Sodium 148 H, Potassium 3.8, Chloride 119 H, Carbon Dioxide 15 L , Anion Gap 17.8 H, BUN 120 H*, Creatinine 2.80 H, Estimated Creat Clear 38, Estimated GFR 24 L, Est GFR ( Amer) 29 L, Glucose 280 H D, Calcium 8.3 L 09/03/21 08:45: Ammonia < 9 L 09/03/21 09:21: Specimen Source Left radial, O2 % 2l, ABG pH 7.35, ABG pCO2 27.7 L, ABG pO2 62.3 L, ABG HCO3 14.8 L, ABG Total CO2 15.7 L, ABG O2 Saturation 92, ABG Base Excess -10.9 L, Mihai Test Patient unable 09/03/21 10:05: Urine Opiates Screen Negative, Urine Methadone Screen Negative, Ur Barbituates Screen Negative, Ur Phencyclidine Scrn Negative, Ur Amphetamines Screen Negative, U Benzodiazepines Scrn Negative, Urine Cocaine Screen Negative, U Marijuana (THC) Screen Negative I & O for Last 24 hours: Intake & Output 09/01/21 09/02/21 09/03/21 09/04/21 11:59 11:59 11:59 11:59 Intake Total 1375 / 1375 2003 / 2003 564 / 564 Output Total 750 / 750 3295 / 3295 1450 / 1450 Balance 625 / 625 -1291 / -1291 -886 / -886 Weight 249 lb 15.997 oz 421 lb 1.326 oz 190 lb 1 oz 187 lb 5 oz Microbiology Reports for the Last 24 Hours: Microbiology 09/01/21 12:23 Blood Blood Culture - Preliminary Gram Positive Cocci 09/01/21 12:23 Blood Blood Culture - Preliminary Gram Positive Cocci Narrative: Patient unresponsive
[2021-09-04 07:15] LABS: Basophils # 0.1 K/mm3 (0-0.2); Basophils % 0.2 % (0.1-2.0); Eosinophils % 0.1 % (0.1-12.0); Hematocrit 31.1 % (42.0-52.0); Lymphocytes # 2.1 K/mm3 (0.7-4.5); Lymphocytes % 7.1 % (10-50); Mean Corpuscular HGB Conc 32.2 g/dL (31.8-35.4); Mean Corpuscular Hemoglobin 28.3 pg (27.0-31.2); Mean Corpuscular Volume 87.8 fl (80-94); Mean Platelet Volume 10.1 fl (7.4-10.4); Monocytes # 0.7 K/mm3 (0.1-1.0); Monocytes % 2.3 % (1.7-9.3); Neutrophils % 90.2 % (37.0-80.0); Platelet Count 284 K/mm3 (142-424); Red Blood Count 3.54 M/mm3 (4.60-6.20); Red Cell Distribution Width 17.6 % (11.5-17.5); White Blood Count 28.8 K/mm3 (4.8-10.8)
[2021-09-04 07:23] LABS: MANUAL DIFFERENTIAL MANUAL DIFFERENTIAL (MANUAL DIFF)
[2021-09-04 07:32] LABS: Blood Urea Nitrogen 116 mg/dl (9-20); Sodium 154 mmol/L (136-145)
[2021-09-04 08:39] LABS: Lymphocytes % 7 % (10-50); Neutrophils % 93 % (42-76); Total Cells Counted 100
[2021-09-04 08:40] LABS: Anisocytosis 1+; Platelet Estimate Normal; Poikilocytosis 1+
--- NOTE | 2021-09-04 10:11 | HMH.ACPN2 ---
Internal Medicine - PN: Subj *Date: 09/04/21 *Time: 09:20 Interval history: pt laying in bed, nonverbal or response to stimuli eyes are slightly jerking from side to side- hx of seizures Exam Vital signs and Labs for Last 24 Hours: Temp Pulse Resp BP Pulse Ox 98.4 F 90 20 148/72 H 96 09/04/21 04:00 09/04/21 09:20 09/04/21 06:00 09/04/21 06:00 09/04/21 06:00 Laboratory Results - last 24 hr 09/01/21 19:35: Hepatitis A IgM Ab Negative, Hep Bs Antigen Negative, Hep B Core IgM Ab Negative, Hepatitis C Antibody <0.1 09/03/21 10:05: Urine Opiates Screen Negative, Urine Methadone Screen Negative, Ur Barbituates Screen Negative, Ur Phencyclidine Scrn Negative, Ur Amphetamines Screen Negative, U Benzodiazepines Scrn Negative, Urine Cocaine Screen Negative, U Marijuana (THC) Screen Negative 09/04/21 05:38: WBC 28.8 H*, RBC 3.54 L, Hgb 10.0 L, Hct 31.1 L, MCV 87.8, MCH 28.3, MCHC 32.2, RDW 17.6 H, Plt Count 284, MPV 10.1, Neut % (Auto) 90.2 H, Lymph % (Auto) 7.1 L, [place] % (Auto) 2.3, Eos % (Auto) 0.1, Baso % (Auto) 0.2, Neut # (Auto) 26.0 H, Lymph # (Auto) 2.1, [place] # (Auto) 0.7, Eos # (Auto) 0.0, Baso # (Auto) 0.1, Total Counted 100, Neutrophils % (Manual) 93 H, Lymphocytes % (Manual) 7 L, Platelet Estimate Normal, Poikilocytosis 1+, Anisocytosis 1+ 09/04/21 05:38: Sodium 154 H*, Potassium 3.2 L, Chloride 122 H, Carbon Dioxide 18 L, Anion Gap 17.2 H, BUN 116 H*, Creatinine 3.10 H, Estimated Creat Clear 34, Estimated GFR 21 L, Est GFR ( Amer) 26 L, Glucose 176 H D, Calcium 8.5 I & O for Last 24 hours: Intake & Output 09/01/21 09/02/21 09/03/21 09/04/21 11:59 11:59 11:59 11:59 Intake Total 1375 / 1375 2003 564 / 564 Output Total 750 / 750 3295 / 3295 1450 / 1450 Balance 625 / 625 -1291 / -1291 -886 / -886 Weight 249 lb 15.997 oz 421 lb 1.326 oz 190 lb 1 oz 187 lb 5 oz Microbiology Reports for the Last 24 Hours: Microbiology 09/01/21 12:23 Blood Blood Culture - Final Staphylococcus aureus 09/01/21 12:23 Blood Blood Culture - Final Staphylococcus aureus - Constitutional no acute distress, chronically ill appearing Comments: pt has no response to stimuli, is moving arms but not on command - *Routine HEENT Exam Head: Present: normocephalic Eye: Present: PERRL, other ENT: Present: mucous membranes moist Comments: eyes slightly jerking - *Routine Neck Exam Present: supple. Absent: lymphadenopathy - *Routine Respiratory Exam Present: rhonchi - *Routine Cardiovascular Exam Present: RRR - *Routine Abdominal Exam Present: soft, normoactive bowel sounds. Absent: tenderness - *Routine Extremities Exam Present: normal capillary refill. Absent: edema - *Routine Skin Exam Present: scars, wounds Comments: stage 1 to coccyx - *Routine Neurological Exam pt has eyes open no response to stimuli, is moving arms but not on command Assessment and Plan (1) KAVITHA (acute kidney injury) Status: Acute Category: Medical Code(s): N17.9 - Acute kidney failure, unspecified (2) Dehydration Status: Acute Category: Medical Code(s): E86.0 - Dehydration (3) Elevated liver enzymes Status: Acute Category: Medical Code(s): R74.8 - Abnormal levels of other serum enzymes (4) Hyperglycemia Status: Acute Category: Medical Code(s): R73.9 - Hyperglycemia, unspecified (5) Hyperglycemia due to type 2 diabetes mellitus Status: Acute Qualifiers: Diabetes mellitus .net developer insulin use: with .net developer use Qualified Code(s): E11.65 - Type 2 diabetes mellitus with hyperglycemia; Z79.4 - retirement (current) use of insulin Category: Medical Code(s): E11.65 - Type 2 diabetes mellitus with hyperglycemia (6) Hyperkalemia Status: Acute Category: Medical Code(s): E87.5 - Hyperkalemia (7) Metabolic acidosis Status: Acute Category: Medical Code(s): E87.2 - Acidosis (8) Diabetes adiel
--- NOTE | 2021-09-04 10:53 | CT_ITS ---
FINAL REPORT TECHNIQUE: Axial CT images were performed through the head. Coronal reformatted images were submitted. This study was performed with techniques to keep radiation doses as low as reasonably achievable (ALARA). Individualized dose reduction techniques using automated exposure control or adjustment of mA and/or kV according to the patient's size were employed. CLINICAL HISTORY: monitor for any changes, nonresponsive COMPARISON: 09/01/2021 FINDINGS: The head is asymmetrically positioned in the gantry. There has been a dramatic change since the previous exam. There is now a well-circumscribed area of decreased attenuation in the medial superior right frontal lobe consistent with evolving cytotoxic edema. This is most consistent with ischemic infarct in the right anterior cerebral artery distribution. There are fairly symmetric regions of cytotoxic edema in the posterior medial hemispheres bilaterally. This is well seen on images 43 through 45 of series 4 and is probably related to subacute ischemic infarcts in the posterior portion of the anterior cerebral artery. There is also a focus of abnormal decreased attenuation in the basal ganglia probably due to a subacute lacunar infarct. There is no hemorrhagic transformation. There is mild mucoperiosteal thickening in the left maxillary sinus and the left cell of the sphenoid sinus consistent with chronic sinusitis. IMPRESSION: Evolving ischemic infarct predominantly in the anterior cerebral artery distributions and in the right basal ganglia. Continued follow-up is recommended. Reviewed, Interpreted and Dictated by Jose Abbasi MD Transcribed by Josefa Samuels Authenticated by Jose Abbasi MD on 09/04/2021 03:13:33 PM [facility]
--- NOTE | 2021-09-04 11:08 | HMH.PULMPN ---
Internal Medicine - PN: Subj *Date: 09/04/21 *Time: 11:08 Interval history: No significant improvement in mentation. Respiratory status improved, on 2 L saturating 97%. Exam - Constitutional Constitutional:: Absent: no acute distress, comfortable - HENMT Exam HENMT: Present: normocephalic - Eye Exam Eyes:: Present: normal appearance both eyes and related structures - Neck Exam Neck:: Present: normal visual inspection - Respiratory Exam Respiratory:: Present: respiratory distress, crackles, rhonchi. Absent: able to speak in complete sentences, wheezing - Cardiovascular Exam Cardiac:: Present: S1, S2 - GI Exam GI:: Present: soft - Neurological Exam Neurological: Present: motor sensory deficit. Absent: alert, awake, normal cognition, oriented X3 - Extremities Exam Extremities: Present: no cyanosis, no clubbing Assessment and Plan (1) KAVITHA (acute kidney injury) Status: Acute Category: Medical Code(s): N17.9 - Acute kidney failure, unspecified (2) Dehydration Status: Acute Category: Medical Code(s): E86.0 - Dehydration (3) Elevated liver enzymes Status: Acute Category: Medical Code(s): R74.8 - Abnormal levels of other serum enzymes (4) Hyperglycemia Status: Acute Category: Medical Code(s): R73.9 - Hyperglycemia, unspecified (5) Hyperglycemia due to type 2 diabetes mellitus Status: Acute Qualifiers: Diabetes mellitus senior living insulin use: with senior living use Qualified Code(s): E11.65 - Type 2 diabetes mellitus with hyperglycemia; Z79.4 - [facility] (current) use of insulin Category: Medical Code(s): E11.65 - Type 2 diabetes mellitus with hyperglycemia (6) Hyperkalemia Status: Acute Category: Medical Code(s): E87.5 - Hyperkalemia (7) Metabolic acidosis Status: Acute Category: Medical Code(s): E87.2 - Acidosis (8) Diabetes mellitus, insulin dependent (IDDM), uncontrolled Status: Chronic Category: Medical Code(s): E11.65 - Type 2 diabetes mellitus with hyperglycemia; Z79.4 - terminal gauger (current) use of insulin (9) Non-compliance Status: Chronic Category: Medical Code(s): Z91.19 - Patient's noncompliance with other medical treatment and regimen (10) Tobacco use Status: Chronic Category: Social Hx Code(s): Z72.0 - Tobacco use (11) Bacteremia Status: Acute Category: Medical Code(s): R78.81 - Bacteremia (12) MRSA bacteremia Status: Acute Category: Medical Code(s): R78.81 - Bacteremia; B95.62 - Methicillin resistant Staphylococcus aureus infection as the cause of diseases classified elsewhere - Assessment and plan all Dx Assessment and Plan for all problems:: #Acute hypoxic respiratory failure: 51-year-old male with a history of congestive heart failure EF around 30%, atrial fibrillation presented to the hospital after found lying down in his stool. Patient was altered on admission along with marked hypothermia and metabolic acidosis and significant electrolyte derangements, acute kidney injuryPatient also was aggressively hydrated during this hospital admission. He also had significant drop in hemoglobin from 11-4.8 status post transfusion, primary team evaluating the source of bleeding. Given his worsening respiratory status pulmonary was called for further management. Blood cultures positive for MRSA. Worsening leukocytosis, now at 32. Fibrinogen 403.. Platelets within normal limits. ABG from yesterday showed metabolic acidosis with respiratory compensation. Worsening renal function, BUN at 120 with creatinine 2.8. Anion gap 17.8 with a bicarb of 15. CT abdomen did not show any acute pathology. X-ray showed worsening volume overload and airspace disease. CT head on admission concerning for ischemic infarct history significant given patient presentation of altered mentation and loss of bowel control concerning for seizures. Plan: -No improvement in mentation, barely grimacing to painful stimuli. MRI not performed. P
--- NOTE | 2021-09-04 11:24 | DIET.NUTRFU ---
Patient continues to be unresponsive to stimulate. He had his eyes open today during rounds. Labs reviewed Na 154H, K 3.2L, BUN 116H, Cr 1.30H with glucose of 176H. POC today is to check keppra level, hx of seizures, on keppra at home and currently. GMAT TUTOR believes some seizure activity at this time. Continues NPO- NG in place for pills, start TF when medically feasible. glucerna 1.2 at 70ml/hr providing 1932kcal/day, 96gm protein, 1296ml free water. Flush with 120ml Q4H= 720ml for total fluid 2016ml/day. Reviewing weight hx, at office visit in may he was 214# CBW is 184#, he is down 29# or 13% in 4 months. Diuretic tx was provided upon admit. He is noted to have stage I, increased risk d/t limited mobility and dependent on staff for repositioning and limited nutrition. Only receiving dextrose IVF at this time. Would be beneficial to start enteral nutrition to better met needs. Reviewed this with GMAT TUTOR during rounds.
--- NOTE | 2021-09-04 14:32 | PC.NURSE ---
lab reported critical sodium and bun on patient along with a mrsa blood cultures and this was reported to javier chandra upon receival of the labs. also asked about sodium bicarb plavix and aspirin and was told to hold at that time. vanna had suggested a head ct and this was relayed to javier cahndra who said it was okay to order. at that time she also requested a d51/2ns to be ordered at 75 ml/hr
--- NOTE | 2021-09-04 18:28 | PC.NURSE ---
patient remains to be mostly unresponsive. some grimacing noticed at times with oral care and suctioning. unable to follow any commands, does seem to open eyes to sound. remains to have crackles. did notify md office about ct results and vanna's suggestions. has been turned frequently. multiple abrasions and scabs to legs. ng tube remains at 55 at nostril verified placement with listening. placed in contact for positive mrsa blood cultures. some leaking noted with otto. hair washed this shift. urine noted be dark. vitals stable. remains on 2l.
[2021-09-05] VITALS (16 sets, daily range): BP systolic 156–179; BP diastolic 58–86; PULSE 62–90; RESP 17–25; TEMP 36.1–37; O2SAT 92–100
[2021-09-05 02:48] LABS: Vancomycin,Trough 31.5 ug/mL (5.0-10.0)
--- NOTE | 2021-09-05 06:45 | HMH.GSPN ---
Subjective Narrative: No changes in overall condition per nursing. No sign of active gastrointestinal hemorrhage. Progress Note: A&P (1) KAVITHA (acute kidney injury) Status: Acute (2) Dehydration Status: Acute (3) Elevated liver enzymes Status: Acute (4) Hyperglycemia Status: Acute (5) Hyperglycemia due to type 2 diabetes mellitus Status: Acute (6) Hyperkalemia Status: Acute (7) Metabolic acidosis Status: Acute (8) Diabetes mellitus, insulin dependent (IDDM), uncontrolled Status: Chronic (9) Non-compliance Status: Chronic (10) Tobacco use Status: Chronic (11) Bacteremia Status: Acute (12) MRSA bacteremia Status: Acute Assessment and Plan for All Diagnoses:: Continue management as per primary service. No indication for acute endoscopic/surgical intervention. Exam Vital signs and Labs for Last 24 Hours: Temp Pulse Resp BP Pulse Ox 98.6 F 87 20 156/66 H 95 09/05/21 06:00 09/05/21 06:05 09/05/21 06:00 09/05/21 06:00 09/05/21 06:05 Laboratory Results - last 24 hr 09/04/21 05:38: WBC 28.8 H*, RBC 3.54 L, Hgb 10.0 L, Hct 31.1 L, MCV 87.8, MCH 28.3, MCHC 32.2, RDW 17.6 H, Plt Count 284, MPV 10.1, Neut % (Auto) 90.2 H, Lymph % (Auto) 7.1 L, [place] % (Auto) 2.3, Eos % (Auto) 0.1, Baso % (Auto) 0.2, Neut # (Auto) 26.0 H, Lymph # (Auto) 2.1, [place] # (Auto) 0.7, Eos # (Auto) 0.0, Baso # (Auto) 0.1, Total Counted 100, Neutrophils % (Manual) 93 H, Lymphocytes % (Manual) 7 L, Platelet Estimate Normal, Poikilocytosis 1+, Anisocytosis 1+ 09/04/21 05:38: Sodium 154 H*, Potassium 3.2 L, Chloride 122 H, Carbon Dioxide 18 L, Anion Gap 17.2 H, BUN 116 H*, Creatinine 3.10 H, Estimated Creat Clear 34, Estimated GFR 21 L, Est GFR ( Amer) 26 L, Glucose 176 H D, Calcium 8.5 09/04/21 23:30: Vancomycin Trough 31.5 H I & O for Last 24 hours: Intake & Output 09/02/21 09/03/21 09/04/21 09/05/21 11:59 11:59 11:59 11:59 Intake Total 1375 / 1375 2003 / 2003 664 / 664 1218 / 1218 Output Total 750 / 750 3295 / 3295 1450 / 1450 1800 / 1800 Balance 625 / 625 -1291 / -1291 -786 / -786 -582 / -582 Weight 421 lb 1.326 oz 190 lb 1 oz 187 lb 5 oz Microbiology Reports for the Last 24 Hours: Microbiology 09/01/21 12:23 Blood Blood Culture - Final Staphylococcus aureus 09/01/21 12:23 Blood Blood Culture - Final Staphylococcus aureus - Constitutional Comments: No change - *Routine Cardiovascular Exam Absent: tachycardia
[2021-09-05 06:56] LABS: Basophils # 0.1 K/mm3 (0-0.2); Basophils % 0.3 % (0.1-2.0); Eosinophils # 0.1 K/mm3 (0.0-0.4); Eosinophils % 0.3 % (0.1-12.0); Lymphocytes # 1.7 K/mm3 (0.7-4.5); Lymphocytes % 8.3 % (10-50); Mean Corpuscular HGB Conc 31.3 g/dL (31.8-35.4); Mean Corpuscular Hemoglobin 28.5 pg (27.0-31.2); Mean Corpuscular Volume 91.3 fl (80-94); Mean Platelet Volume 9.9 fl (7.4-10.4); Monocytes # 0.6 K/mm3 (0.1-1.0); Monocytes % 2.7 % (1.7-9.3); Neutrophils # 18.1 K/mm3 (1.8-7.8); Neutrophils % 88.4 % (37.0-80.0); Platelet Count 236 K/mm3 (142-424); Red Blood Count 3.51 M/mm3 (4.60-6.20); Red Cell Distribution Width 17.8 % (11.5-17.5); White Blood Count 20.5 K/mm3 (4.8-10.8)
[2021-09-05 07:00] LABS: MANUAL DIFFERENTIAL MANUAL DIFFERENTIAL (MANUAL DIFF)
[2021-09-05 07:03] LABS: Calcium 8.3 mg/dl (8.4-10.2); Carbon Dioxide 20 mmol/L (22.0-30.0); Creatinine Clearance Estimated 34 mL/min (50-200); Estimated Glomerular Filt Rate 21 ml/min (>60); GFR (African American) 26 ML/MIN (>60); Glucose 232 mg/dl (74-100)
[2021-09-05 07:12] LABS: Blood Urea Nitrogen 109 mg/dl (9-20); Chloride 128 mmol/L (98-107); Sodium 156 mmol/L (136-145)
--- NOTE | 2021-09-05 07:12 | PC.NURSE ---
Critical lab values: Sodium- 156, Potassium- 3.0, Chloride- 128, BUN 109 reported vias telephone to MD DEQUAN
[2021-09-05 08:17] LABS: Lymphocytes % 6 % (10-50); Monocytes % 3 % (2-9); Neutrophils % 91 % (42-76); Nucleated Red Blood Cells 3; Platelet Estimate Normal; Total Cells Counted 100
[2021-09-05 08:19] LABS: Anisocytosis 1+; Burr Cells 1+
--- NOTE | 2021-09-05 09:33 | HMH.ACPN2 ---
Internal Medicine - PN: Subj *Date: 09/05/21 *Time: 13:50 Interval history: 51 YOM resting in bed, does not respond to verbal/tactile/painful stimuli. EEG was completed yesterday and awaiting results. Exam Vital signs and Labs for Last 24 Hours: Temp Pulse Resp BP Pulse Ox 98.6 F 89 20 156/66 H 100 09/05/21 06:00 09/05/21 09:27 09/05/21 06:00 09/05/21 06:00 09/05/21 09:27 Laboratory Results - last 24 hr 09/04/21 23:30: Vancomycin Trough 31.5 H 09/05/21 05:44: WBC 20.5 H* D, RBC 3.51 L, Hgb 10.0 L, Hct 32.0 L, MCV 91.3, MCH 28.5, MCHC 31.3 L, RDW 17.8 H, Plt Count 236, MPV 9.9, Neut % (Auto) 88.4 H, Lymph % (Auto) 8.3 L, [place] % (Auto) 2.7, Eos % (Auto) 0.3, Baso % (Auto) 0.3, Neut # (Auto) 18.1 H, Lymph # (Auto) 1.7, [place] # (Auto) 0.6, Eos # (Auto) 0.1, Baso # (Auto) 0.1, Total Counted 100, Neutrophils % (Manual) 91 H, Lymphocytes % (Manual) 6 L, Monocytes % (Manual) 3, Nucleated RBCs 3, Platelet Estimate Normal, Anisocytosis 1+, [place] Cells 1+ 09/05/21 05:44: Sodium 156 H*, Potassium 3.0 L, Chloride 128 H, Carbon Dioxide 20 L, Anion Gap 11.0, BUN 109 H*, Creatinine 3.10 H, Estimated Creat Clear 34, Estimated GFR 21 L, Est GFR ( Amer) 26 L, Glucose 232 H, Calcium 8.3 L I & O for Last 24 hours: Intake & Output 09/02/21 09/03/21 09/04/21 09/05/21 23:59 23:59 23:59 23:59 Intake Total 2730 / 2730 649 / 649 777 / 777 1105 / 1105 Output Total 1750 / 3050 3145 / 3545 1500 / 1500 900 / 900 Balance 980 / -320 -2496 / -2896 -723 / -723 205 / 205 Weight 194 lb 0.108 oz 190 lb 1 oz 187 lb 5 oz Microbiology Reports for the Last 24 Hours: Microbiology 09/01/21 12:23 Blood Blood Culture - Final Staphylococcus aureus 09/01/21 12:23 Blood Blood Culture - Final Staphylococcus aureus - Constitutional chronically ill appearing - *Routine Respiratory Exam Present: accessory muscle use, rhonchi - *Routine Cardiovascular Exam Present: RRR - *Routine Abdominal Exam Present: soft, normoactive bowel sounds. Absent: firm - *Routine Extremities Exam Present: pulses intact. Absent: cyanosis, clubbing - *Routine Skin Exam Present: dry, warm. Absent: cyanosis, erythema - *Routine Neurological Exam Present: altered mental status Unresponsive to verbal/tactile/painful stimuli - Routine Psychiatric Exam Present: unable to assess Assessment and Plan (1) KAVITHA (acute kidney injury) Status: Acute Category: Medical Code(s): N17.9 - Acute kidney failure, unspecified (2) Dehydration Status: Acute Category: Medical Code(s): E86.0 - Dehydration (3) Elevated liver enzymes Status: Acute Category: Medical Code(s): R74.8 - Abnormal levels of other serum enzymes (4) Hyperglycemia Status: Acute Category: Medical Code(s): R73.9 - Hyperglycemia, unspecified (5) Hyperglycemia due to type 2 diabetes mellitus Status: Acute Qualifiers: Diabetes mellitus termination clerk insulin use: with termination clerk use Qualified Code(s): E11.65 - Type 2 diabetes mellitus with hyperglycemia; Z79.4 - detention (current) use of insulin Category: Medical Code(s): E11.65 - Type 2 diabetes mellitus with hyperglycemia (6) Hyperkalemia Status: Acute Category: Medical Code(s): E87.5 - Hyperkalemia (7) Metabolic acidosis Status: Acute Category: Medical Code(s): E87.2 - Acidosis (8) Diabetes mellitus, insulin dependent (IDDM), uncontrolled Status: Chronic Category: Medical Code(s): E11.65 - Type 2 diabetes mellitus with hyperglycemia; Z79.4 - detention (current) use of insulin (9) Non-compliance Status: Chronic Category: Medical Code(s): Z91.19 - Patient's noncompliance with other medical treatment and regimen (10) Tobacco use Status: Chronic Category: Social Hx Code(s): Z72.0 - Tobacco use (11) Bacteremia Status: Acute Category: Medical Code(s): R78.81 - Bacteremia (12) MRSA bacteremia
[2021-09-05 10:02] LABS: POC Glucose,Bedside 205 (70-110)
[2021-09-05 10:02] LABS: POC Glucose,Bedside 237 (70-110)
[2021-09-05 10:02] LABS: POC Glucose,Bedside 229 (70-110)
[2021-09-05 10:02] LABS: POC Glucose,Bedside 236 (70-110)
[2021-09-05 10:02] LABS: POC Glucose,Bedside 175 (70-110)
[2021-09-05 10:02] LABS: POC Glucose,Bedside 194 (70-110)
[2021-09-05 10:02] LABS: POC Glucose,Bedside 171 (70-110)
[2021-09-05 10:02] LABS: POC Glucose,Bedside 271 (70-110)
[2021-09-05 10:10] LABS: Vancomycin,Peak 30.8 ug/ml (11-39)
--- NOTE | 2021-09-05 10:12 | DIET.NUTRFU ---
Addendum entered by Yael Humphrey RD, LD 09/05/21 11:27: Facility carries Glucerna 1.0, adjusted goal rate to 85ml/hr to provide 1955kcal/81gm protein and 1667ml free water with 50ml Q6H= 200ml with total fluid 1867ml/day (22ml/kg) Original Note: Rounded with provider today and determined it was time to start enteral feeding via NG that is currently in place for medication administration. Patient continues to be unresponsive to stimuli has his eyes open and on room air. Currently receiving dextrose IV for hydration/nutrition. Start glucerna 1.2 at 20ml/hr and increase to 70ml/hr providing 1932kcal/day, 96gm protein, 1296ml free water. Flush with 120ml Q4H= 720ml when dextrose is discontinued for total fluid 2016ml/day. Labs reviewed Na 156H, BUN 109, Cr 3.10 showing some improvement. Based on renal fxn and Cr it is best to limit protein, Nepro is not appropriate unless plan to use dialysis tx. Therefore will start glucerna since he diabetic and currently using insulin. Will monitor sodium closely and adjust fluids as needed. CBW used for calculations is 84kg to meet 100% of needs at goal rate.
--- NOTE | 2021-09-05 10:22 | HMH.PHACONS ---
- Pharmacy Consult Date: 09/05/21 Time: 10:22 Referring provider: DR. BAIRES Reason for Consult:: VANCOMYCIN LEVEL AND DOSE CHANGE Allergies and ADEs:: Allergies Allergy/AdvReac Type Severity Reaction Status Date / Time codeine Allergy Verified 09/02/21 00:54 Home Medications:: Home Medications Medication Instructions Recorded Confirmed Type levetiracetam 500 mg tablet 500 mg PO BID #60 tab 01/15/21 09/01/21 Rx sildenafil 100 mg tablet 100 mg PO DAILY PRN #10 tab 01/15/21 09/01/21 Rx Atorvastatin Calcium [Lipitor 20mg 20 mg PO DAILY 01/23/21 09/01/21 History Tab] aspirin 81 mg tablet,delayed 81 mg PO DAILY 02/12/21 09/01/21 History release Empagliflozin [Jardiance] 10 mg PO DAILYDM 02/21/21 09/01/21 History Clopidogrel Bisulfate [Plavix] 75 mg PO DAILY 08/21/21 09/01/21 History Insulin Glargine,Hum.rec.anlog 40 units SQ HS 08/21/21 09/01/21 History [Lantus Solostar 100 Units/mL 3mL flexpen] carvediloL [Carvedilol 12.5mg Tab] 12.5 mg PO BID 08/21/21 09/01/21 History glipiZIDE [Glucotrol 5mg tablet] 5 mg PO DAILYDM 08/22/21 09/01/21 History Hydralazine HCl [Hydralazine HCl 25 mg PO TID 09/01/21 09/01/21 History 25mg Tablet] Sulfamethoxazole/Trimethoprim 1 tab PO BID 09/01/21 09/01/21 History [Sulfamethoxazole-Tmp Ds Tablet*] Height: 1.8 m Weight: 84.964 kg Laboratory Results:: Laboratory Results - last 24 hr 09/03/21 12:34: POC Glucose 271 H 09/03/21 17:03: POC Glucose 237 H 09/03/21 21:06: POC Glucose 175 H 09/04/21 05:35: POC Glucose 171 H 09/04/21 12:25: POC Glucose 194 H 09/04/21 17:04: POC Glucose 236 H 09/04/21 22:08: POC Glucose 205 H 09/04/21 23:30: Vancomycin Trough 31.5 H 09/05/21 05:44: Vancomycin Peak 30.8 09/05/21 05:44: WBC 20.5 H* D, RBC 3.51 L, Hgb 10.0 L, Hct 32.0 L, MCV 91.3, MCH 28.5, MCHC 31.3 L, RDW 17.8 H, Plt Count 236, MPV 9.9, Neut % (Auto) 88.4 H, Lymph % (Auto) 8.3 L, [place] % (Auto) 2.7, Eos % (Auto) 0.3, Baso % (Auto) 0.3, Neut # (Auto) 18.1 H, Lymph # (Auto) 1.7, [place] # (Auto) 0.6, Eos # (Auto) 0.1, Baso # (Auto) 0.1, Total Counted 100, Neutrophils % (Manual) 91 H, Lymphocytes % (Manual) 6 L, Monocytes % (Manual) 3, Nucleated RBCs 3, Platelet Estimate Normal, Anisocytosis 1+, [place] Cells 1+ 09/05/21 05:44: Sodium 156 H*, Potassium 3.0 L, Chloride 128 H, Carbon Dioxide 20 L, Anion Gap 11.0, BUN 109 H*, Creatinine 3.10 H, Estimated Creat Clear 34, Estimated GFR 21 L, Est GFR ( Amer) 26 L, Glucose 232 H, Calcium 8.3 L 09/05/21 06:38: POC Glucose 229 H Medical History: Reports:: Aneurysm, Arrhythmia, Atrial Fibrillation, Congestive Heart Failure, Congenital Heart Disease, Diabetes Mellitus Type 2, Hyperlipidemia, Hypertension, MRSA, Transient Ischemic Attacks (TIA) Denies:: Cancer, Diabetes Mellitus Type 1, Internal Pacemaker, Seizures Assessment and Plan (1) KAVITHA (acute kidney injury) Status: Acute Category: Medical Code(s): N17.9 - Acute kidney failure, unspecified (2) Dehydration Status: Acute Category: Medical Code(s): E86.0 - Dehydration (3) Elevated liver enzymes Status: Acute Category: Medical Code(s): R74.8 - Abnormal levels of other serum enzymes (4) Hyperglycemia Status: Acute Category: Medical Code(s): R73.9 - Hyperglycemia, unspecified (5) Hyperglycemia due to type 2 diabetes mellitus Status: Acute Qualifiers: Diabetes mellitus mcc insulin use: with mcc use Qualified Code(s): E11.65 - Type 2 diabetes mellitus with hyperglycemia; Z79.4 - long term care pharmacist (current) use of insulin Category: Medical Code(s): E11.65 - Type 2 diabetes mellitus with hyperglycemia (6) Hyperkalemia Status: Acute Category: Medical Code(s): E87.5 - Hyperkalemia (7) Metabolic acidosis Status: Acute Category: Medical Code(s): E87.2 - Acidosis (8) Diabetes mellitus, insulin dependent (IDDM), uncontrolled Status: Chronic Category: Medical Code(s): E11.65 - Type 2 diabetes mellitus with hyperglycemia; Z
--- NOTE | 2021-09-05 11:53 | HMH.ACPN ---
Internal Medicine - PN: Subj *Date: 09/05/21 *Time: 11:53 Exam Vital signs and Labs for Last 24 Hours: Temp Pulse Resp BP Pulse Ox 97 F L 89 24 160/72 H 100 09/05/21 08:00 09/05/21 09:27 09/05/21 08:00 09/05/21 08:00 09/05/21 09:27 Laboratory Results - last 24 hr 09/03/21 12:34: POC Glucose 271 H 09/03/21 17:03: POC Glucose 237 H 09/03/21 21:06: POC Glucose 175 H 09/04/21 05:35: POC Glucose 171 H 09/04/21 12:25: POC Glucose 194 H 09/04/21 17:04: POC Glucose 236 H 09/04/21 22:08: POC Glucose 205 H 09/04/21 23:30: Vancomycin Trough 31.5 H 09/05/21 05:44: Vancomycin Peak 30.8 09/05/21 05:44: WBC 20.5 H* D, RBC 3.51 L, Hgb 10.0 L, Hct 32.0 L, MCV 91.3, MCH 28.5, MCHC 31.3 L, RDW 17.8 H, Plt Count 236, MPV 9.9, Neut % (Auto) 88.4 H, Lymph % (Auto) 8.3 L, [place] % (Auto) 2.7, Eos % (Auto) 0.3, Baso % (Auto) 0.3, Neut # (Auto) 18.1 H, Lymph # (Auto) 1.7, [place] # (Auto) 0.6, Eos # (Auto) 0.1, Baso # (Auto) 0.1, Total Counted 100, Neutrophils % (Manual) 91 H, Lymphocytes % (Manual) 6 L, Monocytes % (Manual) 3, Nucleated RBCs 3, Platelet Estimate Normal, Anisocytosis 1+, Nadeem Cells 1+ 09/05/21 05:44: Sodium 156 H*, Potassium 3.0 L, Chloride 128 H, Carbon Dioxide 20 L, Anion Gap 11.0, BUN 109 H*, Creatinine 3.10 H, Estimated Creat Clear 34, Estimated GFR 21 L, Est GFR ( Amer) 26 L, Glucose 232 H, Calcium 8.3 L 09/05/21 06:38: POC Glucose 229 H I & O for Last 24 hours: Intake & Output 09/02/21 09/03/21 09/04/21 09/05/21 23:59 23:59 23:59 23:59 Intake Total 2730 / 2730 649 / 649 777 / 777 1605 / 1605 Output Total 1750 / 3050 3145 / 3545 1500 / 1500 1000 / 1000 Balance 980 / -320 -2496 / -2896 -723 / -723 605 / 605 Weight 88 kg 86.211 kg 84.964 kg Microbiology Reports for the Last 24 Hours: Microbiology 09/01/21 12:23 Blood Blood Culture - Final Staphylococcus aureus 09/01/21 12:23 Blood Blood Culture - Final Staphylococcus aureus Assessment and Plan (1) KAVITHA (acute kidney injury) Status: Acute Category: Medical Code(s): N17.9 - Acute kidney failure, unspecified (2) Dehydration Status: Acute Category: Medical Code(s): E86.0 - Dehydration (3) Elevated liver enzymes Status: Acute Category: Medical Code(s): R74.8 - Abnormal levels of other serum enzymes (4) Hyperglycemia Status: Acute Category: Medical Code(s): R73.9 - Hyperglycemia, unspecified (5) Hyperglycemia due to type 2 diabetes mellitus Status: Acute Qualifiers: Diabetes mellitus long term care pharmacist insulin use: with prison use Qualified Code(s): E11.65 - Type 2 diabetes mellitus with hyperglycemia; Z79.4 - retirement (current) use of insulin Category: Medical Code(s): E11.65 - Type 2 diabetes mellitus with hyperglycemia (6) Hyperkalemia Status: Acute Category: Medical Code(s): E87.5 - Hyperkalemia (7) Metabolic acidosis Status: Acute Category: Medical Code(s): E87.2 - Acidosis (8) Diabetes mellitus, insulin dependent (IDDM), uncontrolled Status: Chronic Category: Medical Code(s): E11.65 - Type 2 diabetes mellitus with hyperglycemia; Z79.4 - exterminator termite (current) use of insulin (9) Non-compliance Status: Chronic Category: Medical Code(s): Z91.19 - Patient's noncompliance with other medical treatment and regimen (10) Tobacco use Status: Chronic Category: Social Hx Code(s): Z72.0 - Tobacco use (11) Bacteremia Status: Acute Category: Medical Code(s): R78.81 - Bacteremia (12) MRSA bacteremia Status: Acute Category: Medical Code(s): R78.81 - Bacteremia; B95.62 - Methicillin resistant Staphylococcus aureus infection as the cause of diseases classified elsewhere The patient's infection will respond to the chosen ABx?: Yes Is the patient receiving the right drug, dose, and route?: Yes Could a more targeted ABx be ordered?: No (MRSA IN BLOOD)
[2021-09-05 12:08] LABS: POC Glucose,Bedside 213 (70-110)
--- NOTE | 2021-09-05 12:38 | CA_ITS ---
APPROVED REPORT EXAM: Comprehensive 2D, Doppler, and color-flow Echocardiogram Underpresser Hand: Ana Beaulieu RT(R) Ht: 5 ft 10 in Wt: 187lbs BSA: 2.03 BP: 154/68 mmHg Indications: Limited echo to assess for vegetation on valves. Patient is unresponsive without response to stimuli. smoker, noncompliance, DM, worsening kidney failure, HTN, hyperlipidemia, metabolic acidosis, blood cultures positive for STAPH. Echo done 08/21/21 Conclusion 1. Limited echocardiogram was performed to assess valvular vegetation. 2. There is moderate to large size echodense structure seen attached to the mostly right coronary cusp of the aortic valve this likely represents a valvular vegetation. There is trace aortic insufficiency. 3. The mitral and tricuspid valve appears to be grossly normal. 4. The pulmonic valve is poorly visualized 5. Normal left ventricular systolic function. Electronically signed by : Inderjit Ceron MD 09/05/2021 16:01:02
--- NOTE | 2021-09-05 13:13 | HMH.PULMPN ---
Internal Medicine - PN: Subj *Date: 09/05/21 *Time: 13:13 Interval history: No acute respiratory vents overnight. Worsening mentation. Evolving stroke on imaging. Not Responding to verbal or painful stimuli. Exam - Constitutional Constitutional:: Absent: no acute distress, comfortable - HENMT Exam HENMT: Present: normocephalic - Eye Exam Eyes:: Present: normal appearance both eyes and related structures - Respiratory Exam Respiratory:: Present: respiratory distress, rhonchi. Absent: able to speak in complete sentences, wheezing - Cardiovascular Exam Cardiac:: Present: S1, S2 - GI Exam GI:: Present: soft - Neurological Exam Neurological: Absent: alert, awake, normal cognition, oriented X3, motor sensory deficit, reflexes normal - Extremities Exam Extremities: Present: no cyanosis, no clubbing, no edema Assessment and Plan (1) KAVITHA (acute kidney injury) Status: Acute Category: Medical Code(s): N17.9 - Acute kidney failure, unspecified (2) Dehydration Status: Acute Category: Medical Code(s): E86.0 - Dehydration (3) Elevated liver enzymes Status: Acute Category: Medical Code(s): R74.8 - Abnormal levels of other serum enzymes (4) Hyperglycemia Status: Acute Category: Medical Code(s): R73.9 - Hyperglycemia, unspecified (5) Hyperglycemia due to type 2 diabetes mellitus Status: Acute Qualifiers: Diabetes mellitus long term care phlebotomist insulin use: with long term care phlebotomist use Qualified Code(s): E11.65 - Type 2 diabetes mellitus with hyperglycemia; Z79.4 - long term care phlebotomist (current) use of insulin Category: Medical Code(s): E11.65 - Type 2 diabetes mellitus with hyperglycemia (6) Hyperkalemia Status: Acute Category: Medical Code(s): E87.5 - Hyperkalemia (7) Metabolic acidosis Status: Acute Category: Medical Code(s): E87.2 - Acidosis (8) Diabetes mellitus, insulin dependent (IDDM), uncontrolled Status: Chronic Category: Medical Code(s): E11.65 - Type 2 diabetes mellitus with hyperglycemia; Z79.4 - half-way (current) use of insulin (9) Non-compliance Status: Chronic Category: Medical Code(s): Z91.19 - Patient's noncompliance with other medical treatment and regimen (10) Tobacco use Status: Chronic Category: Social Hx Code(s): Z72.0 - Tobacco use (11) Bacteremia Status: Acute Category: Medical Code(s): R78.81 - Bacteremia (12) MRSA bacteremia Status: Acute Category: Medical Code(s): R78.81 - Bacteremia; B95.62 - Methicillin resistant Staphylococcus aureus infection as the cause of diseases classified elsewhere - Assessment and plan all Dx Assessment and Plan for all problems:: #Acute hypoxic respiratory failure: 51-year-old male with a history of congestive heart failure EF around 30%, atrial fibrillation presented to the hospital after found lying down in his stool. Patient was altered on admission along with marked hypothermia and metabolic acidosis and significant electrolyte derangements, acute kidney injuryPatient also was aggressively hydrated during this hospital admission. He also had significant drop in hemoglobin from 11-4.8 status post transfusion, primary team evaluating the source of bleeding. Given his worsening respiratory status pulmonary was called for further management. Blood cultures positive for MRSA. CT abdomen did not show any acute pathology. X-ray showed worsening volume overload and airspace disease. CT head on admission concerning for ischemic infarct history significant given patient presentation of altered mentation and loss of bowel control concerning for seizures. Plan: -No improvement in mentation, barely grimacing to painful stimuli. Both upper and lower extremities appear flaccid. Pupils pinpoint nonreactive to light. CT head report reviewed, concerning for evolving stroke in the [place]. -Concern for status epilepticus given patient's continued altered mentation. Recommend stat EEG and if not available tr
--- NOTE | 2021-09-05 17:00 | PC.NURSE ---
Notified MD MANJU of large vegetation on aortic valve
[2021-09-05 17:04] LABS: POC Glucose,Bedside 154 (70-110)
[2021-09-05 20:36] LABS: POC Glucose,Bedside 146 (70-110)
[2021-09-06] VITALS (13 sets, daily range): BP systolic 124–169; BP diastolic 56–76; PULSE 74–103; RESP 16–25; TEMP 37.1–37.9; O2SAT 94–100; BMI 26.6
[2021-09-06 05:56] LABS: POC Glucose,Bedside 270 (70-110)
[2021-09-06 06:57] LABS: Basophils % 0.3 % (0.1-2.0); Eosinophils # 0.1 K/mm3 (0.0-0.4); Eosinophils % 0.5 % (0.1-12.0); Hemoglobin 10.1 g/dL (14.1-18.0); Lymphocytes # 1.6 K/mm3 (0.7-4.5); Lymphocytes % 10.1 % (10-50); Mean Corpuscular HGB Conc 30.5 g/dL (31.8-35.4); Mean Corpuscular Hemoglobin 28.1 pg (27.0-31.2); Mean Corpuscular Volume 92.1 fl (80-94); Mean Platelet Volume 9.9 fl (7.4-10.4); Monocytes # 0.4 K/mm3 (0.1-1.0); Monocytes % 2.5 % (1.7-9.3); Neutrophils # 13.5 K/mm3 (1.8-7.8); Neutrophils % 86.7 % (37.0-80.0); Platelet Count 228 K/mm3 (142-424); Red Blood Count 3.58 M/mm3 (4.60-6.20); Red Cell Distribution Width 17.9 % (11.5-17.5); White Blood Count 15.6 K/mm3 (4.8-10.8)
--- NOTE | 2021-09-06 07:00 | PC.NURSE ---
Report received from Rosalba Townsend RN
[2021-09-06 07:01] LABS: Anion Gap 15.3 mEq/L (5-15); Calcium 8.2 mg/dl (8.4-10.2); Carbon Dioxide 17 mmol/L (22.0-30.0); Creatinine Clearance Estimated 34 mL/min (50-200); Estimated Glomerular Filt Rate 21 ml/min (>60); GFR (African American) 26 ML/MIN (>60); Glucose 260 mg/dl (74-100); Potassium 3.3 mmoL/L (3.5-5.1)
--- NOTE | 2021-09-06 07:20 | PC.NURSE ---
Critical labs called to MD DEQUAN: Na- 163, k+ - 3.3, chloride- 134, BUN 103.
[2021-09-06 07:23] LABS: Blood Urea Nitrogen 103 mg/dl (9-20); Chloride 134 mmol/L (98-107); Sodium 163 mmol/L (136-145)
[2021-09-06 07:24] LABS: MANUAL DIFFERENTIAL MANUAL DIFFERENTIAL (MANUAL DIFF)
[2021-09-06 08:33] LABS: Lymphocytes % 15 % (10-50); Monocytes % 3 % (2-9); Neutrophils % 82 % (42-76); Platelet Estimate Normal; RBC Morphology Normal; Total Cells Counted 100
--- NOTE | 2021-09-06 08:40 | PC.NURSE ---
notified pharmacy that Keppra IVPB is needed in med bin
--- NOTE | 2021-09-06 09:01 | HMH.PHACONS ---
- Pharmacy Consult Date: 09/06/21 Time: 09:01 Referring provider: DR BAIRES Reason for Consult:: GENTAMICIN DOSING CONSULT Allergies and ADEs:: Allergies Allergy/AdvReac Type Severity Reaction Status Date / Time codeine Allergy Verified 09/02/21 00:54 Home Medications:: Home Medications Medication Instructions Recorded Confirmed Type levetiracetam 500 mg tablet 500 mg PO BID #60 tab 01/15/21 09/01/21 Rx sildenafil 100 mg tablet 100 mg PO DAILY PRN #10 tab 01/15/21 09/01/21 Rx Atorvastatin Calcium [Lipitor 20mg 20 mg PO DAILY 01/23/21 09/01/21 History Tab] aspirin 81 mg tablet,delayed 81 mg PO DAILY 02/12/21 09/01/21 History release Empagliflozin [Jardiance] 10 mg PO DAILYDM 02/21/21 09/01/21 History Clopidogrel Bisulfate [Plavix] 75 mg PO DAILY 08/21/21 09/01/21 History Insulin Glargine,Hum.rec.anlog 40 units SQ HS 08/21/21 09/01/21 History [Lantus Solostar 100 Units/mL 3mL flexpen] carvediloL [Carvedilol 12.5mg Tab] 12.5 mg PO BID 08/21/21 09/01/21 History glipiZIDE [Glucotrol 5mg tablet] 5 mg PO DAILYDM 08/22/21 09/01/21 History Hydralazine HCl [Hydralazine HCl 25 mg PO TID 09/01/21 09/01/21 History 25mg Tablet] Sulfamethoxazole/Trimethoprim 1 tab PO BID 09/01/21 09/01/21 History [Sulfamethoxazole-Tmp Ds Tablet*] Height: 1.8 m Weight: 86.211 kg Laboratory Results:: Laboratory Results - last 24 hr 09/03/21 12:34: POC Glucose 271 H 09/03/21 17:03: POC Glucose 237 H 09/03/21 21:06: POC Glucose 175 H 09/04/21 05:35: POC Glucose 171 H 09/04/21 12:25: POC Glucose 194 H 09/04/21 17:04: POC Glucose 236 H 09/04/21 22:08: POC Glucose 205 H 09/05/21 05:44: Vancomycin Peak 30.8 09/05/21 06:38: POC Glucose 229 H 09/05/21 12:00: POC Glucose 213 H 09/05/21 16:57: POC Glucose 154 H 09/05/21 20:27: POC Glucose 146 H 09/06/21 05:49: POC Glucose 270 H 09/06/21 05:55: WBC 15.6 H, RBC 3.58 L, Hgb 10.1 L, Hct 33.0 L, MCV 92.1, MCH 28.1, MCHC 30.5 L, RDW 17.9 H, Plt Count 228, MPV 9.9, Neut % (Auto) 86.7 H, Lymph % (Auto) 10.1, [place] % (Auto) 2.5, Eos % (Auto) 0.5, Baso % (Auto) 0.3, Neut # (Auto) 13.5 H, Lymph # (Auto) 1.6, [place] # (Auto) 0.4, Eos # (Auto) 0.1, Baso # (Auto) 0.0, Total Counted 100, Neutrophils % (Manual) 82 H, Lymphocytes % (Manual) 15, Monocytes % (Manual) 3, Platelet Estimate Normal, RBC Morphology Normal 09/06/21 05:55: Sodium 163 H*, Potassium 3.3 L, Chloride 134 H, Carbon Dioxide 17 L, Anion Gap 15.3 H, BUN 103 H*, Creatinine 3.10 H, Estimated Creat Clear 34, Estimated GFR 21 L, Est GFR ( Amer) 26 L, Glucose 260 H, Calcium 8.2 L Medical History: Reports:: Aneurysm, Arrhythmia, Atrial Fibrillation, Congestive Heart Failure, Congenital Heart Disease, Diabetes Mellitus Type 2, Hyperlipidemia, Hypertension, MRSA, Transient Ischemic Attacks (TIA) Denies:: Cancer, Diabetes Mellitus Type 1, Internal Pacemaker, Seizures Assessment and Plan (1) KAVITHA (acute kidney injury) Status: Acute Category: Medical Code(s): N17.9 - Acute kidney failure, unspecified (2) Dehydration Status: Acute Category: Medical Code(s): E86.0 - Dehydration (3) Elevated liver enzymes Status: Acute Category: Medical Code(s): R74.8 - Abnormal levels of other serum enzymes (4) Hyperglycemia Status: Acute Category: Medical Code(s): R73.9 - Hyperglycemia, unspecified (5) Hyperglycemia due to type 2 diabetes mellitus Status: Acute Qualifiers: Diabetes mellitus terminal computer operator insulin use: with terminal computer operator use Qualified Code(s): E11.65 - Type 2 diabetes mellitus with hyperglycemia; Z79.4 - terminal computer operator (current) use of insulin Category: Medical Code(s): E11.65 - Type 2 diabetes mellitus with hyperglycemia (6) Hyperkalemia Status: Acute Category: Medical Code(s): E87.5 - Hyperkalemia (7) Metabolic acidosis Status: Acute Category: Medical Code(s): E87.2 - Acidosis (8) Diabetes mellitus, insulin dependent (IDDM), uncontrolled Status: Chronic Category: Medical Code(s):
--- NOTE | 2021-09-06 09:45 | HMH.ACPN2 ---
Internal Medicine - PN: Subj *Date: 09/06/21 *Time: 19:24 Interval history: 51-year-old male patient resting in bed he is unresponsive to verbal/tactile/painful stimuli and pupils are nonreactive to light. Current oxygenation 93% on 2 L per nasal cannula. Echocardiogram revealed aortic valve vegetation was discussed with cardiology, no further intervention at this moment. He is being treated with vancomycin. Call was placed to [facility], his location of residence, informed his last year, unable to locate possibly brother, [facility] states they have no family or friends on the record and no visualization of any visitors. Exam Vital signs and Labs for Last 24 Hours: Temp Pulse Resp BP Pulse Ox 99.3 F 86 22 169/73 H 97 09/06/21 00:00 09/06/21 06:50 09/06/21 04:00 09/06/21 04:00 09/06/21 06:50 Laboratory Results - last 24 hr 09/03/21 12:34: POC Glucose 271 H 09/03/21 17:03: POC Glucose 237 H 09/03/21 21:06: POC Glucose 175 H 09/04/21 05:35: POC Glucose 171 H 09/04/21 12:25: POC Glucose 194 H 09/04/21 17:04: POC Glucose 236 H 09/04/21 22:08: POC Glucose 205 H 09/05/21 05:44: Vancomycin Peak 30.8 09/05/21 06:38: POC Glucose 229 H 09/05/21 12:00: POC Glucose 213 H 09/05/21 16:57: POC Glucose 154 H 09/05/21 20:27: POC Glucose 146 H 09/06/21 05:49: POC Glucose 270 H 09/06/21 05:55: WBC 15.6 H, RBC 3.58 L, Hgb 10.1 L, Hct 33.0 L, MCV 92.1, MCH 28.1, MCHC 30.5 L, RDW 17.9 H, Plt Count 228, MPV 9.9, Neut % (Auto) 86.7 H, Lymph % (Auto) 10.1, [place] % (Auto) 2.5, Eos % (Auto) 0.5, Baso % (Auto) 0.3, Neut # (Auto) 13.5 H, Lymph # (Auto) 1.6, [place] # (Auto) 0.4, Eos # (Auto) 0.1, Baso # (Auto) 0.0, Total Counted 100, Neutrophils % (Manual) 82 H, Lymphocytes % (Manual) 15, Monocytes % (Manual) 3, Platelet Estimate Normal, RBC Morphology Normal 09/06/21 05:55: Sodium 163 H*, Potassium 3.3 L, Chloride 134 H, Carbon Dioxide 17 L, Anion Gap 15.3 H, BUN 103 H*, Creatinine 3.10 H, Estimated Creat Clear 34, Estimated GFR 21 L, Est GFR ( Amer) 26 L, Glucose 260 H, Calcium 8.2 L I & O for Last 24 hours: Intake & Output 09/03/21 09/04/21 09/05/21 09/06/21 23:59 23:59 23:59 23:59 Intake Total 649 / 649 777 / 777 1717 / 1717 496 / 496 Output Total 3145 / 3545 1500 / 1500 1000 / 1250 650 / 650 Balance -2496 / -2896 -723 / -723 717 / 467 -154 / -154 Weight 190 lb 1 oz 187 lb 5 oz 190 lb 1 oz - *Routine HEENT Exam Eye: Present: other Comments: Pupils nonreactive to light - *Routine Neck Exam Present: trachea midline. Absent: tracheal deviation - *Routine Respiratory Exam Present: rhonchi - *Routine Cardiovascular Exam Present: RRR - *Routine Abdominal Exam Present: soft, normoactive bowel sounds. Absent: tenderness - *Routine Extremities Exam Present: pulses intact. Absent: cyanosis, clubbing - *Routine Skin Exam Present: cyanosis, dry - *Routine Neurological Exam Present: altered mental status Assessment and Plan (1) KAVITHA (acute kidney injury) Status: Acute Category: Medical Code(s): N17.9 - Acute kidney failure, unspecified (2) Dehydration Status: Acute Category: Medical Code(s): E86.0 - Dehydration (3) Elevated liver enzymes Status: Acute Category: Medical Code(s): R74.8 - Abnormal levels of other serum enzymes (4) Hyperglycemia Status: Acute Category: Medical Code(s): R73.9 - Hyperglycemia, unspecified (5) Hyperglycemia due to type 2 diabetes mellitus Status: Acute Qualifiers: Diabetes mellitus [facility] insulin use: with [place] use Qualified Code(s): E11.65 - Type 2 diabetes mellitus with hyperglycemia; Z79.4 - senior living (current) use of insulin Category: Medical Code(s): E11.65 - Type 2 diabetes mellitus with hyperglycemia (6) Hyperkalemia Status: Acute Category: Medical Code(s): E87.5 - Hyperkalemia (7) Metabolic acidosis Status: Acute Category: Medical Code(s): E87.2 - Acidosis (8) Di
--- NOTE | 2021-09-06 10:34 | SW/DCPLANNER ---
Addendum entered by Maura Bear 09/09/21 10:40: I have notified Jennifer romero/ DEIDRE regarding this patient expiring yesterday 09/08/21. Addendum entered by Maura Oreana 09/06/21 14:37: Zainab romero/ DEIDRE is in route to evaluate this patient. Addendum entered by Maura Oreana 09/06/21 12:54: Per Central Intake this case did meet criteria and will be investigated by a Cabinet Steel Detailer. Original Note: I have attempted to contact several phone numbers for next of kind listed for this patient. I have recently discovered that patients (Yevgeniy) previously listed on demographics has since . I also spoke with Saniya Colmenares ([facility] property inspector) [phone] regarding this patient. Saniya stated that she is the one that contacted EMS and did verify that patient did not list anyone as an emergency contact. Due to patient being unresponsive, unable to make decisions for himself and does not have a next of kind listed I have reported this case to Central Intake. ID # [id number]. I will follow up with ID # and MD regarding this case.
--- NOTE | 2021-09-06 11:42 | DIET.NUTRFU ---
Not Responding to verbal or painful stimuli. 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 Providers are running multiple tests and have come to believe patient has brain dysfxn he is able to breathe, cough but unable to respond to use and cannot eat. associate merchandise planner has tried to contact family and there are no living person listed. His recently passed. Currently receiving Glucerna 1.0 at 60ml/hr with goal rate of 85ml/hr to meet 100% of needs. He is tolerating at 60ml/hr. Labs are Na 163 (getting worse), K 3.3, BUN 103H (showing slight improvement) Based on Na he is receiving low amounts of flush at 50ml Q6H to provide 200ml. Will continue to follow with POC
--- NOTE | 2021-09-06 12:04 | HMH.PULMPN ---
Internal Medicine - PN: Subj *Date: 09/06/21 *Time: 12:04 Interval history: No acute respiratory events overnight. No significant improvement in his mentation. Exam - Constitutional Constitutional:: Absent: no acute distress, comfortable - HENMT Exam HENMT: Present: normocephalic, atraumatic - Neck Exam Neck:: Present: normal visual inspection - Respiratory Exam Respiratory:: Present: rhonchi. Absent: able to speak in complete sentences, respiratory distress, wheezing - Cardiovascular Exam Cardiac:: Present: S1, S2 - GI Exam GI:: Present: soft - Neurological Exam Neurological: Absent: alert, awake, normal cognition, oriented X3, CN II-XII intact, motor sensory deficit, reflexes normal - Extremities Exam Extremities: Present: no cyanosis, no clubbing, edema Assessment and Plan (1) KAVITHA (acute kidney injury) Status: Acute Category: Medical Code(s): N17.9 - Acute kidney failure, unspecified (2) Dehydration Status: Acute Category: Medical Code(s): E86.0 - Dehydration (3) Elevated liver enzymes Status: Acute Category: Medical Code(s): R74.8 - Abnormal levels of other serum enzymes (4) Hyperglycemia Status: Acute Category: Medical Code(s): R73.9 - Hyperglycemia, unspecified (5) Hyperglycemia due to type 2 diabetes mellitus Status: Acute Qualifiers: Diabetes mellitus local company intermodal truck driver insulin use: with nursing home use Qualified Code(s): E11.65 - Type 2 diabetes mellitus with hyperglycemia; Z79.4 - [facility] (current) use of insulin Category: Medical Code(s): E11.65 - Type 2 diabetes mellitus with hyperglycemia (6) Hyperkalemia Status: Acute Category: Medical Code(s): E87.5 - Hyperkalemia (7) Metabolic acidosis Status: Acute Category: Medical Code(s): E87.2 - Acidosis (8) Diabetes mellitus, insulin dependent (IDDM), uncontrolled Status: Chronic Category: Medical Code(s): E11.65 - Type 2 diabetes mellitus with hyperglycemia; Z79.4 - medical terminologist (current) use of insulin (9) Non-compliance Status: Chronic Category: Medical Code(s): Z91.19 - Patient's noncompliance with other medical treatment and regimen (10) Tobacco use Status: Chronic Category: Social Hx Code(s): Z72.0 - Tobacco use (11) Bacteremia Status: Acute Category: Medical Code(s): R78.81 - Bacteremia (12) MRSA bacteremia Status: Acute Category: Medical Code(s): R78.81 - Bacteremia; B95.62 - Methicillin resistant Staphylococcus aureus infection as the cause of diseases classified elsewhere - Assessment and plan all Dx Assessment and Plan for all problems:: #Acute hypoxic respiratory failure: 51-year-old male with a history of congestive heart failure EF around 30%, atrial fibrillation presented to the hospital after found lying down in his stool. Patient was altered on admission along with marked hypothermia and metabolic acidosis and significant electrolyte derangements, acute kidney injuryPatient also was aggressively hydrated during this hospital admission. He also had significant drop in hemoglobin from 11-4.8 status post transfusion, primary team evaluating the source of bleeding. Given his worsening respiratory status pulmonary was called for further management. Blood cultures positive for MRSA. CT abdomen did not show any acute pathology. X-ray showed worsening volume overload and airspace disease. CT head on admission concerning for ischemic infarct history significant given patient presentation of altered mentation and loss of bowel control concerning for seizures. Plan: -No improvement in mentation, barely grimacing to painful stimuli. Both upper and lower extremities appear flaccid. Pupils pinpoint nonreactive to light. CT head from 09/04/2020 report reviewed, concerning for evolving stroke in the [place]. Repeat echocardiogram positive for aortic valve vegetation, given his bacteremia and stroke I am concerned the patient may be having septic emboli and a
[2021-09-06 13:18] LABS: POC Glucose,Bedside 307 (70-110)
--- NOTE | 2021-09-06 14:34 | PC.NURSE ---
EEG placed at 1434
--- NOTE | 2021-09-06 15:14 | PC.WOUNDNOTE ---
Flushes increased to 200 Q4H providing 1200ml flush with TF free water of 1667 free water with total fluids 2867ml, this is exceeding needs. flush was increased to help with hypnatremia per Dr. Boateng. Diuretic tx was also discontinued and K ordered for repletion. Na was up to 156H and K down to 3.2. Will continue to monitor labs and adjust flush
[2021-09-06 17:36] LABS: POC Glucose,Bedside 227 (70-110)
--- NOTE | 2021-09-06 19:02 | PC.NURSE ---
PATIENT CONTINUES TO BREATHE AGONALLY-- PROVIDER AWARE DURING MORNING ROUNDS. THIS HAS NOT CHANGED FROM PREVIOUS ASSESSMENTS THE PAST FEW SHIFTS. PATIENT REMAINS UNRESPONSIVE WITH A GCS OF 5. Decerebrate posturing noted on bilateral upper extremities with extinguished sensation noted more in right upper. No triple flexion in bilateral lower extremities. Patient remains PERRLA at 3, cough and gag still intact. RN notified plastics fitter RN to call [facility].
--- NOTE | 2021-09-06 19:21 | PC.NURSE ---
tube feed held due to agonal work of breathing and coarse crackles
[2021-09-06 21:10] LABS: POC Glucose,Bedside 146 (70-110)
[2021-09-07] VITALS (14 sets, daily range): BP systolic 134–193; BP diastolic 60–79; PULSE 82–97; RESP 16–21; TEMP 36.6–36.9; O2SAT 91–100
[2021-09-07 06:18] LABS: POC Glucose,Bedside 182 (70-110)
[2021-09-07 06:49] LABS: Anion Gap 12.5 mEq/L (5-15); Basophils # 0.1 K/mm3 (0-0.2); Basophils % 0.3 % (0.1-2.0); Carbon Dioxide 19 mmol/L (22.0-30.0); Creatinine Clearance Estimated 33 mL/min (50-200); Eosinophils # 0.2 K/mm3 (0.0-0.4); Eosinophils % 1.2 % (0.1-12.0); Estimated Glomerular Filt Rate 21 ml/min (>60); GFR (African American) 25 ML/MIN (>60); Glucose 189 mg/dl (74-100); Hematocrit 31.8 % (42.0-52.0); Hemoglobin 9.5 g/dL (14.1-18.0); Lymphocytes # 1.4 K/mm3 (0.7-4.5); Mean Corpuscular HGB Conc 29.9 g/dL (31.8-35.4); Mean Corpuscular Hemoglobin 27.8 pg (27.0-31.2); Mean Platelet Volume 10.5 fl (7.4-10.4); Monocytes # 0.4 K/mm3 (0.1-1.0); Monocytes % 2.5 % (1.7-9.3); Neutrophils # 12.1 K/mm3 (1.8-7.8); Platelet Count 194 K/mm3 (142-424); Potassium 3.5 mmoL/L (3.5-5.1); Red Blood Count 3.42 M/mm3 (4.60-6.20); Red Cell Distribution Width 18.2 % (11.5-17.5); White Blood Count 14.1 K/mm3 (4.8-10.8)
[2021-09-07 07:00] LABS: Sodium 163 mmol/L (136-145)
[2021-09-07 07:01] LABS: Blood Urea Nitrogen 98 mg/dl (9-20); Chloride 135 mmol/L (98-107)
--- NOTE | 2021-09-07 07:04 | PC.NURSE ---
notified MD Mitali walters of pt's critical labs, sodium 163, chloride 135, and BUN 98; no new orders at this time, will continue to monitor
[2021-09-07 07:06] LABS: MANUAL DIFFERENTIAL MANUAL DIFFERENTIAL (MANUAL DIFF)
[2021-09-07 07:46] LABS: Eosinophils % 1 % (0-3); Lymphocytes % 7 % (10-50); Monocytes % 3 % (2-9); Neutrophils % 86 % (42-76); Nucleated Red Blood Cells 1; Total Cells Counted 100
[2021-09-07 07:47] LABS: Anisocytosis 1+; Hypochromasia 2+; Platelet Estimate Normal
--- NOTE | 2021-09-07 10:37 | HMH.ACPN2 ---
Internal Medicine - PN: Subj *Date: 09/08/21 *Time: 05:40 Interval history: pt with no great change in mentation or labs Exam Vital signs and Labs for Last 24 Hours: Temp Pulse Resp BP Pulse Ox 98.7 F 94 H 19 172/74 H 97 09/06/21 20:00 09/07/21 08:00 09/07/21 06:00 09/07/21 06:00 09/07/21 06:54 Laboratory Results - last 24 hr 09/06/21 13:11: POC Glucose 307 H* 09/06/21 17:28: POC Glucose 227 H 09/06/21 21:02: POC Glucose 146 H 09/07/21 06:09: POC Glucose 182 H 09/07/21 06:26: WBC 14.1 H, RBC 3.42 L, Hgb 9.5 L, Hct 31.8 L, MCV 93.0, MCH 27.8, MCHC 29.9 L, RDW 18.2 H, Plt Count 194, MPV 10.5 H, Neut % (Auto) 86.0 H, Lymph % (Auto) 10.0, [place] % (Auto) 2.5, Eos % (Auto) 1.2, Baso % (Auto) 0.3, Neut # (Auto) 12.1 H, Lymph # (Auto) 1.4, Grand # (Auto) 0.4, Eos # (Auto) 0.2, Baso # (Auto) 0.1, Total Counted 100, Neutrophils % (Manual) 86 H, Band Neutrophils % 3.0, Lymphocytes % (Manual) 7 L, Monocytes % (Manual) 3, Eosinophils % (Manual) 1, Nucleated RBCs 1, Platelet Estimate Normal, Hypochromasia 2+, Anisocytosis 1+ 09/07/21 06:26: Sodium 163 H*, Potassium 3.5, Chloride 135 H, Carbon Dioxide 19 L, Anion Gap 12.5, BUN 98 H, Creatinine 3.20 H, Estimated Creat Clear 33, Estimated GFR 21 L, Est GFR ( Amer) 25 L, Glucose 189 H, Calcium 8.0 L I & O for Last 24 hours: Intake & Output 09/04/21 09/05/21 09/06/21 09/07/21 11:59 11:59 11:59 11:59 Intake Total 664 / 664 1718 / 1718 1008 / 1008 600 / 600 Output Total 1450 / 1450 1900 / 1900 950 / 950 1420 / 1420 Balance -786 / -786 -182 / -182 58 / 58 -820 / -820 Weight 187 lb 5 oz 190 lb 1 oz - Constitutional moderate distress, somnolent - *Routine HEENT Exam Head: Present: normocephalic Eye: Absent: conjunctival icterus ENT: Present: mucous membranes dry - *Routine Neck Exam Absent: JVD - *Routine Respiratory Exam Present: rhonchi, diminished air movement - *Routine Cardiovascular Exam Present: RRR - *Routine Abdominal Exam Present: soft - *Routine Extremities Exam Present: edema - *Routine Skin Exam Absent: jaundice - *Routine Neurological Exam Present: altered mental status - Routine Psychiatric Exam Present: unable to assess Assessment and Plan (1) KAVITHA (acute kidney injury) Status: Acute Category: Medical Code(s): N17.9 - Acute kidney failure, unspecified (2) Dehydration Status: Acute Category: Medical Code(s): E86.0 - Dehydration (3) Elevated liver enzymes Status: Acute Category: Medical Code(s): R74.8 - Abnormal levels of other serum enzymes (4) Hyperglycemia Status: Acute Category: Medical Code(s): R73.9 - Hyperglycemia, unspecified (5) Hyperglycemia due to type 2 diabetes mellitus Status: Acute Qualifiers: Diabetes mellitus intermediate insulin use: with vermin exterminator use Qualified Code(s): E11.65 - Type 2 diabetes mellitus with hyperglycemia; Z79.4 - halfway (current) use of insulin Category: Medical Code(s): E11.65 - Type 2 diabetes mellitus with hyperglycemia (6) Hyperkalemia Status: Acute Category: Medical Code(s): E87.5 - Hyperkalemia (7) Metabolic acidosis Status: Acute Category: Medical Code(s): E87.2 - Acidosis (8) Diabetes mellitus, insulin dependent (IDDM), uncontrolled Status: Chronic Category: Medical Code(s): E11.65 - Type 2 diabetes mellitus with hyperglycemia; Z79.4 - intermediate manager (current) use of insulin (9) Non-compliance Status: Chronic Category: Medical Code(s): Z91.19 - Patient's noncompliance with other medical treatment and regimen (10) Tobacco use Status: Chronic Category: Social Hx Code(s): Z72.0 - Tobacco use (11) Bacteremia Status: Acute Category: Medical Code(s): R78.81 - Bacteremia (12) MRSA bacteremia Status: Acute Category: Medical Code(s): R78.81 - Bacteremia; B95.62 - Methicillin resistant Staphylococcus aureus infection as the cause of diseases classified elsewhere (13) Hypernatremia Statu
[2021-09-08] VITALS (17 sets, daily range): BP systolic 121–202; BP diastolic 61–83; PULSE 73–94; RESP 16–21; TEMP 36.8–37.2; O2SAT 97–99
--- NOTE | 2021-09-08 05:54 | PC.NURSE ---
Pt remains unresponsive t/o shift. Pt has been q2h turn, with frequent oral care given. Bed bath was given this shift, changed pressure dressing to coccyx. Tube feeding has increased to 70ml, and pt is tolerating well. King is draining with total output of 750ml this shift.
--- NOTE | 2021-09-08 06:25 | PC.NURSE ---
Gave report to GENESIS Díaz.
[2021-09-08 07:39] LABS: Alanine Aminotransferase 67 U/L (12-78); Albumin Level 2.7 g/dl (3.5-5.0); Alkaline Phosphatase 166 U/L (38-126); Aspartate Amino Transferase 33 U/L (17-59); Bilirubin,Direct 0.2 mg/dl (0.0-0.4); Bilirubin,Indirect 0.1 mg/dL (0.0-0.9); Bilirubin,Total 0.3 mg/dl (0.2-1.3); Bilirubin,Unconjugated 0.1 mg/dL (0.0-1.1); Total Protein,Serum 6.4 g/dl (6.3-8.2)
--- NOTE | 2021-09-08 08:00 | XR_ITS ---
PROCEDURE INFORMATION: Exam: XR Chest Exam date and time: 09/08/2021 8:00 AM Age: 51 years old Clinical indication: Shortness of breath; Additional info: SOB TECHNIQUE: Imaging protocol: XR of the chest. Views: 1 view. COMPARISON: CR XR CHEST PORTABLE 09/03/2021 9:24 AM FINDINGS: Tubes, catheters and devices: There is a nasogastric tube traversing the esophagus, the tip of which projects off the bottom of the radiograph. Lungs: There may be mild atelectasis lung bases. No consolidation. Pleural spaces: Unremarkable. No pleural effusion. No pneumothorax. Heart/Mediastinum: Unremarkable. No cardiomegaly. Bones/joints: Unremarkable. IMPRESSION: No acute findings.
--- NOTE | 2021-09-08 09:40 | HMH.ACPN2 ---
Internal Medicine - PN: Subj *Date: 09/08/21 *Time: 22:05 Interval history: pt with grossly no change Exam Vital signs and Labs for Last 24 Hours: Temp Pulse Resp BP Pulse Ox 98.9 F 94 H 16 191/83 H 98 09/08/21 05:45 09/08/21 08:00 09/08/21 08:00 09/08/21 08:00 09/08/21 08:00 Laboratory Results - last 24 hr 09/08/21 07:01: Total Bilirubin 0.3, Direct Bilirubin 0.2, Conjugated Bilirubin 0.0, Indirect Bilirubin 0.1, Unconjugated Bilirubin 0.1, AST 33, ALT 67, Alkaline Phosphatase 166 H, Total Protein 6.4, Albumin 2.7 L I & O for Last 24 hours: Intake & Output 09/05/21 09/06/21 09/07/21 09/08/21 11:59 11:59 11:59 11:59 Intake Total 1718 / 1718 1008 / 1008 600 / 600 1637 / 1637 Output Total 1900 / 1900 950 / 950 1720 / 1720 750 / 750 Balance -182 / -182 58 / 58 -1120 / -1120 887 / 887 Weight 190 lb 1 oz Microbiology Reports for the Last 24 Hours: Microbiology 09/05/21 13:00 Blood Blood Culture - Preliminary 09/05/21 13:00 Blood Blood Culture - Preliminary NO GROWTH AFTER 48 HOURS - Constitutional obtunded - *Routine HEENT Exam Head: Present: normocephalic Eye: Present: EOMI, PERRL ENT: Present: mucous membranes dry - *Routine Neck Exam Absent: JVD - *Routine Respiratory Exam Present: decreased breath sounds - *Routine Cardiovascular Exam Present: RRR - *Routine Abdominal Exam Present: soft - *Routine Extremities Exam Present: edema - *Routine Skin Exam Absent: jaundice - *Routine Neurological Exam Present: altered mental status - Routine Psychiatric Exam Present: unable to assess Assessment and Plan (1) KAVITHA (acute kidney injury) Status: Acute Category: Medical Code(s): N17.9 - Acute kidney failure, unspecified (2) Dehydration Status: Acute Category: Medical Code(s): E86.0 - Dehydration (3) Elevated liver enzymes Status: Acute Category: Medical Code(s): R74.8 - Abnormal levels of other serum enzymes (4) Hyperglycemia Status: Acute Category: Medical Code(s): R73.9 - Hyperglycemia, unspecified (5) Hyperglycemia due to type 2 diabetes mellitus Status: Acute Qualifiers: Diabetes mellitus usp insulin use: with antique finisher use Qualified Code(s): E11.65 - Type 2 diabetes mellitus with hyperglycemia; Z79.4 - skilled nursing (current) use of insulin Category: Medical Code(s): E11.65 - Type 2 diabetes mellitus with hyperglycemia (6) Hyperkalemia Status: Acute Category: Medical Code(s): E87.5 - Hyperkalemia (7) Metabolic acidosis Status: Acute Category: Medical Code(s): E87.2 - Acidosis (8) Diabetes mellitus, insulin dependent (IDDM), uncontrolled Status: Chronic Category: Medical Code(s): E11.65 - Type 2 diabetes mellitus with hyperglycemia; Z79.4 - director customer (current) use of insulin (9) Non-compliance Status: Chronic Category: Medical Code(s): Z91.19 - Patient's noncompliance with other medical treatment and regimen (10) Tobacco use Status: Chronic Category: Social Hx Code(s): Z72.0 - Tobacco use (11) Bacteremia Status: Acute Category: Medical Code(s): R78.81 - Bacteremia (12) MRSA bacteremia Status: Acute Category: Medical Code(s): R78.81 - Bacteremia; B95.62 - Methicillin resistant Staphylococcus aureus infection as the cause of diseases classified elsewhere (13) Hypernatremia Status: Acute Category: Medical Code(s): E87.0 - Hyperosmolality and hypernatremia (14) CVA (cerebral vascular accident) Status: Acute Qualifiers: CVA mechanism: unspecified Qualified Code(s): I63.9 - Cerebral infarction, unspecified Category: Medical Code(s): I63.9 - Cerebral infarction, unspecified (15) Abnormal electrocardiography Status: Chronic Category: Medical Code(s): R94.31 - Abnormal electrocardiogram [ECG] [EKG] (16) Seizure disorder Status: Acute Category: Medical Code(s): G40.909 - Epilepsy, unspec
[2021-09-08 10:06] LABS: MANUAL DIFFERENTIAL MANUAL DIFFERENTIAL (MANUAL DIFF)
[2021-09-08 10:12] LABS: Basophils % 0.2 % (0.1-2.0); Eosinophils # 0.3 K/mm3 (0.0-0.4); Eosinophils % 2.3 % (0.1-12.0); Hematocrit 31.9 % (42.0-52.0); Hemoglobin 9.7 g/dL (14.1-18.0); Lymphocytes # 1.7 K/mm3 (0.7-4.5); Lymphocytes % 11.4 % (10-50); Mean Corpuscular HGB Conc 30.4 g/dL (31.8-35.4); Mean Corpuscular Hemoglobin 28.3 pg (27.0-31.2); Mean Corpuscular Volume 93.3 fl (80-94); Mean Platelet Volume 10.6 fl (7.4-10.4); Monocytes # 0.3 K/mm3 (0.1-1.0); Monocytes % 2.2 % (1.7-9.3); Neutrophils # 12.3 K/mm3 (1.8-7.8); Neutrophils % 83.9 % (37.0-80.0); Platelet Count 233 K/mm3 (142-424); Red Blood Count 3.42 M/mm3 (4.60-6.20); Red Cell Distribution Width 18.2 % (11.5-17.5); White Blood Count 14.7 K/mm3 (4.8-10.8)
[2021-09-08 10:16] LABS: Potassium 3.8 mmoL/L (3.5-5.1)
[2021-09-08 10:18] LABS: Creatinine Clearance Estimated 37 mL/min (50-200); Estimated Glomerular Filt Rate 23 ml/min (>60); GFR (African American) 28 ML/MIN (>60)
[2021-09-08 10:19] LABS: Carbon Dioxide 17 mmol/L (22.0-30.0); Glucose 314 mg/dl (74-100)
[2021-09-08 10:24] LABS: Blood Urea Nitrogen 101 mg/dl (9-20)
[2021-09-08 10:25] LABS: Anion Gap 16.8 mEq/L (5-15); Chloride 136 mmol/L (98-107); Sodium 166 mmol/L (136-145)
[2021-09-08 10:41] LABS: Eosinophils % 2 % (0-3); Hypochromasia 2+; Lymphocytes % 8 % (10-50); Monocytes % 3 % (2-9); Neutrophils % 84 % (42-76); Platelet Estimate Normal; Total Cells Counted 100
[2021-09-08 10:43] LABS: Anisocytosis 2+
--- NOTE | 2021-09-08 15:45 | PC.NURSE ---
No acute changes noted this shift, patient remains on 2LNC, remains unresponsive to stimuli, NG tube in place with glucerna infusing, minimal GRV noted this shift, given 200ml free water q4h per NG tube, patient has been turned q2h and provided oral care and suctioning, vss.
--- NOTE | 2021-09-08 17:51 | PC.NURSE ---
nursing in to room to check on patient. pt is not breathing and pulseless. CPR initiated and CODE Blue called. Response team in room. ACLS continued. pt remained pulseless. TOD called @ [address] Yuen.
[2021-09-08 17:52] LABS: POC Glucose,Bedside 250 (70-110)
--- NOTE | 2021-09-08 18:03 | PC.NURSE ---
1730 Code Blue initiated at this time, CPR initiated (notified E Luciano TAVAREZ at this time) 1732 epi 1 mg given 1734 pulse check, ASYSTOLE. CPR resumed 1735 Epi 1 mg [address] Yuen. Color change noted on the CO2 detector 1737 Epi 1 mg 1738 Pulse check, ASYSTOLE. CPR resumed 1740 epi 1 mg 1742 pulse check, ASYSTOLE pt TOD 1741 1744 notified E Luciano TAVAREZ that pt had .
--- NOTE | 2021-09-08 18:37 | PC.NURSE ---
Ruled out for NESSA By Monserrat Ochoa
--- NOTE | 2021-09-08 18:49 | P.PN_ITS ---
Critical Care Event Note Code activated: Yes Narrative: This case had a high probability of a clinically significant, sudden, or life threatening deterioration of this patient's condition which required my full and direct attention, intervention and personal management. CODE BLUE called. Patient in asystole with CPR in progress with bag mask ventilations upon my arrival. No medications administered prior to my arrival. Epinephrine dosing started. Intubated. Despite full ACLS measures the patient showed no change in condition, rhythm remained asystole. Pronounced at 5:42 PM. Procedure: Endotracheal Intubation Performed by: KAM BARRAZA Authorized by: KAM BARRAZA Consent: The procedure was performed in an emergent situation. Patient identity confirmed: arm band Indications: cardiac arrest Intubation method: direct Laryngoscope size: glidescope Tube size: 7.5 mm Tube type: cuffed Number of attempts: 1 Cords visualized: yes Post-procedure assessment: chest rise and CO2 detector Breath sounds: equal and absent over the epigastrium Cuff inflated: yes ETT to teeth: 22 cm Tube secured with: ETT perea Critical care time: less than 30 mins [facility] Critical Care Exam Vital signs: Temp Pulse Resp BP Pulse Ox 98.3 F 90 16 166/72 H 98 09/08/21 16:00 09/08/21 16:00 09/08/21 16:00 09/08/21 16:00 09/08/21 16:00
--- NOTE | 2021-09-08 18:51 | HMH.DEATH ---
Pronouncement Note - Date and Time of Date of : 09/08/21 Time of : 17:42 - PCOD Preliminary cause of : Cardiac arrest - Additional Data Confirmation of : no pulse, no respirations, no heart sounds, pupils fixed and dilated Family: not available Attending physician: Devonte Molina MD
--- NOTE | 2021-09-08 18:57 | PC.NURSE ---
contacted [facility] to pickling drum operator body
--- NOTE | 2021-09-08 20:55 | HMH.DCSUM ---
General - General Admission date:: 09/01/21 Discharge date: 09/08/21 HPI HPI: Brought in by ambulance. Reportedly found in the floor laying in stool today. The patient is unable to give any additional history. He appears very weak. Difficult to obtain any answers from him. He does tell me his name but his speech is largely whispered and not intelligible. Fingerstick blood sugar found to be high . Rectal temperature found to be low. Recently discharged from this hospital. Workup included imaging studies FINDINGS: Lungs: No focal airspace disease. Pleural spaces: Unremarkable. No pleural effusion. No pneumothorax. Heart/Mediastinum: Cardiomediastinal silhouette is within normal limits. Bones/joints: Unremarkable. Organs: Cholecystectomy clips. IMPRESSION: No acute cardiopulmonary abnormality. Marked lab aberrations were noted. wbc=17.1 hgb=10.4 abg ph=7.0 k=7 gap=17 fgc=237 creat=2.3 kh=326 acet neg urine ket neg kax=[id number] uge=458 admitted for further eval and treatment he has history of cva markedly non-compliant Hospital Course Hospital Course: 09/02/21 Patient admitted to ICU ROOM 4, PT LETHARGIC, PT STATUS ALSO GIVEN AT THIS TIME OF UNRESPONSIVE STILL AND ONLY PAINFUL STIMULI. head ct done in ed 09/03/21 pt is still only responsive to pain, has remained on 4L NC with O2 sats 94-98%, breathing is more labored this morning with accessory muscle use, otto draining at bedside 09/04/21 pt has continued to only be responsive to pain, accessory muscle use with respirations, remains on 2L NC with sats 94-96%, does spontaneously open and close eyes, not by command. head ct repeated 09/05/21 No change in status, continue critical labs 09/06/21 PATIENT CONTINUES TO BREATHE AGONALLY-- Patient remains unresponsive and GCS of 5. Decerebrate posturing noted on bilateral upper extremities with extinguished sensation noted more in right upper. 09/07/21 Patient is unresponsive to verbal/tactile/painful stimuli and pupils are nonreactive to light. Current oxygenation 93% on 2 L per nasal cannula. Echocardiogram revealed aortic valve vegetation was discussed with cardiology, no further intervention at this moment. He is being treated with vancomycin. Call was placed to [facility], his location of residence, informed his last year, unable to locate possibly brother, Zeeshan gillespie states they have no family or friends on the record and no visualization of any visitors. 09/08/21 No acute changes, patient remains on 2LNC, remains unresponsive to stimuli, NG tube in place with glucerna infusing. 09/08/21 1730 coded, 1742 time of . Laboratory Tests 09/01/21 09/01/21 09/01/21 11:33 11:58 12:28 WBC RBC Hgb Hct MCV MCH MCHC RDW Plt Count MPV Neut % (Auto) Lymph % (Auto) [place] % (Auto) Eos % (Auto) Baso % (Auto) Neut # (Auto) Lymph # (Auto) [place] # (Auto) Eos # (Auto) Baso # (Auto) Total Counted Neutrophils % (Manual) Band Neutrophils % Lymphocytes % (Manual) Monocytes % (Manual) Eosinophils % (Manual) Basophils % (Manual) Nucleated RBCs Platelet Estimate RBC Morphology Hypochromasia Poikilocytosis Anisocytosis Macrocytosis Spherocytes Nadeem Cells PT INR Fibrinogen D-Dimer Specimen Source Left radial O2 % 3l ABG pH 7.20 L* ABG pCO2 38.4 ABG pO2 41.4 L ABG HCO3 14.7 L ABG Total CO2 15.9 L ABG O2 Saturation 63 L* ABG Base Excess -13.3 L Mihai Test Patient unable ABG Lactate Sodium Potassium Chloride Carbon Dioxide Anion Gap BUN Creatinine Estimated Creat Clear Estimated GFR Est GFR ( Amer) Glucose POC Glucose Lactate Calcium Phosphorus Magnesium Total Bilirubin Direct Bilirubin Conjugated Bilirub
[2021-09-09 10:57] LABS: POC Glucose,Bedside 260 (70-110)
[2021-09-09 10:57] LABS: POC Glucose,Bedside 313 (70-110)
[2021-09-09 10:57] LABS: POC Glucose,Bedside 253 (70-110)
[2021-09-09 10:57] LABS: POC Glucose,Bedside 273 (70-110)
[2021-09-09 10:57] LABS: POC Glucose,Bedside 181 (70-110)
[2021-09-09 14:38] LABS: Levetiracetam (Keppra) 35.1 ug/mL (10.0-40.0)
== END 2021-09-08 20:08 | disposition expired | DRG 64 ==
LOC: ER 16:31 → 2ND 17:00 → ICU 09-02 07:38 → 2ND 09-08 16:01
PROVIDERS: Emergency Medicine; Internal Medicine Pulmonary Disease; Nurse Practitioner Family; Admitting Provider Family Medicine; Emergency Provider Emergency Medicine; Visit Provider Family Medicine
DX: I63.9 Cerebral infarction, unspecified (principal); J96.01 Acute respiratory failure with hypoxia; N17.9 Acute kidney failure, unspecified; I42.9 Cardiomyopathy, unspecified; I38 Endocarditis, valve unspecified; G93.40 Encephalopathy, unspecified; K92.1 Melena; R78.81 Bacteremia; N13.30 Unspecified hydronephrosis; E87.5 Hyperkalemia; I46.9 Cardiac arrest, cause unspecified; E86.0 Dehydration; E78.5 Hyperlipidemia, unspecified; Z86.73 Personal history of transient ischemic attack (TIA), and cerebral infarction without residual deficits; Z87.891 Personal history of nicotine dependence; I11.0 Hypertensive heart disease with heart failure; I50.9 Heart failure, unspecified; Z91.19 Patient's noncompliance with other medical treatment and regimen; R68.0 Hypothermia, not associated with low environmental temperature; Z79.4 Long term (current) use of insulin; G40.909 Epilepsy, unspecified, not intractable, without status epilepticus; D64.9 Anemia, unspecified; R79.89 Other specified abnormal findings of blood chemistry; R79.81 Abnormal blood-gas level; F03.90 Unspecified dementia, unspecified severity, without behavioral disturbance, psychotic disturbance, mood disturbance, and anxiety; Z20.822 Contact with and (suspected) exposure to COVID-19; A49.02 Methicillin resistant Staphylococcus aureus infection, unspecified site; E11.65 Type 2 diabetes mellitus with hyperglycemia
CPT/HCPCS: 31500; 36415; 70450; 71045; 74176; 80048; 80053; 80074; 80076; 80177; 80202; 80305; 80329; 81001; 82009; 82140; 82550; 82553; 82565; 82803; 82962; 83605; 83735; 83880; 84100; 84484; 84520; 85007; 85014; 85018; 85025; 85048; 85049; 85378; 85384; 85610; 86140; 86850; 87040; 87077; 87186; 93005; 93306; 94640; 94760; 95816; 95819; 96365; 96367; 96375; 99285; C9803; J1953; J3370; J7060; P9016; U0003; U0005